=== PATIENT | male | born 1965 | race American Indian/Alaskan Native ===

== ENCOUNTER 2017-11-10 08:45 | Inpatient (IN) | payer MEDICAID ==
[2017-11-10 09:50] LABS: Basophils # (Auto) 0.1 K/mm3 (0.0-0.1); Eosinophils # (Auto) 0.3 K/mm3 (0.0-0.4); Eosinophils % (Auto) 4.6 % (0.0-4.3); Hematocrit 40.9 % (35.5-45.6); Hemoglobin 13.6 gm/dl (11.8-15.2); Lymphocytes # (Auto) 2.6 K/mm3 (1.2-5.4); Lymphocytes % (Auto) 42.5 % (13.4-35.0); Mean Corpuscular HGB Conc 33 % (32-34); Mean Corpuscular Hemoglobin 32 pg (28-32); Mean Corpuscular Volume 96 fl (84-94); Monocytes # (Auto) 0.3 K/mm3 (0.0-0.8); Monocytes % (Auto) 4.4 % (0.0-7.3); Platelet Count 311 K/mm3 (140-440); Red Blood Count 4.26 M/mm3 (3.65-5.03); Red Cell Distribution Width 13.6 % (13.2-15.2)
[2017-11-10 10:02] LABS: BUN/Creatinine Ratio 12; Blood Urea Nitrogen 12 mg/dL (9-20); Calcium 8.2 mg/dL (8.4-10.2); Hemolysis Index 8
[2017-11-10 10:06] LABS: INR 0.98 (0.87-1.13); Partial Thromboplastin Time 28.5 Sec. (24.2-36.6)
--- NOTE | 2017-11-10 10:51 | Cat Scan Report ---
CT HEAD WITHOUT CONTRAST: HISTORY: Neurological deficit. TECHNIQUE: Sequential 2.5mm CT images. COMPARISON: 05/17/[address] head. FINDINGS: 9 mm chronic lacunar infarct is noted in the right sherry on image 17. 10 mm chronic focal infarct in the left middle cerebellar peduncle on image 17. There are minimal nonspecific chronic white matter changes in the frontal lobes. Incidental bilateral basal ganglia calcifications are identified. No evidence for hemorrhage, mass or large area of acute ischemia on noncontrast CT. The irvin-white interface is well defined. Normal ventricular size. No extra-axial fluid collection. The calvarium and visualized sinuses/mastoid air cells are within normal limits. IMPRESSION: Chronic focal infarcts in the posterior fossa as described. No acute intracranial process is identified.
--- NOTE | 2017-11-10 11:50 | Emergency Department Report ---
ED Neuro Deficit HPI - General Chief Complaint: Neuro Symptoms/Deficit Stated Complaint: STROKE ISSUES Time Seen by Provider: 11/10/17 11:23 Source: patient Mode of arrival: Ambulatory Limitations: No Limitations - History of Present Illness Initial Comments: Patient is 52 years old male history of hypertension diabetes and hyperlipidemia presented with 9 hours history of difficulty speaking and both upper and lower extremity weakness, patient stated that he has been having double vision and difficulty walking straight. Patient denied any focal neurological weakness or numbness. No urinary or bladder incontinence. -: This morning Location: speech Presenting Symptoms: Present: Weak/Paralyzed One Side, Blurred/Loss of Vision, Unable to Speak Clearly History of same: No Place: home Severity: moderate On Anticoagulants: No Associated Symptoms: denies other symptoms, vertigo, weakness. denies: confusion, chest pain, cough, diaphoresis, fever/chills, headaches, loss of appetite, malise, nausea/vomiting, seizures, shortness of breath, syncope - Related Data Home Medications: Home Medications Medication Instructions Recorded Confirmed Last Taken Aspirin [Aspirin TAB] 325 mg PO QDAY 11/10/17 11/10/17 Unknown Allergies/Adverse Reactions: Allergies Allergy/AdvReac Type Severity Reaction Status Date / Time No Known Allergies Allergy Unverified 09/03/16 21:34 ED Review of Systems ROS: Stated complaint: STROKE ISSUES Other details as noted in HPI Comment: All other systems reviewed and negative Constitutional: denies: chills, fever Respiratory: denies: cough, orthopnea, shortness of breath, SOB with exertion Cardiovascular: denies: chest pain, palpitations, dyspnea on exertion, orthopnea , edema, syncope, paroxysmal nocturnal dyspnea Gastrointestinal: denies: abdominal pain, nausea, vomiting, diarrhea Genitourinary: denies: urgency, dysuria, frequency, hematuria Neurological: weakness, numbness, paresthesias, vertigo, other (double vision, and unsteady gait). denies: headache, confusion ED Past Medical Hx - Past Medical History Hx Hypertension: Yes Hx Diabetes: Yes - Surgical History Additional Surgical History: RIGHT LEG SURGERY FROM [facility] - Social History Smoking Status: Current Every Day Smoker Substance Use Type: None - Medications Home Medications: Home Medications Medication Instructions Recorded Confirmed Last Taken Type Aspirin [Aspirin TAB] 325 mg PO QDAY 11/10/17 11/10/17 Unknown History ED Neuro Physical Exam - General Limitations: No Limitations General appearance: alert, in no apparent distress Suspected Stroke: Yes - Head Head exam: Present: atraumatic, normocephalic, normal inspection - Eye Eye exam: Present: normal appearance, PERRL - ENT ENT exam: Present: normal exam, normal orophraynx, mucous membranes moist - Neck Neck exam: Present: normal inspection, full ROM. Absent: tenderness, meningismus, lymphadenopathy, thyromegaly - Respiratory Respiratory exam: Present: normal lung sounds bilaterally. Absent: respiratory distress, wheezes, rales, rhonchi, stridor, chest wall tenderness, accessory muscle use, decreased breath sounds, prolonged expiratory - Cardiovascular Cardiovascular Exam: Present: regular rate, normal rhythm, normal heart sounds - GI/Abdominal GI/Abdominal exam: Present: soft, normal bowel sounds. Absent: distended, tenderness, guarding, rebound, rigid, organomegaly, mass, bruit, pulsatile mass - Extremities Exam Extremities exam: Present: normal inspection, full ROM, normal capillary refill - Back Exam Back exam: Present: normal inspection, full ROM. Absent: tenderness, CVA tenderness (R), CVA tenderness (L), muscle spasm, paraspinal tenderness, vertebral tenderness - Neurological Exam Neurological exam: Present: alert, oriented X3, CN II-XII intact, abnormal gait , reflexes normal. Absent: altered, motor sensory deficit - NIHSS Assessment Interval: Baseline 1a. Level of Consciousness: alert 1b. LOC Questions: answers correctly 1c. LOC Commands: performs tasks correctly 2. Best Gaze: normal 3. Visual: no visual loss 4. Facial Palsy: normal symmetrical movement 5b. Motor Arm Right: no drift 5a. Motor Arm Left: no drift 6a. Motor Leg Left: no drift 6b. Motor Leg Right: no drift 7. Limb Ataxia: present 2 limbs 8. Sensory: mild/moderate sensory loss 9. Best Language: mild/moderate aphasia 10. Dysarthria: mild/moderate dysarthria 11. Extinction/Inattention: no abnormality Total Score: 5 Stroke Severity: Moderate Stroke - Skin Skin exam: Present: warm, intact, normal color ED Course Vital Signs 11/10/17 11/10/17 11/10/17 09:06 12:35 12:37 Temperature 97.8 F Pulse Rate 62 57 L 57 L Respiratory 20 17 Rate Blood Pressure 151/89 Blood Pressure 174/92 [Left] O2 Sat by Pulse 100 98 Oximetry 11/10/17 11/10/17 15:35 16:53 Temperature Pulse Rate 54 L 59 L Respiratory 16 16 Rate Blood Pressure Blood Pressure 126/98 156/91 [Left] O2 Sat by Pulse 100 95 Oximetry - Lab Data Result diagrams: 11/10/17 09:27 11/10/17 09:27 Lab Results 11/10/17 11/10/17 11/10/17 Range/Units 09:27 09:27 09:27 WBC 6.1 (4.5-11.0) K/mm3 RBC 4.26 (3.65-5.03) M/mm3 Hgb 13.6 (11.8-15.2) gm/dl Hct 40.9 (35.5-45.6) % MCV 96 H (84-94) fl MCH 32 (28-32) pg MCHC 33 (32-34) % RDW 13.6 (13.2-15.2) % Plt Count 311 (140-440) K/mm3 Lymph % (Auto) 42.5 H (13.4-35.0) % Atlantic % (Auto) 4.4 (0.0-7.3) % Eos % (Auto) 4.6 H (0.0-4.3) % Baso % (Auto) 1.0 (0.0-1.8) % Lymph # 2.6 (1.2-5.4) K/mm3 Atlantic # 0.3 (0.0-0.8) K/mm3 Eos # 0.3 (0.0-0.4) K/mm3 Baso # 0.1 (0.0-0.1) K/mm3 Seg Neutrophils % 47.5 (40.0-70.0) % Seg Neutrophils # 2.9 (1.8-7.7) K/mm3 PT 13.5 (12.2-14.9) Sec. INR 0.98 (0.87-1.13) APTT 28.5 (24.2-36.6) Sec. Thrombin Time (15.1-19.6) Sec. Sodium 140 (137-145) mmol/L Potassium 3.3 L (3.6-5.0) mmol/L Chloride 101.8 (98-107) mmol/L Carbon Dioxide 23 (22-30) mmol/L Anion Gap 19 mmol/L BUN 12 (9-20) mg/dL Creatinine 1.0 (0.8-1.5) mg/dL Estimated GFR > 60 ml/min BUN/Creatinine Ratio 12 % Glucose 132 H (75-100) mg/dL Calcium 8.2 L (8.4-10.2) mg/dL Troponin T < 0.010 (0.00-0.029) ng/mL 11/10/17 Range/Units 09:27 WBC (4.5-11.0) K/mm3 RBC (3.65-5.03) M/mm3 Hgb (11.8-15.2) gm/dl Hct (35.5-45.6) % MCV (84-94) fl MCH (28-32) pg MCHC (32-34) % RDW (13.2-15.2) % Plt Count (140-440) K/mm3 Lymph % (Auto) (13.4-35.0) % Atlantic % (Auto) (0.0-7.3) % Eos % (Auto) (0.0-4.3) % Baso % (Auto) (0.0-1.8) % Lymph # (1.2-5.4) K/mm3 [place] # (0.0-0.8) K/mm3 Eos # (0.0-0.4) K/mm3 Baso # (0.0-0.1) K/mm3 Seg Neutrophils % (40.0-70.0) % Seg Neutrophils # (1.8-7.7) K/mm3 PT (12.2-14.9) Sec. INR (0.87-1.13) APTT (24.2-36.6) Sec. Thrombin Time 15.7 (15.1-19.6) Sec. Sodium (137-145) mmol/L Potassium (3.6-5.0) mmol/L Chloride (98-107) mmol/L Carbon Dioxide (22-30) mmol/L Anion Gap mmol/L BUN (9-20) mg/dL Creatinine (0.8-1.5) mg/dL Estimated GFR ml/min BUN/Creatinine Ratio % Glucose (75-100) mg/dL Calcium (8.4-10.2) mg/dL Troponin T (0.00-0.029) ng/mL - EKG Data -: EKG Interpreted by Oh EKG shows normal: sinus rhythm Rate: normal Interpretation: no acute changes - Radiology Data Radiology results: report reviewed Referring Physician: JULIAN MCCARTHY Patient Name: JOS ZARATE Date of : 1965 Sex: Male Report Date: 2017-11-10 Report Status: Finalized Findings [address] [address] Cat Scan Report Signed Patient: JOS ZARATE MR#: [id number] : 1965 Acct:[id number] Age/Sex: 52 / M ADM Date: 11/10/17 Loc: ED Attending Dr: Ordering Physician: JULIAN MCCARTHY MD Date of Service: 11/10/17 Procedure(s): CT head/brain wo con Accession Number(s): [id number] cc: JULIAN MCCARTHY MD CT HEAD WITHOUT CONTRAST: HISTORY: Neurological deficit. TECHNIQUE: Sequential 2.5mm CT images. COMPARISON: 05/17/[address] head. FINDINGS: 9 mm chronic lacunar infarct is noted in the right sherry on image 17. 10 mm chronic focal infarct in the left middle cerebellar peduncle on image 17. There are minimal nonspecific chronic white matter changes in the frontal lobes. Incidental bilateral basal ganglia calcifications are identified. No evidence for hemorrhage, mass or large area of acute ischemia on noncontrast CT. The irvin-white interface is well defined. Normal ventricular size. No extra-axial fluid collection. The calvarium and visualized sinuses/mastoid air cells are within normal limits. IMPRESSION: Chronic focal infarcts in the posterior fossa as described. No acute intracranial process is identified. Transcribed By: TTR Dictated By: AMADEO MCFARLAND JR, MD Electronically Authenticated By: AMADEO MCFARLAND JR, MD Signed Date/Time: 11/10/17 1045 DD/ 1042 TD/TT: 11/10/17 1045 - Medical Decision Making Discussed with Dr. Bass, I presented the patient to him, he agreed to admit to his service. - Thrombolytic Inclusion/Exclusion Thrombolytic Exclusion Criteria: Onset of Symptoms Unknown Critical care attestation.: If time is entered above; I have spent that time in minutes in the direct care of this critically ill patient, excluding procedure time. ED Disposition Clinical Impression: Cerebrovascular accident Disposition: DC-09 OP ADMIT IP TO THIS HOSP Is pt being admited?: Yes Condition: Stable
[2017-11-10] MEDS ORDERED: BABY ASPIRIN PO ONE (11:55)
[2017-11-10] MEDS: PERCOCET 5/325 PO PRN ×2 (14:15→21:43)
--- NOTE | 2017-11-10 23:50 | Event Note ---
Date: 11/10/17 See dictated H/p in reports TIA versus stroke HTN T2DM HLD Nicotine dependence
[2017-11-11] MEDS ORDERED: AMBIEN PO PRN (02:34)
[2017-11-11] MEDS ORDERED: TYLENOL PO PRN (02:34)
[2017-11-11] MEDS ORDERED: ZOFRAN IV PRN (02:34)
[2017-11-11] MEDS ORDERED: DULCOLAX PR PRN (02:34)
[2017-11-11] MEDS ORDERED: MILK OF MAGNESIA PO PRN (02:34)
[2017-11-11] MEDS ORDERED: DILAUDID IV PRN (02:34)
[2017-11-11] MEDS ORDERED: SODIUM CHLORIDE FLUSH SYRINGE 10 ML IV PRN (02:36)
[2017-11-11] MEDS ORDERED: NACL 0.9% 1000 ML 1,000 ML IV SCH (03:00)
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
[2017-11-11] MEDS: NOVOLOG SUB-Q SCH ×4 (08:00→21:47)
--- NOTE | 2017-11-11 10:08 | Magnetic Resonance Report ---
MRI scan of brain: Technique: Multiplanar lumbar testicles images were obtained without contrast injection. History: Stroke. Findings: 1 cm diameter circumscribed focal area of restricted diffusion in the left basal ganglia with smaller 2 mm focal area of restricted diffusion in the adjacent region. No evidence of acute hemorrhage. Periventricular area of hyperintensity without corresponding restricted diffusion. No extra-axial fluid collection. Normal brainstem and cerebellum. Impression: Focal areas of acute ischemia left basal ganglia. Small vessel his kidney changes.
--- NOTE | 2017-11-11 10:10 | Magnetic Resonance Report ---
MRA of brain: History: Stroke. Findings: The vessels of tetlin of Goldberg are widely patent. No stenosis occlusion dissection or aneurysm. Codominant vertebral arteries with normal basilar artery. Hypoplastic posterior communicating arteries. Impression: Essentially negative MRA of brain.
[2017-11-11] MEDS: ASPIRIN PO SCH (11:38)
[2017-11-11] MEDS: COZAAR PO SCH (11:38)
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
[2017-11-11 15:43] LABS: Free T4 (Free Thyroxine) 1.14 ng/dL (0.76-1.46)
[2017-11-11] MEDS ORDERED: HABITROL TD SCH (16:00)
--- NOTE | 2017-11-11 17:29 | Progress Note ---
Assessment and Plan Assessment and plan: Patient is a 52-year-old man with history of hypertension, diabetes mellitus2, dyslipidemia and tobacco dependency who presents with difficulty speech, impaired ambulation and double vision CT head without contrast reported as chronic ischemic infarct posterior fossa, no acute finding MRI brain reported as Focal areas of acute ischemia left basal ganglia. Small vessel ischemic changes. MRA brain read as "Essentially negative MRA of brain" Transthoracic echocardiogram reported as no ventricular chamber size is normal, mobile left ventricular wall motion and contractility are within normal limits, estimated ejection fraction is 60-65%, right atrium is mildly dilated, no atrial septal defect demonstrated by agitated saline contrast, mild TR -Acute ischemic stroke: Treat with aspirin and statins, await PT/OT evaluation, neurology is following -Hypertension urgency related to stroke: premissive within limits, prn IV Hydralazine -Tobacco dependency: Counseled on stopping, order nicotine patch -Uncontrolled type 2 diabetes mellitus: Sliding scale, ADA diet and counseled -Hypokalemia: Replace and recheck in a.m. -DVT prophylaxis: Subcutaneous Lovenox -GI prophylaxis: PPI Full code History Interval history: Patient was seen and examined. Follow-up on current diagnosis of difficulty walking. Overnight uneventful. Patient denies any chest pain, shortness breath , nausea/vomiting or severe headaches. Imaging, nursing note, chart, labs and old chart reviewed. Discussed with patient. Patient went outside to smoke a cigarette, education and counseling done Hospitalist Physical - Physical exam Narrative exam: GEN: WDWN, NAD, AWAKE, ALERT, ORIENTATED 3 HEENT: NCAT, EOMI, PERRL, OP Clear NECK: supple, no adenopathy, no thyromegaly, no JVD CVS/HEART: RRR, NORMAL S1S2, NO JVD, pulses present bilaterally CHEST/LUNGS: CTA B, Symmetrical chest expansion, good air entry bilaterally GI/Abdomen: soft, NTND, good bowel sounds, no guarding or rebound /Bladder: no suprapubic tenderness, no CVA or paraspinal tenderness EXT/Skin: no c/c/e, no obvious rash Neuro: CN 2-12 grossly intact, unsteady gait: I educated patient on the safety and always calling before he gets up, he needs to be assisted walking, patient voiced understanding and agreement. Psych: calm - Constitutional Vitals: Temp Pulse Resp BP Pulse Ox 97.8 F 57 L 20 173/91 98 11/11/17 08:28 11/11/17 11:49 11/11/17 08:28 11/11/17 11:49 11/11/17 11:49 Results - Labs CBC & Chem 7: 11/10/17 09:27 11/10/17 09:27 Labs: Laboratory Last Values WBC 6.1 K/mm3 (4.5-11.0) 11/10/17 09: RBC 4.26 M/mm3 (3.65-5.03) 11/10/17 09: Hgb 13.6 gm/dl (11.8-15.2) 11/10/17: Hct 40.9 % (35.5-45.6) 11/10/17: MCV 96 fl (84-94) H 11/10/17 09: MCH 32 pg (28-32) 11/10/17: MCHC 33 % (32-34) 11/10/17: RDW 13.6 % (13.2-15.2) 11/10/17: Plt Count 311 K/mm3 (140-440) 11/10/17 09: Lymph % (Auto) 42.5 % (13.4-35.0) H 11/10/17: [place] % (Auto) 4.4 % (0.0-7.3) 11/10/17: Eos % (Auto) 4.6 % (0.0-4.3) H 11/10/17: Baso % (Auto) 1.0 % (0.0-1.8) 11/10/17: Lymph # 2.6 K/mm3 (1.2-5.4) 11/10/17: [place] # 0.3 K/mm3 (0.0-0.8) 11/10/17: Eos # 0.3 K/mm3 (0.0-0.4) 11/10/17 09: Baso # 0.1 K/mm3 (0.0-0.1) 11/10/17: Seg Neutrophils % 47.5 % (40.0-70.0) 11/10/17:27 Seg Neutrophils # 2.9 K/mm3 (1.8-7.7) 11/10/17 09:27 PT 13.5 Sec. (12.2-14.9) 11/10/17 09:27 INR 0.98 (0.87-1.13) 11/10/17 09: APTT 28.5 Sec. (24.2-36.6) 11/10/17 09: Thrombin Time 15.7 Sec. (15.1-19.6) 11/10/17 09:27 Sodium 140 mmol/L (137-145) 11/10/17 09: Potassium 3.3 mmol/L (3.6-5.0) L 11/10/17 09: Chloride 101.8 mmol/L (98-107) 11/10/17 09: Carbon Dioxide 23 mmol/L (22-30) 11/10/17 09: Anion Gap 19 mmol/L 11/10/17 09: BUN 12 mg/dL (9-20) 11/10/17 09: Creatinine 1.0 mg/dL (0.8-1.5) 11/10/17 09: Estimated GFR > 60 ml/min 11/10/17 09: BUN/Creatinine Ratio 12 % 11/10/17 09: Glucose 132 mg/dL (75-100) H 11/10/17 09:27 POC Glucose 210 (70-105) H 11/11/17 16:32 Calcium 8.2 mg/dL (8.4-10.2) L 11/10/17 09:27 Troponin T < 0.010 ng/mL (0.00-0.029) 11/10/17 09:27 Vitamin B12 741.5 pg/mL (211-911) 11/11/17 14:48 TSH 1.290 mlU/mL (0.270-4.200) 11/11/17 14:48 Free T4 1.14 ng/dL (0.76-1.46) 11/11/17 14:48
[2017-11-11] MEDS: PERCOCET 5/325 PO PRN (17:31)
[2017-11-11] MEDS ORDERED: APRESOLINE IV PRN (17:34)
[2017-11-11] MEDS: MORPHINE IV PRN (19:56)
[2017-11-11] MEDS ORDERED: LOVENOX SUB-Q SCH (22:00)
[2017-11-12 06:38] LABS: Basophils # (Auto) 0.1 K/mm3 (0.0-0.1); Basophils % (Auto) 1.4 % (0.0-1.8); Eosinophils # (Auto) 0.3 K/mm3 (0.0-0.4); Eosinophils % (Auto) 4.6 % (0.0-4.3); Hematocrit 38.7 % (35.5-45.6); Hemoglobin 12.9 gm/dl (11.8-15.2); Lymphocytes # (Auto) 3.2 K/mm3 (1.2-5.4); Lymphocytes % (Auto) 49.6 % (13.4-35.0); Mean Corpuscular HGB Conc 33 % (32-34); Mean Corpuscular Hemoglobin 32 pg (28-32); Mean Corpuscular Volume 95 fl (84-94); Monocytes # (Auto) 0.4 K/mm3 (0.0-0.8); Monocytes % (Auto) 6.1 % (0.0-7.3); Platelet Count 294 K/mm3 (140-440); Red Blood Count 4.08 M/mm3 (3.65-5.03); Red Cell Distribution Width 13.4 % (13.2-15.2)
[2017-11-12 07:00] LABS: Alanine Aminotransferase 8 units/L (7-56); Albumin 3.3 g/dL (3.9-5); BUN/Creatinine Ratio 12; Blood Urea Nitrogen 11 mg/dL (9-20); Calcium 8.1 mg/dL (8.4-10.2); Hemolysis Index 14
[2017-11-12 07:25] LABS: HDL Cholesterol 30 mg/dL (40-59); LDL Cholesterol,Direct 94 mg/dL (50-130)
[2017-11-12] MEDS: NOVOLOG SUB-Q SCH (08:20)
[2017-11-12 08:47] VITALS: BP 147/82
[2017-11-12] MEDS: ASPIRIN PO SCH (09:16)
[2017-11-12] MEDS: COZAAR PO SCH (09:16)
[2017-11-12] MEDS ORDERED: PROTONIX PO SCH (10:00)
[2017-11-12] MEDS: MORPHINE IV PRN (10:17)
[2017-11-12] MEDS ORDERED: BABY ASPIRIN PO SCH (11:00)
[2017-11-12] MEDS ORDERED: PLAVIX PO SCH (11:00)
--- NOTE | 2017-11-12 11:40 | Discharge Summary ---
Providers - Providers Date of Admission: 11/10/17 12:03 Attending physician: ELIEL SALCIDO MD 11/11/17 02:34 Consult to Physician [CONS] Routine Consulting Provider: KAM VILLASENOR Reason For Exam: CVA Place consult to:: neuro Notified:: y Comment:: added to list 11/11/17 02:37 Occupational Therapy Evaluate and Treat [CONS] Routine Comment: Reason For Exam: Neuro deficits Physical Therapy Evaluation and Treat [CONS] Routine Comment: Reason For Exam: Neuro deficits 11/11/17 12:16 Consult to Case Management [CONS] Routine Services Needed at Discharge: Other Notified:: GAS PROVER Additional Physician Instructions: Patient requests help from social service for financial assistance. Primary care physician: GEOFFREY JIMÉNEZ Hospitalization Condition: Stable Hospital course: Patient is a 52-year-old man with history of hypertension, diabetes mellitus2, dyslipidemia and tobacco dependency who presents with difficulty speech, impaired ambulation and double vision CT head without contrast reported as chronic ischemic infarct posterior fossa, no acute finding MRI brain reported as Focal areas of acute ischemia left basal ganglia. Small vessel ischemic changes. MRA brain read as "Essentially negative MRA of brain" Transthoracic echocardiogram reported as no ventricular chamber size is normal, mobile left ventricular wall motion and contractility are within normal limits, estimated ejection fraction is 60-65%, right atrium is mildly dilated, no atrial septal defect demonstrated by agitated saline contrast, mild TR -Acute ischemic stroke: Treat with aspirin and statins, await PT/OT evaluation, neurology is following -Hypertension urgency related to stroke: premissive within limits, prn IV Hydralazine -Tobacco dependency: Counseled on stopping, order nicotine patch -Uncontrolled type 2 diabetes mellitus: Sliding scale, ADA diet and counseled -Hypokalemia: Replace and recheck in a.m. -DVT prophylaxis: Subcutaneous Lovenox -GI prophylaxis: PPI Full code per patient symptoms started 2weeks ago and not 9 hours as he stated. he knew it could be stroke based on google and started on full dose ASA. Will continue on this as he has not failed asa. will add BP control and Cholestrol control. Recommend outpatient PCP advised about secondary prevention Smoking cessation. Disposition: DC-30 STILL A PATIENT Core Measure Documentation - Palliative Care Palliative Care/ Comfort Measures: Not Applicable - Core Measures Any of the following diagnoses?: stroke - VTE Discharge Requirements Deep Vein Thrombosis/Pulmonary Embolism Present on Admission: No - Stroke Discharge Requirements Statin for LDL = or >70 mg/dl on DC: Yes Anticoag for atrial fib/atrial flutter: Not Applicable Antithrombotic for ischemic stroke: Yes Exam - Constitutional Vitals: Temp Pulse Resp BP Pulse Ox 97.9 F 60 18 147/82 93 11/12/17 08:46 11/12/17 09:16 11/12/17 08:46 11/12/17 09:16 11/12/17 08:46 Plan Activity: advance as tolerated, fall precautions Diet: low fat Special Instructions: record daily weights, record daily BP diary, record blood sugar diary, smoking cessation Follow up with: GEOFFREY JIMÉNEZ JR, MD [Primary Care Provider] - 3-5 Days Prescriptions: AtorvaSTATin [Lipitor] 40 mg PO QHS #30 tablet Nicotine [Habitrol] 21 mg TD Q24H #14 patch Valsartan [Diovan] 160 mg PO QDAY #30 tablet
== END 2017-11-12 12:33 | disposition home or self-care (01) | DRG 66 ==
LOC: ED 08:45 → 4A 12:03
PROVIDERS: ADMIT Internal Medicine; ATTEND Internal Medicine
DX: I63.8 Other cerebral infarction (principal); I10 Essential (primary) hypertension; E11.9 Type 2 diabetes mellitus without complications; E78.5 Hyperlipidemia, unspecified; E87.6 Hypokalemia; F17.200 Nicotine dependence, unspecified, uncomplicated; I16.0 Hypertensive urgency; F17.210 Nicotine dependence, cigarettes, uncomplicated; Z82.49 Family history of ischemic heart disease and other diseases of the circulatory system; Z79.82 Long term (current) use of aspirin; Z71.6 Tobacco abuse counseling
CPT/HCPCS: 36415; 70450; 70544; 70551; 80048; 80053; 80061; 82607; 82652; 82962; 83036; 84439; 84443; 84484; 85025; 85610; 85670; 85730; 93005; 93010; 93306; 93880; 99406; A9270-GY; J1650; J1815; J2270

== ENCOUNTER 2018-05-02 21:22 | Inpatient (IN) | payer MEDICAID ==
--- NOTE | 2018-05-02 22:40 | Cat Scan Report ---
FINAL REPORT PROCEDURE: CT HEAD/BRAIN WO CON TECHNIQUE: Computerized tomography of the head was performed without contrast material. HISTORY: neuro deficits < 6hrs or sx present upon awakening COMPARISON: No prior studies are available for comparison. FINDINGS: Skull and scalp: Normal. Paranasal sinuses: Normal. Ventricles and subarachnoid spaces: Normal. Cerebrum: An irregular ill-defined hypo density is noted involving left frontal deep white matter measuring about 1.0 x 0.6 centimeters. Benign-appearing calcifications are noted involving bilateral basal ganglia.. Cerebellum and brainstem: No evidence of hemorrhage, acute infarction or mass. Vasculature: Atherosclerotic calcification is noted involving bilateral vertebral and internal carotid arteries.. Comments: None. IMPRESSION: 1.0 x 0.6 centimeter hypodense lesion involving the deep white matter of left frontal lobe most likely represents a subacute versus chronic infarct. No acute intracranial hemorrhage.
[2018-05-02 22:53] LABS: Basophils # (Auto) 0.1 K/mm3 (0.0-0.1); Basophils % (Auto) 0.7 % (0.0-1.8); Eosinophils # (Auto) 0.2 K/mm3 (0.0-0.4); Eosinophils % (Auto) 2.2 % (0.0-4.3); Hemoglobin 13.7 gm/dl (11.8-15.2); Lymphocytes # (Auto) 3.7 K/mm3 (1.2-5.4); Lymphocytes % (Auto) 36.6 % (13.4-35.0); Mean Corpuscular HGB Conc 34 % (32-34); Mean Corpuscular Hemoglobin 33 pg (28-32); Mean Corpuscular Volume 96 fl (84-94); Monocytes # (Auto) 0.5 K/mm3 (0.0-0.8); Monocytes % (Auto) 4.7 % (0.0-7.3); Platelet Count 378 K/mm3 (140-440); Red Blood Count 4.16 M/mm3 (3.65-5.03); Red Cell Distribution Width 14.4 % (13.2-15.2)
[2018-05-02 23:11] LABS: BUN/Creatinine Ratio 12; Blood Urea Nitrogen 11 mg/dL (9-20); Calcium 9.2 mg/dL (8.4-10.2); Hemolysis Index 4
[2018-05-02 23:13] LABS: INR 0.95 (0.87-1.13)
[2018-05-02 23:14] LABS: Partial Thromboplastin Time 30.5 Sec. (24.2-36.6)
[2018-05-02] MEDS ORDERED: SUBLIMAZE IV ONE (23:21)
[2018-05-02] MEDS ORDERED: BENADRYL IV ONE (23:21)
[2018-05-02] MEDS ORDERED: APRESOLINE IV ONE (23:21)
[2018-05-02] MEDS ORDERED: BABY ASPIRIN PO ONE (23:24)
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
[2018-05-03] MEDS ORDERED: APRESOLINE IV PRN (02:28)
[2018-05-03] MEDS ORDERED: ZOFRAN IV PRN (02:28)
[2018-05-03] MEDS ORDERED: DULCOLAX PR PRN (02:28)
[2018-05-03] MEDS ORDERED: SODIUM CHLORIDE FLUSH SYRINGE 10 ML IV PRN (02:28)
[2018-05-03] MEDS ORDERED: MILK OF MAGNESIA PO PRN (02:28)
--- NOTE | 2018-05-03 02:47 | History and Physical Report ---
History of Present Illness Date of examination: 05/03/18 History of present illness: 52-year-old man with history of hypertension, diabetes, CVA comes to the emergency room complaining of paresthesia of the right side that started 3 days ago. Speech became slurred yesterday Review of systems Constitutional: no weight loss, chills, fever Ears, eyes, nose, mouth and throat: no nasal congestion, no nasal discharge, no sinus pressure, no vision change, no red eye. Neck: No neck pain or rigidity. Cardiovascular: no chest pain Respiratory: no cough Gastrointestinal: no abdominal pain hematochezia Genitourinary : no frequency , no hematuria Musculoskeletal: no joint swelling or muscle ache Integumentary: no rash, no pruritis Neurological: no parathesias, no numbness, no focal weakness Endocrine: no cold or heat intolerance, no polyuria or polydipsia Hematologic/Lymphatic: no easy bruising, no easy bleeding, no gland swelling Allergic/Immunologic: no urticaria, no angioedema. PAST MEDICAL HISTORY:hypertension, diabetes, CVA PAST SURGICAL HISTORY: Right leg SOCIAL HISTORY: No drugs, tobacco, alcohol FAMILY HISTORY: Hypertension Medications and Allergies Allergies Allergy/AdvReac Type Severity Reaction Status Date / Time No Known Allergies Allergy Unverified 09/03/16 21:34 Home Medications Medication Instructions Recorded Confirmed Last Taken Type Aspirin [Aspirin TAB] 325 mg PO QDAY 11/10/17 11/10/17 Unknown History AtorvaSTATin [Lipitor] 40 mg PO QHS #30 tablet 11/12/17 Unknown Rx Nicotine [Habitrol] 21 mg TD Q24H #14 patch 11/12/17 Unknown Rx Valsartan [Diovan] 160 mg PO QDAY #30 tablet 11/12/17 Unknown Rx Active Meds: Active Medications Acetaminophen (Tylenol) 650 mg PO Q4H PRN PRN Reason: Pain, Mild (1-3) Aspirin (Aspirin) 325 mg PO QDAY [facility] Bisacodyl (Dulcolax) 10 mg MT QDAY PRN PRN Reason: Constipation Enoxaparin Sodium (Lovenox) 30 mg SUB-Q QDAY [facility] Hydralazine HCl (Apresoline) 5 mg IV Q6H PRN PRN Reason: Keep SBP between 160-185 mm Hg Magnesium Hydroxide (Milk Of Magnesia) 30 ml PO Q4H PRN PRN Reason: Constipation Ondansetron HCl (Zofran) 4 mg IV Q8H PRN PRN Reason: N/V unrelieved by Reglan Pravastatin Sodium (Pravachol) 20 mg PO QHS LIBIA Sodium Chloride (Sodium Chloride Flush Syringe 10 Ml) 10 ml INJ PRN PRN PRN Reason: LINE FLUSH Exam - Physical Exam Narrative exam: Gen. appearance: Patient lying in bed, no apparent distress HEENT: Normocephalic, atraumatic, pupils equally round and reactive to light, extraocular movement intact, and no sclericterus,. No JVD or thyromegaly or nodule,neck supple, no carotid bruit ,mucous membranes moist, no exudate or erythema Heart: S1, S2, regular rate and rhythm Lungs: Clear bilaterally, breathing comfortable Abdomen: Positive bowel sounds, non-tender, nondistended, no organomegaly Extremity:no edema cyanosis, clubbing Skin: no rash, dry, warm Neuro: Oriented 3, cranial nerves II-12 intact, speech is slurred, motor and decrease sensation on the right side - Constitutional Vitals: Temp Pulse Resp BP Pulse Ox 98.6 F 65 11 L 178/96 99 05/02/18 22:08 05/03/18 02:00 05/03/18 02:00 05/03/18 02:00 05/03/18 02:00 Results - Labs CBC & Chem 7: 05/02/18 22:24 05/02/18 22:24 Labs: Abnormal lab results 05/02/18 05/02/18 Range/Units 22:24 22:24 MCV 96 H (84-94) fl MCH 33 H (28-32) pg Lymph % (Auto) 36.6 H (13.4-35.0) % Potassium 3.5 L (3.6-5.0) mmol/L Glucose 119 H (75-100) mg/dL - Imaging and Cardiology CT Scan - head: report reviewed Assessment and Plan Assessment Acute CVA Hypertension Diabetes History of previous CVA Plan Admit to medicine Obtain MRI of the head, carotid Doppler, echo Consult neurology, physical and occupational therapy IV hydralazine as needed for blood pressure control Start Plavix, DVT prophylaxis Neurochecks, swallow screen
[2018-05-03] MEDS: HABITROL TD SCH (06:05)
[2018-05-03] MEDS: TYLENOL PO PRN ×2 (06:27→19:30)
--- NOTE | 2018-05-03 09:40 | Magnetic Resonance Report ---
MRI BRAIN WITHOUT CONTRAST: 05/03/18 02:28:00 CLINICAL: Stroke. TECHNIQUE: Axial diffusion, T1, T2, gradient echo T2*, coronal and axial FLAIR and sagittal T1 sequences on a 1.5 Jazmyne magnet. FINDINGS: The ventricles and sulci are large for age. A tiny focus of restricted diffusion in the left sherry and no other restricted diffusion. Moderate central pontine T2 hyperintense signal but no mass effect and no hemorrhage. Moderate bilateral periventricular deep white matter multifocal hyperintensities on FLAIR and T2. The most prominent is in the left centrum semi-ovale. No chronic lacunar infarcts are identified. Bilateral basal ganglia calcifications are hypointense on the gradient echo sequence. No cerebral micro-bleeds. No extra-axial collection. Normal pituitary and optic chiasm. The is normal. Intact vascular flow voids. Normal sinuses. The orbits, and soft tissues are normal. Normal calvarium and skull base. IMPRESSION: 1. An acute/subacute non-hemorrhagic left pontine lacunar infarct. 2. Moderate bilateral chronic white matter microangiopathy. 3. Global cortical atrophy. 4. Nonspecific T2 hyperintense central pontine signal. This
[2018-05-03] MEDS ORDERED: ASPIRIN PO SCH (10:00)
[2018-05-03] MEDS: PLAVIX PO SCH (11:30)
[2018-05-03] MEDS: LOVENOX SUB-Q SCH (11:30)
--- NOTE | 2018-05-03 11:32 | Event Note ---
Date: 05/03/18 Patient with acute ischemic stroke, left pontine lacunar. Continue Plavix. Neurology to evaluate.
--- NOTE | 2018-05-03 16:26 | Consultation ---
History of Present Illness Consult date: 05/03/18 Requesting physician: HARSH MAJANO Reason for Consult: ischemic stroke. History of present illness: This 52 year old right handed male presented to the ER last night because of numbness and tingling in right side of body. He noted some mild weakness as well then slurred speech. Symptoms started about 2 days prior to coming in. He also noted a spell of vomiting with these symptoms. He denies dizziness, chest pain, palpitations, diplopia, diaphoresis, headache. The patient had a similar stroke in 2017, which presented in the same way. Risk factors include smoking history, hypertension, diabetes, and hyperlipidemia. He notes that he has been taking aspirin daily Past History Past Medical History: diabetes, hypertension, stroke Social history: denies: smoking, alcohol abuse, prescription drug abuse Family history: diabetes, hypertension Medications and Allergies Allergies Allergy/AdvReac Type Severity Reaction Status Date / Time No Known Allergies Allergy Unverified 09/03/16 21:34 Home Medications Medication Instructions Recorded Confirmed Last Taken Type ALPRAZolam [Xanax TAB] 2 mg PO TID PRN 05/03/18 05/03/18 05/01/18 History Carisoprodol [Soma] 350 mg PO TID 05/03/18 05/03/18 05/01/18 History Insulin NPH/Regular [NovoLIN 70/30] 70 units SUB-Q BID 05/03/18 05/03/18 Unknown History Lisinopril [Zestril] 20 mg PO QDAY 05/03/18 05/03/18 05/01/18 History Oxycodone HCl/Acetaminophen 1 each PO Q6HR PRN 05/03/18 05/03/18 05/01/18 History [Percocet 10/325 mg] Active Meds: Active Medications Acetaminophen (Tylenol) 650 mg PO Q4H PRN PRN Reason: Pain, Mild (1-3) Last Admin: 05/03/18 06:27 Dose: 650 mg Atorvastatin Calcium (Lipitor) 40 mg PO QHS LIBIA Bisacodyl (Dulcolax) 10 mg AL QDAY PRN PRN Reason: Constipation Clopidogrel Bisulfate (Plavix) 75 mg PO DAILY [facility] Last Admin: 05/03/18 11:30 Dose: 75 mg Enoxaparin Sodium (Lovenox) 40 mg SUB-Q QDAY [facility] Last Admin: 05/03/18 11:30 Dose: 40 mg Hydralazine HCl (Apresoline) 5 mg IV Q6H PRN PRN Reason: Keep SBP between 160-185 mm Hg Magnesium Hydroxide (Milk Of Magnesia) 30 ml PO Q4H PRN PRN Reason: Constipation Nicotine (Habitrol) 21 mg TD Q24H [facility] Last Admin: 05/03/18 06:05 Dose: 21 mg Ondansetron HCl (Zofran) 4 mg IV Q8H PRN PRN Reason: N/V unrelieved by Reglan Sodium Chloride (Sodium Chloride Flush Syringe 10 Ml) 10 ml IV PRN PRN PRN Reason: LINE FLUSH Review of Systems Constitutional: no weight loss, no weight gain, no sweats, no anorexia Ears, nose, mouth and throat: no ear pain, no decreased hearing, no nasal congestion, no headache, no vertigo Cardiovascular: no chest pain, no orthopnea, no palpitations, no rapid/ irregular heart beat, no edema, no syncope, no lightheadedness, no shortness of breath Respiratory: no cough, no congestion, no wheezing Gastrointestinal: no abdominal pain, no nausea, no vomiting, no diarrhea, no constipation, no change in bowel habits Genitourinary Male: no dysuria, no flank pain, no urinary frequency, no urinary hesitancy Musculoskeletal: arm numbness/tingling, leg numbness/tingling, no neck pain Integumentary: no rash, no pruritis Neurological: weakness, parathesias, numbness, tingling, change in speech, no headaches, no confusion Physical Examination - Vital Signs Vital Signs: Vital Signs Temp Pulse Resp BP Pulse Ox 98.6 F 77 18 145/94 100 05/02/18 22:08 05/02/18 22:08 05/02/18 22:08 05/02/18 22:08 05/02/18 22:08 - Constitutional General appearance: comfortable - EENT EENT: Present: mucous membranes moist, hearing intact, vision intact - Respiratory Respiratory: Present: chest non-tender, lungs clear, normal breath sounds. Absent: no respiratory distress - Cardiovascular Cardiovascular: Present: regular rate, normal S1, normal S2 Extremities: Present: no peripheral edema bilatateraly, no clubbing, cyanosis, no inflammation, no ischemia or petechiae - Gastrointestinal Gastrointestinal: Present: soft, non-tender - Integumentary Integumentary: Present: normal - Neurologic Cranial nerve examination: PERRL, EOMI, VFF, V1/V2/V3 grossly intact, face symmetric, tongue midline, intact shoulder shrug, intact cough reflex Speech examination: other (slurred speech) Detailed motor examination: grossly full strength in, full strength in all abiel (Decreased sensation in right extremities and right torso. Getting better.) Reflex and gait examination: normal gait Cerebellar examination: dysmetria, dysdiadochokinesia - Psychiatric Psychiatric: Present: mood/affect appropriate Results - Laboratory Findings CBC and BMP: 05/02/18 22:24 05/02/18 22:24 Abnormal Lab Findings: Abnormal Labs 05/02/18 05/02/18 05/03/18 22:24 22:24 08:26 MCV 96 H MCH 33 H Lymph % (Auto) 36.6 H Potassium 3.5 L Glucose 119 H POC Glucose 135 H 05/03/18 13:22 MCV MCH Lymph % (Auto) Potassium Glucose POC Glucose 136 H Assessment and Plan 52 year old male with diagnosis of previous stroke, although not evident on current CT brain, presents with right sided numbness and tingling, which he feels may be improving. Plavix has been added to his regimen. Plan - lipid panel ordered. Continue atorvastatin, ASA and Clopidigrel. Await MRI scan
[2018-05-03] MEDS ORDERED: XANAX PO PRN (20:37)
[2018-05-03] MEDS: PERCOCET 5/325 PO PRN (20:58)
[2018-05-03] MEDS ORDERED: PRAVACHOL PO SCH (22:00)
[2018-05-04] MEDS: HABITROL TD SCH (05:20)
[2018-05-04 06:47] LABS: Chol/HDL Ratio 6.25 %
[2018-05-04] MEDS: LOVENOX SUB-Q SCH (10:32)
[2018-05-04] MEDS: PLAVIX PO SCH (10:32)
--- NOTE | 2018-05-04 12:00 | Progress Note ---
Assessment and Plan 52 year old male with history of ischemic event in 2017, presents with recurrent right sided weakness and numbness. MRI scan reveals a left pontine infarct, acute - subacute. The patient has failed aspirin alone. Echocardiogram - 50 to 55% ejection fraction. Lipid panel reveals elevated cholesterol and triglycerides. Plan - Continue ASA, Plavix, atorvastatin. Speech therapy consult. Subjective Date of service: 05/04/18 Principal diagnosis: CVA Interval history: The patient complains of being tired this morning. Not much sleep last night. He feels that the numbness has resolved in the right arm. Objective - Exam Narrative Exam: Speech slurred bunch maker hand normal. Motor - symmetric Sensory intact. Cerebellar - mild right dysmetria - Vital Sign Vital Signs - 12hr 05/04/18 05/04/18 00:08 04:47 Temperature 97.8 F 97.8 F Pulse Rate 53 L 49 L Respiratory 18 18 Rate Blood Pressure 172/79 152/77 O2 Sat by Pulse 93 96 Oximetry - Laboratory Findings CBC and BMP: 05/02/18 22:24 05/02/18 22:24 Abnormal Lab Findings: Abnormal Labs 05/02/18 05/02/18 05/03/18 22:24 22:24 08:26 MCV 96 H MCH 33 H Lymph % (Auto) 36.6 H Potassium 3.5 L Glucose 119 H POC Glucose 135 H Triglycerides LDL Cholesterol Direct HDL Cholesterol 05/03/18 05/04/18 13:22 05:08 MCV MCH Lymph % (Auto) Potassium Glucose POC Glucose 136 H Triglycerides 300 H LDL Cholesterol Direct 131 H HDL Cholesterol 31 L
[2018-05-04] MEDS: PERCOCET 5/325 PO PRN ×2 (13:20→18:27)
--- NOTE | 2018-05-04 15:13 | Progress Note ---
Hospitalist Physical - Constitutional Vitals: Temp Pulse Resp BP Pulse Ox 97.8 F 55 L 20 166/79 98 05/04/18 12:46 05/04/18 12:46 05/04/18 12:46 05/04/18 12:46 05/04/18 12:46 Results - Labs CBC & Chem 7: 05/02/18 22:24 05/02/18 22:24 Labs: Laboratory Last Values WBC 10.0 K/mm3 (4.5-11.0) 05/02/18 22:24 RBC 4.16 M/mm3 (3.65-5.03) 05/02/18 22:24 Hgb 13.7 gm/dl (11.8-15.2) 05/02/18 22:24 Hct 40.0 % (35.5-45.6) 05/02/18 22:24 MCV 96 fl (84-94) H 05/02/18 22:24 MCH 33 pg (28-32) H 05/02/18 22:24 MCHC 34 % (32-34) 05/02/18 22:24 RDW 14.4 % (13.2-15.2) 05/02/18 22:24 Plt Count 378 K/mm3 (140-440) 05/02/18 22:24 Lymph % (Auto) 36.6 % (13.4-35.0) H 05/02/18 22:24 Walsh % (Auto) 4.7 % (0.0-7.3) 05/02/18 22:24 Eos % (Auto) 2.2 % (0.0-4.3) 05/02/18 22:24 Baso % (Auto) 0.7 % (0.0-1.8) 05/02/18 22:24 Lymph # 3.7 K/mm3 (1.2-5.4) 05/02/18 22:24 Walsh # 0.5 K/mm3 (0.0-0.8) 05/02/18 22:24 Eos # 0.2 K/mm3 (0.0-0.4) 05/02/18 22:24 Baso # 0.1 K/mm3 (0.0-0.1) 05/02/18 22:24 Seg Neutrophils % 55.8 % (40.0-70.0) 05/02/18 22:24 Seg Neutrophils # 5.6 K/mm3 (1.8-7.7) 05/02/18 22:24 PT 13.1 Sec. (12.2-14.9) 05/02/18 22:24 INR 0.95 (0.87-1.13) 05/02/18 22:24 APTT 30.5 Sec. (24.2-36.6) 05/02/18 22:24 Thrombin Time 17.2 Sec. (15.1-19.6) 05/02/18 22:24 Sodium 144 mmol/L (137-145) 05/02/18 22:24 Potassium 3.5 mmol/L (3.6-5.0) L 05/02/18 22:24 Chloride 101.5 mmol/L (98-107) 05/02/18 22:24 Carbon Dioxide 28 mmol/L (22-30) 05/02/18 22:24 Anion Gap 18 mmol/L 05/02/18 22:24 BUN 11 mg/dL (9-20) 05/02/18 22:24 Creatinine 0.9 mg/dL (0.8-1.5) 05/02/18 22:24 Estimated GFR > 60 ml/min 05/02/18 22:24 BUN/Creatinine Ratio 12 % 05/02/18 22:24 Glucose 119 mg/dL (75-100) H 05/02/18 22:24 POC Glucose 136 (70-105) H 05/03/18 13:22 Calcium 9.2 mg/dL (8.4-10.2) 05/02/18 22:24 Troponin T < 0.010 ng/mL (0.00-0.029) 05/02/18 22:24 Triglycerides 300 mg/dL (2-149) H 05/04/18 05:08 Cholesterol 194 mg/dL (50-199) 05/04/18 05:08 LDL Cholesterol Direct 131 mg/dL (50-130) H 05/04/18 05:08 HDL Cholesterol 31 mg/dL (40-59) L 05/04/18 05:08 Cholesterol/HDL Ratio 6.25 % 05/04/18 05:08
[2018-05-05] MEDS: PERCOCET 5/325 PO PRN (04:16)
[2018-05-05] MEDS: HABITROL TD SCH (06:45)
[2018-05-05 08:19] VITALS: BP 146/72
--- NOTE | 2018-05-05 08:58 | Discharge Summary ---
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 Slurred speech. Primary care physician: NEELA BAILON MD Hospitalization Condition: Fair Disposition: DC-01 TO HOME OR SELFCARE Core Measure Documentation - Palliative Care Palliative Care/ Comfort Measures: Not Applicable - Core Measures Any of the following diagnoses?: stroke - Stroke Discharge Requirements Statin for LDL = or >70 mg/dl on DC: Yes Anticoag for atrial fib/atrial flutter: Not Applicable Antithrombotic for ischemic stroke: Yes Exam - Constitutional Vitals: Temp Pulse Resp BP Pulse Ox 97.5 F L 52 L 20 146/72 97 05/05/18 07:30 05/05/18 07:30 05/05/18 08:50 05/05/18 07:30 05/05/18 08:50 Plan Activity: advance as tolerated Diet: low fat, low cholesterol, low salt Additional Instructions: 1.Follow up with PCP or [facility] in 1 week. 2.Outpatient speech therapy Follow up with: PRIMARY CARE, [Primary Care Provider] - 3-5 Days Prescriptions: AtorvaSTATin [Lipitor] 40 mg PO QHS #40 tablet Clopidogrel [Plavix] 75 mg PO DAILY #30 tablet
[2018-05-05] MEDS: LOVENOX SUB-Q SCH (11:19)
[2018-05-05] MEDS: PLAVIX PO SCH (11:19)
== END 2018-05-05 13:45 | disposition home or self-care (01) | DRG 65 ==
LOC: ED 21:22 → 4A 05-03 02:28
PROVIDERS: ADMIT Internal Medicine; ATTEND Internal Medicine
DX: I63.9 Cerebral infarction, unspecified (principal); G81.91 Hemiplegia, unspecified affecting right dominant side; I16.0 Hypertensive urgency; E11.9 Type 2 diabetes mellitus without complications; Z82.49 Family history of ischemic heart disease and other diseases of the circulatory system; Z79.82 Long term (current) use of aspirin; Z86.73 Personal history of transient ischemic attack (TIA), and cerebral infarction without residual deficits; Z83.3 Family history of diabetes mellitus
CPT/HCPCS: 36415; 70450; 70551; 80048; 80061; 82962; 84484; 85025; 85610; 85670; 85730; 93005; 93010; 93306; 93880; A9270-GY; J0360; J1650; J1815; J3010

== ENCOUNTER 2018-07-11 20:15 | Inpatient (IN) | payer MEDICAID ==
[2018-07-11 20:53] LABS: Basophils # (Auto) 0.1 K/mm3 (0.0-0.1); Basophils % (Auto) 1.1 % (0.0-1.8); Eosinophils # (Auto) 0.2 K/mm3 (0.0-0.4); Eosinophils % (Auto) 3.5 % (0.0-4.3); Hematocrit 40.7 % (35.5-45.6); Hemoglobin 13.8 gm/dl (11.8-15.2); Lymphocytes # (Auto) 3.4 K/mm3 (1.2-5.4); Lymphocytes % (Auto) 53.5 % (13.4-35.0); Mean Corpuscular HGB Conc 34 % (32-34); Mean Corpuscular Hemoglobin 33 pg (28-32); Mean Corpuscular Volume 96 fl (84-94); Monocytes # (Auto) 0.3 K/mm3 (0.0-0.8); Monocytes % (Auto) 4.3 % (0.0-7.3); Platelet Count 353 K/mm3 (140-440); Red Blood Count 4.24 M/mm3 (3.65-5.03); Red Cell Distribution Width 13.7 % (13.2-15.2)
[2018-07-11 21:05] LABS: INR 0.98 (0.87-1.13)
[2018-07-11 21:06] LABS: Partial Thromboplastin Time 28.8 Sec. (24.2-36.6); Thrombin Time 17.2 Sec. (15.1-19.6)
[2018-07-11 21:42] LABS: BUN/Creatinine Ratio 12; Blood Urea Nitrogen 12 mg/dL (9-20); Hemolysis Index 3
--- NOTE | 2018-07-11 22:03 | Cat Scan Report ---
FINAL REPORT PROCEDURE: CT HEAD/BRAIN WO CON TECHNIQUE: Computerized tomography of the head was performed without contrast material. HISTORY: neuro deficits < 6hrs or sx present upon awakening COMPARISON: 05/02/2018 FINDINGS: Skull and scalp: Normal. Paranasal sinuses: Normal. Ventricles and subarachnoid spaces: Are prominent consistent with cerebral atrophy appropriate for patient's age.. Cerebrum: Old lacunar infarcts are noted involving bilateral basal ganglia. A 0.9 centimeter ill-defined hypodense lesion is noted involving right basal ganglia which is new since the prior study. Nonspecific irregular hypodense lesions are noted in bilateral frontal lobes which are not significantly changed since the prior study. Benign-appearing bilateral basal ganglionic calcifications are noted. An acute intra-axial or extra-axial hemorrhage or mass effect is not identified.. Cerebellum and brainstem: No evidence of hemorrhage, acute infarction or mass. Vasculature: Atherosclerotic calcification is noted involving bilateral vertebral and internal carotid arteries.. Comments: None. IMPRESSION: Normal Examination 0.9 centimeter ill-defined hypodense lesion of right basal ganglia is new since the prior study and a may represent a subacute infarct. Old lacunar infarcts bilateral basal ganglia and sherry. Irregular hypodense lesions of bilateral frontal lobes are noted which are not significantly changed since the prior study and may represent old infarcts. Differential diagnosis includes other etiologies such as a demyelinating process. MRI may be recommended for further evaluation.
[2018-07-11] MEDS ORDERED: BABY ASPIRIN PO ONE (22:09)
[2018-07-11] MEDS ORDERED: NORCO 5/325 PO ONE (22:10)
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
[2018-07-11] MEDS ORDERED: NORMODYNE IV ONE (23:44)
[2018-07-12] MEDS ORDERED: ZOFRAN IV PRN (00:29)
[2018-07-12] MEDS ORDERED: XANAX PO PRN (00:32)
[2018-07-12] MEDS: ROXICODONE PO PRN ×2 (01:49→12:30)
[2018-07-12] MEDS: PERCOCET 5/325 PO PRN ×3 (01:50→19:51)
[2018-07-12] MEDS ORDERED: D50W (25GM) Syringe IV PRN (04:46)
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
[2018-07-12] MEDS: HumaLOG SUB-Q SCH ×3 (06:57→17:12)
[2018-07-12] MEDS: SOMA PO SCH ×3 (08:00→22:29)
[2018-07-12] MEDS ORDERED: ASPIRIN PO SCH (10:00)
[2018-07-12] MEDS: ZESTRIL PO SCH (12:30)
--- NOTE | 2018-07-12 12:50 | Magnetic Resonance Report ---
MRI BRAIN WITHOUT CONTRAST: 07/12/18 00:20:00 CLINICAL: Stroke. TECHNIQUE: Axial diffusion, T1, T2, gradient echo T2*, coronal and axial FLAIR and sagittal T1 sequences on a 1.5 Jazmyne magnet. FINDINGS: The frontal and temporal lobe sulci and ventricles are slightly large for age. Focal restricted diffusion of the inferior right frontal lobe white matter measures approximately 15 x 8 mm. A second tiny focus of restricted diffusion of the right jaramillo radiata and a third tiny focus of restricted diffusion of the left frontal lobe periventricular white matter. Moderate bilateral periventricular white matter hyperintensities on FLAIR and T2. No evidence of hemorrhage and no chronic micro-bleeds on the gradient echo sequence. No mass or mass effect. No edema or extra-axial collection. Normal pituitary and optic chiasm. Moderate central T2 hyperintensity of the sherry and a small chronic left pontine lacunar infarct. The cerebellum is normal. Intact vascular flow voids. Normal sinuses. The orbits, and soft tissues are normal. Normal calvarium and skull base. IMPRESSION: 1. Acute/subacute nonhemorrhagic infarcts of bilateral frontal lobe white matter and the right jaramillo radiata. 2. Frontotemporal cortical atrophy and moderate chronic white matter microangiopathy. 3. A chronic left pontine lacunar infarct. 4. Nonspecific central pontine T2 hyperintensity.
--- NOTE | 2018-07-12 14:30 | Cat Scan Report ---
CTA HEAD INDICATION: Stroke like symptoms. COMPARISON: Head CT from yesterday. FINDINGS: CTA of the brain performed following IV contrast. Multiplanar reconstructions, including post processing angiographic reformations obtained. Patent, normal vertebrobasilar system. Patent afognak of Goldberg as well. No hemodynamically significant stenosis or aneurysm identified. Grossly age-appropriate ventricles and sulci with benign bilateral basal ganglia calcifications and few periventricular and white matter hypodensities again noted as measuring 0.7 cm in the left jaramillo radiata, axial series 2, image 40. Slight rightward nasal septal bowing. Clear imaged paranasal sinuses and mastoid air cells. Mandibular radiopaque dental material anteriorly. Remainder jaw appears edentulous. Multilevel cervical spondylosis. CONCLUSION: Normal CTA of the head with few other findings, as described. Thank you for the opportunity to participate in this patient's care.
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
--- NOTE | 2018-07-12 15:06 | Event Note ---
Date: 07/12/18 Patient was admitted this morning after he was presented with right-sided weakness and slurred speech, patient was out of TPA window period. Continue management per H&P.
[2018-07-12 16:39] LABS: Chol/HDL Ratio 3.97 %
[2018-07-12] MEDS ORDERED: RESTORIL PO ONE (22:03)
[2018-07-13] MEDS: HumaLOG SUB-Q SCH ×2 (00:39→06:21)
[2018-07-13 06:25] LABS: BUN/Creatinine Ratio 10; Blood Urea Nitrogen 11 mg/dL (9-20); Calcium 8.6 mg/dL (8.4-10.2); Hemolysis Index 1
[2018-07-13] MEDS: SOMA PO SCH ×2 (08:24→17:22)
[2018-07-13] MEDS ORDERED: K-DUR PO NR (09:30)
[2018-07-13] MEDS ORDERED: PLAVIX PO SCH (10:00)
[2018-07-13] MEDS: ZESTRIL PO SCH (10:40)
[2018-07-13] MEDS: PERCOCET 5/325 PO PRN ×2 (10:40→17:20)
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
[2018-07-13] MEDS ORDERED: APRESOLINE IV ONE (17:08)
[2018-07-13] MEDS ORDERED: CATAPRES PO ONE (17:09)
[2018-07-13 17:22] VITALS: BP 203/110
--- NOTE | 2018-07-14 04:59 | Physician Progress Note ---
SUBJECTIVE: This patient was seen by me yesterday because of numbness in the right side of the body and also feeling off balance with blurry vision. My impression was that he probably has multiple strokes and even in the brainstem. He did have an MRI yesterday, which showed acute/subacute nonhemorrhagic infarct of bilateral frontal lobe white matter and right jaramillo radiata. He also has some atrophy, chronic left pontine lacunar infarct and nonspecific central pontine hyperintensity. This could be the source of this problem. PHYSICAL EXAMINATION: VITAL SIGNS: Stable. GENERAL: The patient states he is better. He is stronger on the right side. ____ almost 5/5. IMPRESSION: Multiple cerebrovascular accidents. Probably secondary to several risk factors. The patient is being discharged home to be followed by his primary care physician. He is taking clopidogrel, atorvastatin. CONDITION ON DISCHARGE: Improved. JOB# [id number] DUYEN/TRENT
== END 2018-07-13 19:21 | disposition home health service (06) | DRG 65 ==
LOC: ED 20:15 → 4A 07-12 00:20
PROVIDERS: ADMIT Internal Medicine; ATTEND Internal Medicine
DX: I63.9 Cerebral infarction, unspecified (principal); G81.91 Hemiplegia, unspecified affecting right dominant side; I16.0 Hypertensive urgency; E11.9 Type 2 diabetes mellitus without complications; F17.210 Nicotine dependence, cigarettes, uncomplicated; R27.0 Ataxia, unspecified; R29.701 NIHSS score 1; Z79.84 Long term (current) use of oral hypoglycemic drugs
CPT/HCPCS: 36415; 70450; 70496; 70551; 80048; 80061; 82962; 84484; 85025; 85610; 85670; 85730; 93005; 93010; 93308; 93321; 93325; 93880; 96374; A9270-GY; J0360; Q9967

== ENCOUNTER 2019-01-15 19:42 | Inpatient (IN) | payer MEDICAID ==
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
--- NOTE | 2019-01-15 20:36 | Cat Scan Report ---
PROCEDURE: CT HEAD/BRAIN WO CON TECHNIQUE: CT images of the head were performed without the use of IV contrast HISTORY: Stroke symptoms COMPARISONS: 07/11/2018 FINDINGS: Bilateral senescent basal ganglia calcifications are present. There are low attenuation chronic appea ring focal lacunar infarcts in the bilateral thalami. There is patchy bilateral white matter low atte nuation, compatible with chronic microvascular ischemic changes. There is no CT evidence of intracranial mass, hemorrhage, acute territorial infarction, or hydrocepha yanni. The intracranial arteries are symmetric in density. Calvarium is intact. Visualized paranasal si nuses and mastoids are aerated. IMPRESSION: No CT evidence of acute intracranial abnormality. This document is electronically signed by Matilde Calabrese MD., January 15 2019 08:35:16 PM ET
[2019-01-15 21:00] LABS: Basophils % (Auto) 0.3 % (0.0-1.8); Eosinophils # (Auto) 0.2 K/mm3 (0.0-0.4); Eosinophils % (Auto) 2.8 % (0.0-4.3); Hematocrit 40.4 % (35.5-45.6); Hemoglobin 13.6 gm/dl (11.8-15.2); Lymphocytes # (Auto) 2.8 K/mm3 (1.2-5.4); Lymphocytes % (Auto) 37.3 % (13.4-35.0); Mean Corpuscular HGB Conc 34 % (32-34); Mean Corpuscular Volume 95 fl (84-94); Monocytes # (Auto) 0.4 K/mm3 (0.0-0.8); Monocytes % (Auto) 4.9 % (0.0-7.3); Platelet Count 303 K/mm3 (140-440); Red Blood Count 4.26 M/mm3 (3.65-5.03); Red Cell Distribution Width 13.2 % (13.2-15.2)
[2019-01-15 21:20] LABS: INR 0.96 (0.87-1.13)
[2019-01-15 21:21] LABS: Partial Thromboplastin Time 23.6 Sec. (24.2-36.6); Thrombin Time 15.2 Sec. (15.1-19.6)
[2019-01-15 21:44] LABS: Creatine Kinase MB 2.5 ng/mL (0.0-4.0)
[2019-01-15 21:49] LABS: Alanine Aminotransferase 11 units/L (7-56); Albumin 3.6 g/dL (3.9-5); BUN/Creatinine Ratio 12; Blood Urea Nitrogen 12 mg/dL (9-20); Calcium 8.9 mg/dL (8.4-10.2); Hemolysis Index 5
[2019-01-15] MEDS ORDERED: K-DUR PO ONE (21:57)
[2019-01-15] MEDS ORDERED: BABY ASPIRIN PO ONE (21:57)
[2019-01-15 22:46] LABS: Amphetamine Screen,Urine PRESUMPTIVE NEGATIVE; Cannabinoid Screen,Urine PRESUMPTIVE NEGATIVE; Cocaine Screen,Urine PRESUMPTIVE NEGATIVE; Methadone Screen,Urine PRESUMPTIVE NEGATIVE; Opiate Screen,Urine PRESUMPTIVE NEGATIVE
[2019-01-15 23:14] LABS: Benzodiazepines Screen,Urine PRESUMPTIVE POSITIVE
[2019-01-15 23:14] LABS: Chol/HDL Ratio 4.64 %; HDL Cholesterol 45 mg/dL (40-59); LDL Cholesterol,Direct 154 mg/dL (50-130)
[2019-01-15] MEDS ORDERED: NORMODYNE IV ONE (23:16)
--- NOTE | 2019-01-15 23:24 | Cat Scan Report ---
PROCEDURE: CT ANGIO HEAD TECHNIQUE: CT angiogram head with intravenous contrast study performed with multiplanar and 3-D maxi mum intensity projection reconstructions HISTORY: CVA COMPARISONS: FINDINGS: There is mild calcified plaque within the cavernous ICAs bilaterally no hemodynamically significant s tenosis identified. The MCA and FCO distributions are unremarkable. Distal vertebral arteries and basilar are normal in caliber. The LOCKSTITCH BINDER distributions are within normal limits no major vascular occlusion or stenosis is identified. IMPRESSION: Mild plaque within the intracranial ICAs Otherwise negative study. This document is electronically signed by Morales Hightower MD., January 15 2019 11:22:24 PM ET
--- NOTE | 2019-01-16 00:25 | Cat Scan Report ---
PROCEDURE: CT ANGIO NECK TECHNIQUE: A CT angiogram was obtained of the arteries in the neck following the intravenous injecti on of iodinated contrast. Rotational, sagittal, and coronal MIP reconstructions were reviewed. HISTORY: CVA COMPARISONS: None FINDINGS: Both vertebral arteries are widely patent. Both common carotid arteries are widely patent with normal bifurcation into the internal and external carotid arteries. There is no significant plaque formatio n. There is no evidence of dissection or thrombosis. The lung apices are clear. The thyroid gland appears normal. There is no evidence of adenopathy. The airway appears normal. The visualized sinuses are clear. The skeletal structures reveal multilevel di sc degeneration in the cervical spine. IMPRESSION: Normal CT angiogram of the neck.. This document is electronically signed by Miguelito Montes De Oca MD., January 16 2019 12:23:25 AM ET
[2019-01-16] MEDS ORDERED: SODIUM CHLORIDE FLUSH SYRINGE 10 ML IV PRN ×2 (01:38→01:41)
[2019-01-16] MEDS ORDERED: ZOFRAN IV PRN (01:41)
[2019-01-16] MEDS ORDERED: TYLENOL PO PRN (01:41)
[2019-01-16] MEDS ORDERED: D50W (25GM) Syringe IV PRN (01:49)
[2019-01-16 02:53] LABS: BUN/Creatinine Ratio 12; Blood Urea Nitrogen 12 mg/dL (9-20); Calcium 8.3 mg/dL (8.4-10.2); Hemolysis Index 5
--- NOTE | 2019-01-16 02:56 | History and Physical Report ---
History of Present Illness Date of examination: 01/16/19 Date of admission: 01/16/19 01:41 Chief complaint: Generalized weakness with fall History of present illness: Patient is a 53 year old male with a history of stroke who presented to the ED on account of generalized weakness with a fall. Patient stated that at about 12 PM on 01/15/2019, he was about to go to the bathroom when his legs suddenly became weak and he fell, without hitting his head on the floor. He has associated slurred speech and lightheadedness. He denies headaches, nausea, vomiting, syncope or loss of consciousness. No reported history of facial drooping. No chest pain, shortness of breath, palpitation, cough, fever, chills, sore throat, runny nose or congestion, leg swelling, orthopnea or PND. No abdominal pain, constipation, diarrhea, dysuria frequency. He admits to medication compliance but continues to smoke cigarettes. Past History Past Medical History: diabetes, hypertension, hyperlipidemia, stroke Past Surgical History: Other (right leg surgery) Social history: smoking (he has 10 years history of cigarette smoking. He currently smokes half pack of cigarettes per day. He denies alcohol or illicit drug use) Family history: hypertension (mother) Medications and Allergies Allergies Allergy/AdvReac Type Severity Reaction Status Date / Time No Known Allergies Allergy Unverified 09/03/16 21:34 Home Medications Medication Instructions Recorded Confirmed Last Taken Type ALPRAZolam [Xanax TAB] 2 mg PO TID PRN 05/03/18 01/15/19 05/01/18 History Carisoprodol [Soma] 350 mg PO TID 05/03/18 01/15/19 05/01/18 History Active Meds: Active Medications Acetaminophen (Tylenol) 650 mg PO Q4H PRN PRN Reason: Pain MILD(1-3)/Fever >100.5/HERNANDEZ Acetaminophen/Hydrocodone Bitart ([place] 5/325) 1 each PO Q4H PRN PRN Reason: Pain, Moderate (4-6) Atorvastatin Calcium (Lipitor) 40 mg PO QHS [facility] Dextrose (D50w (25gm) Syringe) 50 ml IV PRN PRN PRN Reason: Hypoglycemia Enoxaparin Sodium (Lovenox) 40 mg SUB-Q QDAY [place] Insulin Glargine (Lantus) 15 units SUB-Q BID [facility] Ondansetron HCl (Zofran) 4 mg IV Q8H PRN PRN Reason: Nausea And Vomiting Potassium Chloride (K-Dur) 40 meq PO DAILY [facility] Stop: 01/18/19 09:59 Sodium Chloride (Sodium Chloride Flush Syringe 10 Ml) 10 ml IV BID [facility] Sodium Chloride (Sodium Chloride Flush Syringe 10 Ml) 10 ml IV PRN PRN PRN Reason: LINE FLUSH Review of Systems All systems: negative (except as documented in the HPI, all other systems were reviewed and negative) Exam - Constitutional Vitals: Temp Pulse Resp BP Pulse Ox 98.7 F 68 16 169/86 98 01/15/19 23:25 01/16/19 01:07 01/16/19 01:07 01/16/19 01:07 01/16/19 01:07 General appearance: Present: no acute distress, well-nourished, other (slurred speech noted) - EENT Eyes: Present: PERRL, EOM intact ENT: hearing intact, clear oral mucosa - Neck Neck: Present: supple, normal ROM - Respiratory Respiratory effort: normal Respiratory: bilateral: CTA - Cardiovascular Rhythm: regular Heart Sounds: Present: S1 & S2. Absent: rub, click - Extremities Extremities: No edema Peripheral Pulses: within normal limits - Abdominal General gastrointestinal: Present: soft, non-tender, non-distended, normal bowel sounds Male genitourinary: Present: deferred - Integumentary Integumentary: Present: clear, warm, dry - Musculoskeletal Musculoskeletal: generalized weakness - Psychiatric Psychiatric: appropriate mood/affect, intact judgment & insight - Neurologic Neurologic: moves all extremities (strength 4 over 5 in all extremities) Results - Labs CBC & Chem 7: 01/15/19 20:38 01/15/19 20:38 Labs: Laboratory Last Values WBC 7.4 K/mm3 (4.5-11.0) 01/15/19 20:38 RBC 4.26 M/mm3 (3.65-5.03) 01/15/19 20:38 Hgb 13.6 gm/dl (11.8-15.2) 01/15/19 20:38 Hct 40.4 % (35.5-45.6) 01/15/19 20:38 MCV 95 fl (84-94) H 01/15/19 20:38 MCH 32 pg (28-32) 01/15/19 20:38 MCHC 34 % (32-34) 01/15/19 20:38 RDW 13.2 % (13.2-15.2) 01/15/19 20:38 Plt Count 303 K/mm3 (140-440) 01/15/19 20:38 Lymph % (Auto) 37.3 % (13.4-35.0) H 01/15/19 20:38 [place]ruff % (Auto) 4.9 % (0.0-7.3) 01/15/19 20:38 Eos % (Auto) 2.8 % (0.0-4.3) 01/15/19 20:38 Baso % (Auto) 0.3 % (0.0-1.8) 01/15/19 20:38 Lymph # 2.8 K/mm3 (1.2-5.4) 01/15/19 20: [place]ruff # 0.4 K/mm3 (0.0-0.8) 01/15/19 20:38 Eos # 0.2 K/mm3 (0.0-0.4) 01/15/19 20:38 Baso # 0.0 K/mm3 (0.0-0.1) 01/15/19 20:38 Seg Neutrophils % 54.7 % (40.0-70.0) 01/15/19 20:38 Seg Neutrophils # 4.0 K/mm3 (1.8-7.7) 01/15/19 20:38 PT 13.4 Sec. (12.2-14.9) 01/15/19 20:38 INR 0.96 (0.87-1.13) 01/15/19 20:38 APTT 23.6 Sec. (24.2-36.6) L 01/15/19 20:38 Thrombin Time 15.2 Sec. (15.1-19.6) 01/15/19 20:38 VBG pH 7.363 (7.320-7.420) 01/15/19 20:38 Sodium 141 mmol/L (137-145) 01/15/19 20:38 Potassium 3.3 mmol/L (3.6-5.0) L 01/15/19 20:38 Chloride 100.3 mmol/L (98-107) 01/15/19 20:38 Carbon Dioxide 28 mmol/L (22-30) 01/15/19 20:38 Anion Gap 16 mmol/L 01/15/19 20:38 BUN 12 mg/dL (9-20) 01/15/19 20:38 Creatinine 1.0 mg/dL (0.8-1.5) 01/15/19 20:38 Estimated GFR > 60 ml/min 01/15/19 20:38 BUN/Creatinine Ratio 12 % 01/15/19 20:38 Glucose 253 mg/dL (75-100) H 01/15/19 20:38 POC Glucose 212 (70-105) H 01/15/19 23:20 Calcium 8.9 mg/dL (8.4-10.2) 01/15/19 20:38 Total Bilirubin 0.50 mg/dL (0.1-1.2) 01/15/19 20:38 AST 12 units/L (5-40) 01/15/19 20:38 ALT 11 units/L (7-56) 01/15/19 20:38 Alkaline Phosphatase 105 units/L (35-129) 01/15/19 20:38 Total Creatine Kinase 184 units/L (55-170) H 01/15/19 20:38 CK-MB (CK-2) 2.5 ng/mL (0.0-4.0) 01/15/19 20:38 CK-MB (CK-2) Rel Index 1.3 (0-4) 01/15/19 20:38 Troponin T 0.173 ng/mL (0.00-0.029) H* 01/15/19 22:49 Total Protein 6.8 g/dL (6.3-8.2) 01/15/19 20:38 Albumin 3.6 g/dL (3.9-5) L 01/15/19 20:38 Albumin/Globulin Ratio 1.1 % 01/15/19 20:38 Triglycerides 208 mg/dL (2-149) H 01/15/19 20:38 Cholesterol 209 mg/dL (50-199) H 01/15/19 20:38 LDL Cholesterol Direct 154 mg/dL (50-130) H 01/15/19 20:38 HDL Cholesterol 45 mg/dL (40-59) 01/15/19 20:38 Cholesterol/HDL Ratio 4.64 % 01/15/19 20:38 Urine Opiates Screen Presumptive negative 01/15/19 21:59 Urine Methadone Screen Presumptive negative 01/15/19 21:59 Ur Barbiturates Screen Presumptive negative 01/15/19 21:59 Ur Phencyclidine Scrn Presumptive negative 01/15/19 21:59 Ur Amphetamines Screen Presumptive negative 01/15/19 21:59 U Benzodiazepines Scrn Presumptive positive 01/15/19 21:59 Urine Cocaine Screen Presumptive negative 01/15/19 21:59 U Marijuana (THC) Screen Presumptive negative 01/15/19 21:59 Drugs of Abuse Note Disclamer 01/15/19 21:59 Plasma/Serum Alcohol < 0.01 % (0-0.07) 01/15/19 20:38 Blood Type O POSITIVE 01/15/19 20:38 Antibody Screen Negative 01/15/19 20:38 Assessment and Plan Assessment and plan: TIA/ possible acute stroke -On TIA/stroke protocol -Futher evaluation with MRI brain, carotid duplex and echocardiogram Elevated troponin -Probably secondary to demand ischemia due to above -Continue serial troponin and EKG monitoring -Echocardiogram pending -Cardiology consulted Uncontrolled hypertension -When necessary hydralazine per stroke protocol DM2 with hyperglycemia -On SSI and Lantus -Hba1c pending Hypokalemia/Hypomagnesemia -On repletion, will monitor levels Dyslipidemia -On statin DVT prophylaxis with Lovenox Disposition: For discharge when medically stable Time spent: 40 minutes
[2019-01-16] MEDS ORDERED: MAGNESIUM SULFATE 2GM/50ML 2 GM/50 ML BAG IV ONE (03:05)
[2019-01-16] MEDS: KCL 10MEQ/100ML 10 MEQ/100 ML BAG IV SCH ×2 (05:50→07:06)
[2019-01-16] MEDS ORDERED: LOVENOX SUB-Q SCH (10:00)
[2019-01-16] MEDS: LANTUS SUB-Q SCH ×2 (10:45→22:12)
[2019-01-16] MEDS: SODIUM CHLORIDE FLUSH SYRINGE 10 ML IV SCH ×2 (10:48→22:16)
--- NOTE | 2019-01-16 10:53 | Magnetic Resonance Report ---
MRI BRAIN WITHOUT CONTRAST: 01/16/19 CLINICAL: Acute stroke. COMPARISON: CT head and CTA head 01/15/19 TECHNIQUE: Axial diffusion, T1, T2, gradient echo T2*, coronal and axial FLAIR and sagittal T1 sequences on a 1.5 Jazmyne magnet. FINDINGS: The ventricles and sulci are large for age and the sulci are particularly large in the frontal and temporal lobes. Multifocal restricted diffusion involving the left caudate head, left globus pallidus, left frontal lobe white matter, left occipital lobe white matter, left sherry and right superior cerebellum. The restricted diffusion in the globus pallidus measures 14 mm and the restricted diffusion in the sherry measures 7 mm. The rest of the foci are smaller. The larger areas of restricted diffusion also demonstrate corresponding T2 hyperintensity. No evidence of hemorrhage and no chronic microbleeds on the gradient echo sequence. No mass or mass effect. No edema or extra-axial collection. Moderate bilateral periventricular white matter hyperintensities on FLAIR and T2 and central and right pontine and right thalamic hyperintensities on T2. Normal pituitary and optic chiasm. Intact vascular flow voids. Normal sinuses. The orbits, and soft tissues are normal. Normal calvarium and skull base. IMPRESSION: 1. Multiple nonhemorrhagic subacute and likely embolic infarcts involving the left basal ganglia, left frontal lobe white matter, left occipital lobe white matter, left sherry and right cerebellum. 2. Cortical atrophy more pronounced in the frontal and temporal lobes. 3. Moderate chronic white matter microangiopathy.
[2019-01-16] MEDS: HumuLIN R SUB-Q SCH ×3 (11:30→22:13)
[2019-01-16] MEDS: K-DUR PO SCH (11:30)
[2019-01-16] MEDS: LOVENOX SUB-Q SCH ×2 (11:31→22:15)
[2019-01-16] MEDS: ASPIRIN PO SCH (11:31)
[2019-01-16] MEDS ORDERED: HumuLIN R ONE (11:37)
--- NOTE | 2019-01-16 13:30 | Consultation ---
History of Present Illness Consult date: 01/16/19 Consult reason: elevated troponin History of present illness: The patient is a 53-year-old man who presented to the hospital with complaints of sudden onset weakness in his legs which made him temporarily unable to stand up. In addition, he felt some weakness in both his arms, and some slurring of his speech. There was no headache, dizziness, chest pain, shortness of breath or palpitations. Six months ago, on a previous admission for similar symptoms of nonspecific weakness and numbness, and echocardiogram reported normal left ventricle systolic function with ejection fraction 55-60%, and specifically no atrial septal defect on contrast bubble study. Cardiac consultation is requested at this time because on his laboratory studies at the emergency room, there was a mild isolated rise of troponin level. Comorbidities include hypertension, diabetes and hyperlipidemia, but the patient denies any significant prior cardiac history. I reviewed the troponin levels from his previous admission 6 months ago and at that time they were normal. ECG is in normal sinus rhythm, left ventricular hypertrophy, no acute ischemic ST or T-wave changes. Past History Past Medical History: diabetes, hypertension, hyperlipidemia, stroke Past Surgical History: Other (right leg surgery) Social history: smoking (he has 10 years history of cigarette smoking. He currently smokes half pack of cigarettes per day. He denies alcohol or illicit drug use) Family history: hypertension (mother) Medications and Allergies Allergies Allergy/AdvReac Type Severity Reaction Status Date / Time No Known Allergies Allergy Unverified 09/03/16 21:34 Home Medications Medication Instructions Recorded Confirmed Last Taken Type ALPRAZolam [Xanax TAB] 2 mg PO TID PRN 05/03/18 01/15/19 05/01/18 History Carisoprodol [Soma] 350 mg PO TID 05/03/18 01/15/19 05/01/18 History Active Meds: Active Medications Acetaminophen (Tylenol) 650 mg PO Q4H PRN PRN Reason: Pain MILD(1-3)/Fever >100.5/HERNANDEZ Acetaminophen/Hydrocodone Bitart ([place] 5/325) 1 each PO Q4H PRN PRN Reason: Pain, Moderate (4-6) Aspirin (Aspirin) 325 mg PO QDAY [facility] Last Admin: 01/16/19 11:31 Dose: 325 mg Documented by: Atorvastatin Calcium (Lipitor) 40 mg PO QHS [facility] Dextrose (D50w (25gm) Syringe) 50 ml IV PRN PRN PRN Reason: Hypoglycemia Enoxaparin Sodium (Lovenox) 110 mg SUB-Q Q12HR [facility] Last Admin: 01/16/19 11:31 Dose: 110 mg Documented by: Hydralazine HCl (Apresoline) 10 mg IV Q4HR PRN PRN Reason: Blood Pressure Insulin Glargine (Lantus) 15 units SUB-Q BID [facility] Last Admin: 01/16/19 10:45 Dose: 15 units Documented by: Insulin Human Regular (Humulin R) 0 units SUB-Q ACHS [facility]; Protocol Ondansetron HCl (Zofran) 4 mg IV Q8H PRN PRN Reason: Nausea And Vomiting Potassium Chloride (K-Dur) 40 meq PO DAILY [facility] Stop: 01/18/19 09:59 Sodium Chloride (Sodium Chloride Flush Syringe 10 Ml) 10 ml IV BID [facility] Last Admin: 01/16/19 10:48 Dose: 10 ml Documented by: Sodium Chloride (Sodium Chloride Flush Syringe 10 Ml) 10 ml IV PRN PRN PRN Reason: LINE FLUSH Review of Systems Cardiovascular: no chest pain, no orthopnea, no palpitations, no rapid/irregular heart beat, no edema, no syncope, no lightheadedness, no shortness of breath Physical Examination Vital Signs Pulse Resp BP Pulse Ox 73 15 169/96 98 01/15/19 20:30 01/15/19 20:30 01/15/19 20:30 01/15/19 20:30 General appearance: no acute distress HEENT: Positive: PERRL Neck: Positive: neck supple Cardiac: Positive: Reg Rate and Rhythm Lungs: Positive: Decreased Breath Sounds Neuro: Positive: Grossly Intact Abdomen: Positive: Soft Male genitourinary: Positive: deferred Skin: Positive: Clear Extremities: Absent: edema Results 01/15/19 20:38 01/16/19 02:29 Cardiac Enzymes 01/15/19 Range/Units 20:38 AST 12 (5-40) units/L CK-MB (CK-2) 2.5 (0.0-4.0) ng/mL Coagulation 01/15/19 Range/Units 20:38 PT 13.4 (12.2-14.9) Sec. INR 0.96 (0.87-1.13) APTT 23.6 L (24.2-36.6) Sec. Lipids 01/15/19 Range/Units 20:38 Triglycerides 208 H (2-149) mg/dL Cholesterol 209 H (50-199) mg/dL HDL Cholesterol 45 (40-59) mg/dL Cholesterol/HDL Ratio 4.64 % CBC 01/15/19 Range/Units 20:38 WBC 7.4 (4.5-11.0) K/mm3 RBC 4.26 (3.65-5.03) M/mm3 Hgb 13.6 (11.8-15.2) gm/dl Hct 40.4 (35.5-45.6) % Plt Count 303 (140-440) K/mm3 Lymph # 2.8 (1.2-5.4) K/mm3 Tift # 0.4 (0.0-0.8) K/mm3 Eos # 0.2 (0.0-0.4) K/mm3 Baso # 0.0 (0.0-0.1) K/mm3 Comprehensive Metabolic Panel 01/15/19 01/16/19 Range/Units 20:38 02:29 Sodium 141 139 (137-145) mmol/L Potassium 3.3 L 3.2 L (3.6-5.0) mmol/L Chloride 100.3 101.1 (98-107) mmol/L Carbon Dioxide 28 25 (22-30) mmol/L BUN 12 12 (9-20) mg/dL Creatinine 1.0 1.0 (0.8-1.5) mg/dL Glucose 253 H 241 H (75-100) mg/dL Calcium 8.9 8.3 L (8.4-10.2) mg/dL AST 12 (5-40) units/L ALT 11 (7-56) units/L Alkaline Phosphatase 105 (35-129) units/L Total Protein 6.8 (6.3-8.2) g/dL Albumin 3.6 L (3.9-5) g/dL EKG interpretations - Telemetry EKG Rhythm: Sinus Rhythm Assessment and Plan - Patient Problems (1) Elevated troponin Current Visit: Yes Status: Acute Plan to address problem: Etiology of the mild troponin elevation is uncertain in the setting of his presentation with symptoms of CVA or TIA. It will be prudent to consider a pr edischarge Lexiscan thallium stress test, once his neurological status is stable.
--- NOTE | 2019-01-16 15:26 | Event Note ---
Date: 01/16/19 Patient seen and examined Noted MRI result with multiple embolic pattern CVA on left hemisphere Patient is a 53 year old male with a history of stroke who presented to the ED on account of generalized weakness with a fall which stated at about 12 PM on 01/15/2019. Cont stroke protocol, start diet if pass swallow eval pending 2d echo and neuro eval
[2019-01-16] MEDS: NORCO 5/325 PO PRN ×2 (17:21→22:20)
--- NOTE | 2019-01-16 22:36 | Vascular Lab Report ---
PROCEDURE: VL CAROTID DUPLEX BILAT HISTORY: acute stroke FINDINGS: Real-time ultrasound of the cervical arterial vasculature was performed using grayscale and color Doppler images. On the right, peak systolic velocity in the common carotid artery was 78 cm/s. In the internal caroti d it was 71 cm/s and in the external carotid 81 cm/s. Flow in the vertebral artery was antegrade at 3 9 cm/s. The ratio of flow of the internal carotid to the common carotid was 0.91 which is within norm al limits. No significant plaque is seen. On the left, peak systolic velocity in the common carotid artery was 117 cm/s. In the internal caroti d is 67 cm/s and in the external carotid 93 cm/s. Flow in the vertebral artery was antegrade at 68 cm /s. The ratio of flow of the internal carotid to the common carotid was 0.57 which is within normal l imits. There is plaque in the proximal internal carotid artery resulting in an estimated 20% stenosis . IMPRESSION: No stenosis of greater than 50% is seen in the cervical arterial vasculature This document is electronically signed by Naren Us MD., January 16 2019 10:35:15 PM ET
[2019-01-17 06:27] LABS: Basophils # (Auto) 0.1 K/mm3 (0.0-0.1); Eosinophils # (Auto) 0.2 K/mm3 (0.0-0.4); Eosinophils % (Auto) 3.8 % (0.0-4.3); Hematocrit 38.6 % (35.5-45.6); Hemoglobin 13.2 gm/dl (11.8-15.2); Lymphocytes # (Auto) 2.2 K/mm3 (1.2-5.4); Mean Corpuscular HGB Conc 34 % (32-34); Mean Corpuscular Volume 95 fl (84-94); Monocytes # (Auto) 0.3 K/mm3 (0.0-0.8); Monocytes % (Auto) 6.3 % (0.0-7.3); Platelet Count 286 K/mm3 (140-440); Red Blood Count 4.07 M/mm3 (3.65-5.03); Red Cell Distribution Width 13.3 % (13.2-15.2)
[2019-01-17] MEDS: APRESOLINE IV PRN (06:34)
[2019-01-17 06:51] LABS: BUN/Creatinine Ratio 12; Blood Urea Nitrogen 11 mg/dL (9-20); Calcium 8.3 mg/dL (8.4-10.2); Hemolysis Index 5
[2019-01-17] MEDS: HumuLIN R SUB-Q SCH ×4 (09:13→22:39)
[2019-01-17] MEDS: LOVENOX SUB-Q SCH ×2 (09:13→22:38)
[2019-01-17] MEDS: LANTUS SUB-Q SCH ×2 (09:14→22:37)
[2019-01-17] MEDS: K-DUR PO SCH (09:14)
[2019-01-17] MEDS: ASPIRIN PO SCH (09:14)
[2019-01-17] MEDS: SODIUM CHLORIDE FLUSH SYRINGE 10 ML IV SCH ×2 (09:22→22:40)
[2019-01-17] MEDS: NORCO 5/325 PO PRN ×2 (11:23→17:52)
--- NOTE | 2019-01-17 12:57 | Progress Note ---
Assessment and Plan - Patient Problems (1) Elevated troponin Current Visit: Yes Status: Acute Plan to address problem: Etiology of the mild troponin elevation is uncertain in the setting of his presentation with symptoms of CVA or TIA. Lexiscan Thallium Stress Test in A.M. Subjective Date of service: 01/17/19 Interval history: Patient is comfortable, no acute distress. Objective Vital Signs Temp Pulse Resp BP Pulse Ox 01/17/19 12:23 22 01/17/19 11:28 98.2 F 77 22 166/96 95 01/17/19 09:21 99 01/17/19 06:34 70 178/102 01/17/19 05:44 98.7 F 70 20 178/102 95 01/16/19 21:26 98.9 F 72 20 166/92 99 01/16/19 14:59 98.6 F 69 16 164/93 99 01/16/19 14:10 78 25 H 187/98 96 01/16/19 14:00 73 28 H 176/102 96 01/16/19 13:40 161/90 81 L 01/16/19 13:01 161/90 79 L - Physical Examination General: No Apparent Distress HEENT: Positive: PERRL Neck: Positive: neck supple Cardiac: Positive: Reg Rate and Rhythm Lungs: Positive: Decreased Breath Sounds Neuro: Positive: Grossly Intact Abdomen: Positive: Soft Skin: Positive: Clear Extremities: Absent: edema - Labs and Meds CBC 01/17/19 Range/Units 06:01 WBC 5.2 (4.5-11.0) K/mm3 RBC 4.07 (3.65-5.03) M/mm3 Hgb 13.2 (11.8-15.2) gm/dl Hct 38.6 (35.5-45.6) % Plt Count 286 (140-440) K/mm3 Lymph # 2.2 (1.2-5.4) K/mm3 Henry # 0.3 (0.0-0.8) K/mm3 Eos # 0.2 (0.0-0.4) K/mm3 Baso # 0.1 (0.0-0.1) K/mm3 Comprehensive Metabolic Panel 01/16/19 01/17/19 Range/Units 13:49 06:01 Sodium 137 (137-145) mmol/L Potassium 3.3 L 3.1 L (3.6-5.0) mmol/L Chloride 100.7 (98-107) mmol/L Carbon Dioxide 25 (22-30) mmol/L BUN 11 (9-20) mg/dL Creatinine 0.9 (0.8-1.5) mg/dL Glucose 200 H (75-100) mg/dL Calcium 8.3 L (8.4-10.2) mg/dL
--- NOTE | 2019-01-17 14:16 | Consultation ---
History of Present Illness Consult date: 01/17/19 Requesting physician: FELTON GARCIA Reason for Consult: subacute strokes History of present illness: Patient is a 53 year old male with a history of stroke who presented to the ED with generalized weakness with a fall. Patient stated that at about 12 PM on 01/15/2019, he was about to go to the bathroom when his legs suddenly became weak and he fell. He also noted slurring of his speech and dizziness.. He denies headaches, nausea, vomiting, syncope or loss of consciousness. On arrival to ER CT was negative, but an MRI scan has revealed subacute stroke in the sherry, left basal ganglia and occipital region. He claims to take his medicine regularly. Still smoking. His last event was in 2017, when he presented with numbness and ataxia. He denies headache or nausea with this recent event. There was no chest pain, palpitations, diplopia or diaphoresis. The pt. was discharged on Plavix and atorvastatinin on the 2017 admission. This is not on his home medicine profile at this time. Past History Past Medical History: diabetes, hypertension, hyperlipidemia, stroke Past Surgical History: Other (right leg surgery) Social history: smoking (he has 10 years history of cigarette smoking. He currently smokes half pack of cigarettes per day. He denies alcohol or illicit drug use) Family history: hypertension (mother), stroke Medications and Allergies Allergies Allergy/AdvReac Type Severity Reaction Status Date / Time No Known Allergies Allergy Unverified 09/03/16 21:34 Home Medications Medication Instructions Recorded Confirmed Last Taken Type ALPRAZolam [Xanax TAB] 2 mg PO TID PRN 05/03/18 01/15/19 05/01/18 History Carisoprodol [Soma] 350 mg PO TID 05/03/18 01/15/19 05/01/18 History Active Meds: Active Medications Acetaminophen (Tylenol) 650 mg PO Q4H PRN PRN Reason: Pain MILD(1-3)/Fever >100.5/HERNANDEZ Acetaminophen/Hydrocodone Bitart ([place] 5/325) 1 each PO Q4H PRN PRN Reason: Pain, Moderate (4-6) Last Admin: 01/17/19 11:23 Dose: 1 each Documented by: Aspirin (Aspirin) 325 mg PO QDAY PENDING SALE TO [facility] Last Admin: 01/17/19 09:14 Dose: 325 mg Documented by: Atorvastatin Calcium (Lipitor) 40 mg PO QHS PENDING SALE TO [facility] Last Admin: 01/16/19 22:15 Dose: 40 mg Documented by: Dextrose (D50w (25gm) Syringe) 50 ml IV PRN PRN PRN Reason: Hypoglycemia Enoxaparin Sodium (Lovenox) 110 mg SUB-Q Q12HR PENDING SALE TO [facility] Last Admin: 01/17/19 09:13 Dose: 110 mg Documented by: Hydralazine HCl (Apresoline) 10 mg IV Q4HR PRN PRN Reason: Blood Pressure Last Admin: 01/17/19 06:34 Dose: 10 mg Documented by: Insulin Glargine (Lantus) 15 units SUB-Q BID PENDING SALE TO [facility] Last Admin: 01/17/19 09:14 Dose: 15 units Documented by: Insulin Human Regular (Humulin R) 0 units SUB-Q ACHS PENDING SALE TO [facility]; Protocol Last Admin: 01/17/19 12:20 Dose: 2 units Documented by: Ondansetron HCl (Zofran) 4 mg IV Q8H PRN PRN Reason: Nausea And Vomiting Potassium Chloride (K-Dur) 40 meq PO DAILY PENDING SALE TO [facility] Stop: 01/18/19 09:59 Last Admin: 01/17/19 09:14 Dose: 40 meq Documented by: Sodium Chloride (Sodium Chloride Flush Syringe 10 Ml) 10 ml IV BID PENDING SALE TO [facility] Last Admin: 01/17/19 09:22 Dose: 10 ml Documented by: Sodium Chloride (Sodium Chloride Flush Syringe 10 Ml) 10 ml IV PRN PRN PRN Reason: LINE FLUSH Review of Systems All systems: negative Constitutional: weakness, no sweats, no chronic headaches Ears, nose, mouth and throat: no tinnitis, no decreased hearing, no dysphagia Cardiovascular: no chest pain, no palpitations, no rapid/irregular heart beat, no syncope, no lightheadedness, no shortness of breath Respiratory: no cough, no shortness of breath, no congestion Gastrointestinal: no abdominal pain, no nausea, no vomiting, no diarrhea, no constipation Genitourinary Male: urinary hesitancy, no dysuria, no urinary frequency Integumentary: no rash, no pruritis Neurological: weakness, numbness, lack of coordination, change in speech, nelida ce difficulties, gait dysfunction, motor disturbance, sensory deficit, no head injury, no vertigo, no headaches, no double vision, no loss of vision Physical Examination - Vital Signs Vital Signs: Vital Signs Pulse Resp BP Pulse Ox 73 15 169/96 98 01/15/19 20:30 01/15/19 20:30 01/15/19 20:30 01/15/19 20:30 - Physical Exam Narrative exam: General - Resting comfortably in bed. In no distress. Neurological exam - Speech very dysarthric. 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 Face with mild right droop. V-1 thru V-3 intact bilaterally. hearing intact, tongue midline. Motor - 5/5 upper extremities. mild right drift. LE's left - 5/5 iliopsoas, foot dorsiflexors - 4/5, plantar flexors - 4+/5 RLE - iliopsoas - 4/5, plantar flexors - 3+/5 plantar flexors - 4/5 Reflexes - +1 on the right, trace on the left. Sensory - decreased touch and sharp in left upper and lower extremities. Cerebellar - FTN - intact. Rito - clumsy on the lright. Fine finger movements decreased on right - Level of Consciousness 1a. Level of Consciousness: alert/keenly responsive Results - Laboratory Findings CBC and BMP: 01/17/19 06:01 01/17/19 06:01 Abnormal Lab Findings: Abnormal Labs 01/15/19 01/15/19 01/15/19 20:00 20:38 20:38 MCV 95 H Lymph % (Auto) 37.3 H APTT 23.6 L Potassium Glucose POC Glucose 451 H Hemoglobin A1c Calcium Magnesium Total Creatine Kinase Troponin T Albumin Triglycerides Cholesterol LDL Cholesterol Direct 01/15/19 01/15/19 01/15/19 20:38 22:49 23:20 MCV Lymph % (Auto) APTT Potassium 3.3 L Glucose 253 H POC Glucose 212 H Hemoglobin A1c Calcium Magnesium Total Creatine Kinase 184 H Troponin T 0.179 H* 0.173 H* Albumin 3.6 L Triglycerides 208 H Cholesterol 209 H LDL Cholesterol Direct 154 H 01/16/19 01/16/19 01/16/19 02:29 02:29 10:48 MCV Lymph % (Auto) APTT Potassium 3.2 L Glucose 241 H POC Glucose 273 H Hemoglobin A1c Calcium 8.3 L Magnesium 1.60 L Total Creatine Kinase Troponin T 0.197 H* Albumin Triglycerides Cholesterol LDL Cholesterol Direct 01/16/19 01/16/19 01/17/19 13:49 15:40 06:01 MCV Lymph % (Auto) APTT Potassium 3.3 L Glucose POC Glucose 268 H Hemoglobin A1c 11.1 H Calcium Magnesium Total Creatine Kinase Troponin T Albumin Triglycerides Cholesterol LDL Cholesterol Direct 01/17/19 01/17/19 01/17/19 06:01 06:01 07:11 MCV 95 H Lymph % (Auto) 41.0 H APTT Potassium 3.1 L Glucose 200 H POC Glucose 177 H Hemoglobin A1c Calcium 8.3 L Magnesium Total Creatine Kinase Troponin T Albumin Triglycerides Cholesterol LDL Cholesterol Direct 01/17/19 11:21 MCV Lymph % (Auto) APTT Potassium Glucose POC Glucose 201 H Hemoglobin A1c Calcium Magnesium Total Creatine Kinase Troponin T Albumin Triglycerides Cholesterol LDL Cholesterol Direct Assessment and Plan 53 year old male with history of multiple strokes, hypertension, insulin dependent diabetes, and HLP, presented to ED with complaint of weakness in both legs. He now feels that the right side is weaker, and overall he is feeling better. He claims to be compliant with his meds. But still smokes. MRI scan reveals subacute infarcts in sherry, and left basal ganglia. He has multiple lacunes bilaterally, and microvascular disease periventricularly. He was discharged on Plavix and atorvastatin on last admission in 06/2018, but apparently has continued aspirin. CTA neck and carotid sonogram reveal min. disease. CTA brain reveals some calcification of carotids intracranially. Cardiology is involved. Plan - Will add back Plavix Speech therapy consult PT and OT already working with him. .
--- NOTE | 2019-01-17 16:59 | Progress Note ---
Assessment and Plan /Possible acute stroke -On TIA/stroke protocol -Futher evaluation with MRI brain, carotid duplex and echocardiogram - cont aspirin, plavix, will follow PT/OT evel, neurology consulted MRI showed followin. Multiple nonhemorrhagic subacute and likely embolic infarcts involving the left basal ganglia, left frontal lobe white matter, left occipital lobe white matter, left sherry and right cerebellum. 2. Cortical atrophy more pronounced in the frontal and temporal lobes. 3. Moderate chronic white matter microangiopathy. Carotid doppler: No stenosis of greater than 50% is seen in the cervical arterial vasculature 2d echo 6 months ago with preserved Ef and normal bubble study /Elevated troponin -Probably secondary to demand ischemia -Continue serial troponin and EKG monitoring -Cardiology consulted, plannned for stress test tomorrow /Uncontrolled hypertension -When necessary hydralazine per stroke protocol /DM2 with hyperglycemia -On SSI and Lantus -Hba1c 11.1 /Hypokalemia/Hypomagnesemia -On repletion, will monitor levels /Dyslipidemia -On statin /DVT prophylaxis with Lovenox Brief history; Patient is a 53 year old male with a history of stroke who presented to the ED on account of generalized weakness with a fall. Patient stated that at about 12 PM on 01/15/2019, he was about to go to the bathroom when his legs suddenly became weak and he fell, without hitting his head on the floor. He has associated slurred speech and lightheadedness. Subjective Date of service: 01/17/19 Interval history: patient seen and examined c/o LE weakness, tolerating diet PT eval pending Objective - Constitutional Vitals: Vital Signs - 12hr 01/17/19 01/17/19 01/17/19 05:44 06:34 09:21 Temperature 98.7 F Pulse Rate 70 70 Respiratory 20 Rate Blood Pressure 178/102 178/102 O2 Sat by Pulse 95 99 Oximetry 01/17/19 01/17/19 11:28 12:23 Temperature 98.2 F Pulse Rate 77 Respiratory 22 22 Rate Blood Pressure 166/96 O2 Sat by Pulse 95 Oximetry General appearance: Present: no acute distress, well-nourished - EENT Eyes: PERRL, EOM intact ENT: hearing intact, clear oral mucosa Ears: bilateral: normal - Neck Neck: supple, normal ROM - Respiratory Respiratory effort: normal Respiratory: bilateral: CTA - Cardiovascular Rhythm: regular Heart Sounds: Present: S1 & S2. Absent: gallop, rub Extremities: pulses intact, No edema, normal color, Full ROM - Gastrointestinal General gastrointestinal: Present: soft, non-tender, non-distended, normal bowel sounds - Integumentary Integumentary: clear, warm, dry - Musculoskeletal Musculoskeletal: 1, strength equal bilaterally - Neurologic Neurologic: other (LE weakness) - Psychiatric Psychiatric: memory intact, appropriate mood/affect, intact judgment & insight - Labs CBC & Chem 7: 01/17/19 06:01 01/17/19 06:01 Labs: Abnormal lab results 01/17/19 01/17/19 01/17/19 Range/Units 06:01 06:01 06:01 MCV 95 H (84-94) fl Lymph % (Auto) 41.0 H (13.4-35.0) % Potassium 3.1 L (3.6-5.0) mmol/L Glucose 200 H (75-100) mg/dL POC Glucose (70-105) Hemoglobin A1c 11.1 H (4-6) % Calcium 8.3 L (8.4-10.2) mg/dL 01/17/19 01/17/19 01/17/19 Range/Units 07:11 11:21 16:35 MCV (84-94) fl Lymph % (Auto) (13.4-35.0) % Potassium (3.6-5.0) mmol/L Glucose (75-100) mg/dL POC Glucose 177 H 201 H 186 H (70-105) Hemoglobin A1c (4-6) % Calcium (8.4-10.2) mg/dL
[2019-01-18] MEDS: HumuLIN R SUB-Q SCH ×4 (07:30→22:26)
[2019-01-18] MEDS ORDERED: LEXISCAN IV ONE (09:57)
--- NOTE | 2019-01-18 11:06 | Progress Note ---
Assessment and Plan /Possible acute stroke -On TIA/stroke protocol -Futher evaluation with MRI brain, carotid duplex and echocardiogram - cont aspirin, plavix, will follow PT/OT evel, neurology consulted MRI showed followin. Multiple nonhemorrhagic subacute and likely embolic infarcts involving the left basal ganglia, left frontal lobe white matter, left occipital lobe white matter, left sherry and right cerebellum. 2. Cortical atrophy more pronounced in the frontal and temporal lobes. 3. Moderate chronic white matter microangiopathy. Carotid doppler: No stenosis of greater than 50% is seen in the cervical arterial vasculature 2d echo 6 months ago with preserved Ef and normal bubble study /Elevated troponin -Probably secondary to demand ischemia -Continue serial troponin and EKG monitoring -Cardiology consulted, s/p stress test today - result pending /Uncontrolled hypertension -When necessary hydralazine per stroke protocol /DM2 with hyperglycemia -On SSI and Lantus -Hba1c 11.1 /Hypokalemia/Hypomagnesemia -On repletion, will monitor levels /Dyslipidemia -On statin /DVT prophylaxis with Lovenox Brief history; Patient is a 53 year old male with a history of stroke who presented to the ED on account of generalized weakness with a fall. Patient stated that at about 12 PM on 01/15/2019, he was about to go to the bathroom when his legs suddenly became weak and he fell, without hitting his head on the floor. He had associated slurred speech and lightheadedness. Patient was admitted with stroke protocol. Subjective Date of service: 01/18/19 Interval history: patient seen and examined c/o LE weakness, tolerating diet PT recommended for acute rehab s/p stress test today Objective - Exam Narrative Exam: General appearance: Present: no acute distress, well-nourished - EENT Eyes: PERRL, EOM intact ENT: hearing intact, clear oral mucosa Ears: bilateral: normal - Neck Neck: supple, normal ROM - Respiratory Respiratory effort: normal Respiratory: bilateral: CTA - Cardiovascular Rhythm: regular Heart Sounds: Present: S1 & S2. Absent: gallop, rub Extremities: pulses intact, No edema, normal color, Full ROM - Gastrointestinal General gastrointestinal: Present: soft, non-tender, non-distended, normal bowel sounds - Integumentary Integumentary: clear, warm, dry - Musculoskeletal Musculoskeletal: 1, strength equal bilaterally - Neurologic Neurologic: other (LE weakness) - Psychiatric Psychiatric: memory intact, appropriate mood/affect, intact judgment & insight - Constitutional Vitals: Vital Signs - 12hr 01/17/19 01/17/19 01/18/19 23:56 23:57 06:29 Temperature 98.2 F 98.5 F Pulse Rate 72 70 Respiratory 20 20 Rate Blood Pressure 177/98 165/88 O2 Sat by Pulse 94 93 99 Oximetry - Labs CBC & Chem 7: 01/17/19 06:01 01/18/19 11:24 Labs: Abnormal lab results 01/17/19 01/17/19 01/17/19 Range/Units 11:21 16:35 22:15 POC Glucose 201 H 186 H 157 H (70-105) 01/18/19 Range/Units 07:44 POC Glucose 135 H (70-105)
[2019-01-18] MEDS ORDERED: K-DUR PO NR (12:00)
[2019-01-18] MEDS: LOVENOX SUB-Q SCH ×2 (12:06→22:28)
[2019-01-18] MEDS: ASPIRIN PO SCH (12:06)
[2019-01-18] MEDS: SODIUM CHLORIDE FLUSH SYRINGE 10 ML IV SCH ×2 (12:07→22:28)
[2019-01-18] MEDS: LANTUS SUB-Q SCH ×2 (12:12→22:28)
[2019-01-18 12:16] LABS: BUN/Creatinine Ratio 14; Blood Urea Nitrogen 13 mg/dL (9-20); Calcium 8.2 mg/dL (8.4-10.2); Hemolysis Index 15
[2019-01-18] MEDS ORDERED: MORPHINE ONE (12:55)
[2019-01-18] MEDS: NORCO 5/325 PO PRN ×2 (13:22→20:39)
--- NOTE | 2019-01-18 13:32 | Event Note ---
Date: 01/18/19 Patient underwent Lexiscan thallium stress test, the perfusion images are pending for final test interpretation.
[2019-01-18] MEDS ORDERED: K-DUR PO ONE (23:00)
--- NOTE | 2019-01-19 00:12 | Treadmill Report ---
THALLIUM STRESS TEST LEFT VENTRICLE: Left ventricular chamber size is within normal spread. Perfusion study demonstrates a moderate sized, fixed inferior defect. On the resting study, there is a very mild degree of reversibility. Gated analysis demonstrates left ventricular systolic function at the lower limits of normal, ejection fraction 50%. CONCLUSION: Evidence of a prior basal inferior wall myocardial infarction, cannot exclude a very mild degree of reversible periinfarct ischemia. Clinical correlation is recommended. [facility]# [id number] RAFY/NTS
[2019-01-19 05:34] LABS: BUN/Creatinine Ratio 16; Blood Urea Nitrogen 14 mg/dL (9-20); Calcium 8.8 mg/dL (8.4-10.2); Hemolysis Index 9
[2019-01-19] MEDS: HumuLIN R SUB-Q SCH ×4 (07:30→21:50)
--- NOTE | 2019-01-19 08:55 | Progress Note ---
Assessment and Plan Possible acute stroke -On TIA/stroke protocol -Futher evaluation with MRI brain, carotid duplex and echocardiogram - cont aspirin, plavix, will follow PT/OT evel, neurology consulted MRI showed followin. Multiple nonhemorrhagic subacute and likely embolic infarcts involving the left basal ganglia, left frontal lobe white matter, left occipital lobe white matter, left sherry and right cerebellum. 2. Cortical atrophy more pronounced in the frontal and temporal lobes. 3. Moderate chronic white matter microangiopathy. Carotid doppler: No stenosis of greater than 50% is seen in the cervical arterial vasculature 2d echo 6 months ago with preserved Ef and normal bubble study Needs PT/OT Elevated troponin -Probably secondary to demand ischemia -Continue serial troponin and EKG monitoring -Cardiology consulted, s/p stress test today - result pending Uncontrolled hypertension Better controled DM2 with hyperglycemia -On SSI and Lantus -Hba1c 11.1 Hypokalemia/Hypomagnesemia -On repletion, will monitor levels Dyslipidemia -On statin DVT prophylaxis with Lovenox Subjective Date of service: 01/19/19 Principal diagnosis: Acute CVA Interval history: Patient is a 53 year old male with a history of stroke who presented to the ED on account of generalized weakness with a fall. Patient stated that at about 12 PM on 01/15/2019, he was about to go to the bathroom when his legs suddenly became weak and he fell, without hitting his head on the floor. He had associated slurred speech and lightheadedness. Patient was admitted with stroke protocol. Able to walk Objective - Constitutional Vitals: Vital Signs - 12hr 01/18/19 01/18/19 01/18/19 21:39 22:00 22:29 Temperature 98.1 F Pulse Rate 63 Respiratory 17 18 20 Rate Respiratory 18 Rate [Right Flank] Respiratory 18 Rate [Right Leg ] Respiratory 18 Rate [Right Lower Occipital ] Blood Pressure 182/102 O2 Sat by Pulse 97 98 Oximetry 01/19/19 04:56 Temperature 97.9 F Pulse Rate 61 Respiratory 18 Rate Respiratory Rate [Right Flank] Respiratory Rate [Right Leg ] Respiratory Rate [Right Lower Occipital ] Blood Pressure 172/91 O2 Sat by Pulse 98 Oximetry General appearance: Present: no acute distress, well-nourished - EENT Eyes: PERRL, EOM intact ENT: hearing intact, clear oral mucosa Ears: bilateral: normal - Neck Neck: supple, normal ROM - Respiratory Respiratory effort: normal Respiratory: bilateral: CTA - Breasts Breasts: normal - Cardiovascular Rhythm: regular Heart Sounds: Present: S1 & S2. Absent: gallop, rub Extremities: no ischemia, pulses intact, No edema, normal color, Full ROM - Gastrointestinal General gastrointestinal: Present: soft, non-tender, non-distended, normal bowel sounds - Genitourinary Male genitourinary: normal - Integumentary Integumentary: clear, warm, dry - Musculoskeletal Musculoskeletal: 1, strength equal bilaterally - Neurologic Neurologic: moves all extremities - Psychiatric Psychiatric: memory intact, appropriate mood/affect, intact judgment & insight - Allied health notes Allied health notes reviewed: nursing, PT, OT, case management - Labs CBC & Chem 7: 01/17/19 06:01 01/19/19 04:19 Labs: Abnormal lab results 01/18/19 01/18/19 01/18/19 Range/Units 11:24 16:38 20:53 Potassium 3.5 L (3.6-5.0) mmol/L Carbon Dioxide (22-30) mmol/L Glucose 193 H (75-100) mg/dL POC Glucose 162 H 189 H (70-105) Calcium 8.2 L (8.4-10.2) mg/dL 01/19/19 Range/Units 04:19 Potassium (3.6-5.0) mmol/L Carbon Dioxide 21 L (22-30) mmol/L Glucose (75-100) mg/dL POC Glucose (70-105) Calcium (8.4-10.2) mg/dL Stress test-- Cannot exclude a very mild degree of reversible periinfarct ischemia.
[2019-01-19] MEDS: LANTUS SUB-Q SCH ×2 (10:00→21:51)
[2019-01-19] MEDS: LOVENOX SUB-Q SCH (10:27)
[2019-01-19] MEDS: PLAVIX PO SCH (10:27)
[2019-01-19] MEDS: BABY ASPIRIN PO SCH (10:27)
[2019-01-19] MEDS: SODIUM CHLORIDE FLUSH SYRINGE 10 ML IV SCH ×2 (10:28→21:53)
[2019-01-19] MEDS: NORCO 5/325 PO PRN (21:45)
[2019-01-19] MEDS: APRESOLINE IV PRN (23:18)
[2019-01-19] MEDS ORDERED: APRESOLINE IV ONE (23:22)
[2019-01-20] MEDS: HumuLIN R SUB-Q SCH ×2 (09:51→13:25)
[2019-01-20] MEDS: BABY ASPIRIN PO SCH (09:52)
[2019-01-20] MEDS: LANTUS SUB-Q SCH (09:52)
[2019-01-20] MEDS: PLAVIX PO SCH (09:52)
[2019-01-20] MEDS: SODIUM CHLORIDE FLUSH SYRINGE 10 ML IV SCH (09:53)
[2019-01-20] MEDS: LOVENOX SUB-Q SCH (09:53)
[2019-01-20 11:52] VITALS: BP 166/106
--- NOTE | 2019-01-20 12:25 | Discharge Summary ---
Providers - Providers Date of Admission: 01/16/19 01:41 Date of discharge: 01/20/19 Attending physician: RAYNA WASSERMAN 01/16/19 01:38 Occupational Therapy Evaluate and Treat [CONS] Routine Comment: Reason For Exam: Neuro deficits Physical Therapy Evaluation and Treat [CONS] Routine Comment: Reason For Exam: Neuro deficits 01/16/19 03:04 Consult to Physician [CONS] Routine Comment: [email or web address] Consulting Provider: OTILIO RADFORD Physician Instructions: Reason For Exam: elevated troponin 01/17/19 12:04 Consult to Physician [CONS] Routine Comment: Consulting Provider: KAM VILLASENOR Physician Instructions: Reason For Exam: acute CVA 01/17/19 14:17 Speech Therapy Evaluation and Treat [CONS] Routine Reason For Exam: Pt. with subacute stroke and dysarthria. Primary care physician: GEOFFREY JIMÉNEZ Hospitalization Condition: Serious Pertinent studies: Had stress tests carotid duplex scan CT angiogram of the neck and head and brain MRI Results mentioned in the discharge note Hospital course: Acute stroke-ruled out TIA Continue aspirin and Plavix MRI showed followin. Multiple nonhemorrhagic subacute and likely embolic infarcts involving the left basal ganglia, left frontal lobe white matter, left occipital lobe white matter, left sherry and right cerebellum. 2. Cortical atrophy more pronounced in the frontal and temporal lobes. 3. Moderate chronic white matter microangiopathy. Carotid doppler: No stenosis of greater than 50% is seen in the cervical arterial vasculature 2d echo 6 months ago with preserved Ef and normal bubble study Needs PT/OT CT angiogram of the neck and head negative CT head showed multiple old basal ganglia calcifications no evidence of acute intracranial abnormality Elevated troponin Stress test negative Uncontrolled hypertension Better controled DM2 with hyperglycemia On SSI and Lantus dose adjusted Hba1c 11.1 Hypokalemia/Hypomagnesemia On repletion, will monitor levels Dyslipidemia On statin Disposition: DC-01 TO HOME OR SELFCARE Core Measure Documentation - Palliative Care Palliative Care/ Comfort Measures: Not Applicable - Core Measures Any of the following diagnoses?: none Exam - Constitutional Vitals: Temp Pulse Resp BP Pulse Ox 98.7 F 85 18 166/106 98 01/20/19 11:49 01/20/19 11:49 01/20/19 11:49 01/20/19 11:49 01/20/19 11:49 General appearance: Present: no acute distress, well-nourished - EENT Eyes: Present: PERRL ENT: hearing intact, clear oral mucosa - Neck Neck: Present: supple, normal ROM - Respiratory Respiratory effort: normal Respiratory: bilateral: CTA - Cardiovascular Heart rate: 78 Rhythm: regular Heart Sounds: Present: S1 & S2. Absent: rub, click - Extremities Extremities: pulses symmetrical, No edema Peripheral Pulses: within normal limits - Abdominal General gastrointestinal: Present: soft, non-tender, non-distended, normal bowel sounds Male genitourinary: Present: normal - Rectal Rectal Exam: deferred - Integumentary Integumentary: Present: clear, warm, dry - Musculoskeletal Musculoskeletal: gait normal, strength equal bilaterally - Psychiatric Psychiatric: appropriate mood/affect, intact judgment & insight - Neurologic Neurologic: CNII-XII intact, moves all extremities - Allied Health Allied health notes reviewed: nursing, case management Plan Activity: no restrictions Diet: low fat, low cholesterol, low salt Follow up with: GEOFFREY JIMÉNEZ JR, MD [Primary Care Provider] - 3-5 Days
[2019-01-20] MEDS ORDERED: COZAAR PO SCH (13:00)
== END 2019-01-20 13:55 | DRG 69 ==
LOC: ED 19:42 → 3A 01-16 01:41
PROVIDERS: ADMIT Internal Medicine; ATTEND Internal Medicine
DX: G45.9 Transient cerebral ischemic attack, unspecified (principal); E11.65 Type 2 diabetes mellitus with hyperglycemia; I10 Essential (primary) hypertension; E87.6 Hypokalemia; F17.210 Nicotine dependence, cigarettes, uncomplicated; E83.42 Hypomagnesemia; E78.5 Hyperlipidemia, unspecified; I16.0 Hypertensive urgency; G81.94 Hemiplegia, unspecified affecting left nondominant side; I24.8 Other forms of acute ischemic heart disease; W18.30XA Fall on same level, unspecified, initial encounter; Y93.89 Activity, other specified; Y92.098 Other place in other non-institutional residence as the place of occurrence of the external cause; Y99.8 Other external cause status; Z82.49 Family history of ischemic heart disease and other diseases of the circulatory system; Z86.73 Personal history of transient ischemic attack (TIA), and cerebral infarction without residual deficits; Z79.01 Long term (current) use of anticoagulants; Z79.899 Other long term (current) drug therapy; Z71.6 Tobacco abuse counseling; Z79.84 Long term (current) use of oral hypoglycemic drugs
CPT/HCPCS: 36415; 70450; 70496; 70498; 70544; 70551; 78452; 80048; 80053; 80061; 80307; 80320; 81001; 82550; 82553; 82805; 82962; 83036; 83735; 84132; 84484; 85025; 85610; 85670; 85730; 86850; 86900; 86901; 87116; 93005; 93010; 93017; 93306; 93312; 93320; 93325; 93880; 96374; 99285; 99291; 99406; G0378; A9270-GY; A9502; G0480; J0360; J1650; J1815; J2270; J2405; J2704; J2785; J3475; J3480; J7030; Q9967

== ENCOUNTER 2019-01-21 12:23 | Inpatient (IN) | payer MEDICAID ==
--- NOTE | 2019-01-21 12:41 | Emergency Department Report ---
HPI - General Time Seen by Provider: 01/21/19 12:27 - HPI HPI: Charge nurse triage/ Room 21 The patient is a 53-year-old male presented with a chief complaint of altered mental status. Patient was recently admitted to the hospital for CVA. Family states the patient was discharged yesterday afternoon. Family states the patient was speaking normally at that time. Upon awakening this morning family noted that the patient was not speaking so EMS was called and the patient was returned to the emergency department. Initially the patient does not attempt to speak but follows commands. With further encouragement the patient attempts to speak but it is unintelligible Location: [facility] Duration: [See above] Quality: Altered Severity: Moderate Modifying factors: [see above] Context: [see above] Mode of transportation: [not driving] ED Past Medical Hx - Past Medical History Hx Hypertension: Yes Hx CVA: Yes (10/2017) Hx Diabetes: Yes - Surgical History Additional Surgical History: RIGHT LEG SURGERY FROM [facility] - Family History Family history: no significant - Social History Smoking Status: Former Smoker - Medications Home Medications: Home Medications Medication Instructions Recorded Confirmed Last Taken Type ALPRAZolam [Xanax TAB] 2 mg PO TID PRN 05/03/18 01/15/19 05/01/18 History Carisoprodol [Soma] 350 mg PO TID 05/03/18 01/15/19 05/01/18 History Aspirin [Aspirin BABY CHEW TAB] 81 mg PO QDAY #100 tab.chew 01/20/19 Unknown Rx AtorvaSTATin [Lipitor] 40 mg PO QHS #30 tablet 01/20/19 Unknown Rx Carvedilol [Coreg] 12.5 mg PO BID #60 tablet 01/20/19 Unknown Rx Clopidogrel [Plavix] 75 mg PO QDAY #30 tablet 01/20/19 Unknown Rx Insulin Glargine [Lantus VIAL] 25 units SUB-Q BID #5 pen 01/20/19 Unknown Rx Losartan [Cozaar] 100 mg PO QDAY #30 tablet 01/20/19 Unknown Rx metFORMIN [Glucophage] 500 mg PO BID #60 tablet 01/20/19 Unknown Rx ED Review of Systems ROS: Stated complaint: AMS Other details as noted in HPI Comment: Unobtainable due to pts medical conditions Physical Exam - Physical Exam Physical Exam: GENERAL: The patient is well-developed well-nourished male sitting on stretcher not appearing to be in acute distress. Nonverbal HEENT: Normocephalic. Atraumatic. Patient does not comply with Extraocular motions exam. Patient has moist mucous membranes. NECK: Supple. Trachea midline CHEST/LUNGS: Clear to auscultation. There is no respiratory distress noted. HEART/CARDIOVASCULAR: Regular. There is no tachycardia. There is no gallop rub or murmur. ABDOMEN: Abdomen is soft, nontender. Patient has normal bowel sounds. There is no abdominal distention. SKIN: There is no rash. There is no edema. There is no diaphoresis. NEURO: The patient is awake and alert but nonverbal. When patient finally attempts to speak it is unintelligible. Patient does not cooperate with extraocular motion exam but otherwise cranial nerves II through XII grossly intact. Field Health Officer equal bilaterally. MUSCULOSKELETAL: There is no evidence of acute injury. ED Medical Decision Making - Lab Data Result diagrams: 01/21/19 12:49 01/21/19 12:49 - EKG Data -: EKG Interpreted by Ca EKG shows normal: sinus rhythm Rate: normal - EKG Data When compared to previous EKG there are: no significant change Interpretation: unchanged when compared t (01/15/2019), nonspecific ST-T wave meg - Radiology Data Radiology results: report reviewed (CT head), image reviewed (CT head) [place] [address] Cat Scan Report Signed Patient: JOS ZARATE MR#: [id number] : 1965 Acct:[id number] Age/Sex: 53 / M ADM Date: 01/21/19 Loc: ED Attending Dr: Ordering Physician: REYNOLD BOB MD Date of Service: 01/21/19 Procedure(s): CT head/brain wo con Accession Number(s): [id number] cc: REYNOLD BOB MD PROCEDURE: CT HEAD/BRAIN WO CON TECHNIQUE: CT images of the head were obtained without the use of IV contrast HISTORY: AMS COMPARISONS: CT 01/15/2019, 07/11/2018, MRI 01/16/2019 FINDINGS: There are stable chronic low-attenuation lesions in the sherry, bilateral thalami, and basal ganglia. Patchy bilateral white matter low attenuation is compatible with chronic microvascular ischemic changes. There has been interval development of low density in the left caudate head, measuring 1.6 cm, compatible with subacute infarct. There is a subcentimeter low-attenuation focus in the left sherry which is also compatible with subacute infarct seen on the prior MRI. Intracranial arteries are symmetric in density. There is no evidence of intracranial hemorrhage, mass, or hydrocephalus. Calvarium is intact. Visualized paranasal sinuses and mastoids are aerated. IMPRESSION: There has been interval development of low-density in the left caudate head and left sherry, compatible with foci of subacute infarct. No acute hemorrhage is identified. Findings were discussed with Dr. Bob by telephone at 11:59 AM central standard time on 01/21/2019 This document is electronically signed by Matilde Calabrese MD., January 21 2019 01:12:04 PM ET Transcribed By: [facility] Dictated By: MATILDE CALABRESE M.D. Electronically Authenticated By: MATILDE CALABRESE M.D. Signed Date/Time: 01/21/19 1313 DD/ 1225 TD/TT: 01/21/19 1252 - Differential Diagnosis CVA Critical care attestation.: If time is entered above; I have spent that time in minutes in the direct care of this critically ill patient, excluding procedure time. ED Disposition Clinical Impression: Stroke Disposition: -09 OP ADMIT IP TO THIS HOSP Is pt being admited?: Yes Does the pt Need Aspirin: Yes Condition: Fair Additional Instructions: Stroke - recent stroke, maybe a recurrence v fluctuation - pattern on recent MRI concern for embolic events - will need repeat MRI brain - may need prolonged cardiac monitoring if no A Fib on tele or by hx - ASA OK for now - dysphagia screen - DVT prophylaxis - neuro consult - discussed with ED physician Referrals: ZACH BARRETOHENRIETTA MD ANDRE [Primary Care Provider] - 3-5 Days Time of Disposition: 14:07 (hospitalist paged (Dr Teague))
[2019-01-21] MEDS ORDERED: ASPIRIN PO ONE (13:01)
--- NOTE | 2019-01-21 13:03 | Emergency Department Report ---
ED Neuro Deficit HPI - General Chief Complaint: Neuro Symptoms/Deficit Stated Complaint: AMS Time Seen by Provider: 01/21/19 12:27 Source: EMS Mode of arrival: Stretcher Limitations: Other - History of Present Illness Initial Comments: 53 yo with changes in mental status * recent admission for stroke earlier this week * discharged home yesterday * MRI reviewed, shows he had L >>> R brain embolic appearing stroke * minimal residual on D/C * last sen normal at 1900 by roommate * at 0600 patient apparently fell out of bed, and noted to have ? R side weakness, decreased verbal output * roommate helped him back in bed and when checked on patient later symptoms no better so EMS called * arrived to ER at 1223 * call to teleneuor at 1233 * connected at 1236 * eval at 1242 * NIHSS 5 for LOC questions, R droop, and mild dysarthria/aphasia * no tPA due to recent stroke * no intervention due to recent stroke Last Observed Normal: 19:00 (last evening) - Related Data Home Medications: Home Medications Medication Instructions Recorded Confirmed Last Taken ALPRAZolam [Xanax TAB] 2 mg PO TID PRN 05/03/18 01/15/19 05/01/18 Carisoprodol [Soma] 350 mg PO TID 05/03/18 01/15/19 05/01/18 Previous Rx's Medication Instructions Recorded Last Taken Type Aspirin [Aspirin BABY CHEW TAB] 81 mg PO QDAY #100 tab.chew 01/20/19 Unknown Rx AtorvaSTATin [Lipitor] 40 mg PO QHS #30 tablet 01/20/19 Unknown Rx Carvedilol [Coreg] 12.5 mg PO BID #60 tablet 01/20/19 Unknown Rx Clopidogrel [Plavix] 75 mg PO QDAY #30 tablet 01/20/19 Unknown Rx Insulin Glargine [Lantus VIAL] 25 units SUB-Q BID #5 pen 01/20/19 Unknown Rx Losartan [Cozaar] 100 mg PO QDAY #30 tablet 01/20/19 Unknown Rx metFORMIN [Glucophage] 500 mg PO BID #60 tablet 01/20/19 Unknown Rx Allergies/Adverse Reactions: Allergies Allergy/AdvReac Type Severity Reaction Status Date / Time No Known Allergies Allergy Verified 01/21/19 12:55 ED Review of Systems ROS: Stated complaint: AMS Other details as noted in HPI ED Past Medical Hx - Past Medical History Previous Medical History?: Yes Hx Hypertension: Yes Hx CVA: Yes (10/2017) Hx Congestive Heart Failure: No Hx Diabetes: Yes Hx Asthma: No Additional medical history: high cholesterol - Surgical History Past Surgical History?: Yes Additional Surgical History: RIGHT LEG SURGERY FROM [facility] - Social History Smoking Status: Former Smoker - Medications Home Medications: Home Medications Medication Instructions Recorded Confirmed Last Taken Type ALPRAZolam [Xanax TAB] 2 mg PO TID PRN 05/03/18 01/15/19 05/01/18 History Carisoprodol [Soma] 350 mg PO TID 05/03/18 01/15/19 05/01/18 History Aspirin [Aspirin BABY CHEW TAB] 81 mg PO QDAY #100 tab.chew 01/20/19 Unknown Rx AtorvaSTATin [Lipitor] 40 mg PO QHS #30 tablet 01/20/19 Unknown Rx Carvedilol [Coreg] 12.5 mg PO BID #60 tablet 01/20/19 Unknown Rx Clopidogrel [Plavix] 75 mg PO QDAY #30 tablet 01/20/19 Unknown Rx Insulin Glargine [Lantus VIAL] 25 units SUB-Q BID #5 pen 01/20/19 Unknown Rx Losartan [Cozaar] 100 mg PO QDAY #30 tablet 01/20/19 Unknown Rx metFORMIN [Glucophage] 500 mg PO BID #60 tablet 01/20/19 Unknown Rx ED Neuro Physical Exam - General Limitations: Other Suspected Stroke: Yes - NIHSS Assessment Interval: Baseline 1a. Level of Consciousness: alert/keenly responsive 1b. LOC Questions: answers no questions correctly 1c. LOC Commands: performs tasks correctly 2. Best Gaze: normal 3. Visual: no visual loss 4. Facial Palsy: minor paralysis 5b. Motor Arm Right: no drift 5a. Motor Arm Left: no drift 6a. Motor Leg Left: no drift 6b. Motor Leg Right: no drift 7. Limb Ataxia: absent 8. Sensory: normal 9. Best Language: mild/moderate aphasia 10. Dysarthria: mild/moderate dysarthria 11. Extinction/Inattention: no abnormality Total Score: 5 Stroke Severity: Moderate Stroke ED Course Vital Signs 01/21/19 12:23 Temperature 98.1 F Pulse Rate 76 Respiratory 12 Rate Blood Pressure 163/88 O2 Sat by Pulse 98 Oximetry - Lab Data Result diagrams: 01/21/19 12:49 Lab Results 01/21/19 01/21/19 Range/Units 12:49 12:54 WBC 9.8 (4.5-11.0) K/mm3 RBC 4.10 (3.65-5.03) M/mm3 Hgb 13.1 (11.8-15.2) gm/dl Hct 39.1 (35.5-45.6) % MCV 95 H (84-94) fl MCH 32 (28-32) pg MCHC 33 (32-34) % RDW 13.3 (13.2-15.2) % Plt Count 307 (140-440) K/mm3 Lymph % (Auto) 17.5 (13.4-35.0) % Moody % (Auto) 5.4 (0.0-7.3) % Eos % (Auto) 2.4 (0.0-4.3) % Baso % (Auto) 0.8 (0.0-1.8) % Lymph # 1.7 (1.2-5.4) K/mm3 Moody # 0.5 (0.0-0.8) K/mm3 Eos # 0.2 (0.0-0.4) K/mm3 Baso # 0.1 (0.0-0.1) K/mm3 Seg Neutrophils % 73.9 H (40.0-70.0) % Seg Neutrophils # 7.3 (1.8-7.7) K/mm3 POC Glucose 233 H (70-105) - Radiology Data Radiology results: report reviewed interpreted by me: CT head - reviewed - no acute process, evolving L caudate/BG stroke as seen as acute stroke on MRI 01/16 - Thrombolytic Inclusion/Exclusion Thrombolytic Exclusion Criteria: Symptom Onset > 3 Hours Thrombolytic Contraindications: Stroke in Past 3 Months Critical care attestation.: If time is entered above; I have spent that time in minutes in the direct care of this critically ill patient, excluding procedure time. ED Disposition Clinical Impression: Stroke Disposition: [id number] OP ADMIT IP TO THIS HOSP Is pt being admited?: Yes Condition: Stable Additional Instructions: Stroke - recent stroke, maybe a recurrence v fluctuation - pattern on recent MRI concern for embolic events - will need repeat MRI brain - may need prolonged cardiac monitoring if no A Fib on tele or by hx - ASA OK for now - dysphagia screen - DVT prophylaxis - neuro consult - discussed with ED physician
[2019-01-21 13:05] LABS: Basophils # (Auto) 0.1 K/mm3 (0.0-0.1); Basophils % (Auto) 0.8 % (0.0-1.8); Eosinophils # (Auto) 0.2 K/mm3 (0.0-0.4); Eosinophils % (Auto) 2.4 % (0.0-4.3); Hematocrit 39.1 % (35.5-45.6); Hemoglobin 13.1 gm/dl (11.8-15.2); Lymphocytes # (Auto) 1.7 K/mm3 (1.2-5.4); Lymphocytes % (Auto) 17.5 % (13.4-35.0); Mean Corpuscular HGB Conc 33 % (32-34); Mean Corpuscular Volume 95 fl (84-94); Monocytes # (Auto) 0.5 K/mm3 (0.0-0.8); Monocytes % (Auto) 5.4 % (0.0-7.3); Platelet Count 307 K/mm3 (140-440); Red Cell Distribution Width 13.3 % (13.2-15.2)
--- NOTE | 2019-01-21 13:13 | Cat Scan Report ---
PROCEDURE: CT HEAD/BRAIN WO CON TECHNIQUE: CT images of the head were obtained without the use of IV contrast HISTORY: AMS COMPARISONS: CT 01/15/2019, 07/11/2018, MRI 01/16/2019 FINDINGS: There are stable chronic low-attenuation lesions in the sherry, bilateral thalami, and basal ganglia. P atchy bilateral white matter low attenuation is compatible with chronic microvascular ischemic change s. There has been interval development of low density in the left caudate head, measuring 1.6 cm, com patible with subacute infarct. There is a subcentimeter low-attenuation focus in the left sherry which is also compatible with subacute infarct seen on the prior MRI. Intracranial arteries are symmetric i n density. There is no evidence of intracranial hemorrhage, mass, or hydrocephalus. Calvarium is inta ct. Visualized paranasal sinuses and mastoids are aerated. IMPRESSION: There has been interval development of low-density in the left caudate head and left sherry, compatible with foci of subacute infarct. No acute hemorrhage is identified. Findings were discussed with Dr. Mauro mtz by telephone at 11:59 AM central standard time on 01/21/2019 This document is electronically signed by Matilde Calabrese MD., January 21 2019 01:12:04 PM ET
[2019-01-21 13:18] LABS: INR 0.96 (0.87-1.13)
[2019-01-21 13:19] LABS: Partial Thromboplastin Time 29.8 Sec. (24.2-36.6)
[2019-01-21 13:27] LABS: Creatine Kinase MB 2.8 ng/mL (0.0-4.0)
[2019-01-21 13:54] LABS: Albumin 3.4 g/dL (3.9-5)
[2019-01-21 14:03] LABS: Bacteria,Urine 2+ /HPF (Negative); Bilirubin,Urine NEG (Negative); Blood,Urine SM (Negative); Color,Urine Yellow (Yellow); Mucus,Urine 1+ /HPF; Urobilinogen,Urine < 2.0 mg/dL (<2.0)
[2019-01-21 14:04] LABS: Alanine Aminotransferase 64 units/L (7-56); BUN/Creatinine Ratio 15; Blood Urea Nitrogen 15 mg/dL (9-20); Calcium 8.4 mg/dL (8.4-10.2)
[2019-01-21 14:05] LABS: Protein,Urine >2000 mg dL mg/dL (Negative)
[2019-01-21 14:25] LABS: Amphetamine Screen,Urine PRESUMPTIVE NEGATIVE; Cannabinoid Screen,Urine PRESUMPTIVE NEGATIVE; Cocaine Screen,Urine PRESUMPTIVE NEGATIVE; Methadone Screen,Urine PRESUMPTIVE NEGATIVE; Opiate Screen,Urine PRESUMPTIVE NEGATIVE
[2019-01-21 14:52] LABS: Benzodiazepines Screen,Urine PRESUMPTIVE POSITIVE
--- NOTE | 2019-01-21 15:26 | History and Physical Report ---
History of Present Illness Chief complaint: He cant talk now History of present illness: 53 YO Male with DM, HTN, HLD, Nicotine Dependence, CVA on DAPT. Admitted to [facility] on 01/16 and Discharge on 01/20 for acute CVA. Pt is nonverbal and unable to provide history. Pt history provided by family who is at bedside during exam and interview. Pt was in is usual state of health after arrival at this home after hospital discharge. Pt went to bed around 2200hrs and was verbalizing, and in his usual state of health, but upon waking from sleep this morning around 0800hrs, that patient was found to be unable to speak. EMS notified, and upon arrival the patient was found to have a new neurologic deficit. A code stroke was called and the patient was transported to [facility]. Pt seen and evaluated in ED, and found to have CVA complicated by expressive aphasia. Pt outside therapeutic window for TPA at time of my evaluation. Pt admitted to telemetry and initiated on CVA protocol. Neurology consulted in ED. Prior admission on 01/16/19 for CVA reviewed. All listed medication reconciled at time of admission. No reports of fever, chills, CP, Palpitations, NVD, Trauma, Seizures, Skin rash, or loss of bowel/bladder continence. Pt family request transfer to [facility]. No beds available at [facility]. Past History Past Medical History: diabetes, hypertension, hyperlipidemia, stroke Past Surgical History: Other (Leg surgery) Social history: single, smoking. denies: alcohol abuse, prescription drug abuse, IV drug use Family history: diabetes, hypertension Medications and Allergies Allergies Allergy/AdvReac Type Severity Reaction Status Date / Time No Known Allergies Allergy Verified 01/21/19 12:55 Home Medications Medication Instructions Recorded Confirmed Last Taken Type ALPRAZolam [Xanax TAB] 2 mg PO TID PRN 05/03/18 01/15/19 05/01/18 History Carisoprodol [Soma] 350 mg PO TID 05/03/18 01/15/19 05/01/18 History Aspirin [Aspirin BABY CHEW TAB] 81 mg PO QDAY #100 tab.chew 01/20/19 Unknown Rx AtorvaSTATin [Lipitor] 40 mg PO QHS #30 tablet 01/20/19 Unknown Rx Carvedilol [Coreg] 12.5 mg PO BID #60 tablet 01/20/19 Unknown Rx Clopidogrel [Plavix] 75 mg PO QDAY #30 tablet 01/20/19 Unknown Rx Insulin Glargine [Lantus VIAL] 25 units SUB-Q BID #5 pen 01/20/19 Unknown Rx Losartan [Cozaar] 100 mg PO QDAY #30 tablet 01/20/19 Unknown Rx metFORMIN [Glucophage] 500 mg PO BID #60 tablet 01/20/19 Unknown Rx Review of Systems ROS unobtainable: due to mental status Exam - Constitutional Vitals: Temp Pulse Resp BP Pulse Ox 98.1 F 71 9 L 175/92 97 01/21/19 12:23 01/21/19 15:00 01/21/19 15:00 01/21/19 15:00 01/21/19 15:00 General appearance: Present: mild distress - EENT Eyes: Present: PERRL ENT: hearing intact, clear oral mucosa - Neck Neck: Present: supple, normal ROM - Respiratory Respiratory effort: normal Respiratory: bilateral: CTA - Cardiovascular Heart Sounds: Present: S1 & S2. Absent: rub, click - Extremities Extremities: pulses symmetrical, No edema Peripheral Pulses: within normal limits - Abdominal General gastrointestinal: Present: soft, non-tender, non-distended, normal bowel sounds Male genitourinary: Present: normal - Integumentary Integumentary: Present: clear, warm, dry - Musculoskeletal Musculoskeletal: generalized weakness - Neurologic Neurologic: no CNII-XII intact, focal deficits, no moves all extremities, no gait normal Results - Labs CBC & Chem 7: 01/21/19 12:49 01/21/19 12:49 Labs: Abnormal lab results 01/21/19 01/21/19 01/21/19 Range/Units 12:49 12:49 12:49 MCV 95 H (84-94) fl Seg Neutrophils % 73.9 H (40.0-70.0) % Chloride 60.0 L (98-107) mmol/L Carbon Dioxide 20 L (22-30) mmol/L Glucose 232 H (75-100) mg/dL POC Glucose (70-105) AST 57 H (5-40) units/L ALT 64 H (7-56) units/L Alkaline Phosphatase 137 H (35-129) units/L Total Creatine Kinase 363 H (55-170) units/L Troponin T 0.075 H (0.00-0.029) ng/mL Albumin 3.4 L (3.9-5) g/dL Ur Specific [place] (1.003-1.030) Urine WBC (Auto) (0.0-6.0) /HPF 01/21/19 01/21/19 Range/Units 12:54 13:53 MCV (84-94) fl Seg Neutrophils % (40.0-70.0) % Chloride (98-107) mmol/L Carbon Dioxide (22-30) mmol/L Glucose (75-100) mg/dL POC Glucose 233 H (70-105) AST (5-40) units/L ALT (7-56) units/L Alkaline Phosphatase (35-129) units/L Total Creatine Kinase (55-170) units/L Troponin T (0.00-0.029) ng/mL Albumin (3.9-5) g/dL Ur Specific [place] 1.033 H (1.003-1.030) Urine WBC (Auto) 14.0 H (0.0-6.0) /HPF Assessment and Plan - Patient Problems (1) CVA (cerebral vascular accident) Current Visit: Yes Status: Acute Qualifiers: Laterality of affected vessel: left Plan to address problem: Stroke Protocol: Admit to telemetry, Echo/Carotid Doppler reviewed from 01/16/19, DAPT, Neurolocy consulted, PT/OT/Speech, Statin therapy, Aspiration precautions, seizure precaution, neuro checks. (2) HTN (hypertension) Current Visit: Yes Status: Acute Qualifiers: Hypertension type: essential hypertension Plan to address problem: Monitor bp q shift, permissive hypertension overnight, IV hydralazine prn. (3) HLD (hyperlipidemia) Current Visit: Yes Status: Acute Qualifiers: Hyperlipidemia type: mixed hyperlipidemia Qualified Code(s): E78.2 - Mixed hyperlipidemia Plan to address problem: Statin therapy, risk factor reduction, smoking cessation, , low cholesterol diet. (4) Diabetes Current Visit: Yes Status: Acute Plan to address problem: ADA diet, insulin, accu check, (5) DVT prophylaxis Current Visit: Yes Status: Acute Plan to address problem: SCD to BLE while in bed, prophylactic lovenox
[2019-01-21] MEDS ORDERED: TYLENOL PO PRN (15:27)
[2019-01-21] MEDS ORDERED: ZOFRAN IV PRN (15:27)
[2019-01-21] MEDS ORDERED: DULCOLAX PR PRN (15:27)
[2019-01-21] MEDS ORDERED: REGLAN PO PRN (15:27)
[2019-01-21] MEDS ORDERED: PHENERGAN PR PRN (15:27)
[2019-01-21] MEDS ORDERED: MILK OF MAGNESIA PO PRN (15:27)
[2019-01-21] MEDS ORDERED: SODIUM CHLORIDE FLUSH SYRINGE 10 ML IV PRN (15:27)
[2019-01-21] MEDS ORDERED: NON-FORMULARY (Alprazolam [Xanax Tab] 2 MG) PO PRN (15:29)
[2019-01-21] MEDS ORDERED: XANAX PO PRN (15:47)
[2019-01-21] MEDS ORDERED: D50W (25GM) Syringe IV PRN (16:21)
[2019-01-21] MEDS ORDERED: ASPIRIN ONE (17:21)
[2019-01-21] MEDS: SOMA PO SCH ×2 (17:26→22:27)
[2019-01-21] MEDS ORDERED: HumaLOG SUB-Q ONE (18:12)
[2019-01-21] MEDS: HumaLOG SUB-Q SCH ×2 (18:12→23:11)
[2019-01-21] MEDS: LOVENOX SUB-Q SCH (23:00)
[2019-01-22] MEDS: SOMA PO SCH ×3 (08:55→20:54)
[2019-01-22] MEDS: APRESOLINE IV PRN (08:55)
[2019-01-22] MEDS: ASPIRIN PO SCH (09:01)
[2019-01-22] MEDS: PLAVIX PO SCH (09:01)
[2019-01-22] MEDS: HumaLOG SUB-Q SCH ×4 (09:02→21:59)
--- NOTE | 2019-01-22 10:54 | Progress Note ---
Assessment and Plan Assessment and plan: CVA. Patient with recent CVA and workup including Echo/Carotid Doppler from 01/16/19. Continue DAPT, Neurology consulted, PT/OT/Speech, Statin therapy, Aspiration precautions, seizure precaution, neuro checks. Previous MRI completed on 01/16/19 revealed multiple nonhemorrhagic subacute and likely embolic infarcts involving the left basal ganglia, left frontal lobe white matter, left occipital lobe white matter, left sherry and right matter cerebellum. Given the recurrence ? CVA and MRI revealed multiple infarcts, we will order for LELE to rule out cardioembolic source. Also, check carotid ultrasound. Accelerated hypertension. Resume antihypertensive medications. Hyperlipidemia. Continue statin therapy. Diabetes mellitus type 2. ADA diet, insulin, accu check, History Interval history: 53 YO Male with DM, HTN, HLD, Nicotine Dependence, CVA on DAPT. Admitted to [facility] on 01/16 and Discharge on 01/20 for acute CVA. Pt was nonverbal and unable to provide history yesterday evening on admission. Pt history provided by family who was at bedside at that time. Pt was in is usual state of health after arrival at this home after hospital discharge. Pt went to bed around 2200hrs and was verbalizing, and in his usual state of health, but upon waking from sleep the morning prior to admission around 0800hrs, that patient was found to be unable to speak. EMS notified, and upon arrival the patient was found to have a new neurologic deficit. A code stroke was called and the patient was transported to [facility]. Pt seen and evaluated in ED, and found to have CVA complicated by expressive aphasia. Pt was outside therapeutic window for TPA when presented to the ER. Pt admitted to telemetry and initiated on CVA protocol. Neurology consulted in ED. On my evaluation this morning, patient was noted to be verbal and responding to questions, following commands with no lateralizing signs or symptoms. I discussed the patient's presentation with the sister who believes he may have had a TIA. Hospitalist Physical - Constitutional Vitals: Temp Pulse Resp BP Pulse Ox 98.2 F 87 20 180/110 93 01/22/19 04:06 01/22/19 04:06 01/22/19 04:06 01/22/19 08:55 01/22/19 04:06 General appearance: Present: mild distress - EENT Eyes: Present: PERRL, EOM intact ENT: hearing intact, clear oral mucosa, dentition normal - Neck Neck: Present: supple, normal ROM - Respiratory Respiratory effort: normal Respiratory: bilateral: CTA - Cardiovascular Rhythm: regular Heart Sounds: Present: S1 & S2. Absent: gallop, rub - Extremities Extremities: no ischemia, No edema, Full ROM - Abdominal General gastrointestinal: soft, non-tender, non-distended, normal bowel sounds - Integumentary Integumentary: Present: clear, warm, dry - Neurologic Neurologic: CNII-XII intact, moves all extremities Results - Labs CBC & Chem 7: 01/21/19 12:49 01/21/19 12:49 Labs: Laboratory Last Values WBC 9.8 K/mm3 (4.5-11.0) 01/21/19 12:49 RBC 4.10 M/mm3 (3.65-5.03) 01/21/19 12:49 Hgb 13.1 gm/dl (11.8-15.2) 01/21/19 12:49 Hct 39.1 % (35.5-45.6) 01/21/19 12:49 MCV 95 fl (84-94) H 01/21/19 12:49 MCH 32 pg (28-32) 01/21/19 12:49 MCHC 33 % (32-34) 01/21/19 12:49 RDW 13.3 % (13.2-15.2) 01/21/19 12:49 Plt Count 307 K/mm3 (140-440) 01/21/19 12:49 Lymph % (Auto) 17.5 % (13.4-35.0) 01/21/19 12:49 [place] % (Auto) 5.4 % (0.0-7.3) 01/21/19 12:49 Eos % (Auto) 2.4 % (0.0-4.3) 01/21/19 12:49 Baso % (Auto) 0.8 % (0.0-1.8) 01/21/19 12:49 Lymph # 1.7 K/mm3 (1.2-5.4) 01/21/19 12:49 [place] # 0.5 K/mm3 (0.0-0.8) 01/21/19 12:49 Eos # 0.2 K/mm3 (0.0-0.4) 01/21/19 12:49 Baso # 0.1 K/mm3 (0.0-0.1) 01/21/19 12:49 Seg Neutrophils % 73.9 % (40.0-70.0) H 01/21/19 12:49 Seg Neutrophils # 7.3 K/mm3 (1.8-7.7) 01/21/19 12:49 PT 13.4 Sec. (12.2-14.9) 01/21/19 12:49 INR 0.96 (0.87-1.13) 01/21/19 12:49 APTT 29.8 Sec. (24.2-36.6) 01/21/19 12:49 Thrombin Time 16.0 Sec. (15.1-19.6) 01/21/19 12:49 Sodium 137 mmol/L (137-145) 01/21/19 12:49 Potassium 5.0 mmol/L (3.6-5.0) D 01/21/19 12:49 Chloride 60.0 mmol/L (98-107) L 01/21/19 12:49 Carbon Dioxide 20 mmol/L (22-30) L 01/21/19 12:49 Anion Gap 19 mmol/L 01/21/19 12:49 BUN 15 mg/dL (9-20) 01/21/19 12:49 Creatinine 1.0 mg/dL (0.8-1.5) 01/21/19 12:49 Estimated GFR > 60 ml/min 01/21/19 12:49 BUN/Creatinine Ratio 15 % 01/21/19 12:49 Glucose 232 mg/dL (75-100) H 01/21/19 12:49 POC Glucose 199 (70-105) H 01/21/19 22:44 Calcium 8.4 mg/dL (8.4-10.2) 01/21/19 12:49 Total Bilirubin < 0.20 mg/dL (0.1-1.2) 01/21/19 12:49 AST 57 units/L (5-40) H 01/21/19 12:49 ALT 64 units/L (7-56) H 01/21/19 12:49 Alkaline Phosphatase 137 units/L (35-129) H 01/21/19 12:49 Total Creatine Kinase 363 units/L (55-170) H 01/21/19 12:49 CK-MB (CK-2) 2.8 ng/mL (0.0-4.0) 01/21/19 12:49 CK-MB (CK-2) Rel Index 0.7 (0-4) 01/21/19 12:49 Troponin T 0.075 ng/mL (0.00-0.029) H 01/21/19 12:49 Total Protein 7.0 g/dL (6.3-8.2) 01/21/19 12:49 Albumin 3.4 g/dL (3.9-5) L 01/21/19 12:49 Albumin/Globulin Ratio 0.9 % 01/21/19 12:49 Urine Color Yellow (Yellow) 01/21/19 13:53 Urine Turbidity Slightly-cloudy (Clear) 01/21/19 13:53 Urine pH 5.0 (5.0-7.0) 01/21/19 13:53 Ur Specific [place] 1.033 (1.003-1.030) H 01/21/19 13:53 Urine Protein >2000 mg dl mg/dL (Negative) 01/21/19 13:53 Urine Glucose (UA) 150 mg/dL (Negative) 01/21/19 13:53 Urine Ketones Tr mg/dL (Negative) 01/21/19 13:53 Urine Blood Sm (Negative) 01/21/19 13:53 Urine Nitrite Neg (Negative) 01/21/19 13:53 Urine Bilirubin Neg (Negative) 01/21/19 13:53 Urine Urobilinogen < 2.0 mg/dL (<2.0) 01/21/19 13:53 Ur Leukocyte Esterase Neg (Negative) 01/21/19 13:53 Urine WBC (Auto) 14.0 /HPF (0.0-6.0) H 01/21/19 13:53 Urine RBC (Auto) 4.0 /HPF (0.0-6.0) 01/21/19 13:53 U Epithel Cells (Auto) 1.0 /HPF (0-13.0) 01/21/19 13:53 Urine Bacteria (Auto) 2+ /HPF (Negative) 01/21/19 13:53 Urine Mucus 1+ /HPF 01/21/19 13:53 Urine Opiates Screen Presumptive negative 01/21/19 13:53 Urine Methadone Screen Presumptive negative 01/21/19 13:53 Ur Barbiturates Screen Presumptive negative 01/21/19 13:53 Ur Phencyclidine Scrn Presumptive negative 01/21/19 13:53 Ur Amphetamines Screen Presumptive negative 01/21/19 13:53 U Benzodiazepines Scrn Presumptive positive 01/21/19 13:53 Urine Cocaine Screen Presumptive negative 01/21/19 13:53 U Marijuana (THC) Screen Presumptive negative 01/21/19 13:53 Drugs of Abuse Note Disclamer 01/21/19 13:53 Plasma/Serum Alcohol < 0.01 % (0-0.07) 01/21/19 12:49 Active Medications - Current Medications Current Medications: Generic Name Dose Route Start Last Admin Trade Name Freq PRN Reason Stop Dose Admin Acetaminophen 650 mg 01/21/19 15:27 Tylenol PO Q4H PRN Pain, Mild (1-3) Alprazolam 2 mg 01/21/19 15:47 Xanax PO TID PRN Anxiety Aspirin 325 mg 01/22/19 10:00 01/22/19 09:01 Aspirin PO 325 mg QDAY LIBIA Administration Atorvastatin Calcium 40 mg 01/21/19 22:00 01/21/19 22:27 Lipitor PO Not Given QHS LIBIA Bisacodyl 10 mg 01/21/19 15:27 Dulcolax RI QDAY PRN Constipation Carisoprodol 350 mg 01/21/19 16:00 01/22/19 08:55 Soma PO 350 mg TID LIBIA Administration Clopidogrel Bisulfate 75 mg 01/22/19 10:00 01/22/19 09:01 Plavix PO 75 mg QDAY LIBIA Administration Dextrose 50 ml 01/21/19 16:21 D50w (25gm) Syringe IV PRN PRN Hypoglycemia Enoxaparin Sodium 40 mg 01/21/19 22:00 01/21/19 23:00 Lovenox SUB-Q 40 mg QDAY@2200 LIBIA Administration Hydralazine HCl 10 mg 01/21/19 15:30 01/22/19 08:55 Apresoline IV 10 mg Q8H PRN Administration SBP > 185 Sodium Chloride 1,000 mls @ 42 mls/hr 01/21/19 16:00 Nacl 0.45% 1000 Ml IV DIRECT LIBIA Insulin Human Lispro 0 unit 04/07/19 16:30 01/22/19 09:02 Humalog SUB-Q 1 unit ACHS [facility] Administration Protocol Magnesium Hydroxide 30 ml 01/21/19 15:27 Milk Of Magnesia PO Q4H PRN Constipation Metoclopramide HCl 10 mg 01/21/19 15:27 Reglan PO Q6H PRN Nausea And Vomiting Ondansetron HCl 4 mg 01/21/19 15:27 Zofran IV Q8H PRN Nausea And Vomiting Promethazine HCl 25 mg 01/21/19 15:27 Phenergan RI Q6H PRN Nausea And Vomiting Sodium Chloride 10 ml 01/21/19 15:27 Sodium Chloride Flush Syringe 10 Ml IV PRN PRN LINE FLUSH
--- NOTE | 2019-01-22 16:04 | Progress Note ---
Subjective Date of service: 01/22/19 Interval history: very unusual areas of two areas of ischemia mid left sherry and the anterior basal ganglia both are ischemic no bleed Objective - Vital Sign Vital Signs - 12hr 01/22/19 01/22/19 01/22/19 04:06 08:55 09:00 Temperature 98.2 F Pulse Rate 87 71 Respiratory 20 Rate Blood Pressure 182/101 180/110 O2 Sat by Pulse 93 Oximetry - Laboratory Findings CBC and BMP: 01/21/19 12:49 01/21/19 12:49 Abnormal Lab Findings: Abnormal Labs 01/21/19 01/21/19 01/21/19 12:49 12:49 12:49 MCV 95 H Seg Neutrophils % 73.9 H Chloride 60.0 L Carbon Dioxide 20 L Glucose 232 H POC Glucose AST 57 H ALT 64 H Alkaline Phosphatase 137 H Total Creatine Kinase 363 H Troponin T 0.075 H Albumin 3.4 L Ur Specific [place] Urine WBC (Auto) 01/21/19 01/21/19 01/21/19 12:54 13:53 17:27 MCV Seg Neutrophils % Chloride Carbon Dioxide Glucose POC Glucose 233 H 182 H AST ALT Alkaline Phosphatase Total Creatine Kinase Troponin T Albumin Ur Specific [place] 1.033 H Urine WBC (Auto) 14.0 H 01/21/19 01/22/19 01/22/19 22:44 08:20 11:58 MCV Seg Neutrophils % Chloride Carbon Dioxide Glucose POC Glucose 199 H 185 H 182 H AST ALT Alkaline Phosphatase Total Creatine Kinase Troponin T Albumin Ur Specific [place] Urine WBC (Auto)
--- NOTE | 2019-01-22 19:36 | Magnetic Resonance Report ---
PROCEDURE: MR BRAIN WO CON TECHNIQUE: T1 and T2-weighted sagittal, axial, coronal and diffusion-weighted images of the brain we re obtained. HISTORY: stroke COMPARISONS: MRI brain dated January 16, 2019. The report of that study is not available for review at [facility] time of this dictation. FINDINGS: Again noted are the areas of diffusion abnormality in the sherry on the left, left caudate and putamen and left parietal lobe subcortical and deep white matter consistent with multiple foci of acute/subac selene infarct in different vascular distributions. No new areas of diffusion abnormality are demonstrated. There has been interval development of a focus of gradient echo abnormality in the left caudate infar ct consistent with interval development of petechial hemorrhage. Again noted are the numerous foci of signal abnormality in the subcortical and deep white matter of t he cerebral hemispheres bilaterally, in the body of the corpus callosum, basal ganglia and thalami bi laterally, sherry, left middle cerebellar peduncle consistent with areas of chronic infarct. Ventricular size is concordant with the degree of atrophy. Expected flow void is demonstrated within the major intracranial vessels. The extracranial structures and craniocervical junction are unremarkable in appearance. IMPRESSION: 1. Repeat demonstration of areas of acute/subacute infarct in the sherry on the left, left caudate and putamen and left parietal lobe white matter. The appearance is suggestive of an embolic etiology. 2. Interval development of evidence of petechial hemorrhage in the left caudate infarct. 3. Numerous foci of chronic infarct in the cerebral white matter, basal ganglia and thalami, sherry and left middle cerebellar peduncle. This document is electronically signed by Francheska Vallejo MD., January 22 2019 07:34:21 PM ET
--- NOTE | 2019-01-22 20:12 | Magnetic Resonance Report ---
PROCEDURE: MR MRAHEAD WO CON HISTORY: stroke FINDINGS: MRA of the brain was performed using [id number] angiography. Data was reformatted into multiple projections. In the posterior circulation both vertebral arteries are patent. The basilar artery is patent. Both p osterior cerebral arteries are identified and appear widely patent. In the anterior circulation the internal carotid, middle cerebral and anterior cerebral arteries appe ar widely patent. No aneurysm is seen. IMPRESSION: The intracranial arterial vasculature appears widely patent This document is electronically signed by Naren Us MD., January 22 2019 08:10:02 PM ET
[2019-01-22] MEDS: LOVENOX SUB-Q SCH (21:03)
[2019-01-22] MEDS: NACL 0.45% 1000 ML 1,000 ML IV SCH (21:52)
[2019-01-23] MEDS: HumaLOG SUB-Q SCH ×4 (07:30→22:55)
[2019-01-23] MEDS: ASPIRIN PO SCH (10:26)
[2019-01-23] MEDS: PLAVIX PO SCH (10:26)
[2019-01-23] MEDS: SOMA PO SCH ×3 (10:26→21:00)
[2019-01-23 11:24] LABS: Chol/HDL Ratio 3.64 %
--- NOTE | 2019-01-23 14:21 | Anesthesia Consultation ---
Anesthesia Consult and Med Hx Date of service: 01/23/19 - Airway Anesthetic Teeth Evaluation: Edentulous ROM Head & Neck: Adequate Mental/Hyoid Distance: Adequate Mallampati Class: Class II Intubation Access Assessment: Probably Good - Pulmonary Exam CTA: Yes - Cardiac Exam Cardiac Exam: RRR - Pre-Operative Health Status ASA Pre-Surgery Classification: ASA3 Proposed Anesthetic Plan: MAC - Pre-Anesthesia Comment Pre-Anesthesia Comments: Admitted for Expressive aphasia, CVA. Aphasia resolved. LELE to rule out cardioembolic source. Plavix - Pulmonary Hx Smoking: Yes - Cardiovascular System Hx Hypertension: Yes - Central Nervous System CVA: Yes - Endocrine Hx Insulin Dependent Diabetes: Yes
--- NOTE | 2019-01-23 17:25 | Progress Note ---
Assessment and Plan Assessment and plan: 53 YO Male with DM, HTN, HLD, Nicotine Dependence, CVA on DAPT. Admitted to [facility] on 01/16 and Discharge on 01/20 for acute CVA. Pt was nonverbal and unable to provide history yesterday evening on admission. Pt history provided by family who was at bedside at that time. Pt was in is usual state of health after arrival at this home after hospital discharge. Pt went to bed around 2200hrs and was verbalizing, and in his usual state of health, but upon waking from sleep the morning prior to admission around 0800hrs, that patient was found to be unable to speak. EMS notified, and upon arrival the patient was found to have a new neurologic deficit. A code stroke was called and the patient was transported to [facility]. Pt seen and evaluated in ED, and found to have CVA complicated by expressive aphasia. Pt was outside therapeutic window for TPA when presented to the ER. Pt admitted to telemetry and initiated on CVA protocol. Neurology consulted in ED. Patient is currently verbal and responding to questions, following commands with no lateralizing signs or symptoms. Discussed with his sister about the management plan CVA. Patient with recent CVA and workup including Echo/Carotid Doppler from 01/16/19. Continue DAPT, Neurology consulted, PT/OT/Speech, Statin therapy, Aspiration precautions, seizure precaution, neuro checks. Previous MRI completed on 01/16/19 revealed multiple nonhemorrhagic subacute and likely embolic infarcts involving the left basal ganglia, left frontal lobe white matter, left occipital lobe white matter, left sherry and right matter cerebellum. Given the recurrence ? CVA and MRI revealed multiple infarcts, we will order for LELE to rule out cardioembolic source. Also, check carotid ultrasound. Accelerated hypertension. Resume antihypertensive medications. Hyperlipidemia. Continue statin therapy. Diabetes mellitus type 2. ADA diet, insulin, accu check, History Interval history: Patient was seen and evaluated this morning, patient was alert and oriented. speak slowly. Hospitalist Physical - Physical exam Narrative exam: Not in cardiopulmonary distress. The patient appeared well nourished and normally developed. Vital signs as documented. Head exam is unremarkable. No scleral icterus . Neck is without jugular venous distension, thyromegaly, or carotid bruits. Lungs are clear to auscultation. Cardiac exam reveals regular rate and Rhythm. Abdominal exam reveals normal bowel sounds. Extremities are nonedematous and both femoral and pedal pulses are normal. STEEL RIGGER: Alert and oriented 3. No focal weakness. - Constitutional Vitals: Temp Pulse Resp BP Pulse Ox 98.2 F 77 20 159/83 98 01/23/19 11:43 01/23/19 11:43 01/23/19 12:25 01/23/19 11:43 01/23/19 11:43 General appearance: Present: mild distress Results - Labs CBC & Chem 7: 01/21/19 12:49 01/21/19 12:49 Labs: Laboratory Last Values WBC 9.8 K/mm3 (4.5-11.0) 01/21/19 12:49 RBC 4.10 M/mm3 (3.65-5.03) 01/21/19 12:49 Hgb 13.1 gm/dl (11.8-15.2) 01/21/19 12:49 Hct 39.1 % (35.5-45.6) 01/21/19 12:49 MCV 95 fl (84-94) H 01/21/19 12:49 MCH 32 pg (28-32) 01/21/19 12:49 MCHC 33 % (32-34) 01/21/19 12:49 RDW 13.3 % (13.2-15.2) 01/21/19 12:49 Plt Count 307 K/mm3 (140-440) 01/21/19 12:49 Lymph % (Auto) 17.5 % (13.4-35.0) 01/21/19 12:49 [place] % (Auto) 5.4 % (0.0-7.3) 01/21/19 12:49 Eos % (Auto) 2.4 % (0.0-4.3) 01/21/19 12:49 Baso % (Auto) 0.8 % (0.0-1.8) 01/21/19 12:49 Lymph # 1.7 K/mm3 (1.2-5.4) 01/21/19 12:49 [place] # 0.5 K/mm3 (0.0-0.8) 01/21/19 12:49 Eos # 0.2 K/mm3 (0.0-0.4) 01/21/19 12:49 Baso # 0.1 K/mm3 (0.0-0.1) 01/21/19 12:49 Seg Neutrophils % 73.9 % (40.0-70.0) H 01/21/19 12:49 Seg Neutrophils # 7.3 K/mm3 (1.8-7.7) 01/21/19 12:49 PT 13.4 Sec. (12.2-14.9) 01/21/19 12:49 INR 0.96 (0.87-1.13) 01/21/19 12:49 APTT 29.8 Sec. (24.2-36.6) 01/21/19 12:49 Thrombin Time 16.0 Sec. (15.1-19.6) 01/21/19 12:49 Sodium 137 mmol/L (137-145) 01/21/19 12:49 Potassium 5.0 mmol/L (3.6-5.0) D 01/21/19 12:49 Chloride 60.0 mmol/L (98-107) L 01/21/19 12:49 Carbon Dioxide 20 mmol/L (22-30) L 01/21/19 12:49 Anion Gap 19 mmol/L 01/21/19 12:49 BUN 15 mg/dL (9-20) 01/21/19 12:49 Creatinine 1.0 mg/dL (0.8-1.5) 01/21/19 12:49 Estimated GFR > 60 ml/min 01/21/19 12:49 BUN/Creatinine Ratio 15 % 01/21/19 12:49 Glucose 232 mg/dL (75-100) H 01/21/19 12:49 POC Glucose 252 (70-105) H 01/23/19 11:48 Calcium 8.4 mg/dL (8.4-10.2) 01/21/19 12:49 Total Bilirubin < 0.20 mg/dL (0.1-1.2) 01/21/19 12:49 AST 57 units/L (5-40) H 01/21/19 12:49 ALT 64 units/L (7-56) H 01/21/19 12:49 Alkaline Phosphatase 137 units/L (35-129) H 01/21/19 12:49 Total Creatine Kinase 363 units/L (55-170) H 01/21/19 12:49 CK-MB (CK-2) 2.8 ng/mL (0.0-4.0) 01/21/19 12:49 CK-MB (CK-2) Rel Index 0.7 (0-4) 01/21/19 12:49 Troponin T 0.075 ng/mL (0.00-0.029) H 01/21/19 12:49 Total Protein 7.0 g/dL (6.3-8.2) 01/21/19 12:49 Albumin 3.4 g/dL (3.9-5) L 01/21/19 12:49 Albumin/Globulin Ratio 0.9 % 01/21/19 12:49 Triglycerides 131 mg/dL (2-149) 01/23/19 09:41 Cholesterol 135 mg/dL (50-199) 01/23/19 09:41 LDL Cholesterol Direct 84 mg/dL (50-130) 01/23/19 09:41 HDL Cholesterol 37 mg/dL (40-59) L 01/23/19 09:41 Cholesterol/HDL Ratio 3.64 % 01/23/19 09:41 Urine Color Yellow (Yellow) 01/21/19 13:53 Urine Turbidity Slightly-cloudy (Clear) 01/21/19 13:53 Urine pH 5.0 (5.0-7.0) 01/21/19 13:53 Ur Specific [place] 1.033 (1.003-1.030) H 01/21/19 13:53 Urine Protein >2000 mg dl mg/dL (Negative) 01/21/19 13:53 Urine Glucose (UA) 150 mg/dL (Negative) 01/21/19 13:53 Urine Ketones Tr mg/dL (Negative) 01/21/19 13:53 Urine Blood Sm (Negative) 01/21/19 13:53 Urine Nitrite Neg (Negative) 01/21/19 13:53 Urine Bilirubin Neg (Negative) 01/21/19 13:53 Urine Urobilinogen < 2.0 mg/dL (<2.0) 01/21/19 13:53 Ur Leukocyte Esterase Neg (Negative) 01/21/19 13:53 Urine WBC (Auto) 14.0 /HPF (0.0-6.0) H 01/21/19 13:53 Urine RBC (Auto) 4.0 /HPF (0.0-6.0) 01/21/19 13:53 U Epithel Cells (Auto) 1.0 /HPF (0-13.0) 01/21/19 13:53 Urine Bacteria (Auto) 2+ /HPF (Negative) 01/21/19 13:53 Urine Mucus 1+ /HPF 01/21/19 13:53 Urine Opiates Screen Presumptive negative 01/21/19 13:53 Urine Methadone Screen Presumptive negative 01/21/19 13:53 Ur Barbiturates Screen Presumptive negative 01/21/19 13:53 Ur Phencyclidine Scrn Presumptive negative 01/21/19 13:53 Ur Amphetamines Screen Presumptive negative 01/21/19 13:53 U Benzodiazepines Scrn Presumptive positive 01/21/19 13:53 Urine Cocaine Screen Presumptive negative 01/21/19 13:53 U Marijuana (THC) Screen Presumptive negative 01/21/19 13:53 Drugs of Abuse Note Disclamer 01/21/19 13:53 Plasma/Serum Alcohol < 0.01 % (0-0.07) 01/21/19 12:49 Active Medications - Current Medications Current Medications: Generic Name Dose Route Start Last Admin Trade Name Freq PRN Reason Stop Dose Admin Acetaminophen 650 mg 01/21/19 15:27 Tylenol PO Q4H PRN Pain, Mild (1-3) Alprazolam 2 mg 01/21/19 15:47 Xanax PO TID PRN Anxiety Aspirin 325 mg 01/22/19 10:00 01/23/19 10:26 Aspirin PO 325 mg QDAY LIBIA Administration Atorvastatin Calcium 40 mg 01/21/19 22:00 01/22/19 21:03 Lipitor PO 40 mg QHS LIBIA Administration Bisacodyl 10 mg 01/21/19 15:27 Dulcolax MS QDAY PRN Constipation Carisoprodol 350 mg 01/21/19 16:00 01/23/19 14:12 Soma PO 350 mg TID LIBIA Administration Clopidogrel Bisulfate 75 mg 01/22/19 10:00 01/23/19 10:26 Plavix PO 75 mg QDAY LIBIA Administration Dextrose 50 ml 01/21/19 16:21 D50w (25gm) Syringe IV PRN PRN Hypoglycemia Enoxaparin Sodium 40 mg 01/21/19 22:00 01/22/19 21:03 Lovenox SUB-Q 40 mg QDAY@2200 LIBIA Administration Hydralazine HCl 10 mg 01/21/19 15:30 01/22/19 08:55 Apresoline IV 10 mg Q8H PRN Administration SBP > 185 Sodium Chloride 1,000 mls @ 42 mls/hr 01/21/19 16:00 01/22/19 21:52 Nacl 0.45% 1000 Ml IV 42 mls/hr DIRECT LIBIA Administration Insulin Human Lispro 0 unit 01/21/19 16:30 01/23/19 12:15 Humalog SUB-Q 3 unit ACHS LIBIA Administration Protocol Magnesium Hydroxide 30 ml 01/21/19 15:27 Milk Of Magnesia PO Q4H PRN Constipation Metoclopramide HCl 10 mg 01/21/19 15:27 Reglan PO Q6H PRN Nausea And Vomiting Ondansetron HCl 4 mg 01/21/19 15:27 Zofran IV Q8H PRN Nausea And Vomiting Promethazine HCl 25 mg 01/21/19 15:27 Phenergan MS Q6H PRN Nausea And Vomiting Sodium Chloride 10 ml 01/21/19 15:27 Sodium Chloride Flush Syringe 10 Ml IV PRN PRN LINE FLUSH Nutrition/Malnutrition Assess - Dietary Evaluation Nutrition/Malnutrition Findings: Nutrition Notes Start: 01/22/19 14:24 Freq: Status: Active Protocol: Document 01/22/19 14:24 RM (Rec: 01/22/19 14:38 RM [id number]) Nutrition Notes Need for Assessment generated from: [facility] Initial or Follow up Assessment Current Diagnosis Diabetes,Hypertension,Stroke, Hyperlipidemia Other Pertinent Diagnosis Nonverbal Current Diet Mech Soft w/nectar thick liquids Labs/Tests Reviewed Pertinent Medications Reviewed Height 6 ft 3 in Weight 100.244 kg [place] Body Weight (kg) 89.09 BMI 27.6 Subjective/Other Information Screened for malnutrition. Pt w/case management at time of visit. NPO in place earlier today. Mech Soft w/nectar thick liquids ordered later today. Mech Soft w/ground meat and nectar thick liquids recommended per ST note 01/22/19 . Burn Absent Trauma Absent #1 Nutrition Diagnosis Predicted suboptimal energy intake Etiology swallowing difficulty As Evidenced by Signs and Symptoms pt previous NPO status Is patient on ventilator? No Is Patient Ambulatory and/or Out of Bed Yes REE-([facility]-ambulatory/OOB) [ [id number] [id number]] Calculation Used for Recommendations [facility] Additional Notes Protein Needs: 100-120g (1-1. 2g/kg) Fluid Needs: 1 ml/kcal Nutrition Intervention Change Diet Order: [facility] soft w/ground meat and nectar thick liquids Add Supplement/Snack (indicate name/kcal Glucerna 1 daily /protein ) Provides kCal: 220 Provides Protein (gm) 10 Goal #1 Meet at least 75% of calorie and protein needs via PO and ONS intakes Anticipated Discharge Needs: [facility] soft w/ground meat and nectar thick liquids Follow-Up By: 01/24/19 Additional Comments Follow for PO and ONS intakes
[2019-01-23] MEDS: APRESOLINE IV PRN (18:19)
[2019-01-23] MEDS: LOVENOX SUB-Q SCH (21:28)
[2019-01-23] MEDS: NACL 0.45% 1000 ML 1,000 ML IV SCH (22:08)
[2019-01-24] MEDS: APRESOLINE IV PRN (06:23)
[2019-01-24 06:44] LABS: BUN/Creatinine Ratio 10; Blood Urea Nitrogen 9 mg/dL (9-20); Calcium 8.8 mg/dL (8.4-10.2); Hemolysis Index 3
[2019-01-24] MEDS: HumaLOG SUB-Q SCH ×2 (07:30→11:30)
[2019-01-24] MEDS: SOMA PO SCH ×2 (08:30→16:00)
[2019-01-24] MEDS ORDERED: HURRICAINE ONE 20% TOPICAL SPRAY MM NR (10:00)
[2019-01-24] MEDS ORDERED: DIPRIVAN 10 MG/ML IV ONE (10:06)
[2019-01-24 11:17] VITALS: BP 161/96
--- NOTE | 2019-01-24 13:19 | Discharge Summary ---
Providers - Providers Date of Admission: 01/21/19 15:27 Attending physician: JORGE A WOOD MD 01/21/19 15:27 Occupational Therapy Evaluate and Treat [CONS] Routine Comment: Reason For Exam: Neuro deficits Physical Therapy Evaluation and Treat [CONS] Routine Comment: Reason For Exam: Neuro deficits 01/21/19 15:28 Speech Therapy Evaluation and Treat [CONS] Routine Reason For Exam: swallow eval 01/22/19 07:00 Consult to Physician [CONS] Routine Comment: Consulting Provider: MINI SILVERMAN Physician Instructions: Reason For Exam: cva Primary care physician: GEOFFREY JIMÉNEZ Hospitalization Reason for admission: CVA Condition: Stable Pertinent studies: CT head, MRI/MRA LELE Carotid Doppler Hospital course: 53 YO Male with DM, HTN, HLD, Nicotine Dependence, CVA on DAPT. Admitted to [facility] on 01/16 and Discharge on 01/20 for acute CVA. Pt was nonverbal and unable to provide history yesterday evening on admission. Pt history provided by family who was at bedside at that time. Pt was in is usual state of health after arrival at this home after hospital discharge. Pt went to bed around 2200hrs and was verbalizing, and in his usual state of health, but upon waking from sleep the morning prior to admission around 0800hrs, that patient was found to be unable to speak. EMS notified, and upon arrival the patient was found to have a new neurologic deficit. A code stroke was called and the patient was transported to [facility]. Pt seen and evaluated in ED, and found to have CVA complicated by e xpressive aphasia. Pt was outside therapeutic window for TPA when presented to the ER. Pt admitted to telemetry and initiated on CVA protocol. Neurology consulted in ED. Patient is currently verbal and responding to questions, following commands with no lateralizing signs or symptoms. Discussed with his sister about the management plan CVA. Patient with recent CVA and workup including Echo/Carotid Doppler from 01/16/19. Continue DAPT, Neurology consulted, PT/OT/Speech, Statin therapy, Aspiration precautions, seizure precaution, neuro checks. Previous MRI completed on 01/16/19 revealed multiple nonhemorrhagic subacute and likely embolic infarcts involving the left basal ganglia, left frontal lobe white matter, left occipital lobe white matter, left sherry and right matter cerebellum. Given the recurrence ? CVA and MRI revealed multiple infarcts, LELE negative for cardioembolic source. Carotid Doppler showed negative. We find a place for him to transfer to subacute rehabilitation but Patient declined and went home. Disposition: DC-07 LEFT AGAINST MED ADVICE Time spent for discharge: 32 minutes - Discharge Diagnoses (1) CVA (cerebral vascular accident) Status: Acute Qualifiers: Laterality of affected vessel: left Core Measure Documentation - Palliative Care Palliative Care/ Comfort Measures: Not Applicable - Core Measures Any of the following diagnoses?: stroke - Stroke Discharge Requirements Statin for LDL = or >70 mg/dl on DC: Yes Anticoag for atrial fib/atrial flutter: Not Applicable Antithrombotic for ischemic stroke: Yes Exam - Physical Exam Narrative exam: Not in cardiopulmonary distress. The patient appeared well nourished and normally developed. Vital signs as documented. Head exam is unremarkable. No scleral icterus . Neck is without jugular venous distension, thyromegaly, or carotid bruits. Lungs are clear to auscultation. Cardiac exam reveals regular rate and Rhythm. Abdominal exam reveals normal bowel sounds. Extremities are nonedematous and both femoral and pedal pulses are normal. FIELD TECHNICAL SUPPORT CONSULTANT: Alert and oriented 3. No focal weakness. - Constitutional Vitals: Temp Pulse Resp BP Pulse Ox 98.5 F 72 13 161/96 97 01/24/19 10:36 01/24/19 11:05 01/24/19 11:05 01/24/19 11:05 01/24/19 11:05 Plan Activity: advance as tolerated Weight Bearing Status: Weight Bear as Tolerated Diet: low cholesterol, low salt, diabetic Follow up with: NEPTALI CARRASCO MD [Referring] - 3-5 Days
[2019-01-24] MEDS: PLAVIX PO SCH (16:00)
[2019-01-24] MEDS: ASPIRIN PO SCH (16:00)
== END 2019-01-24 17:13 | disposition left against medical advice (07) | DRG 66 ==
LOC: ED 12:23 → 4A 15:27
PROVIDERS: ADMIT Internal Medicine; ATTEND Internal Medicine
DX: I63.9 Cerebral infarction, unspecified (principal); I10 Essential (primary) hypertension; E11.9 Type 2 diabetes mellitus without complications; F17.210 Nicotine dependence, cigarettes, uncomplicated; R47.01 Aphasia; E78.2 Mixed hyperlipidemia; Z79.4 Long term (current) use of insulin
CPT/HCPCS: 36415; 70450; 70544; 70551; 80048; 80053; 80061; 80307; 80320; 81001; 82550; 82553; 82962; 84484; 85025; 85610; 85670; 85730; 87116; 93005; 93010; 93312; 93320; 93325; 99285; G0378; A9270-GY; G0480; J0360; J1650; J1815; J2704; J7030

== ENCOUNTER 2019-05-22 12:47 | Inpatient (IN) | payer MEDICAID ==
--- NOTE | 2019-05-22 13:52 | Emergency Department Report ---
HPI <NASRA MATTHEW - Last Filed: 05/22/19 18:07> - HPI HPI: 53-year-old -Hungarian male presents to the emergency department with altered mental status. The patient himself is nonverbal and this is part of the issue. He has some family at bedside who say that he has not been eating or drinking much, taking care of himself, and has suddenly stop talking. They say that they have been checking on him over the weekend and his speech was impaired at the time. However today he has not been talking to them at all. Patient has a history of multiple previous CVA with some residual right-sided deficits. He uses a walker for ambulation but this also has decreased over the weekend. He also has a past medical history of diabetes. The patient is a poor historian secondary to his current medical condition. <ROMANAHEATHER S - Last Filed: 05/24/19 08:11> - General Time Seen by Provider: 05/22/19 13:14 ED Past Medical Hx <MATTHEWNASRA - Last Filed: 05/22/19 18:07> - Past Medical History Previous Medical History?: Yes Hx Hypertension: Yes Hx CVA: Yes (10/2017) Hx Congestive Heart Failure: No Hx Diabetes: Yes Hx Asthma: No Additional medical history: high cholesterol - Surgical History Past Surgical History?: Yes Additional Surgical History: RIGHT LEG SURGERY FROM [facility] - Social History Smoking Status: Unknown if ever smoked <HEATHER AVENDANO Mai - Last Filed: 05/24/19 08:11> - Medications Home Medications: Home Medications Medication Instructions Recorded Confirmed Last Taken Type Carisoprodol [Soma] 350 mg PO Q6H 05/03/18 05/22/19 05/01/18 History Aspirin [Aspirin BABY CHEW TAB] 81 mg PO QDAY #100 tab.chew 01/20/19 05/22/19 Unknown Rx ALPRAZolam [Xanax TAB] 2 mg PO BID PRN 05/22/19 05/22/19 Unknown History Acetaminophen with Codeine 1 each PO Q6H 05/22/19 05/22/19 Unknown History [Acetaminophen-Codeine #4 TAB] Citalopram [celeXA] 20 mg PO HS 05/22/19 05/22/19 Unknown History Gabapentin [Neurontin] 300 mg PO QAM 05/22/19 05/22/19 Unknown History Gabapentin [Neurontin] 600 mg PO HS 05/22/19 05/22/19 Unknown History Insulin Lispro Protamin/Lispro 30 units SUB-Q HS 05/22/19 05/22/19 Unknown History [Humalog Mix 75-25 Vial] Insulin Lispro Protamin/Lispro 70 units SUB-Q QAM 05/22/19 05/22/19 Unknown History [Humalog Mix 75-25 Vial] Zolpidem [Ambien] 10 mg PO QHS PRN 05/22/19 05/22/19 Unknown History amLODIPine [Norvasc] 10 mg PO HS 05/22/19 05/22/19 Unknown History ED Review of Systems ROS: Stated complaint: DIABETIC Other details as noted in HPI <NASRA MATTHEW - Last Filed: 05/22/19 18:07> ROS: Stated complaint: DIABETIC Other details as noted in HPI Comment: Unobtainable due to pts medical conditions <HEATHER AVENDANO - Last Filed: 05/24/19 08:11> Physical Exam - Physical Exam Vital Signs: Vital Signs 05/22/19 05/22/19 05/22/19 13:18 13:30 13:35 Temperature 98.8 F Pulse Rate 61 62 Respiratory 16 17 16 Rate Blood Pressure 163/78 163/78 Blood Pressure 163/78 [Left] O2 Sat by Pulse 97 92 Oximetry 05/22/19 05/22/19 05/22/19 14:00 14:30 15:00 Temperature Pulse Rate 61 59 L 63 Respiratory 14 12 11 L Rate Blood Pressure 162/84 156/81 162/80 Blood Pressure [Left] O2 Sat by Pulse 95 95 96 Oximetry 05/22/19 05/22/19 05/22/19 15:30 16:00 16:30 Temperature Pulse Rate 75 69 67 Respiratory 15 10 L 13 Rate Blood Pressure 154/85 149/86 141/84 Blood Pressure [Left] O2 Sat by Pulse 96 91 94 Oximetry <NASRA MATTHEW - Last Filed: 05/22/19 18:07> - Physical Exam Vital Signs: Vital Signs 05/22/19 05/22/19 13:18 13:35 Temperature 98.8 F Pulse Rate 61 Respiratory 16 16 Rate Blood Pressure 163/78 Blood Pressure 163/78 [Left] O2 Sat by Pulse 97 Oximetry Physical Exam: GENERAL: The patient is well-developed well-nourished. HENT: Normocephalic. Atraumatic. Patient has moist mucous membranes. EYES: Extraocular motions are intact. Pupils equal reactive to light bilaterally. No nystagmus. NECK: Supple. Trachea is midline. CHEST/LUNGS: Clear to auscultation. There is no respiratory distress noted. HEART/CARDIOVASCULAR: Regular. There is no tachycardia. There is no murmur. ABDOMEN: Abdomen is soft, nontender. Patient has normal bowel sounds. There is no abdominal distention. SKIN: Skin is warm and dry. NEURO: The patient is awake but is nonverbal and only follow select commands. Withdraws from painful stimuli. MUSCULOSKELETAL: There is no tenderness or deformity. There is no evidence of acute injury. <HEATHER AVENDANO S - Last Filed: 05/24/19 08:11> ED Course Vital Signs 05/22/19 05/22/19 05/22/19 13:18 13:30 13:35 Temperature 98.8 F Pulse Rate 61 62 Respiratory 16 17 16 Rate Blood Pressure 163/78 163/78 Blood Pressure 163/78 [Left] O2 Sat by Pulse 97 92 Oximetry 05/22/19 05/22/19 05/22/19 14:00 14:30 15:00 Temperature Pulse Rate 61 59 L 63 Respiratory 14 12 11 L Rate Blood Pressure 162/84 156/81 162/80 Blood Pressure [Left] O2 Sat by Pulse 95 95 96 Oximetry 05/22/19 05/22/19 05/22/19 15:30 16:00 16:30 Temperature Pulse Rate 75 69 67 Respiratory 15 10 L 13 Rate Blood Pressure 154/85 149/86 141/84 Blood Pressure [Left] O2 Sat by Pulse 96 91 94 Oximetry <NASRA MATTHEW - Last Filed: 05/22/19 18:07> Vital Signs 05/22/19 05/22/19 13:18 13:35 Temperature 98.8 F Pulse Rate 61 Respiratory 16 16 Rate Blood Pressure 163/78 Blood Pressure 163/78 [Left] O2 Sat by Pulse 97 Oximetry <HEATHER AVENDANO - Last Filed: 05/24/19 08:11> ED Medical Decision Making - Lab Data Result diagrams: 05/22/19 13:56 05/22/19 13:56 - Medical Decision Making Mr. Sultana is a 33-year-old male with history of CVA, hypertension, coronary artery disease, diabetes mellitus presents with functional decline and altered mental status. According to my colleague's documentation, he has not been taking care of himself. He is not eating or drinking as much. He has a baseline expressive aphasia. However according to family members he has been less communicative. He has right-sided deficit. However he can mobilize with a walker. He has not been moving as much. I spoke with Mr. Sultana. He denies any discomfort. Is able to communicate with yes no gestures. I evaluated patient once radiologist informed me that he had an acute left-sided subdural 8-9 mm maximal thickness. Minimal mass effect. Minimal shift. I conferred with my hospitalist colleague who confirmed that Mr. Sultana is not on anticoagulation. No signs of trauma on my exam. I spoke with stepfather who desired for the patient to be transferred to [facility]. I spoke with [facility] transfer nurse and specialist Dr. Livingston. [facility] did not have bed capacity to accommodate patient. I spoke with transfer nurse, neurosurgeon Dr. White and neurointensivist Dr. Burns at [facility] who readily accepted the patient to [place] [id number] Burns requested Keppra 500 mg IV. I updated stepfather by phone regarding the transfer to [facility]. 40 minutes of critical care time including procedures were used in the care of the patient. I reviewed electronic medical record. I consulted hospitalists for collateral history. I spoke with family member. I personally evaluated the patient. I spoke with 2 hospital symptoms in order to expedite transfer. I spoke with multiple physicians during the care of the patient including Dr. Teague, Dr. Livingston, Dr. Burns, Dr. White. <MAGGINASRA - Last Filed: 05/22/19 18:07> - Lab Data Result diagrams: 05/22/19 13:56 05/22/19 13:56 - EKG Data -: EKG Interpreted by Me EKG shows normal: sinus rhythm, axis, intervals, QRS complexes (LVH), ST-T waves Rate: normal - EKG Data When compared to previous EKG there are: previous EKG unavailable Interpretation: LVH - Radiology Data Radiology results: report reviewed CT head/brain wo con INDICATION / CLINICAL INFORMATION: 53 years Male; Altered mental status. TECHNIQUE: Routine CT head without contrast. All CT scans at this location are performed using CT dose reduction for ALARA by means of automated exposure control. COMPARISON: MRI - 01/21/2019 FINDINGS: BRAIN / INTRACRANIAL CONTENTS: Small, acute subdural seen along the left cerebral hemisphere with minimal mass affect and minimal midline shift noted. Certainly, this patient is not at risk for herniation basal cisterns are well visualized. This finding measures 8-9 mm in maximum thickness. Otherwise, no acute hemorrhage, hydrocephalus, or acute, large territorial infarct. No chronic infarct or focal atrophy. Normal brain volume and ventricular/sulcal size for age. Multiple, small lacunar-type infarcts seen in the gangliocapsular regions, including the thalamic regions. 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 There may be an old branch PICA infarct on the left. Mild, nonspecific white matter disease noted. CRANIOCERVICAL JUNCTION: No significant abnormality. ORBITS: No significant abnormality of visualized orbits. SINUSES / MASTOIDS: No significant abnormality of the visualized paranasal sinuses or mastoid air cells. ADDITIONAL FINDINGS: Atherosclerotic disease is seen in the anterior and posterior circulation. IMPRESSION: 1. Acute, small subdural hematoma on the left. - Medical Decision Making This patient presented with some type of altered mental status. He has a history of multiple previous CVA and embolic events in the past. Despite the fact that the patient has some issue with communication at baseline, and ambulatory with a walker, apparently he is living alone with some support from family. However he was brought in after patient had decreased oral intake, became completely nonverbal and had some type of general decline in his overall health. The patient's labs were mostly unremarkable except for hyperglycemia but he does not appear in diabetic ketoacidosis. He was given some IV insulin and his blood sugar came down to about 290. EKG did not show any signs of ST elevation OK and is unchanged from previous. The CT scan of the head without contrast had not yet been completed by the time my shift ended, the case was handed over to the hospitalist for admission. However in reviewing the records, including the CT scan of the head, the patient had an acute left-sided subdural. My colleague, Dr. Matthew, then took over and facilitated a transfer to [facility]. - Differential Diagnosis CVA, TIA, subdural, electrolyte abnormalities, DKA <HEATHER AVENDANO - Last Filed: 05/24/19 08:11> Critical care attestation.: If time is entered above; I have spent that time in minutes in the direct care of this critically ill patient, excluding procedure time. <NASRA MATTHEW - Last Filed: 05/22/19 18:07> Critical care attestation.: If time is entered above; I have spent that time in minutes in the direct care of this critically ill patient, excluding procedure time. <HEATHER AVENDANO - Last Filed: 05/24/19 08:11> ED Disposition Is pt being admited?: No Does the pt Need Aspirin: No <NASRA MATTHEW - Last Filed: 05/22/19 18:07> Is pt being admited?: No <HEATHER AVENDANO - Last Filed: 05/24/19 08:11> Clinical Impression: Acute subdural hematoma, Acute encephalopathy, Diabetes, Right sided numbness Disposition: DC/TX-70 ANOTHER TYPE HLTHCARE Condition: Serious - Assessment Assessment Interval: Baseline - Level of Consciousness 1a. Level of Consciousness: alert/keenly responsive - LOC Questions 1b. LOC Questions: aphasic - LOC Command 1c. LOC Commands: performs tasks correctly - Best Gaze 2. Best Gaze: normal - Visual 3. Visual: no visual loss - Facial Palsy 4. Facial Palsy: normal symmetrical movement (Patient will not attempt a smile for evaluation) - Motor Arm 5a. Motor Arm Left: no drift 5b. Motor Arm Right: drift - Motor Leg 6a. Motor Leg Left: no gravity effort 6b. Motor Leg Right: no gravity effort - Limb Ataxia 7. Limb Ataxia: absent - Sensory 8. Sensory: normal - Best Language 9. Best Language: mute/global aphasia - Dysarthria 10. Dysarthria: mute/anarrthric - Extinction and Inattention 11. Extinction/Inattention: no abnormality - Scoring Total Score: 14 Stroke Severity: Moderate Stroke <HEATHER AVENDANO - Last Filed: 05/24/19 08:11>
--- NOTE | 2019-05-22 14:18 | XRay Report ---
CHEST 1 VIEW INDICATION: Altered mental status. COMPARISON: None FINDINGS: Support devices: None. Heart: Within normal limits. Lungs/Pleura: No acute air space or interstitial disease. Additional findings: None. IMPRESSION: No acute findings. Signer Name: Haun Lopez Jr, MD Signed: 05/22/2019 2:13 PM Workstation Name: [id number]
[2019-05-22 14:19] LABS: Basophils % (Auto) 0.3 % (0.0-1.8); Hematocrit 35.6 % (35.5-45.6); Hemoglobin 11.8 gm/dl (11.8-15.2); Lymphocytes # (Auto) 1.6 K/mm3 (1.2-5.4); Mean Corpuscular HGB Conc 33 % (32-34); Mean Corpuscular Volume 94 fl (84-94); Monocytes # (Auto) 0.5 K/mm3 (0.0-0.8); Monocytes % (Auto) 3.4 % (0.0-7.3); Platelet Count 343 K/mm3 (140-440); Red Blood Count 3.81 M/mm3 (3.65-5.03); Red Cell Distribution Width 14.5 % (13.2-15.2)
[2019-05-22 14:33] LABS: Alanine Aminotransferase 10 units/L (7-56); Albumin 3.3 g/dL (3.9-5); BUN/Creatinine Ratio 27; Blood Urea Nitrogen 38 mg/dL (9-20); Calcium 8.9 mg/dL (8.4-10.2); Hemolysis Index 3
[2019-05-22] MEDS ORDERED: NACL 0.9% 500 ML 500 ML IV ONE (14:38)
[2019-05-22] MEDS ORDERED: HumuLIN R IV ONE (14:38)
--- NOTE | 2019-05-22 15:53 | History and Physical Report ---
History of Present Illness Chief complaint: He's getting worse History of present illness: 53 YO Male with DM, HTN, HLD, Nicotine Dependence, CVA complicated by Expressive Aphasia on DAPT, Nonberbal presents to ED for evaluation. Pt is nonverbal and unable to provide history. Pt history provided by family who is at bedside during exam and interview. Pt family reports decreased oral intake, and decreased verbalization over the past week. EMS notified, and upon arrival the patient was found to have a chronic neurologic deficit. The patient was transported to [facility]. Pt seen and evaluated in ED, and found to have En cephalopathy, UTI complicated by SIRS, and Debility. Pt is currently unable to independently conduct activities of daily living, and requires 5/6 Assistance with ADL's. Pt admitted to medical floor and initiated on IV antibiotic therapy. Prior admission on 01/16/19 for CVA reviewed. All listed medication reconciled at time of admission. No reports of fever, chills, CP, Palpitations, NVD, Trauma, Seizures, Skin rash, or loss of bowel/bladder continence. Case management consulted for D/C planning, [facility]/SNF Placement. 30 minutes additional time dedicated to Advanced care planning. Past History Past Medical History: diabetes, hypertension, hyperlipidemia, stroke, other (Debility) Past Surgical History: Other (Leg surgery) Social history: single, Lives alone. denies: smoking, alcohol abuse, prescripti on drug abuse Family history: diabetes, hypertension Medications and Allergies Allergies Allergy/AdvReac Type Severity Reaction Status Date / Time No Known Allergies Allergy Verified 01/21/19 12:55 Home Medications Medication Instructions Recorded Confirmed Last Taken Type Carisoprodol [Soma] 350 mg PO TID 05/03/18 01/24/19 05/01/18 History Aspirin [Aspirin BABY CHEW TAB] 81 mg PO QDAY #100 tab.chew 01/20/19 01/24/19 Unknown Rx AtorvaSTATin [Lipitor] 40 mg PO QHS #30 tablet 01/20/19 01/24/19 Unknown Rx Carvedilol [Coreg] 12.5 mg PO BID #60 tablet 01/20/19 01/24/19 Unknown Rx Clopidogrel [Plavix] 75 mg PO QDAY #30 tablet 01/20/19 01/24/19 Unknown Rx Insulin Glargine [Lantus VIAL] 25 units SUB-Q BID #5 pen 01/20/19 01/24/19 Unknown Rx Losartan [Cozaar] 100 mg PO QDAY #30 tablet 01/20/19 01/24/19 Unknown Rx metFORMIN [Glucophage] 500 mg PO BID #60 tablet 01/20/19 01/24/19 Unknown Rx Review of Systems ROS unobtainable: due to mental status Exam - Constitutional Vitals: Temp Pulse Resp BP Pulse Ox 98.8 F 75 15 154/85 96 05/22/19 13:18 05/22/19 15:30 05/22/19 15:30 05/22/19 15:30 05/22/19 15:30 General appearance: Present: mild distress - EENT Eyes: Present: PERRL ENT: hearing intact, clear oral mucosa - Neck Neck: Present: supple, normal ROM - Respiratory Respiratory effort: normal Respiratory: bilateral: CTA - Cardiovascular Heart Sounds: Present: S1 & S2. Absent: rub, click - Extremities Extremities: pulses symmetrical, No edema Peripheral Pulses: within normal limits - Abdominal General gastrointestinal: Present: soft, tender, non-distended, normal bowel sounds Localized gastrointestinal: tender: suprapubic Male genitourinary: Present: normal - Integumentary Integumentary: Present: clear, warm, dry - Musculoskeletal Musculoskeletal: generalized weakness - Psychiatric Psychiatric: no appropriate mood/affect, no intact judgment & insight, no memory intact - Neurologic Neurologic: focal deficits, moves all extremities, no gait normal Results - Labs CBC & Chem 7: 05/22/19 13:56 05/22/19 13:56 Labs: Abnormal lab results 05/22/19 05/22/19 05/22/19 Range/Units 13:56 13:56 13:56 WBC 14.6 H (4.5-11.0) K/mm3 Lymph % (Auto) 11.0 L (13.4-35.0) % Seg Neutrophils % 85.3 H (40.0-70.0) % Seg Neutrophils # 12.5 H (1.8-7.7) K/mm3 VBG pH 7.423 H (7.320-7.420) BUN 38 H (9-20) mg/dL Glucose 460 H (75-100) mg/dL Total Creatine Kinase 854 H (55-170) units/L Albumin 3.3 L (3.9-5) g/dL Assessment and Plan - Patient Problems (1) SIRS (systemic inflammatory response syndrome) Current Visit: Yes Status: Acute Plan to address problem: IV antibiotic therapy, urinalysis, CBC, CMP, chest x ray, IVF resuscitation therapy, (2) UTI (urinary tract infection) Current Visit: Yes Status: Acute Qualifiers: Encounter type: initial encounter Plan to address problem: IV antibiotic therapy, urinalysis, CBC, CMP, monitor uop q shift, (3) Encephalopathy Current Visit: Yes Status: Acute Plan to address problem: CT head, neuro check, cbc, cmp, fall precautions, (4) Diabetes Current Visit: No Status: Acute Plan to address problem: ADA diet, insulin, accu check, hypoglycemia protocol (5) HLD (hyperlipidemia) Current Visit: No Status: Acute Qualifiers: Hyperlipidemia type: mixed hyperlipidemia Qualified Code(s): E78.2 - Mixed hyperlipidemia Plan to address problem: Statin therapy, lipid panel, low cholesterol diet. (6) HTN (hypertension) Current Visit: No Status: Acute Qualifiers: Hypertension type: essential hypertension Plan to address problem: monitor bp q shift, continue medical management. (7) CAD (coronary artery disease) Current Visit: No Status: Acute Qualifiers: Associated angina: without angina Plan to address problem: Statin therapy, DAPT, low cholesterol diet, lipid panel (8) CVA (cerebral vascular accident) Current Visit: No Status: Chronic Qualifiers: Laterality of affected vessel: unspecified Plan to address problem: DAPT, supportive care, prior admission on 01/16/19 reviewed, Echo, Carotid doppler , neurology consult reviewed. aspiration precautions, fall precautions, neuro checks, No new deficit. (9) DVT prophylaxis Current Visit: No Status: Acute Plan to address problem: SCD to BLE while in bed, prophylactic heparin
[2019-05-22] MEDS ORDERED: SODIUM CHLORIDE FLUSH SYRINGE 10 ML IV PRN (16:03)
[2019-05-22] MEDS ORDERED: PROVENTIL IH PRN (16:03)
[2019-05-22] MEDS ORDERED: ZOFRAN IV PRN (16:03)
[2019-05-22] MEDS ORDERED: TYLENOL PO PRN (16:03)
[2019-05-22] MEDS ORDERED: ROCEPHIN/NS 1 GM/50 ML 1 GM/50 ML BAG IV SCH (17:00)
[2019-05-22] MEDS ORDERED: ROCEPHIN/NS 1 GM/50 ML 1 GM/50 ML BAG IV ONE (17:23)
--- NOTE | 2019-05-22 17:36 | Cat Scan Report ---
CT head/brain wo con INDICATION / CLINICAL INFORMATION: 53 years Male; Altered mental status. TECHNIQUE: Routine CT head without contrast. All CT scans at this location are performed using CT dos e reduction for ALARA by means of automated exposure control. COMPARISON: MRI - 01/21/2019 FINDINGS: BRAIN / INTRACRANIAL CONTENTS: Small, acute subdural seen along the left cerebral hemisphere with min imal mass affect and minimal midline shift noted. Certainly, this patient is not at risk for herniati on basal cisterns are well visualized. This finding measures 8-9 mm in maximum thickness. Otherwise, no acute hemorrhage, hydrocephalus, or acute, large territorial infarct. No chronic infarc t or focal atrophy. Normal brain volume and ventricular/sulcal size for age. Multiple, small lacunar- type infarcts seen in the gangliocapsular regions, including the thalamic regions. Pontine disease perea spected. There may be an old branch PICA infarct on the left. Mild, nonspecific white matter disease noted. CRANIOCERVICAL JUNCTION: No significant abnormality. ORBITS: No significant abnormality of visualized orbits. SINUSES / MASTOIDS: No significant abnormality of the visualized paranasal sinuses or mastoid air renetta ls. ADDITIONAL FINDINGS: Atherosclerotic disease is seen in the anterior and posterior circulation. IMPRESSION: 1. Acute, small subdural hematoma on the left. This is a positive critical value. This exam was completed at 4:12 PM on 05/22/2019. The exam was revie wed at 4:[address] Rudd, coworker of Dr. Smart, was notified at 4:27 PM on the same day. Signer Name: Dami Cruz MD, III Signed: 05/22/2019 5:32 PM Workstation Name: [id number]
[2019-05-22] MEDS ORDERED: KEPPRA 500 MG in D5W 100 ML IV ONE (19:22)
[2019-05-22 19:50] VITALS: BP 176/83
[2019-05-22] MEDS ORDERED: SODIUM CHLORIDE FLUSH SYRINGE 10 ML IV SCH (22:00)
== END 2019-05-22 19:15 | disposition short-term general hospital (02) | DRG 689 ==
LOC: ED 12:47 → 3A 16:03
PROVIDERS: ADMIT Internal Medicine; ATTEND Internal Medicine
DX: N39.0 Urinary tract infection, site not specified (principal); G93.40 Encephalopathy, unspecified; E11.9 Type 2 diabetes mellitus without complications; I10 Essential (primary) hypertension; I25.10 Atherosclerotic heart disease of native coronary artery without angina pectoris; F17.200 Nicotine dependence, unspecified, uncomplicated; Z60.2 Problems related to living alone; E78.2 Mixed hyperlipidemia; I69.351 Hemiplegia and hemiparesis following cerebral infarction affecting right dominant side; Z79.82 Long term (current) use of aspirin; Z79.899 Other long term (current) drug therapy; Z79.4 Long term (current) use of insulin; Z83.3 Family history of diabetes mellitus; Z82.49 Family history of ischemic heart disease and other diseases of the circulatory system
CPT/HCPCS: 36415; 70450; 71045; 80053; 80320; 82140; 82550; 82805; 82962; 84443; 84484; 85025; 93005; 93010; 96365; 96375; G0378; G0480; J0696; J1815; J1953; J7040

== ENCOUNTER 2019-09-24 13:25 | Emergency (ER) | payer MEDICAID ==
--- NOTE | 2019-09-24 13:54 | Emergency Department Report ---
Blank Doc - Documentation Documentation: 54-year-old male that presents with bilateral leg swelling. This initial assessment/diagnostic orders/clinical plan/treatment(s) is/are subject to change based on patient's health status, clinical progression and re- assessment by fellow clinical providers in the ED. Further treatment and workup at subsequent clinical providers discretion. Patient/guardians urged not to elope from the ED as their condition may be serious if not clinically assessed and managed. Initial orders include: 1- Patient sent to MAIN for further evaluation and treatment 2- labs 3- EKG 4- UA
[2019-09-24 15:25] LABS: Basophils # (Auto) 0.1 K/mm3 (0.0-0.1); Basophils % (Auto) 0.9 % (0.0-1.8); Eosinophils # (Auto) 0.2 K/mm3 (0.0-0.4); Eosinophils % (Auto) 2.9 % (0.0-4.3); Hematocrit 31.4 % (35.5-45.6); Hemoglobin 10.8 gm/dl (11.8-15.2); Lymphocytes # (Auto) 2.5 K/mm3 (1.2-5.4); Lymphocytes % (Auto) 33.1 % (13.4-35.0); Mean Corpuscular HGB Conc 34 % (32-34); Mean Corpuscular Volume 93 fl (84-94); Monocytes # (Auto) 0.5 K/mm3 (0.0-0.8); Monocytes % (Auto) 6.6 % (0.0-7.3); Platelet Count 355 K/mm3 (140-440); Red Blood Count 3.39 M/mm3 (3.65-5.03); Red Cell Distribution Width 14.1 % (13.2-15.2)
[2019-09-24 15:40] LABS: BUN/Creatinine Ratio 22; Blood Urea Nitrogen 20 mg/dL (9-20); Calcium 9.3 mg/dL (8.4-10.2); Hemolysis Index 8
--- NOTE | 2019-09-24 17:17 | Emergency Department Report ---
ED Extremity Problem HPI - General Chief complaint: Extremity Problem,Nontraumatic Stated complaint: SWOLLEN LEGS Time Seen by Provider: 09/24/19 13:53 Source: patient Mode of arrival: Wheelchair Limitations: No Limitations - History of Present Illness Initial comments: 54-year-old -[place]og[place] male presents to the emergency room complaining of bilateral lower leg edema. Patient complains of a sore to his right lower leg for the last 2 days and swelling for the last 2-3 days. Patient denies any drainage from his wound. Patient reports have a history of old wound on both legs. Patient denies any shortness of breathing chest pain fever or nausea or vomiting. Patient has a past medical history of diabetes hypertension and CVA. Patient currently ambulates with a walker. Patient does have a primary care provider and has an appointment on 10/02/2019. MD Complaint: extremity swelling Onset/Timin -: days(s) Location: lower extremity, bilateral lower extremity History of Same: Yes Radiation: none Severity scale (0 -10): 0 - Related Data Home Medications Medication Instructions Recorded Confirmed Last Taken Carisoprodol [Soma] 350 mg PO Q6H 05/03/18 05/22/19 05/01/18 ALPRAZolam [Xanax TAB] 2 mg PO BID PRN 05/22/19 05/22/19 Unknown Acetaminophen with Codeine 1 each PO Q6H 05/22/19 05/22/19 Unknown [Acetaminophen-Codeine #4 TAB] Citalopram [celeXA] 20 mg PO HS 05/22/19 05/22/19 Unknown Gabapentin [Neurontin] 300 mg PO QAM 05/22/19 05/22/19 Unknown Gabapentin [Neurontin] 600 mg PO HS 05/22/19 05/22/19 Unknown Insulin Lispro Protamin/Lispro 30 units SUB-Q HS 05/22/19 05/22/19 Unknown [Humalog Mix 75-25 Vial] Insulin Lispro Protamin/Lispro 70 units SUB-Q QAM 05/22/19 05/22/19 Unknown [Humalog Mix 75-25 Vial] Zolpidem [Ambien] 10 mg PO QHS PRN 05/22/19 05/22/19 Unknown amLODIPine [Norvasc] 10 mg PO HS 05/22/19 05/22/19 Unknown Previous Rx's Medication Instructions Recorded Last Taken Type Aspirin [Aspirin BABY CHEW TAB] 81 mg PO QDAY #100 tab.chew 01/20/19 Unknown Rx Allergies Allergy/AdvReac Type Severity Reaction Status Date / Time No Known Allergies Allergy Verified 01/21/19 12:55 ED Review of Systems ROS: Stated complaint: SWOLLEN LEGS Other details as noted in HPI Comment: All other systems reviewed and negative ED Past Medical Hx - Past Medical History Hx Hypertension: Yes Hx CVA: Yes (10/2017-RT SIDED WEAKNESS) Hx Congestive Heart Failure: No Hx Diabetes: Yes Hx Asthma: No Additional medical history: high cholesterol - Surgical History Past Surgical History?: Yes Additional Surgical History: RIGHT LEG SURGERY FROM [facility] - Social History Smoking Status: Former Smoker Substance Use Type: None - Medications Home Medications: Home Medications Medication Instructions Recorded Confirmed Last Taken Type Carisoprodol [Soma] 350 mg PO Q6H 05/03/18 05/22/19 05/01/18 History Aspirin [Aspirin BABY CHEW TAB] 81 mg PO QDAY #100 tab.chew 01/20/19 05/22/19 Unknown Rx ALPRAZolam [Xanax TAB] 2 mg PO BID PRN 05/22/19 05/22/19 Unknown History Acetaminophen with Codeine 1 each PO Q6H 05/22/19 05/22/19 Unknown History [Acetaminophen-Codeine #4 TAB] Citalopram [celeXA] 20 mg PO HS 05/22/19 05/22/19 Unknown History Gabapentin [Neurontin] 300 mg PO QAM 05/22/19 05/22/19 Unknown History Gabapentin [Neurontin] 600 mg PO HS 05/22/19 05/22/19 Unknown History Insulin Lispro Protamin/Lispro 30 units SUB-Q HS 05/22/19 05/22/19 Unknown History [Humalog Mix 75-25 Vial] Insulin Lispro Protamin/Lispro 70 units SUB-Q QAM 05/22/19 05/22/19 Unknown History [Humalog Mix 75-25 Vial] Zolpidem [Ambien] 10 mg PO QHS PRN 05/22/19 05/22/19 Unknown History amLODIPine [Norvasc] 10 mg PO HS 05/22/19 05/22/19 Unknown History ED Physical Exam - General Limitations: No Limitations General appearance: alert, in no apparent distress - Head Head exam: Present: atraumatic, normocephalic - Eye Eye exam: Present: normal appearance - ENT ENT exam: Present: mucous membranes moist - Expanded Lower Extremity Exam Right Lower Leg exam: Present: swelling (2+ ) Neuro vascular tendon exam: Present: no vascular compromise. Absent: extremity cold to touch, pallor - Back Exam Back exam: Present: normal inspection - Neurological Exam Neurological exam: Present: alert, oriented X3 - Psychiatric Psychiatric exam: Present: normal affect, normal mood - Skin Skin exam: Present: other (right lower inner distal leg quarter size wound with a scab nonerythematous no edema sore nontender to touch) ED Course Vital Signs 09/24/19 13:53 Temperature 98.5 F Pulse Rate 59 L Respiratory 18 Rate Blood Pressure 138/75 O2 Sat by Pulse 100 Oximetry ED Medical Decision Making - Lab Data Result diagrams: 09/24/19 14:32 09/24/19 14:32 - Medical Decision Making 54-year-old -[place] male presents to the emergency room complaining of bilateral lower leg edema. Patient complains of a sore to his right lower leg for the last 2 days and swelling for the last 2-3 days. Patient denies any drainage from his wound. Patient reports have a history of old wound on both legs. Patient denies any shortness of breathing chest pain fever or nausea or vomiting. Patient has a past medical history of diabetes hypertension and CVA. Patient currently ambulates with a walker. Patient does have a primary care provider and has an appointment on 10/02/2019 labs are within normal limits. Patient is to follow-up with his primary care provider. Critical care attestation.: If time is entered above; I have spent that time in minutes in the direct care of this critically ill patient, excluding procedure time. ED Disposition Clinical Impression: Wound of skin, Bilateral lower extremity edema Disposition: - TO HOME OR SELFCARE Is pt being admited?: No Does the pt Need Aspirin: No Condition: Stable Additional Instructions: Keep your appointment with your primary care provider. Be sure to follow a low- sodium diet. Elevate your legs. Do not take it any wounds on her legs. Referrals: Your,Primary Care Provider [Other] - 3-5 Days
[2019-09-24 17:36] VITALS: BP 173/88
== END 2019-09-24 17:52 | disposition home or self-care (01) ==
LOC: ED 13:25
DX: S81.801A Unspecified open wound, right lower leg, initial encounter (principal); I10 Essential (primary) hypertension; E11.9 Type 2 diabetes mellitus without complications; E78.00 Pure hypercholesterolemia, unspecified; Z86.73 Personal history of transient ischemic attack (TIA), and cerebral infarction without residual deficits; Z87.891 Personal history of nicotine dependence; Z79.899 Other long term (current) drug therapy; X58.XXXA Exposure to other specified factors, initial encounter; Y93.89 Activity, other specified; Y92.89 Other specified places as the place of occurrence of the external cause; Y99.8 Other external cause status
CPT/HCPCS: 36415; 80048; 83880; 85025

== ENCOUNTER → 2019-09-24 | Emergency (ER) | payer MEDICAID | LOC: ED 13:29 | DX: R22.43 Localized swelling, mass and lump, lower limb, bilateral (principal); Z53.21 Procedure and treatment not carried out due to patient leaving prior to being seen by health care provider ==

== ENCOUNTER 2019-12-04 09:02 | Outpatient (CLI) | payer MEDICAID ==
[2019-12-04 10:08] LABS: Blood Urea Nitrogen 21 mg/dL (9-20)
--- NOTE | 2019-12-04 12:23 | Cat Scan Report ---
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 TECHNIQUE: Noncontrast CT abdomen obtained. Routine postcontrast CT angiography of the abdomen, pelv is and lower extremities performed. Multiplanar/MIP/3D reformats were post-processed on an [employer] free-standing workstation. All CT scans at this location are performed using CT dose reduction for ALARA by means of automated exposure control. CONTRAST: 100 ml of Omnipaque 350 FINDINGS: CTA ABDOMEN: Abdominal Aorta: No significant abnormality. Minimal distal calcific plaques. Celiac Artery: No significant abnormality. Superior Mesenteric Artery: No significant abnormality. Renal Arteries: Right: No significant abnormality. Left: No significant abnormality. Inferior Mesenteric Artery: No significant abnormality. CTA PELVIS: RIGHT: Common Iliac Artery: No significant abnormality. Minimal focal calcific plaque is noted in the midpor tion. Internal Iliac Artery: No significant abnormality. External Iliac Artery: No significant abnormality. LEFT: Common Iliac Artery: No significant abnormality. Internal Iliac Artery: No significant abnormality. External Iliac Artery: No significant abnormality. CTA LOWER EXTREMITIES: RIGHT LOWER EXTREMITY: Common Femoral Artery: No significant abnormality. Superficial Femoral Artery: Moderate diffuse calcific plaques are identified but no focal stenosis. Profunda Femoral Artery: Mild diffuse calcific plaques are identified but no focal stenosis. Popliteal Artery: No significant abnormality. Anterior Tibial Artery: Moderate diffuse calcific plaques are noted. The distal anterior tibial arter y demonstrates multifocal stenosis with eventual occlusion proximal to the ankle. Tibioperoneal Trunk: No significant abnormality. Posterior Tibial Artery: Moderate diffuse calcific plaques with multifocal stenosis distally. This ve ssel appears patent past the ankle. Peroneal Artery: Moderate diffuse calcific plaques with multifocal stenosis with eventual occlusion p roximal to the ankle. Ankle runoff: 1 vessel. LEFT LOWER EXTREMITY: Common Femoral Artery: No significant abnormality. Superficial Femoral Artery: Moderate diffuse calcific plaques but no focal stenosis. Profunda Femoral Artery: No significant abnormality. Popliteal Artery: Mild calcific plaques but no focal stenosis. Anterior Tibial Artery: Moderate diffuse calcific plaques with multifocal stenosis and eventual occlu eliud in the mid villarreal Tibioperoneal Trunk: No significant abnormality. Posterior Tibial Artery: Mild diffuse calcific plaques. Multifocal stenosis is suspected distally alt kuldip it is patent past the ankle. Peroneal Artery: Mild diffuse calcific plaques with multifocal stenosis distally. Ankle runoff: 2 vessel. NONTARGET STRUCTURES: ABDOMEN: GI:There are numerous small calcified gallstones in the gallbladder. No biliary dilatation. The live r, pancreas and spleen are unremarkable. The bowel loops are normal caliber. :No significant abnormality. Lymphatics:No significant abnormality. PELVIS: :No significant abnormality. LOWER EXTREMITIES: Musculoskeletal:No significant abnormality. Osseous Structures: Moderate lumbar spondylosis. Previous internal fixation of the right femur. Additional Findings: None IMPRESSION: Moderate diffuse atherosclerotic disease is noted in both lower extremities as outlined above. Multifocal stenosis and eventual occlusion is noted in the anterior tibial arteries bilaterally and r ight peroneal artery. Signer Name: Huan Lopez Jr, MD Signed: 12/04/2019 12:18 PM Workstation Name: [id number]
== END 2019-12-04 09:03 | disposition home or self-care (01) ==
LOC: CT 09:02
PROVIDERS: ATTEND Surgery Vascular Surgery
DX: I70.213 Atherosclerosis of native arteries of extremities with intermittent claudication, bilateral legs (principal); I77.1 Stricture of artery; K80.20 Calculus of gallbladder without cholecystitis without obstruction
CPT/HCPCS: 36415; 75635; 82565; 84520; Q9967

== ENCOUNTER 2019-12-25 09:01 | Inpatient (IN) | payer MEDICAID ==
[2019-12-25] MEDS ORDERED: SODIUM CHLORIDE 0.9% 1000 ML 1,000 ML ONE (09:07)
[2019-12-25] MEDS ORDERED: MIDAZOLAM 2 MG/2 ML INJ IV PRN (09:13)
[2019-12-25] MEDS ORDERED: LIP THERAPY VASELINE TP PRN (09:13)
[2019-12-25] MEDS ORDERED: SODIUM CHLORIDE 0.9% 1000 ML 1,000 ML IV ONE ×2 (09:13→09:57)
[2019-12-25] MEDS ORDERED: MINERAL OIL/PETROLATUM, WHITE OPHTH OINT 3.5 GM OU PRN (09:13)
[2019-12-25] MEDS: MIDAZOLAM 100 MG in SODIUM CHLORIDE 0.9% 80 ML IV SCH (09:56)
--- NOTE | 2019-12-25 10:22 | Cat Scan Report ---
CT HEAD WITHOUT CONTRAST INDICATION : MAIN: Stroke symptoms unresponsive. TECHNIQUE: Axial imaging performed from the skull apex through the skull base without the use of con trast. Sagittal and coronal reformatted images. All CT scans at this location are performed using C T dose reduction for ALARA by means of automated exposure control. COMPARISON: 05/22/2019 FINDINGS: Parenchyma: The left subdural hemorrhage has resolved since the previous exam. No evidence for acute intraparenchymal hemorrhage or extra-axial fluid collection on today's exam. Mild chronic microangio leticia in the white matter is stable. Chronic lacunar infarcts in the bilateral thalami and left sherry are again noted. No acute territorial infarct is identified on noncontrast CT. Incidental basal gangl ia calcifications are stable. Ventricles: Ventricles are normal in size and appear symmetric. Bones: No acute osseous abnormality. Sinuses: There is small fluid in the right maxillary sinus and right ethmoid air cells. The remainin g sinuses are clear. Soft tissues: Soft tissues including the orbits appear normal. IMPRESSION: No acute intracranial process is identified. Chronic findings as described above. If furt her evaluation is needed, MRI could be obtained. Signer Name: Huan Lopez Jr, MD Signed: 12/25/2019 10:18 AM Workstation Name: [id number]
--- NOTE | 2019-12-25 10:27 | XRay Report ---
CHEST 1 VIEW INDICATION: post intubation. COMPARISON: 05/22/2019 FINDINGS: Support devices: The distal tip of the endotracheal tube terminates 6 cm superior to the dani. Heart: Within normal limits. Lungs/Pleura: Mild infiltration has developed in the right perihilar region which could represent a d eveloping infiltrate or congestive changes. The left lung is clear. No pleural effusion or pneumothor ax. Additional findings: None. IMPRESSION: Endotracheal tube as described. Mild right perihilar infiltration is identified as described. ABDOMEN 1 VIEW(S) INDICATION / CLINICAL INFORMATION: OG tube placement. COMPARISON: None available. FINDINGS: TUBES / LINES: The nasogastric tube terminates just beyond the GE junction. The sidehole is at the le [place] of the GE junction. Consider advancement by 5-10 cm. BOWEL GAS PATTERN: No significant abnormality. FREE AIR / EXTRALUMINAL GAS: None seen. ADDITIONAL FINDINGS: Multiple small calcifications overlie the right renal hilum which could represen t gallstones or renal stones. IMPRESSION: Recommend advancement of the nasogastric tube by 5-10 cm. Unremarkable bowel gas pattern. Probable ch olelithiasis. Signer Name: Huan Lopez Jr, MD Signed: 12/25/2019 10:22 AM Workstation Name: [id number]
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
[2019-12-25 10:51] LABS: Basophils % (Auto) 0.2 % (0.0-1.8); Hemoglobin 13.6 gm/dl (11.8-15.2); Lymphocytes # (Auto) 0.8 K/mm3 (1.2-5.4); Lymphocytes % (Auto) 6.7 % (13.4-35.0); Mean Corpuscular HGB Conc 33 % (32-34); Mean Corpuscular Volume 96 fl (84-94); Monocytes # (Auto) 0.6 K/mm3 (0.0-0.8); Monocytes % (Auto) 5.3 % (0.0-7.3); Platelet Count 304 K/mm3 (140-440); Red Blood Count 4.28 M/mm3 (3.65-5.03); Red Cell Distribution Width 13.6 % (13.2-15.2)
[2019-12-25 10:57] LABS: ABG Base Excess -5.8 mmol/L (-2.0-3.0); ABG HCO3 16.7 mmol/L (20.0-26.0); ABG Methemoglobin 0.7 % (0.0-1.5); ABG Oxygen Saturation 99.5 % (95.0-99.0); ABG PCO2 25.3 mm Hg; ABG PH 7.437 pH Units (7.350-7.450)
[2019-12-25 11:03] LABS: ABG PO2 269.6 mm Hg (80.0-90.0)
[2019-12-25 11:09] LABS: Creatine Kinase MB 16.8 ng/mL (0.0-4.0)
[2019-12-25 11:10] LABS: Albumin 3.5 g/dL (3.9-5); Calcium 8.9 mg/dL (8.4-10.2)
[2019-12-25 11:12] LABS: INR 1.17 (0.87-1.13)
[2019-12-25 11:13] LABS: Partial Thromboplastin Time 29.2 Sec. (24.2-36.6); Thrombin Time 16.7 Sec. (15.1-19.6)
[2019-12-25] MEDS ORDERED: SODIUM CHLORIDE 0.9% 1000 ML IV SOLN IV ONE (11:14)
[2019-12-25] MEDS ORDERED: cefTRIAXone/NS 2 GM/100 ML 2 GM/100 ML BAG IV SCH (11:30)
[2019-12-25 11:32] LABS: Chol/HDL Ratio 4.39 %
[2019-12-25] MEDS ORDERED: ASPIRIN 300 MG RECT SUPP PR ONE (11:43)
[2019-12-25] MEDS: metroNIDAZOLE/NS 500 MG/100 ML 500 MG/100 ML BAG IV SCH ×2 (11:46→16:36)
[2019-12-25] MEDS ORDERED: AZITHROMYCIN 500 MG in SODIUM CHLORIDE 0.9% 250ML 250 ML IV SCH (12:00)
[2019-12-25 14:10] LABS: Bilirubin,Urine NEG (Negative); Blood,Urine LG (Negative); Color,Urine Yellow (Yellow); Mucus,Urine FEW /HPF; Urobilinogen,Urine < 2.0 mg/dL (<2.0)
[2019-12-25 14:11] LABS: Protein,Urine >500 mg/dL (Negative)
[2019-12-25 14:42] LABS: Amphetamine Screen,Urine PRESUMPTIVE NEGATIVE; Benzodiazepines Screen,Urine PRESUMPTIVE NEGATIVE; Cannabinoid Screen,Urine PRESUMPTIVE NEGATIVE; Cocaine Screen,Urine PRESUMPTIVE NEGATIVE; Methadone Screen,Urine PRESUMPTIVE NEGATIVE; Opiate Screen,Urine PRESUMPTIVE NEGATIVE
--- NOTE | 2019-12-25 16:21 | History and Physical Report ---
History of Present Illness Date of examination: 12/25/19 Date of admission: 12/25/19 12:45 History of present illness: 54 year old AA Bahamian male with history of CVA ,HTN ,IDDM and PN presents with altered mental status. Patient's caregiver came to the house today and found him unresponsive with sonorous respirations. Patient was not having any purposeful movements. Paramedics were called and stated that the patient was in respiratory distress with O2 sat in the low 80s. Patient was bagged with a bag valve mask while being transported to the hospital. Patient's last known well time was 12 noon yesterday.No fever or chills.No reported low Blood gas.Patient intubated in ES for protection of airway and maintenance of O2 saturations.No recent travel.No known exacerbating or relieving factors. Past Medical History Hypertension: Yes CVA: Yes (10/2017) IDDM Additional medical history: high cholesterol Surgical History Additional Surgical History: RIGHT LEG SURGERY FROM [facility] Social History Smoking Status: Unknown if ever smoked Family History Htn Medications Home Medications: Home Medications Medication Instructions Recorded Confirmed Last Taken Type carisoprodoL [Soma] 350 mg PO Q6H 05/03/18 05/22/19 05/01/18 History Aspirin [Aspirin BABY CHEW TAB] 81 mg PO QDAY #100 tab.chew 01/20/19 05/22/19 Unknown Rx ALPRAZolam [Xanax TAB] 2 mg PO BID PRN 05/22/19 05/22/19 Unknown History Acetaminophen with Codeine 1 each PO Q6H 05/22/19 05/22/19 Unknown History [Acetaminophen-Codeine #4 TAB] Citalopram [celeXA] 20 mg PO HS 05/22/19 05/22/19 Unknown History Gabapentin [Neurontin] 300 mg PO QAM 05/22/19 05/22/19 Unknown History Gabapentin [Neurontin] 600 mg PO HS 05/22/19 05/22/19 Unknown History Insulin Lispro Protamin/Lispro 30 units SUB-Q HS 05/22/19 05/22/19 Unknown History [Humalog Mix 75-25 Vial] Insulin Lispro Protamin/Lispro 70 units SUB-Q QAM 05/22/19 05/22/19 Unknown History [Humalog Mix 75-25 Vial] Zolpidem [Ambien] 10 mg PO QHS PRN 05/22/19 05/22/19 Unknown History amLODIPine [Norvasc] 10 mg PO HS 05/22/19 05/22/19 Unknown History Review of Systems ROS: Stated complaint: CARDIAC ARREST Other details as noted in HPI Comment: Unobtainable due to pts medical conditions Medications and Allergies Allergies Allergy/AdvReac Type Severity Reaction Status Date / Time No Known Allergies Allergy Verified 01/21/19 12:55 Home Medications Medication Instructions Recorded Confirmed Last Taken Type ALPRAZolam [Xanax TAB] 2 mg PO BID 12/25/19 12/25/19 Unknown History Acetaminophen/Codeine [Tylenol 1 tab PO Q6H PRN 12/25/19 12/25/19 Unknown History /Codeine # 3 tab] Atorvastatin Calcium [Lipitor] 80 mg PO QDAY 12/25/19 12/25/19 Unknown History Citalopram [celeXA] 20 mg PO QHS 12/25/19 12/25/19 Unknown History Gabapentin [Neurontin] 300 mg PO Q8HR 12/25/19 12/25/19 Unknown History Insulin Lispro Prot/Lispro 30 units SUB-Q QHS 12/25/19 12/25/19 Unknown History [HumaLOG Mix 75/25 Vial] Insulin Lispro Prot/Lispro 70 unit SUB-Q QAM 12/25/19 12/25/19 Unknown History [HumaLOG Mix 75/25 Vial] Pregabalin [Lyrica] 50 mg PO TID 12/25/19 12/25/19 Unknown History Active Meds: Active Medications Hydrophilic Ointment (Vaseline Lip Therapy) 1 applic TP Q2HR PRN PRN Reason: Dry Lips Midazolam HCl 100 mg/ Sodium (Chloride) 100 mls @ 2 mls/hr IV TITR LIBIA; Pr otocol Last Admin: 12/25/19 09:56 Dose: 2 mg/hr, 2 mls/hr Documented by: Ceftriaxone Sodium (Rocephin/Ns 2 Gm/100 Ml) 2 gm in 100 mls @ 200 mls/hr IV Q24HR LIBIA; Protocol Last Admin: 12/25/19 11:45 Dose: 200 mls/hr Documented by: Azithromycin 500 mg/ Sodium (Chloride) 250 mls @ 250 mls/hr IV Q24HR LIBIA; Protocol Last Admin: 12/25/19 12:45 Dose: 250 mls/hr Documented by: Metronidazole (Flagyl 500 Mg/100 Ml) 500 mg in 100 mls @ 100 mls/hr IV Q8HR [facility]; Protocol Last Admin: 12/25/19 11:46 Dose: 100 mls/hr Documented by: Midazolam HCl (Versed) 2 mg IV Q10MIN PRN PRN Reason: Sedation Multi-Ingred Cream/Lotion/Oil/Oint (Artificial Tears Ophth Oint) 1 applic OU Q4HR PRN PRN Reason: Dry Eye(s) Exam - Constitutional Vitals: Temp Pulse Resp BP Pulse Ox 102.2 F H 141 H 19 152/104 99 12/25/19 11:24 12/25/19 15:12 12/25/19 15:12 12/25/19 15:12 12/25/19 15:12 Results - Labs CBC & Chem 7: 12/26/19 05:16 12/25/19 10:13 Labs: Laboratory Last Values WBC 12.0 K/mm3 (4.5-11.0) H 12/25/19 10:13 RBC 4.28 M/mm3 (3.65-5.03) 12/25/19 10:13 Hgb 13.6 gm/dl (11.8-15.2) 12/25/19 10:13 Hct 41.0 % (35.5-45.6) 12/25/19 10:13 MCV 96 fl (84-94) H 12/25/19 10:13 MCH 32 pg (28-32) 12/25/19 10:13 MCHC 33 % (32-34) 12/25/19 10:13 RDW 13.6 % (13.2-15.2) 12/25/19 10:13 Plt Count 304 K/mm3 (140-440) 12/25/19 10:13 Lymph % (Auto) 6.7 % (13.4-35.0) L 12/25/19 10:13 Forrest % (Auto) 5.3 % (0.0-7.3) 12/25/19 10:13 Eos % (Auto) 0.0 % (0.0-4.3) 12/25/19 10:13 Baso % (Auto) 0.2 % (0.0-1.8) 12/25/19 10:13 Lymph # 0.8 K/mm3 (1.2-5.4) L 12/25/19 10:13 Forrest # 0.6 K/mm3 (0.0-0.8) 12/25/19 10:13 Eos # 0.0 K/mm3 (0.0-0.4) 12/25/19 10:13 Baso # 0.0 K/mm3 (0.0-0.1) 12/25/19 10:13 Seg Neutrophils % 87.8 % (40.0-70.0) H 12/25/19 10:13 Seg Neutrophils # 10.6 K/mm3 (1.8-7.7) H 12/25/19 10:13 PT 15.1 Sec. (12.2-14.9) H 12/25/19 10:13 INR 1.17 (0.87-1.13) H 12/25/19 10:13 APTT 29.2 Sec. (24.2-36.6) 12/25/19 10:13 Thrombin Time 16.7 Sec. (15.1-19.6) 12/25/19 10:13 ABG pH 7.437 pH Units (7.350-7.450) 12/25/19 10:45 ABG pCO2 25.3 mm Hg 12/25/19 10:45 ABG pO2 269.6 mm Hg (80.0-90.0) H 12/25/19 10:45 ABG HCO3 16.7 mmol/L (20.0-26.0) L 12/25/19 10:45 ABG O2 Saturation 99.5 % (95.0-99.0) H 12/25/19 10:45 ABG O2 Content 19.1 (0.0-44) 12/25/19 10:45 ABG Base Excess -5.8 mmol/L (-2.0-3.0) L 12/25/19 10:45 ABG Hemoglobin 13.4 gm/dl (14.0-18.0) L 12/25/19 10:45 ABG Carboxyhemoglobin 1.2 % (0.0-5.0) 12/25/19 10:45 ABG Methemoglobin 0.7 % (0.0-1.5) 12/25/19 10:45 Oxyhemoglobin 97.6 % (95.0-99.0) 12/25/19 10:45 FiO2 100 % 12/25/19 10:45 Sodium 142 mmol/L (137-145) 12/25/19 10:13 Potassium 4.3 mmol/L (3.6-5.0) 12/25/19 10:13 Chloride 98.6 mmol/L (98-107) 12/25/19 10:13 Carbon Dioxide 16 mmol/L (22-30) L 12/25/19 10:13 Anion Gap 32 mmol/L 12/25/19 10:13 BUN 23 mg/dL (9-20) H 12/25/19 10:13 Creatinine 1.8 mg/dL (0.8-1.5) H 12/25/19 10:13 Estimated GFR 47 ml/min 12/25/19 10:13 BUN/Creatinine Ratio 13 % 12/25/19 10:13 Glucose 482 mg/dL (75-100) H 12/25/19 10:13 Lactic Acid 6.00 mmol/L (0.7-2.0) H* 12/25/19 12:57 Calcium 8.9 mg/dL (8.4-10.2) 12/25/19 10:13 Total Bilirubin 0.60 mg/dL (0.1-1.2) 12/25/19 10:13 AST 49 units/L (5-40) H 12/25/19 10:13 ALT 16 units/L (7-56) 12/25/19 10:13 Alkaline Phosphatase 77 units/L (35-129) 12/25/19 10:13 Total Creatine Kinase 2995 units/L (55-170) H 12/25/19 10:13 CK-MB (CK-2) 16.8 ng/mL (0.0-4.0) H 12/25/19 10:13 CK-MB (CK-2) Rel Index 0.5 (0-4) 12/25/19 10:13 Troponin T 0.992 ng/mL (0.00-0.029) H* 12/25/19 10:13 Total Protein 7.3 g/dL (6.3-8.2) 12/25/19 10:13 Albumin 3.5 g/dL (3.9-5) L 12/25/19 10:13 Albumin/Globulin Ratio 0.9 % 12/25/19 10:13 Triglycerides 137 mg/dL (2-149) 12/25/19 10:13 Cholesterol 325 mg/dL (50-199) H 12/25/19 10:13 LDL Cholesterol Direct 249 mg/dL (50-130) H 12/25/19 10:13 HDL Cholesterol 74 mg/dL (40-59) H 12/25/19 10:13 Cholesterol/HDL Ratio 4.39 % 12/25/19 10:13 Urine Color Yellow (Yellow) 12/25/19 13:50 Urine Turbidity Clear (Clear) 12/25/19 13:50 Urine pH 5.0 (5.0-7.0) 12/25/19 13:50 Ur Specific Luckey 1.027 (1.003-1.030) 12/25/19 13:50 Urine Protein >500 mg/dL (Negative) 12/25/19 13:50 Urine Glucose (UA) >=500 mg/dL (Negative) 12/25/19 13:50 Urine Ketones Tr mg/dL (Negative) 12/25/19 13:50 Urine Blood Lg (Negative) 12/25/19 13:50 Urine Nitrite Neg (Negative) 12/25/19 13:50 Urine Bilirubin Neg (Negative) 12/25/19 13:50 Urine Urobilinogen < 2.0 mg/dL (<2.0) 12/25/19 13:50 Ur Leukocyte Esterase Neg (Negative) 12/25/19 13:50 Urine WBC (Auto) 4.0 /HPF (0.0-6.0) 12/25/19 13:50 Urine RBC (Auto) 3.0 /HPF (0.0-6.0) 12/25/19 13:50 U Epithel Cells (Auto) < 1.0 /HPF (0-13.0) 12/25/19 13:50 Urine Mucus Few /HPF 12/25/19 13:50 Urine Opiates Screen Presumptive negative 12/25/19 13:50 Urine Methadone Screen Presumptive negative 12/25/19 13:50 Ur Barbiturates Screen Presumptive negative 12/25/19 13:50 Ur Phencyclidine Scrn Presumptive negative 12/25/19 13:50 Ur Amphetamines Screen Presumptive negative 12/25/19 13:50 U Benzodiazepines Scrn Presumptive negative 12/25/19 13:50 Urine Cocaine Screen Presumptive negative 12/25/19 13:50 U Marijuana (THC) Screen Presumptive negative 12/25/19 13:50 Drugs of Abuse Note Disclamer 12/25/19 13:50 Plasma/Serum Alcohol < 0.01 % (0-0.07) 12/25/19 10:13 - Imaging and Cardiology EKG: report reviewed (Sinus tach 133/min) Chest x-ray: report reviewed Imaging and Cardiology: CXR Heart: Within normal limits. Lungs/Pleura: Mild infiltration has developed in the right perihilar region which could represent a developing infiltrate or congestive changes. The left lung is clear. No pleural effusion or pneumothorax. Additional findings: None. IMPRESSION: Endotracheal tube as described. Mild right perihilar infiltration is identified as descr EKG SINUS TACHYCARDIA PROBABLE LEFT ATRIAL ENLARGEMENT PROBABLE ANTEROSEPTAL INFARCT, POSSIBLY RECENT ST SEGMENT ABNORMALITIES; CONSIDER INFEROLATERAL ISCHEMIA - Assessment and Plan Assessment and plan: CCT 40 minutes Advance Directives: Yes (Full code) VTE prophylaxis?: Chemical Plan of care discussed with patient/family: Yes - Patient Problems (1) Acute encephalopathy Current Visit: No Status: Acute Plan to address problem: Etiology unclear Sepsis?? (2) Sepsis Current Visit: Yes Status: Acute Qualifiers: Sepsis type: sepsis due to unspecified organism Sepsis acute organ dysfunction status: with acute organ dysfunction Severe sepsis acute organ dysfunction type: encephalopathy Severe sepsis shock status: without septic shock Qualified Code(s): A41.9 - Sepsis, unspecified organism; R65.20 - Severe sepsis without septic shock; G93.40 - Encephalopathy, unspecified Plan to address problem: Sepsis protocol IV Cefepime IV Fluids and IV vancomycin Has Rt Perihilar infitrate--Pneumonia versusCHF Lactic ACID high (3) Respiratory failure with hypoxia Current Visit: Yes Status: Acute Plan to address problem: (4) NSTEMI (non-ST elevated myocardial infarction) Current Visit: Yes Status: Acute Plan to address problem: Serial troponins IV Heparin drip Cardiology consult (5) Rhabdomyolysis Current Visit: Yes Status: Acute Qualifiers: Rhabdomyolysis type: non-traumatic Qualified Code(s): M62.82 - Rhabdomyolysis Plan to address problem: CK high--2995 IV fluids for now Monitor ck levels (6) IDDM (insulin dependent diabetes mellitus) Current Visit: Yes Status: Acute Plan to address problem: Coverage for now A1c 5.1 (7) HLD (hyperlipidemia) Current Visit: No Status: Chronic Qualifiers: Hyperlipidemia type: mixed hyperlipidemia Qualified Code(s): E78.2 - Mixed hyperlipidemia Plan to address problem: Statins (8) DVT prophylaxis Current Visit: No Status: Acute Plan to address problem: On IV Heparin and GI prophylaxis
[2019-12-25] MEDS ORDERED: metroNIDAZOLE/NS 500 MG/100 ML 500 MG/100 ML BAG IV ONE (16:36)
[2019-12-25] MEDS ORDERED: ACETAMINOPHEN 325 MG TAB PO PRN (17:49)
[2019-12-25] MEDS ORDERED: ONDANSETRON 4 MG/2 ML INJ IV PRN (17:49)
[2019-12-25] MEDS ORDERED: IPRATROPIUM/ALBUTEROL SULFATE 3 ML AMPUL.NEB IH PRN (17:51)
[2019-12-25] MEDS ORDERED: LIPASE 10,500/PROTEASE 25,000/AMYLASE 43,750 (UNITS) DR CAP FEEDTUBE PRN (17:53)
[2019-12-25] MEDS ORDERED: SIMPLE SYRUP 15 ML FEEDTUBE PRN ×2 (17:53)
[2019-12-25] MEDS ORDERED: SODIUM BICARBONATE 325 MG TAB FEEDTUBE PRN (17:53)
[2019-12-25] MEDS ORDERED: D5W/0.9% NACL 1,000 ML IV SCH (18:00)
[2019-12-25] MEDS ORDERED: VANCOMYCIN PHARMACY TO DOSE IV SCH (18:00)
[2019-12-25] MEDS ORDERED: CEFEPIME/NS 2 GM/100 ML 2 GM/100 ML BAG IV ONE (18:13)
[2019-12-25] MEDS ORDERED: methylPREDNISolone Sod Succinate 40 MG/1 ML INJ ONE (18:13)
[2019-12-25] MEDS: CEFEPIME/NS 2 GM/100 ML 2 GM/100 ML BAG IV SCH ×2 (18:16→22:53)
[2019-12-25] MEDS: methylPREDNISolone Sod Succinate 125 MG/2 ML INJ IV SCH ×2 (18:16→22:53)
[2019-12-25] MEDS ORDERED: ACETAMINOPHEN 650 MG RECT SUPP PR ONE ×2 (18:27→18:29)
[2019-12-25] MEDS ORDERED: VANCOMYCIN 2,000 MG in SODIUM CHLORIDE 0.9% 500 ML 500 ML IV ONE (19:00)
[2019-12-25] MEDS: IPRATROPIUM/ALBUTEROL SULFATE 3 ML AMPUL.NEB IH SCH (21:24)
[2019-12-25] MEDS ORDERED: FAMOTIDINE 20 MG/2 ML INJ IV SCH (22:00)
[2019-12-25] MEDS: hydrALAZINE 20 MG/1 ML INJ IV PRN (22:53)
[2019-12-26] MEDS: MORPHINE 2 MG/1 ML INJ IV PRN ×2 (00:19→02:10)
[2019-12-26] MEDS: MIDAZOLAM 100 MG in SODIUM CHLORIDE 0.9% 80 ML IV SCH (00:42)
[2019-12-26] MEDS: hydrALAZINE 20 MG/1 ML INJ IV PRN (03:28)
[2019-12-26] MEDS: HYDROmorphone 1 MG/1 ML INJ IV PRN (03:28)
[2019-12-26 05:05] LABS: ABG Base Excess -8.6 mmol/L (-2.0-3.0); ABG Methemoglobin 0.7 % (0.0-1.5); ABG Oxygen Saturation 99.2 % (95.0-99.0); ABG PH 7.378 pH Units (7.350-7.450)
[2019-12-26 05:38] LABS: Basophils % (Auto) 0.3 % (0.0-1.8); Hematocrit 35.4 % (35.5-45.6); Hemoglobin 11.7 gm/dl (11.8-15.2); Mean Corpuscular HGB Conc 33 % (32-34); Mean Corpuscular Volume 95 fl (84-94); Monocytes # (Auto) 0.4 K/mm3 (0.0-0.8); Monocytes % (Auto) 3.4 % (0.0-7.3); Platelet Count 232 K/mm3 (140-440); Red Blood Count 3.73 M/mm3 (3.65-5.03); Red Cell Distribution Width 13.9 % (13.2-15.2)
[2019-12-26] MEDS: CEFEPIME/NS 2 GM/100 ML 2 GM/100 ML BAG IV SCH ×2 (05:51→21:11)
[2019-12-26] MEDS: methylPREDNISolone Sod Succinate 125 MG/2 ML INJ IV SCH (05:53)
[2019-12-26 06:00] LABS: Albumin 2.6 g/dL (3.9-5)
[2019-12-26] MEDS: INSULIN LISPRO 100 UNIT/ML SUB-Q SCH ×3 (06:22→18:07)
[2019-12-26] MEDS ORDERED: INSULIN LISPRO 100 UNIT/ML SUB-Q ONE (06:40)
[2019-12-26] MEDS: HEPARIN/ 0.45% NACL DRIP 25,000 UNIT/500 ML BAG IV SCH (07:00)
[2019-12-26] MEDS ORDERED: VANCOMYCIN 1,500 MG in SODIUM CHLORIDE 0.9% 500 ML 500 ML IV SCH (07:00)
[2019-12-26 08:10] LABS: Hematocrit 37.9 % (35.5-45.6); Hemoglobin 12.1 gm/dl (11.8-15.2)
[2019-12-26] MEDS: IPRATROPIUM/ALBUTEROL SULFATE 3 ML AMPUL.NEB IH SCH ×3 (08:16→19:26)
--- NOTE | 2019-12-26 08:21 | XRay Report ---
ABDOMEN 1 VIEW(S) INDICATION / CLINICAL INFORMATION: OR tube placement. COMPARISON: 12/25/2019 FINDINGS: TUBES / LINES: Tip of the nasogastric tube projects at the level of the gastric antrum BOWEL GAS PATTERN/EXTRALUMINAL GAS: No significant abnormality. No pneumatosis or secondary signs of free air. ADDITIONAL FINDINGS: There is cholelithiasis Signer Name: Kike De Leon MD Signed: 12/26/2019 8:17 AM Workstation Name: [employer]
[2019-12-26 08:27] LABS: INR 1.49 (0.87-1.13)
[2019-12-26 08:28] LABS: Partial Thromboplastin Time 27.1 Sec. (24.2-36.6)
[2019-12-26] MEDS ORDERED: DEXTROSE 50% IN WATER (25GM) 50 ML SYRINGE IV PRN (08:50)
--- NOTE | 2019-12-26 08:53 | Progress Note ---
Assessment and Plan Assessment and plan: Acute respiratory failure Intubated Pulm following DKA Start Insulin drip, iv fluids Accucheck q 1hr Acute encephalopathy Etiology unclear SIRS versus Sepsis Cont IV Cefepime IV Fluids and IV vancomycin for now Has Rt Perihilar infitrate--Pneumonia versusCHF Consult ID to determine Elevated Troponin likely NSTEMI Serial troponins IV Heparin drip Cardiology consult Rhabdomyolysis CK high--2995 IV fluids for now Monitor ck levels Hyperlipidemia Statins DVT prophylaxis On IV Heparin drip History Interval history: Brought to ED for altered mental status, unresponsive Hospitalist Physical - Physical exam Narrative exam: GEN: Not in acute distress, lying in bed, Intubated HEENT: Normocephalic, atraumatic, Neck: supple, No JVD Lungs: Clear , no crackles, heart;S1 and S2 reg, no murmurs, rubs or gallop Abd:soft, non tender, non distended, normal bowel sounds Ext: No edema, no clubbing, no cyanosis, Neuro: Intubated, - Constitutional Vitals: Temp Pulse Resp BP Pulse Ox 98.8 F 103 H 13 149/90 100 12/26/19 08:00 12/26/19 08:00 12/26/19 08:00 12/26/19 08:00 12/26/19 08:00 Results - Labs CBC & Chem 7: 12/26/19 07:44 12/27/19 13:25 Labs: Laboratory Last Values WBC 10.5 K/mm3 (4.5-11.0) 12/26/19 05:16 RBC 3.73 M/mm3 (3.65-5.03) 12/26/19 05:16 Hgb 12.1 gm/dl (11.8-15.2) 12/26/19 07:44 Hct 37.9 % (35.5-45.6) 12/26/19 07:44 MCV 95 fl (84-94) H 12/26/19 05:16 MCH 31 pg (28-32) 12/26/19 05:16 MCHC 33 % (32-34) 12/26/19 05:16 RDW 13.9 % (13.2-15.2) 12/26/19 05:16 Plt Count 230 K/mm3 (140-440) 12/26/19 07:44 Lymph % (Auto) 9.0 % (13.4-35.0) L 12/26/19 05:16 Josephine % (Auto) 3.4 % (0.0-7.3) 12/26/19 05:16 Eos % (Auto) 0.0 % (0.0-4.3) 12/26/19 05:16 Baso % (Auto) 0.3 % (0.0-1.8) 12/26/19 05:16 Lymph # 1.0 K/mm3 (1.2-5.4) L 12/26/19 05:16 Josephine # 0.4 K/mm3 (0.0-0.8) 12/26/19 05:16 Eos # 0.0 K/mm3 (0.0-0.4) 12/26/19 05:16 Baso # 0.0 K/mm3 (0.0-0.1) 12/26/19 05:16 Seg Neutrophils % 87.3 % (40.0-70.0) H 12/26/19 05:16 Seg Neutrophils # 9.2 K/mm3 (1.8-7.7) H 12/26/19 05:16 PT 18.3 Sec. (12.2-14.9) H 12/26/19 07:44 INR 1.49 (0.87-1.13) H 12/26/19 07:44 APTT 27.1 Sec. (24.2-36.6) 12/26/19 07:44 Thrombin Time 16.7 Sec. (15.1-19.6) 12/25/19 10:13 ABG pH 7.378 pH Units (7.350-7.450) 12/26/19 04:30 ABG pCO2 26.0 mm Hg 12/26/19 04:30 ABG pO2 188.0 mm Hg (80.0-90.0) H 12/26/19 04:30 ABG HCO3 15.0 mmol/L (20.0-26.0) L 12/26/19 04:30 ABG O2 Saturation 99.2 % (95.0-99.0) H 12/26/19 04:30 ABG O2 Content 17.3 (0.0-44) 12/26/19 04:30 ABG Base Excess -8.6 mmol/L (-2.0-3.0) L 12/26/19 04:30 ABG Hemoglobin 12.4 gm/dl (14.0-18.0) L 12/26/19 04:30 ABG Carboxyhemoglobin 1.1 % (0.0-5.0) 12/26/19 04:30 ABG Methemoglobin 0.7 % (0.0-1.5) 12/26/19 04:30 Oxyhemoglobin 97.4 % (95.0-99.0) 12/26/19 04:30 FiO2 60 % 12/26/19 04:30 Sodium 140 mmol/L (137-145) 12/26/19 05:16 Potassium 4.2 mmol/L (3.6-5.0) 12/26/19 05:16 Chloride 102.5 mmol/L (98-107) 12/26/19 05:16 Carbon Dioxide 14 mmol/L (22-30) L 12/26/19 05:16 Anion Gap 28 mmol/L 12/26/19 05:16 BUN 39 mg/dL (9-20) H 12/26/19 05:16 Creatinine 2.0 mg/dL (0.8-1.5) H 12/26/19 05:16 Estimated GFR 42 ml/min 12/26/19 05:16 BUN/Creatinine Ratio 20 % 12/26/19 05:16 Glucose 545 mg/dL (75-100) H* 12/26/19 05:16 POC Glucose 438 (70-105) H 12/26/19 08:26 Hemoglobin A1c 5.1 % (4-6) 12/25/19 19:52 Lactic Acid 1.40 mmol/L (0.7-2.0) 12/26/19 05:16 Calcium 8.0 mg/dL (8.4-10.2) L 12/26/19 05:16 Total Bilirubin 0.40 mg/dL (0.1-1.2) 12/26/19 05:16 AST 70 units/L (5-40) H 12/26/19 05:16 ALT 21 units/L (7-56) 12/26/19 05:16 Alkaline Phosphatase 56 units/L (35-129) 12/26/19 05:16 Total Creatine Kinase 4251 units/L (55-170) H 12/26/19 07:44 CK-MB (CK-2) 16.8 ng/mL (0.0-4.0) H 12/25/19 10:13 CK-MB (CK-2) Rel Index 0.5 (0-4) 12/25/19 10:13 Troponin T 0.641 ng/mL (0.00-0.029) H* D 12/26/19 07:44 Total Protein 6.1 g/dL (6.3-8.2) L 12/26/19 05:16 Albumin 2.6 g/dL (3.9-5) L 12/26/19 05:16 Albumin/Globulin Ratio 0.7 % 12/26/19 05:16 Triglycerides 137 mg/dL (2-149) 12/25/19 10:13 Cholesterol 325 mg/dL (50-199) H 12/25/19 10:13 LDL Cholesterol Direct 249 mg/dL (50-130) H 12/25/19 10:13 HDL Cholesterol 74 mg/dL (40-59) H 12/25/19 10:13 Cholesterol/HDL Ratio 4.39 % 12/25/19 10:13 Urine Color Yellow (Yellow) 12/25/19 13:50 Urine Turbidity Clear (Clear) 12/25/19 13:50 Urine pH 5.0 (5.0-7.0) 12/25/19 13:50 Ur Specific Dyke 1.027 (1.003-1.030) 12/25/19 13:50 Urine Protein >500 mg/dL (Negative) 12/25/19 13:50 Urine Glucose (UA) >=500 mg/dL (Negative) 12/25/19 13:50 Urine Ketones Tr mg/dL (Negative) 12/25/19 13:50 Urine Blood Lg (Negative) 12/25/19 13:50 Urine Nitrite Neg (Negative) 12/25/19 13:50 Urine Bilirubin Neg (Negative) 12/25/19 13:50 Urine Urobilinogen < 2.0 mg/dL (<2.0) 12/25/19 13:50 Ur Leukocyte Esterase Neg (Negative) 12/25/19 13:50 Urine WBC (Auto) 4.0 /HPF (0.0-6.0) 12/25/19 13:50 Urine RBC (Auto) 3.0 /HPF (0.0-6.0) 12/25/19 13:50 U Epithel Cells (Auto) < 1.0 /HPF (0-13.0) 12/25/19 13:50 Urine Mucus Few /HPF 12/25/19 13:50 Urine Opiates Screen Presumptive negative 12/25/19 13:50 Urine Methadone Screen Presumptive negative 12/25/19 13:50 Ur Barbiturates Screen Presumptive negative 12/25/19 13:50 Ur Phencyclidine Scrn Presumptive negative 12/25/19 13:50 Ur Amphetamines Screen Presumptive negative 12/25/19 13:50 U Benzodiazepines Scrn Presumptive negative 12/25/19 13:50 Urine Cocaine Screen Presumptive negative 12/25/19 13:50 U Marijuana (THC) Screen Presumptive negative 12/25/19 13:50 Drugs of Abuse Note Disclamer 12/25/19 13:50 Plasma/Serum Alcohol < 0.01 % (0-0.07) 12/25/19 10:13 Active Medications - Current Medications Current Medications: Generic Name Dose Route Start Last Admin Trade Name Freq PRN Reason Stop Dose Admin Acetaminophen 650 mg 12/25/19 17:49 12/25/19 22:54 Tylenol PO 650 mg Q4H PRN Administration Pain MILD(1-3)/Fever >100.5/HERNANDEZ Albuterol/Ipratropium 1 ampul 12/25/19 17:51 Duoneb *Not For Prn Use* IH Q3H PRN Wheezing Albuterol/Ipratropium 1 ampul 12/25/19 20:00 12/26/19 08:16 Duoneb *Not For Prn Use* IH 1 ampul QIDRT LIBIA Administration Alprazolam 1 mg 12/26/19 10:00 Xanax PO BID LIBIA Lipase/Protease/Amylase 1 each 12/25/19 17:53 Pancrepeg Sandra 10,500 Unit FEEDTUBE PRN PRN For Clogged Feeding Tube Dextrose 0 ml 12/26/19 08:50 D50w (25gm) Syringe IV Q30MIN PRN Hypoglycemia Protocol Famotidine 20 mg 12/26/19 10:00 Pepcid IV DAILY LIBIA Hydralazine HCl 5 mg 12/25/19 21:31 12/26/19 03:28 Apresoline IV 5 mg Q6H PRN Administration Hypertension Hydromorphone HCl 0.5 mg 12/25/19 17:49 12/26/19 03:28 Dilaudid IV 0.5 mg Q3H PRN Administration Pain , Severe (7-10) Hydrophilic Ointment 1 applic 12/25/19 09:13 Vaseline Lip Therapy TP Q2HR PRN Dry Lips Midazolam HCl 100 mg/ Sodium 100 mls @ 2 mls/hr 12/25/19 10:00 12/26/19 08:12 Chloride IV 3 mg/hr TITR LIBIA 3 mls/hr Titration Protocol 2 MG/HR Heparin Sodium/Sodium Chloride 25,000 unit in 500 mls @ 20 mls/hr 12/26/19 07:00 12/26/19 07:00 Heparin/ 0.45% Nacl-25,000 Unit/500 Ml IV 1,000 units/hr TITRATE LIBIA 20 mls/hr Administration Protocol 1,000 UNITS/HR Cefepime HCl 2 gm in 100 mls @ 200 mls/hr 12/26/19 22:00 Cefepime/Ns 2 Gm/100 Ml IV Q12HR [facility] Protocol Vancomycin HCl 1,500 mg/ 530 mls @ 333.333 mls/hr 12/27/19 10:00 Sodium Chloride IV Q24HR [facility] Insulin Human Regular 100 100 mls @ 1 mls/hr 12/26/19 09:00 units/ Sodium Chloride IV TITR [facility] Protocol 1 UNITS/HR Insulin Human Lispro 0 unit 12/26/19 07:00 12/26/19 06:22 Humalog SUB-Q Not Given Q6HR [facility] Protocol Methylprednisolone Sodium Succinate 80 mg 12/25/19 18:00 12/26/19 05:53 Solu-Medrol IV 80 mg Q8HR LIBIA Administration Morphine Sulfate 2 mg 12/25/19 17:49 12/26/19 02:10 Morphine IV 2 mg Q4H PRN Administration Pain, Moderate (4-6) Multi-Ingred Cream/Lotion/Oil/Oint 1 applic 12/25/19 09:13 Artificial Tears Ophth Oint OU Q4HR PRN Dry Eye(s) Ondansetron HCl 4 mg 12/25/19 17:49 Zofran IV Q8H PRN Nausea And Vomiting Pregabalin 75 mg 12/26/19 10:00 Pregabalin PO Q12HR LIBIA Simple Syrup 15 ml 12/25/19 17:53 Simple Syrup FEEDTUBE PRN PRN Hypoglycemia Simple Syrup 30 ml 12/25/19 17:53 Simple Syrup FEEDTUBE PRN PRN Hypoglycemia Sodium Bicarbonate 325 mg 12/25/19 17:53 Sodium Bicarbonate FEEDTUBE PRN PRN For Clogged Feeding Tube Sodium Chloride 10 ml 12/25/19 17:49 Sodium Chloride Flush Syringe 10 Ml IV PRN PRN LINE FLUSH Sodium Chloride 10 ml 12/25/19 22:00 12/25/19 22:53 Sodium Chloride Flush Syringe 10 Ml IV 10 ml BID LIBIA Administration Nutrition/Malnutrition Assess - Dietary Evaluation Nutrition/Malnutrition Findings: Nutrition Notes Start: 12/25/19 13:01 Freq: Status: Discharge Protocol: Document 12/26/19 08:26 LM (Rec: 12/26/19 08:40 LM [id number]) Nutrition Notes Need for Assessment generated from: MD Order Initial or Follow up Assessment Current Diagnosis Coronary Artery Disease, Diabetes,Sepsis,Hypertension, Respiratory Failure,Stroke, Hyperlipidemia Other Pertinent Diagnosis Pneu, UTI Current Diet TF diet Labs/Tests BUN 39 Cr 2.0 BG 545 TC 325 LDL 249 Pertinent Medications Reviewed Height 6 ft 3 in Weight 93.848 kg [place] Body Weight (kg) 89.09 BMI 25.8 Weight Status Appropriate Subjective/Other Information MD consult for TF. Pt on vent. Burn Absent Trauma Absent Difficulty In Swallowing Current % PO Negligible Minimum of two criteria No physical signs of malnutrition #1 Nutrition Diagnosis Inadequate oral intake Etiology Mechanical vent As Evidenced by Signs and Symptoms pt unable to consume PO Is patient on ventilator? Yes Is Patient Ambulatory and/or Out of Bed No [facility] [phone] Calculation Used for Recommendations [facility] Additional Notes Protein: 113-188g (1.2-2g/kg) Fluid: 1 ml/kcal Nutrition Intervention Change Diet Order: TF Nutrition Support: Vital AF 1.2 at 70 ml/hr Flush 100 q4h Kcal 2,016 Protein (gm) 126 Fluid (mL) 1,362 Goal #1 TF start/tolerance Anticipated Discharge Needs: unable to determine at this time Follow-Up By: 12/28/19 Additional Comments F/U for TF start/tolerance
--- NOTE | 2019-12-26 08:56 | XRay Report ---
CHEST 1 VIEW INDICATION: follow up respiratory failure. COMPARISON: 12/25/2019 FINDINGS: Support devices: Stable satisfactory device positioning. The endotracheal tube tip is satisfactory. T he nasogastric tube tip is below the diaphragm and not imaged. Heart: Within normal limits. Pulmonary vasculature: Central vascular congestion. Lungs/Pleura: Slight improvement in right perihilar infiltrate. However, new left upper lobe perihila r opacity. No pleural effusion. No pneumothorax. Additional findings: None. IMPRESSION: 1. Lateral perihilar airspace disease. Signer Name: Elio Wagner MD Signed: 12/26/2019 8:52 AM Workstation Name: [id number]
[2019-12-26] MEDS ORDERED: INSULIN NPH/REGULAR 70/30 INJ SUB-Q SCH (09:00)
[2019-12-26] MEDS ORDERED: SODIUM CHLORIDE 0.9% 1000 ML 1,000 ML IV SCH (09:30)
[2019-12-26 09:39] LABS: Calcium 8.2 mg/dL (8.4-10.2)
[2019-12-26] MEDS ORDERED: ALPRAZolam 1 MG TAB PO SCH (10:00)
[2019-12-26] MEDS: FAMOTIDINE 20 MG/2 ML INJ IV SCH (10:34)
[2019-12-26] MEDS: PREGABALIN 75 MG CAP PO SCH ×2 (10:34→21:11)
[2019-12-26] MEDS: INSULIN REGULAR, HUMAN 100 UNITS in SODIUM CHLORIDE 0.9% 99 ML IV SCH ×2 (10:35→19:50)
--- NOTE | 2019-12-26 10:57 | Consultation ---
History of Present Illness Consult date: 12/26/19 Requesting physician: RAYNA WASSERMAN Reason for consult: hypoxemia History of present illness: 54 y/o male, prior history of CVA and diabetes found down at home requiring bag mask ventilation and then transitioned here to [facility] and electively intubated in the ED for hypoxemia and altered mental state. Patient was then started on Versed and titrated to 6mg/hr, unsure of why this was done. This am, sedation is turned off and patient remains unresponsive. He will withdraw to pain. Also on admit, Anion Gap was 32, Blood sugar was >400 and Bicarb was 16. He was in what appears to be acute renal failure as well that has since worsened despite volume. He also had an elevated troponin that appears to be trending down. Remainder of the review is unobtainable as no family is present at the bedside. Past History Past Medical History: other (CVA and DIabetes) Past Surgical History: Other (unable to obtain from patient) Social history: other (unable to obtain from patient) Family history: other (unable to obtain from patient. ) Medications and Allergies Allergies Allergy/AdvReac Type Severity Reaction Status Date / Time No Known Allergies Allergy Verified 01/21/19 12:55 Home Medications Medication Instructions Recorded Confirmed Last Taken Type ALPRAZolam [Xanax TAB] 2 mg PO BID 12/25/19 12/25/19 Unknown History Acetaminophen/Codeine [Tylenol 1 tab PO Q6H PRN 12/25/19 12/25/19 Unknown History /Codeine # 3 tab] Atorvastatin Calcium [Lipitor] 80 mg PO QDAY 12/25/19 12/25/19 Unknown History Citalopram [celeXA] 20 mg PO QHS 12/25/19 12/25/19 Unknown History Gabapentin [Neurontin] 300 mg PO Q8HR 12/25/19 12/25/19 Unknown History Insulin Lispro Prot/Lispro 30 units SUB-Q QHS 12/25/19 12/25/19 Unknown History [HumaLOG Mix 75/25 Vial] Insulin Lispro Prot/Lispro 70 unit SUB-Q QAM 12/25/19 12/25/19 Unknown History [HumaLOG Mix 75/25 Vial] Pregabalin [Lyrica] 50 mg PO TID 12/25/19 12/25/19 Unknown History Active Meds: Active Medications Acetaminophen (Tylenol) 650 mg PO Q4H PRN PRN Reason: Pain MILD(1-3)/Fever >100.5/HERNANDEZ Last Admin: 12/25/19 22:54 Dose: 650 mg Documented by: Albuterol/Ipratropium (Duoneb *Not For Prn Use*) 1 ampul IH Q3H PRN PRN Reason: Wheezing Albuterol/Ipratropium (Duoneb *Not For Prn Use*) 1 ampul IH QIDRT [facility] Last Admin: 12/26/19 08:16 Dose: 1 ampul Documented by: Lipase/Protease/Amylase (Pancrepeg Sandra 10,500 Unit) 1 each FEEDTUBE PRN PRN PRN Reason: For Clogged Feeding Tube Dextrose (D50w (25gm) Syringe) 0 ml IV Q30MIN PRN; Protocol PRN Reason: Hypoglycemia Famotidine (Pepcid) 20 mg IV DAILY [facility] Last Admin: 12/26/19 10:34 Dose: 20 mg Documented by: Hydralazine HCl (Apresoline) 5 mg IV Q6H PRN PRN Reason: Hypertension Last Admin: 12/26/19 03:28 Dose: 5 mg Documented by: Hydromorphone HCl (Dilaudid) 0.5 mg IV Q3H PRN PRN Reason: Pain , Severe (7-10) Last Admin: 12/26/19 03:28 Dose: 0.5 mg Documented by: Hydrophilic Ointment (Vaseline Lip Therapy) 1 applic TP Q2HR PRN PRN Reason: Dry Lips Midazolam HCl 100 mg/ Sodium (Chloride) 100 mls @ 2 mls/hr IV TITR [facility]; Melissa col Last Titration: 12/26/19 08:35 Dose: 0 mg/hr, 0 mls/hr Documented by: Heparin Sodium/Sodium Chloride (Heparin/ 0.45% Nacl-25,000 Unit/500 Ml) 25,000 unit in 500 mls @ 20 mls/hr IV TITRATE [facility]; Protocol Last Admin: 12/26/19 07:00 Dose: 1,000 units/hr, 20 mls/hr Documented by: Cefepime HCl (Cefepime/Ns 2 Gm/100 Ml) 2 gm in 100 mls @ 200 mls/hr IV Q12HR [facility]; Protocol Vancomycin HCl 1,500 mg/ (Sodium Chloride) 530 mls @ 333.333 mls/hr IV Q24HR [facility] Insulin Human Regular 100 (units/ Sodium Chloride) 100 mls @ 1 mls/hr IV TITR [facility]; Protocol Last Admin: 12/26/19 10:35 Dose: 8 units/hr, 8 mls/hr Documented by: Sodium Chloride (Nacl 0.9% 1000 Ml) 1,000 mls @ 75 mls/hr IV DIRECT [facility] Insulin Human Lispro (Humalog) 0 unit SUB-Q Q6HR [facility]; Protocol Last Admin: 12/26/19 06:22 Dose: Not Given Documented by: Morphine Sulfate (Morphine) 2 mg IV Q4H PRN PRN Reason: Pain, Moderate (4-6) Last Admin: 12/26/19 02:10 Dose: 2 mg Documented by: Multi-Ingred Cream/Lotion/Oil/Oint (Artificial Tears Ophth Oint) 1 applic OU Q4HR PRN PRN Reason: Dry Eye(s) Ondansetron HCl (Zofran) 4 mg IV Q8H PRN PRN Reason: Nausea And Vomiting Pregabalin (Pregabalin) 75 mg PO Q12HR [facility] Last Admin: 12/26/19 10:34 Dose: 75 mg Documented by: Simple Syrup (Simple Syrup) 15 ml FEEDTUBE PRN PRN PRN Reason: Hypoglycemia Simple Syrup (Simple Syrup) 30 ml FEEDTUBE PRN PRN PRN Reason: Hypoglycemia Sodium Bicarbonate (Sodium Bicarbonate) 325 mg FEEDTUBE PRN PRN PRN Reason: For Clogged Feeding Tube Sodium Chloride (Sodium Chloride Flush Syringe 10 Ml) 10 ml IV PRN PRN PRN Reason: LINE FLUSH Sodium Chloride (Sodium Chloride Flush Syringe 10 Ml) 10 ml IV BID [facility] Last Admin: 12/26/19 10:40 Dose: 10 ml Documented by: Review of Systems ROS unobtainable: due to endotracheal tube, due to mental status Physical Examination Vital signs: Vital Signs Pulse Resp 133 H 30 H 12/25/19 09:04 12/25/19 09:04 General appearance: no acute distress, comatose, appears uncomfortable Eyes: non-icteric ENT: oropharynx moist, other (orally intubated) Neck: supple Effort: normal Ascultation: Bilateral: clear Percussion: Bilateral: not dull Cardiovascular: regular rate and rhythm Gastrointestinal: normoactive bowel sounds, soft Extremities: no edema, other (multiple tattoos, everywhere) unable to assess Results - Laboratory Findings CBC and BMP: 12/26/19 07:44 12/26/19 08:59 ABG ABG pH 7.378 pH Units (7.350-7.450) 12/26/19 04:30 ABG pCO2 26.0 mm Hg 12/26/19 04:30 ABG pO2 188.0 mm Hg (80.0-90.0) H 12/26/19 04:30 ABG O2 Saturation 99.2 % (95.0-99.0) H 12/26/19 04:30 PT/INR, D-dimer PT 18.3 Sec. (12.2-14.9) H 12/26/19 07:44 INR 1.49 (0.87-1.13) H 12/26/19 07:44 Abnormal lab findings: Abnormal Labs 12/25/19 12/25/19 12/25/19 10:13 10:13 10:13 WBC 12.0 H Hgb Hct MCV 96 H Lymph % (Auto) 6.7 L Lymph # 0.8 L Seg Neutrophils % 87.8 H Seg Neutrophils # 10.6 H PT 15.1 H INR 1.17 H ABG pO2 ABG HCO3 ABG O2 Saturation ABG Base Excess ABG Hemoglobin Chloride Carbon Dioxide 16 L BUN 23 H Creatinine 1.8 H Glucose 482 H POC Glucose Lactic Acid Calcium AST 49 H Total Creatine Kinase 2995 H CK-MB (CK-2) 16.8 H Troponin T 0.992 H* Total Protein Albumin 3.5 L Cholesterol 325 H LDL Cholesterol Direct 249 H HDL Cholesterol 74 H 12/25/19 12/25/19 12/25/19 10:45 11:33 12:57 WBC Hgb Hct MCV Lymph % (Auto) Lymph # Seg Neutrophils % Seg Neutrophils # PT INR ABG pO2 269.6 H ABG HCO3 16.7 L ABG O2 Saturation 99.5 H ABG Base Excess -5.8 L ABG Hemoglobin 13.4 L Chloride Carbon Dioxide BUN Creatinine Glucose POC Glucose Lactic Acid 8.30 H* 6.00 H* Calcium AST Total Creatine Kinase CK-MB (CK-2) Troponin T Total Protein Albumin Cholesterol LDL Cholesterol Direct HDL Cholesterol 12/25/19 12/25/19 12/25/19 16:37 20:58 22:22 WBC Hgb Hct MCV Lymph % (Auto) Lymph # Seg Neutrophils % Seg Neutrophils # PT INR ABG pO2 ABG HCO3 ABG O2 Saturation ABG Base Excess ABG Hemoglobin Chloride Carbon Dioxide BUN Creatinine Glucose POC Glucose Lactic Acid 3.30 H* 3.50 H* 2.10 H* Calcium AST Total Creatine Kinase CK-MB (CK-2) Troponin T Total Protein Albumin Cholesterol LDL Cholesterol Direct HDL Cholesterol 12/26/19 12/26/19 12/26/19 04:30 05:16 05:16 WBC Hgb 11.7 L Hct 35.4 L MCV 95 H Lymph % (Auto) 9.0 L Lymph # 1.0 L Seg Neutrophils % 87.3 H Seg Neutrophils # 9.2 H PT INR ABG pO2 188.0 H ABG HCO3 15.0 L ABG O2 Saturation 99.2 H ABG Base Excess -8.6 L ABG Hemoglobin 12.4 L Chloride Carbon Dioxide 14 L BUN 39 H Creatinine 2.0 H Glucose 545 H* POC Glucose Lactic Acid Calcium 8.0 L AST 70 H Total Creatine Kinase CK-MB (CK-2) Troponin T Total Protein 6.1 L Albumin 2.6 L Cholesterol LDL Cholesterol Direct HDL Cholesterol 12/26/19 12/26/19 12/26/19 07:44 07:44 07:44 WBC Hgb Hct MCV Lymph % (Auto) Lymph # Seg Neutrophils % Seg Neutrophils # PT 18.3 H INR 1.49 H ABG pO2 ABG HCO3 ABG O2 Saturation ABG Base Excess ABG Hemoglobin Chloride Carbon Dioxide BUN Creatinine Glucose POC Glucose Lactic Acid Calcium AST Total Creatine Kinase 4251 H CK-MB (CK-2) Troponin T 0.641 H* D Total Protein Albumin Cholesterol LDL Cholesterol Direct HDL Cholesterol 12/26/19 12/26/19 12/26/19 08:26 08:59 10:26 WBC Hgb Hct MCV Lymph % (Auto) Lymph # Seg Neutrophils % Seg Neutrophils # PT INR ABG pO2 ABG HCO3 ABG O2 Saturation ABG Base Excess ABG Hemoglobin Chloride 108.1 H Carbon Dioxide 14 L BUN 40 H Creatinine 1.9 H Glucose 497 H POC Glucose 438 H 434 H Lactic Acid Calcium 8.2 L AST Total Creatine Kinase CK-MB (CK-2) Troponin T Total Protein Albumin Cholesterol LDL Cholesterol Direct HDL Cholesterol - Diagnostic Findings Chest x-ray: image reviewed (per my read, clear, maybe some central vascular congestion but this could just be penentration) Assessment and Plan 54 y/o male with acute respiratory failure, though secondary to altered mental status, maybe from DKA vs some other etiology. 1. Continue insulin drip and NPO status. Serial BMP's every 6 hours for the next 24 hours. 2. Per charting received almost 5 liters. However Serum Cr and BUN have increa sed. Needs renal ultrasound, urine lytes. Will defer to primary. They will likely consult renal 3. Mental status is the same based on charting. Unsure why sedation was even started. All sedation off now 4. Toleratin PSV trials now that off sedation. ABG still shows hypocapnea, most likely related to underlying metabolic acidosis. 5. Continue IV abx therapy 6. Will continue to follow along with you. CCT 31 minutes.
--- NOTE | 2019-12-26 11:42 | Consultation ---
History of Present Illness Consult date: 12/26/19 Requesting physician: RAYNA WASSERMAN Consult reason: elevated troponin History of present illness: The pt is a 54 YO male with a past medical history of CVA, HTN, diabetes, tobacco use. He is intubated and unresponsive on evaluation and thus HPI is obtained per the chart. Pt presented for evaluation after being found down at home yesterday by his caregiver. Pt was reportedly found unresponsive with sonorous respirations. Patient was not having any purposeful movements. Paramedics were called and stated that the patient was in respiratory distress with O2 sat in the low 80s. Patient was bagged while being transported to the hospital and subsequently intubated in ED. Pt found to have elevated troponin and thus cardiology has been consulted. ECG shows ST with probable anteroseptal infarct of undetermined age - new finding when compared to ECG from 05/2019. Pt also noted to have NICOLE, ? rhabdo, lactic acidosis, hyperglycemia. Stress MPI done 01/2019 showed evidence of prior basal inferior wall AR, cannot exclude a very mild degree of reversible periinfarct ischemia, EF 50%. LELE done 01/2019 showed mod LVH, EF 60-65%, negative bubble study. Past History Past Medical History: diabetes, hypertension, stroke Social history: smoking Medications and Allergies Allergies Allergy/AdvReac Type Severity Reaction Status Date / Time No Known Allergies Allergy Verified 01/21/19 12:55 Home Medications Medication Instructions Recorded Confirmed Last Taken Type ALPRAZolam [Xanax TAB] 2 mg PO BID 12/25/19 12/25/19 Unknown History Acetaminophen/Codeine [Tylenol 1 tab PO Q6H PRN 12/25/19 12/25/19 Unknown History /Codeine # 3 tab] Atorvastatin Calcium [Lipitor] 80 mg PO QDAY 12/25/19 12/25/19 Unknown History Citalopram [celeXA] 20 mg PO QHS 12/25/19 12/25/19 Unknown History Gabapentin [Neurontin] 300 mg PO Q8HR 12/25/19 12/25/19 Unknown History Insulin Lispro Prot/Lispro 30 units SUB-Q QHS 12/25/19 12/25/19 Unknown History [HumaLOG Mix 75/25 Vial] Insulin Lispro Prot/Lispro 70 unit SUB-Q QAM 12/25/19 12/25/19 Unknown History [HumaLOG Mix 75/25 Vial] Pregabalin [Lyrica] 50 mg PO TID 12/25/19 12/25/19 Unknown History Active Meds: Active Medications Acetaminophen (Tylenol) 650 mg PO Q4H PRN PRN Reason: Pain MILD(1-3)/Fever >100.5/HERNANDEZ Last Admin: 12/25/19 22:54 Dose: 650 mg Documented by: Albuterol/Ipratropium (Duoneb *Not For Prn Use*) 1 ampul IH Q3H PRN PRN Reason: Wheezing Albuterol/Ipratropium (Duoneb *Not For Prn Use*) 1 ampul IH QIDRT [facility] Last Admin: 12/26/19 08:16 Dose: 1 ampul Documented by: Lipase/Protease/Amylase (Tomasa Sandra 10,500 Unit) 1 each FEEDTUBE PRN PRN PRN Reason: For Clogged Feeding Tube Dextrose (D50w (25gm) Syringe) 0 ml IV Q30MIN PRN; Protocol PRN Reason: Hypoglycemia Famotidine (Pepcid) 20 mg IV DAILY [facility] Last Admin: 12/26/19 10:34 Dose: 20 mg Documented by: Hydralazine HCl (Apresoline) 5 mg IV Q6H PRN PRN Reason: Hypertension Last Admin: 12/26/19 03:28 Dose: 5 mg Documented by: Hydromorphone HCl (Dilaudid) 0.5 mg IV Q3H PRN PRN Reason: Pain , Severe (7-10) Last Admin: 12/26/19 03:28 Dose: 0.5 mg Documented by: Hydrophilic Ointment (Vaseline Lip Therapy) 1 applic TP Q2HR PRN PRN Reason: Dry Lips Midazolam HCl 100 mg/ Sodium (Chloride) 100 mls @ 2 mls/hr IV TITR [facility]; Protocol Last Titration: 12/26/19 08:35 Dose: 0 mg/hr, 0 mls/hr Documented by: Heparin Sodium/Sodium Chloride (Heparin/ 0.45% Nacl-25,000 Unit/500 Ml) 25,000 unit in 500 mls @ 20 mls/hr IV TITRATE [facility]; Protocol Last Admin: 12/26/19 07:00 Dose: 1,000 units/hr, 20 mls/hr Documented by: Cefepime HCl (Cefepime/Ns 2 Gm/100 Ml) 2 gm in 100 mls @ 200 mls/hr IV Q12HR [facility]; Protocol Vancomycin HCl 1,500 mg/ (Sodium Chloride) 530 mls @ 333.333 mls/hr IV Q24HR [facility] Insulin Human Regular 100 (units/ Sodium Chloride) 100 mls @ 1 mls/hr IV TITR [facility]; Protocol Last Admin: 12/26/19 10:35 Dose: 8 units/hr, 8 mls/hr Documented by: Sodium Chloride (Nacl 0.9% 1000 Ml) 1,000 mls @ 75 mls/hr IV DIRECT [facility] Insulin Human Lispro (Humalog) 0 unit SUB-Q Q6HR [facility]; Protocol Last Admin: 12/26/19 06:22 Dose: Not Given Documented by: Morphine Sulfate (Morphine) 2 mg IV Q4H PRN PRN Reason: Pain, Moderate (4-6) Last Admin: 12/26/19 02:10 Dose: 2 mg Documented by: Multi-Ingred Cream/Lotion/Oil/Oint (Artificial Tears Ophth Oint) 1 applic OU Q4HR PRN PRN Reason: Dry Eye(s) Ondansetron HCl (Zofran) 4 mg IV Q8H PRN PRN Reason: Nausea And Vomiting Pregabalin (Pregabalin) 75 mg PO Q12HR [facility] Last Admin: 12/26/19 10:34 Dose: 75 mg Documented by: Simple Syrup (Simple Syrup) 15 ml FEEDTUBE PRN PRN PRN Reason: Hypoglycemia Simple Syrup (Simple Syrup) 30 ml FEEDTUBE PRN PRN PRN Reason: Hypoglycemia Sodium Bicarbonate (Sodium Bicarbonate) 325 mg FEEDTUBE PRN PRN PRN Reason: For Clogged Feeding Tube Sodium Chloride (Sodium Chloride Flush Syringe 10 Ml) 10 ml IV PRN PRN PRN Reason: LINE FLUSH Sodium Chloride (Sodium Chloride Flush Syringe 10 Ml) 10 ml IV BID [facility] Last Admin: 12/26/19 10:40 Dose: 10 ml Documented by: Review of Systems ROS unobtainable: due to endotracheal tube, due to mental status Physical Examination Vital Signs Pulse Resp 133 H 30 H 12/25/19 09:04 12/25/19 09:04 General appearance: other (intubated, unresponsive) HEENT: Positive: PERRL Neck: Positive: neck supple, trachea midline Cardiac: Positive: Regular Rhythm, S1/S2 Lungs: Positive: Decreased Breath Sounds, Oxygen, Ventilated Respirations Neuro: Positive: Other (intubated, unresponsive) Abdomen: Negative: Tender Skin: Negative: Rash Extremities: Absent: edema Results 12/26/19 07:44 12/26/19 08:59 Cardiac Enzymes 12/26/19 Range/Units 05:16 AST 70 H (5-40) units/L Coagulation 12/26/19 Range/Units 07:44 PT 18.3 H (12.2-14.9) Sec. INR 1.49 H (0.87-1.13) APTT 27.1 (24.2-36.6) Sec. CBC 12/26/19 12/26/19 Range/Units 05:16 07:44 WBC 10.5 (4.5-11.0) K/mm3 RBC 3.73 (3.65-5.03) M/mm3 Hgb 11.7 L 12.1 (11.8-15.2) gm/dl Hct 35.4 L 37.9 (35.5-45.6) % Plt Count 232 230 (140-440) K/mm3 Lymph # 1.0 L (1.2-5.4) K/mm3 [place] # 0.4 (0.0-0.8) K/mm3 Eos # 0.0 (0.0-0.4) K/mm3 Baso # 0.0 (0.0-0.1) K/mm3 Comprehensive Metabolic Panel 12/26/19 12/26/19 Range/Units 05:16 08:59 Sodium 140 142 (137-145) mmol/L Potassium 4.2 4.3 (3.6-5.0) mmol/L Chloride 102.5 108.1 H (98-107) mmol/L Carbon Dioxide 14 L 14 L (22-30) mmol/L BUN 39 H 40 H (9-20) mg/dL Creatinine 2.0 H 1.9 H (0.8-1.5) mg/dL Glucose 545 H* 497 H (75-100) mg/dL Calcium 8.0 L 8.2 L (8.4-10.2) mg/dL AST 70 H (5-40) units/L ALT 21 (7-56) units/L Alkaline Phosphatase 56 (35-129) units/L Total Protein 6.1 L (6.3-8.2) g/dL Albumin 2.6 L (3.9-5) g/dL - Imaging and Cardiology Echo: pending EKG: report reviewed, image reviewed EKG interpretations - Telemetry EKG Rhythm: Sinus Rhythm - EKG Sinus rhythms and dysrhythmias: sinus tachycardia Myocardial infarction: septal AR (old age or ind, anterior AR (old age or i Assessment and Plan Pt noted to have significantly elevated Heidi and markedly abnormal ECG when compared to prior ECG in 05/2019. Suspect NSTEMI type I. Stress MPI done 01/2019 showed evidence of prior basal inferior wall AR, cannot exclude a very mild degree of reversible periinfarct ischemia, EF 50%. Agree with heparin gtt, ini tiate ASA, statin and lopressor. Cont to trend Hiedi and f/u ECG in AM. F/u echo. Cont supportive measures and plan for coronary angiography once medically stabilized. Further recs to follow per hospital course. The patient has been seen in conjunction with Dr. Valero who agrees with the assessment and plan of care. - Patient Problems (1) Acute respiratory failure Current Visit: Yes Status: Acute (2) Altered mental status Current Visit: Yes Status: Acute (3) NSTEMI (non-ST elevated myocardial infarction) Current Visit: Yes Status: Acute (4) Abnormal EKG Current Visit: Yes Status: Acute (5) NICOLE (acute kidney injury) Current Visit: Yes Status: Acute (6) Rhabdomyolysis Current Visit: Yes Status: Acute Qualifiers: Rhabdomyolysis type: non-traumatic Qualified Code(s): M62.82 - Rhabdomyolysis (7) Lactic acidosis Current Visit: Yes Status: Acute (8) Diabetes mellitus with hyperglycemia Current Visit: Yes Status: Acute (9) HTN (hypertension) Current Visit: Yes Status: Chronic (10) History of CVA (cerebrovascular accident) Current Visit: Yes Status: Chronic
[2019-12-26] MEDS ORDERED: HEPARIN 10,000 UNITS/10 ML VIAL IV ONE (15:37)
[2019-12-26] MEDS ORDERED: HEPARIN 5,000 UNIT/1 ML VIAL IV ONE (15:39)
[2019-12-26] MEDS: POTASSIUM CHLORIDE 20 MEQ in DEXTROSE 5% IN WATER 1,000 ML IV SCH (15:55)
[2019-12-26 19:25] LABS: Calcium 8.3 mg/dL (8.4-10.2)
[2019-12-26] MEDS: METOPROLOL TARTRATE 25 MG TAB PO SCH (21:11)
[2019-12-27] MEDS: POTASSIUM CHLORIDE 20 MEQ in DEXTROSE 5% IN WATER 1,000 ML IV SCH ×2 (00:48→08:50)
[2019-12-27 01:42] LABS: Calcium 8.3 mg/dL (8.4-10.2)
[2019-12-27] MEDS: HYDROmorphone 1 MG/1 ML INJ IV PRN ×2 (03:29→15:30)
[2019-12-27] MEDS: MORPHINE 2 MG/1 ML INJ IV PRN ×2 (04:36→19:45)
[2019-12-27 04:53] LABS: ABG Base Excess -4.4 mmol/L (-2.0-3.0); ABG HCO3 20.6 mmol/L (20.0-26.0); ABG Methemoglobin 0.5 % (0.0-1.5); ABG Oxygen Saturation 98.2 % (95.0-99.0); ABG PCO2 37.2 mm Hg; ABG PH 7.36 pH Units (7.350-7.450); ABG PO2 120.5 mm Hg (80.0-90.0)
[2019-12-27] MEDS ORDERED: METOPROLOL TARTRATE 5 MG/5 ML INJ IV ONE ×2 (05:23→08:30)
[2019-12-27 06:32] LABS: Calcium 8.4 mg/dL (8.4-10.2)
[2019-12-27 06:33] LABS: Alanine Aminotransferase 30 units/L (7-56); Albumin 2.5 g/dL (3.9-5)
[2019-12-27 06:36] LABS: Bilirubin,Direct < 0.2 mg/dL (0-0.2)
[2019-12-27] MEDS: HEPARIN/ 0.45% NACL DRIP 25,000 UNIT/500 ML BAG IV SCH (07:02)
[2019-12-27] MEDS: IPRATROPIUM/ALBUTEROL SULFATE 3 ML AMPUL.NEB IH SCH ×4 (08:26→20:30)
--- NOTE | 2019-12-27 08:36 | XRay Report ---
CHEST 1 VIEW INDICATION / CLINICAL INFORMATION: follow up respiratory failure. COMPARISON: 12/26/2019, 12/25/2019, 05/22/2019. FINDINGS: SUPPORT DEVICES: Stable partially visualized gastric tube. HEART / MEDIASTINUM: No significant abnormality. LUNGS / PLEURA: Slight improvement in previously noted prominent perihilar markings No pneumothorax. ADDITIONAL FINDINGS: No significant additional findings. IMPRESSION: Slight improvement in previously noted perihilar markings. Findings may represent resolving pulmonary vascular congestion or infection. Recommend clinical correlation. Signer Name: Tony Marrero MD Signed: 12/27/2019 8:32 AM Workstation Name: [id number]
[2019-12-27] MEDS: ASPIRIN 325 MG TAB PO SCH (09:25)
[2019-12-27] MEDS: CEFEPIME/NS 2 GM/100 ML 2 GM/100 ML BAG IV SCH (09:25)
[2019-12-27] MEDS: METOPROLOL TARTRATE 25 MG TAB PO SCH ×2 (09:26→21:08)
[2019-12-27] MEDS: FAMOTIDINE 20 MG/2 ML INJ IV SCH (09:26)
[2019-12-27] MEDS: PREGABALIN 75 MG CAP PO SCH ×2 (09:26→21:08)
[2019-12-27] MEDS ORDERED: SODIUM CHLORIDE 0.9% 500 ML 500 ML IV ONE (09:30)
[2019-12-27] MEDS ORDERED: VANCOMYCIN 1,500 MG in SODIUM CHLORIDE 0.9% 500 ML 500 ML IV SCH (10:00)
--- NOTE | 2019-12-27 11:25 | Progress Note ---
Assessment and Plan Pt noted to develop apparent SVT with HR 150-160s this AM. He was given IV lopressor with no appreciable change in HR or rhythm. Carotid massage performed per Dr. Valero with successful conversion to NSR, HR 70s. Cont present cardiac regimen and consider amiodarone if SVT recurs. tte reviewed - EF 30-35%, mild LVH, impaired relaxation. No current clinical evidence of acutely decompensated HF. Cont IVF per primary team. Cont heparin gtt, ASA, statin and lopressor. No ACEI/ARB at this time in setting of renal insufficiency. Cont supportive measures and plan for coronary angiography once medically stabilized. The patient has been seen in conjunction with Dr. Valero who agrees with the assessment and plan of care. - Patient Problems (1) Acute respiratory failure Current Visit: Yes Status: Acute (2) Altered mental status Current Visit: Yes Status: Acute (3) NSTEMI (non-ST elevated myocardial infarction) Current Visit: Yes Status: Acute (4) SVT (supraventricular tachycardia) Current Visit: Yes Status: Acute (5) Cardiomyopathy Current Visit: Yes Status: Acute (6) Abnormal EKG Current Visit: Yes Status: Acute (7) NICOLE (acute kidney injury) Current Visit: Yes Status: Acute (8) Rhabdomyolysis Current Visit: Yes Status: Acute Qualifiers: Rhabdomyolysis type: non-traumatic Qualified Code(s): M62.82 - Rhabdomyolysis (9) Lactic acidosis Current Visit: Yes Status: Acute (10) Diabetes mellitus with hyperglycemia Current Visit: Yes Status: Acute (11) HTN (hypertension) Current Visit: Yes Status: Chronic (12) History of CVA (cerebrovascular accident) Current Visit: Yes Status: Chronic Subjective Date of service: 12/27/19 Principal diagnosis: respiratory failure; AMS Interval history: pt remains intubated, nonresponsive, not on sedation. he is noted to be in apparent SVT with HR 150-160s. Objective Last Vital Signs Temp 97.4 F L 12/27/19 08:00 Pulse 72 12/27/19 10:43 Resp 17 12/27/19 10:43 BP 124/85 12/27/19 10:43 Pulse Ox 99 12/27/19 10:43 - Physical Examination General: Other (intubated, nonresponsive) HEENT: Positive: PERRL Neck: Positive: neck supple, trachea midline Cardiac: Positive: S1/S2, Tachycardia Lungs: Positive: Decreased Breath Sounds, Oxygen, Ventilated Respirations Neuro: Positive: Other (intubated, unresponsive) Abdomen: Negative: Tender Skin: Negative: Rash Extremities: Absent: edema - Labs and Meds Cardiac Enzymes 12/27/19 Range/Units 05:53 AST 68 H (5-40) units/L Comprehensive Metabolic Panel 12/26/19 12/27/19 12/27/19 Range/Units 18:35 00:54 05:53 Sodium 142 142 143 (137-145) mmol/L Potassium 3.7 3.8 4.0 (3.6-5.0) mmol/L Chloride 109.1 H 110.0 H 110.6 H (98-107) mmol/L Carbon Dioxide 20 L 21 L 18 L (22-30) mmol/L BUN 42 H 43 H 45 H (9-20) mg/dL Creatinine 1.7 H 1.7 H 1.9 H (0.8-1.5) mg/dL Glucose 234 H 161 H 163 H (75-100) mg/dL Calcium 8.3 L 8.3 L 8.4 (8.4-10.2) mg/dL Direct Bilirubin (0-0.2) mg/dL Indirect Bilirubin mg/dL AST (5-40) units/L ALT (7-56) units/L Alkaline Phosphatase (35-129) units/L Total Protein (6.3-8.2) g/dL Albumin (3.9-5) g/dL 12/27/19 Range/Units 05:53 Sodium (137-145) mmol/L Potassium (3.6-5.0) mmol/L Chloride (98-107) mmol/L Carbon Dioxide (22-30) mmol/L BUN (9-20) mg/dL Creatinine (0.8-1.5) mg/dL Glucose (75-100) mg/dL Calcium (8.4-10.2) mg/dL Direct Bilirubin < 0.2 (0-0.2) mg/dL Indirect Bilirubin 0.1 mg/dL AST 68 H (5-40) units/L ALT 30 (7-56) units/L Alkaline Phosphatase 97 (35-129) units/L Total Protein 5.8 L (6.3-8.2) g/dL Albumin 2.5 L (3.9-5) g/dL - Imaging and Cardiology EKG: report reviewed, image reviewed Echo: report reviewed - Telemetry EKG Rhythm: SVT - EKG Sinus rhythms and dysrhythmias: sinus tachycardia Myocardial infarction: septal AL (old age or ind, anterior AL (old age or i
--- NOTE | 2019-12-27 11:55 | Progress Note ---
Assessment and Plan 54 y/o male with acute respiratory failure, though secondary to altered mental status, maybe from DKA vs some other etiology. 1. Can change management specialist to long acting insulin now and feed patient. 2. Renal function continues to increase. STopping abx's today but suggest ordering urine lytes and renal ultrasound at least. 3. Continue to follow off sedation. 4. Toleratin PSV trials now that off sedation. ABG is normalizing. Will extubate once mental status improves. 5. Will continue to follow along with you. CCT 31 minutes. Subjective Date of service: 12/27/19 Principal diagnosis: respiratory failure; AMS Interval history: Gap is better. Acidosis is better. Mental state is essentially unchanged. opening eyes now. Still not following commands. Objective Vital Signs - 12hr 12/27/19 12/27/19 12/27/19 00:00 00:16 00:30 Temperature Pulse Rate 84 77 73 Pulse Rate [ From Monitor] Respiratory 10 L 19 20 Rate Blood Pressure 153/95 153/95 153/95 O2 Sat by Pulse 100 100 100 Oximetry 12/27/19 12/27/19 12/27/19 00:46 01:00 01:16 Temperature Pulse Rate 74 76 74 Pulse Rate [ From Monitor] Respiratory 19 9 L 9 L Rate Blood Pressure 153/95 153/95 144/93 O2 Sat by Pulse 100 100 100 Oximetry 12/27/19 12/27/19 12/27/19 01:30 01:45 02:00 Temperature Pulse Rate 69 68 77 Pulse Rate [ From Monitor] Respiratory 10 L 9 L 13 Rate Blood Pressure 136/76 142/84 152/88 O2 Sat by Pulse 100 100 100 Oximetry 12/27/19 12/27/19 12/27/19 02:16 02:30 02:45 Temperature Pulse Rate 74 71 72 Pulse Rate [ From Monitor] Respiratory 16 13 14 Rate Blood Pressure 124/78 124/78 124/76 O2 Sat by Pulse 100 100 100 Oximetry 12/27/19 12/27/19 12/27/19 03:00 03:15 03:20 Temperature Pulse Rate 71 152 H 167 H Pulse Rate [ From Monitor] Respiratory 16 15 Rate Blood Pressure 119/73 107/71 142/102 O2 Sat by Pulse 100 100 100 Oximetry 12/27/19 12/27/19 12/27/19 03:30 04:00 04:30 Temperature 99.0 F Pulse Rate 163 H 161 H 164 H Pulse Rate [ From Monitor] Respiratory 15 16 9 L Rate Blood Pressure 142/102 101/71 100/69 O2 Sat by Pulse 100 100 98 Oximetry 12/27/19 12/27/19 12/27/19 05:00 05:14 05:23 Temperature 99.4 F Pulse Rate 163 H 164 H Pulse Rate [ From Monitor] Respiratory 10 L Rate Blood Pressure 119/84 110/76 O2 Sat by Pulse 100 Oximetry 12/27/19 12/27/19 12/27/19 05:30 06:00 06:30 Temperature Pulse Rate 147 H 147 H 151 H Pulse Rate [ From Monitor] Respiratory 19 21 16 Rate Blood Pressure 113/78 112/73 106/78 O2 Sat by Pulse 100 100 100 Oximetry 12/27/19 12/27/19 12/27/19 07:00 07:30 08:00 Temperature 97.4 F L Pulse Rate 153 H 154 H 156 H Pulse Rate [ 157 H From Monitor] Respiratory 15 15 14 Rate Blood Pressure 107/72 100/69 101/68 O2 Sat by Pulse 100 99 99 Oximetry 12/27/19 12/27/19 12/27/19 08:18 08:30 08:51 Temperature Pulse Rate 149 H 147 H 157 H Pulse Rate [ From Monitor] Respiratory 9 L Rate Blood Pressure 107/78 110/77 107/78 O2 Sat by Pulse 99 98 Oximetry 12/27/19 12/27/19 12/27/19 09:00 09:26 09:30 Temperature Pulse Rate 151 H 153 H 74 Pulse Rate [ From Monitor] Respiratory 11 L 9 L Rate Blood Pressure 113/75 110/82 117/84 O2 Sat by Pulse 98 98 Oximetry 12/27/19 12/27/19 12/27/19 10:00 10:30 10:43 Temperature Pulse Rate 76 71 72 Pulse Rate [ From Monitor] Respiratory 8 L 18 17 Rate Blood Pressure 132/93 128/91 124/85 O2 Sat by Pulse 99 100 99 Oximetry 12/27/19 11:00 Temperature Pulse Rate 70 Pulse Rate [ From Monitor] Respiratory 8 L Rate Blood Pressure 131/94 O2 Sat by Pulse 100 Oximetry Constitutional: no acute distress, comatose, appears uncomfortable Eyes: non-icteric ENT: oropharynx moist, other (orally intubated) Neck: supple Effort: normal Ascultation: Bilateral: clear Percussion: Bilateral: not dull Cardiovascular: regular rate and rhythm Gastrointestinal: normoactive bowel sounds, soft Extremities: no edema, other (multiple tattoos, everywhere) Neurologic: unable to assess CBC and BMP: 12/26/19 07:44 12/27/19 05:53 ABG, PT/INR, D-dimer: ABG ABG pH 7.360 pH Units (7.350-7.450) 12/27/19 04:15 ABG pCO2 37.2 mm Hg 12/27/19 04:15 ABG pO2 120.5 mm Hg (80.0-90.0) H 12/27/19 04:15 ABG O2 Saturation 98.2 % (95.0-99.0) 12/27/19 04:15 PT/INR, D-dimer PT 18.3 Sec. (12.2-14.9) H 12/26/19 07:44 INR 1.49 (0.87-1.13) H 12/26/19 07:44 Abnormal lab findings: Abnormal Labs 12/25/19 12/25/19 12/25/19 10:13 10:13 10:13 WBC 12.0 H Hgb Hct MCV 96 H Lymph % (Auto) 6.7 L Lymph # 0.8 L Seg Neutrophils % 87.8 H Seg Neutrophils # 10.6 H PT 15.1 H INR 1.17 H Heparin Anti-Xa Level ABG pO2 ABG HCO3 ABG O2 Saturation ABG Base Excess ABG Hemoglobin Chloride Carbon Dioxide 16 L BUN 23 H Creatinine 1.8 H Glucose 482 H POC Glucose Lactic Acid Calcium AST 49 H Total Creatine Kinase 2995 H CK-MB (CK-2) 16.8 H Troponin T 0.992 H* Total Protein Albumin 3.5 L Cholesterol 325 H LDL Cholesterol Direct 249 H HDL Cholesterol 74 H 12/25/19 12/25/19 12/25/19 10:45 11:33 12:57 WBC Hgb Hct MCV Lymph % (Auto) Lymph # Seg Neutrophils % Seg Neutrophils # PT INR Heparin Anti-Xa Level ABG pO2 269.6 H ABG HCO3 16.7 L ABG O2 Saturation 99.5 H ABG Base Excess -5.8 L ABG Hemoglobin 13.4 L Chloride Carbon Dioxide BUN Creatinine Glucose POC Glucose Lactic Acid 8.30 H* 6.00 H* Calcium AST Total Creatine Kinase CK-MB (CK-2) Troponin T Total Protein Albumin Cholesterol LDL Cholesterol Direct HDL Cholesterol 12/25/19 12/25/19 12/25/19 16:37 20:58 22:22 WBC Hgb Hct MCV Lymph % (Auto) Lymph # Seg Neutrophils % Seg Neutrophils # PT INR Heparin Anti-Xa Level ABG pO2 ABG HCO3 ABG O2 Saturation ABG Base Excess ABG Hemoglobin Chloride Carbon Dioxide BUN Creatinine Glucose POC Glucose Lactic Acid 3.30 H* 3.50 H* 2.10 H* Calcium AST Total Creatine Kinase CK-MB (CK-2) Troponin T Total Protein Albumin Cholesterol LDL Cholesterol Direct HDL Cholesterol 12/26/19 12/26/19 12/26/19 04:30 05:16 05:16 WBC Hgb 11.7 L Hct 35.4 L MCV 95 H Lymph % (Auto) 9.0 L Lymph # 1.0 L Seg Neutrophils % 87.3 H Seg Neutrophils # 9.2 H PT INR Heparin Anti-Xa Level ABG pO2 188.0 H ABG HCO3 15.0 L ABG O2 Saturation 99.2 H ABG Base Excess -8.6 L ABG Hemoglobin 12.4 L Chloride Carbon Dioxide 14 L BUN 39 H Creatinine 2.0 H Glucose 545 H* POC Glucose Lactic Acid Calcium 8.0 L AST 70 H Total Creatine Kinase CK-MB (CK-2) Troponin T Total Protein 6.1 L Albumin 2.6 L Cholesterol LDL Cholesterol Direct HDL Cholesterol 12/26/19 12/26/19 12/26/19 07:44 07:44 07:44 WBC Hgb Hct MCV Lymph % (Auto) Lymph # Seg Neutrophils % Seg Neutrophils # PT 18.3 H INR 1.49 H Heparin Anti-Xa Level ABG pO2 ABG HCO3 ABG O2 Saturation ABG Base Excess ABG Hemoglobin Chloride Carbon Dioxide BUN Creatinine Glucose POC Glucose Lactic Acid Calcium AST Total Creatine Kinase 4251 H CK-MB (CK-2) Troponin T 0.641 H* D Total Protein Albumin Cholesterol LDL Cholesterol Direct HDL Cholesterol 12/26/19 12/26/19 12/26/19 08:26 08:59 10:26 WBC Hgb Hct MCV Lymph % (Auto) Lymph # Seg Neutrophils % Seg Neutrophils # PT INR Heparin Anti-Xa Level ABG pO2 ABG HCO3 ABG O2 Saturation ABG Base Excess ABG Hemoglobin Chloride 108.1 H Carbon Dioxide 14 L BUN 40 H Creatinine 1.9 H Glucose 497 H POC Glucose 438 H 434 H Lactic Acid Calcium 8.2 L AST Total Creatine Kinase CK-MB (CK-2) Troponin T Total Protein Albumin Cholesterol LDL Cholesterol Direct HDL Cholesterol 12/26/19 12/26/19 12/26/19 11:49 12:56 13:37 WBC Hgb Hct MCV Lymph % (Auto) Lymph # Seg Neutrophils % Seg Neutrophils # PT INR Heparin Anti-Xa Level ABG pO2 ABG HCO3 ABG O2 Saturation ABG Base Excess ABG Hemoglobin Chloride Carbon Dioxide BUN Creatinine Glucose POC Glucose 371 H 351 H 364 H Lactic Acid Calcium AST Total Creatine Kinase CK-MB (CK-2) Troponin T Total Protein Albumin Cholesterol LDL Cholesterol Direct HDL Cholesterol 12/26/19 12/26/19 12/26/19 14:00 14:00 14:44 WBC Hgb Hct MCV Lymph % (Auto) Lymph # Seg Neutrophils % Seg Neutrophils # PT INR Heparin Anti-Xa Level < 0.10 L ABG pO2 ABG HCO3 ABG O2 Saturation ABG Base Excess ABG Hemoglobin Chloride Carbon Dioxide BUN Creatinine Glucose POC Glucose 250 H Lactic Acid Calcium AST Total Creatine Kinase CK-MB (CK-2) Troponin T 0.595 H* Total Protein Albumin Cholesterol LDL Cholesterol Direct HDL Cholesterol 12/26/19 12/26/19 12/26/19 15:40 16:36 17:52 WBC Hgb Hct MCV Lymph % (Auto) Lymph # Seg Neutrophils % Seg Neutrophils # PT INR Heparin Anti-Xa Level ABG pO2 ABG HCO3 ABG O2 Saturation ABG Base Excess ABG Hemoglobin Chloride Carbon Dioxide BUN Creatinine Glucose POC Glucose 225 H 253 H 225 H Lactic Acid Calcium AST Total Creatine Kinase CK-MB (CK-2) Troponin T Total Protein Albumin Cholesterol LDL Cholesterol Direct HDL Cholesterol 12/26/19 12/26/19 12/26/19 18:35 18:35 18:58 WBC Hgb Hct MCV Lymph % (Auto) Lymph # Seg Neutrophils % Seg Neutrophils # PT INR Heparin Anti-Xa Level ABG pO2 ABG HCO3 ABG O2 Saturation ABG Base Excess ABG Hemoglobin Chloride 109.1 H Carbon Dioxide 20 L BUN 42 H Creatinine 1.7 H Glucose 234 H POC Glucose 210 H Lactic Acid Calcium 8.3 L AST Total Creatine Kinase CK-MB (CK-2) Troponin T 0.544 H* Total Protein Albumin Cholesterol LDL Cholesterol Direct HDL Cholesterol 12/26/19 12/26/19 12/26/19 20:33 21:29 22:14 WBC Hgb Hct MCV Lymph % (Auto) Lymph # Seg Neutrophils % Seg Neutrophils # PT INR Heparin Anti-Xa Level ABG pO2 ABG HCO3 ABG O2 Saturation ABG Base Excess ABG Hemoglobin Chloride Carbon Dioxide BUN Creatinine Glucose POC Glucose 215 H 202 H 197 H Lactic Acid Calcium AST Total Creatine Kinase CK-MB (CK-2) Troponin T Total Protein Albumin Cholesterol LDL Cholesterol Direct HDL Cholesterol 12/26/19 12/27/19 12/27/19 23:19 00:27 00:54 WBC Hgb Hct MCV Lymph % (Auto) Lymph # Seg Neutrophils % Seg Neutrophils # PT INR Heparin Anti-Xa Level ABG pO2 ABG HCO3 ABG O2 Saturation ABG Base Excess ABG Hemoglobin Chloride 110.0 H Carbon Dioxide 21 L BUN 43 H Creatinine 1.7 H Glucose 161 H POC Glucose 168 H 152 H Lactic Acid Calcium 8.3 L AST Total Creatine Kinase CK-MB (CK-2) Troponin T Total Protein Albumin Cholesterol LDL Cholesterol Direct HDL Cholesterol 12/27/19 12/27/19 12/27/19 01:12 02:06 03:11 WBC Hgb Hct MCV Lymph % (Auto) Lymph # Seg Neutrophils % Seg Neutrophils # PT INR Heparin Anti-Xa Level ABG pO2 ABG HCO3 ABG O2 Saturation ABG Base Excess ABG Hemoglobin Chloride Carbon Dioxide BUN Creatinine Glucose POC Glucose 150 H 145 H 152 H Lactic Acid Calcium AST Total Creatine Kinase CK-MB (CK-2) Troponin T Total Protein Albumin Cholesterol LDL Cholesterol Direct HDL Cholesterol 12/27/19 12/27/19 12/27/19 04:15 04:19 05:09 WBC Hgb Hct MCV Lymph % (Auto) Lymph # Seg Neutrophils % Seg Neutrophils # PT INR Heparin Anti-Xa Level ABG pO2 120.5 H ABG HCO3 ABG O2 Saturation ABG Base Excess -4.4 L ABG Hemoglobin 7.0 L Chloride Carbon Dioxide BUN Creatinine Glucose POC Glucose 157 H 153 H Lactic Acid Calcium AST Total Creatine Kinase CK-MB (CK-2) Troponin T Total Protein Albumin Cholesterol LDL Cholesterol Direct HDL Cholesterol 12/27/19 12/27/19 12/27/19 05:53 05:53 05:53 WBC Hgb Hct MCV Lymph % (Auto) Lymph # Seg Neutrophils % Seg Neutrophils # PT INR Heparin Anti-Xa Level ABG pO2 ABG HCO3 ABG O2 Saturation ABG Base Excess ABG Hemoglobin Chloride 110.6 H Carbon Dioxide 18 L BUN 45 H Creatinine 1.9 H Glucose 163 H POC Glucose Lactic Acid Calcium AST 68 H Total Creatine Kinase 1599 H CK-MB (CK-2) Troponin T 0.522 H* Total Protein 5.8 L Albumin 2.5 L Cholesterol LDL Cholesterol Direct HDL Cholesterol 12/27/19 12/27/19 12/27/19 06:16 06:54 08:13 WBC Hgb Hct MCV Lymph % (Auto) Lymph # Seg Neutrophils % Seg Neutrophils # PT INR Heparin Anti-Xa Level ABG pO2 ABG HCO3 ABG O2 Saturation ABG Base Excess ABG Hemoglobin Chloride Carbon Dioxide BUN Creatinine Glucose POC Glucose 142 H 134 H 132 H Lactic Acid Calcium AST Total Creatine Kinase CK-MB (CK-2) Troponin T Total Protein Albumin Cholesterol LDL Cholesterol Direct HDL Cholesterol 12/27/19 12/27/19 09:25 10:20 WBC Hgb Hct MCV Lymph % (Auto) Lymph # Seg Neutrophils % Seg Neutrophils # PT INR Heparin Anti-Xa Level ABG pO2 ABG HCO3 ABG O2 Saturation ABG Base Excess ABG Hemoglobin Chloride Carbon Dioxide BUN Creatinine Glucose POC Glucose 117 H 119 H Lactic Acid Calcium AST Total Creatine Kinase CK-MB (CK-2) Troponin T Total Protein Albumin Cholesterol LDL Cholesterol Direct HDL Cholesterol
--- NOTE | 2019-12-27 12:43 | Consultation ---
History of Present Illness - Reason for Consult Consult date: 12/27/19 Leucocytosis, possible sepsis Requesting physician: HARSH VASQUEZ - History of Present Illness The patient is a 54-year-old male with CVA, hypertension, diabetes mellitus was admitted to the hospital on 12/25/2019 with altered mental status after he was found unresponsive with respiratory distress and hypoxia. Patient required bag valve mask ventilation during transport and was intubated in the emergency room for airway protection. He was found to have acidosis, severe hyperglycemia and an elevated troponin with acute renal failure. He was placed on insulin drip along with empiric antibiotics. Infectious diseases has been consulted today to evaluate for possible infection. Currently, patient remains intubated with altered mental status. No fever and leukocytosis. T-max on admission was 102.2 F. Review of Systems: Unable to obtain due to intubation and AMS Past History Past Medical History: diabetes, hypertension, stroke Past Surgical History: Other (unable to obtain from patient) Social history: smoking Family history: other (unable to obtain from patient. ) Medications and Allergies Allergies Allergy/AdvReac Type Severity Reaction Status Date / Time No Known Allergies Allergy Verified 01/21/19 12:55 Home Medications Medication Instructions Recorded Confirmed Last Taken Type ALPRAZolam [Xanax TAB] 2 mg PO BID 12/25/19 12/25/19 Unknown History Acetaminophen/Codeine [Tylenol 1 tab PO Q6H PRN 12/25/19 12/25/19 Unknown History /Codeine # 3 tab] Atorvastatin Calcium [Lipitor] 80 mg PO QDAY 12/25/19 12/25/19 Unknown History Citalopram [celeXA] 20 mg PO QHS 12/25/19 12/25/19 Unknown History Gabapentin [Neurontin] 300 mg PO Q8HR 12/25/19 12/25/19 Unknown History Insulin Lispro Prot/Lispro 30 units SUB-Q QHS 12/25/19 12/25/19 Unknown History [HumaLOG Mix 75/25 Vial] Insulin Lispro Prot/Lispro 70 unit SUB-Q QAM 12/25/19 12/25/19 Unknown History [HumaLOG Mix 75/25 Vial] Pregabalin [Lyrica] 50 mg PO TID 12/25/19 12/25/19 Unknown History Active Meds: Active Medications Acetaminophen (Tylenol) 650 mg PO Q4H PRN PRN Reason: Pain MILD(1-3)/Fever >100.5/HERNANDEZ Last Admin: 12/25/19 22:54 Dose: 650 mg Documented by: Albuterol/Ipratropium (Duoneb *Not For Prn Use*) 1 ampul IH Q3H PRN PRN Reason: Wheezing Albuterol/Ipratropium (Duoneb *Not For Prn Use*) 1 ampul IH QIDRT [facility] Last Admin: 12/27/19 12:17 Dose: 1 ampul Documented by: Lipase/Protease/Amylase (Tomasa Sandra 10,500 Unit) 1 each FEEDTUBE PRN PRN PRN Reason: For Clogged Feeding Tube Aspirin (Aspirin) 325 mg PO QDAY [facility] Last Admin: 12/27/19 09:25 Dose: 325 mg Documented by: Atorvastatin Calcium (Lipitor) 40 mg PO QHS [facility] Last Admin: 12/26/19 21:11 Dose: 40 mg Documented by: Dextrose (D50w (25gm) Syringe) 0 ml IV Q30MIN PRN; Protocol PRN Reason: Hypoglycemia Famotidine (Pepcid) 20 mg IV DAILY [facility] Last Admin: 12/27/19 09:26 Dose: 20 mg Documented by: Hydralazine HCl (Apresoline) 5 mg IV Q6H PRN PRN Reason: Hypertension Last Admin: 12/26/19 03:28 Dose: 5 mg Documented by: Hydromorphone HCl (Dilaudid) 0.5 mg IV Q3H PRN PRN Reason: Pain , Severe (7-10) Last Admin: 12/27/19 03:29 Dose: 0.5 mg Documented by: Hydrophilic Ointment (Vaseline Lip Therapy) 1 applic TP Q2HR PRN PRN Reason: Dry Lips Midazolam HCl 100 mg/ Sodium (Chloride) 100 mls @ 2 mls/hr IV TITR [facility]; Protocol Last Titration: 12/26/19 18:46 Dose: 0 mg/hr, 0 mls/hr Documented by: Heparin Sodium/Sodium Chloride (Heparin/ 0.45% Nacl-25,000 Unit/500 Ml) 25,000 unit in 500 mls @ 20 mls/hr IV TITRATE [facility]; Protocol Last Admin: 12/27/19 07:02 Dose: 1,250 units/hr, 25 mls/hr Documented by: Insulin Human Regular 100 (units/ Sodium Chloride) 100 mls @ 1 mls/hr IV TITR [facility]; Protocol Last Titration: 12/27/19 11:00 Dose: 3 units/hr, 3 mls/hr Documented by: Potassium Chloride 20 meq/ (Dextrose) 1,010 mls @ 125 mls/hr IV DIRECT [facility] Last Admin: 12/27/19 08:50 Dose: 125 mls/hr Documented by: Metoprolol Tartrate (Metoprolol) 25 mg PO BID [facility] Last Admin: 12/27/19 09:26 Dose: 25 mg Documented by: Morphine Sulfate (Morphine) 2 mg IV Q4H PRN PRN Reason: Pain, Moderate (4-6) Last Admin: 12/27/19 04:36 Dose: 2 mg Documented by: Multi-Ingred Cream/Lotion/Oil/Oint (Artificial Tears Ophth Oint) 1 applic OU Q4HR PRN PRN Reason: Dry Eye(s) Ondansetron HCl (Zofran) 4 mg IV Q8H PRN PRN Reason: Nausea And Vomiting Pregabalin (Pregabalin) 75 mg PO Q12HR [facility] Last Admin: 12/27/19 09:26 Dose: 75 mg Documented by: Simple Syrup (Simple Syrup) 15 ml FEEDTUBE PRN PRN PRN Reason: Hypoglycemia Simple Syrup (Simple Syrup) 30 ml FEEDTUBE PRN PRN PRN Reason: Hypoglycemia Sodium Bicarbonate (Sodium Bicarbonate) 325 mg FEEDTUBE PRN PRN PRN Reason: For Clogged Feeding Tube Sodium Chloride (Sodium Chloride Flush Syringe 10 Ml) 10 ml IV PRN PRN PRN Reason: LINE FLUSH Sodium Chloride (Sodium Chloride Flush Syringe 10 Ml) 10 ml IV BID [facility] Last Admin: 12/27/19 09:26 Dose: 10 ml Documented by: Physical Examination - Physical Exam Narrative exam: Physical Exam: Constitutional: sedated, intubated Head, Ears, Nose: Normocephalic, atraumatic. External ears, nose normal Eyes: Conjunctivae/corneas clear. No icterus. No ptosis. Neck: intubated Oral: intubated Cardiovascular: S1, S2 normal. Respiratory: Good air entry, clear to auscultation bilaterally GI: Soft, non-tender; bowel sounds normal. No peritoneal signs Musculoskeletal: No pedal edema, no cyanosis. Skin: No rash or abscess Hem/Lymphatic: No palpable cervical or supraclavicular nodes. No lymphangitis Psych: no agitation Neurological: sedated, intubated, on vent - Constitutional Vitals: Vital Signs Temp Pulse Resp BP Pulse Ox 97.4 F L 71 8 L 138/94 100 12/27/19 08:00 12/27/19 12:15 12/27/19 11:00 12/27/19 12:15 12/27/19 12:15 Temperature -Last 24 Hours Temperature 97.4 F Temperature 99.4 F Temperature 99.0 F Temperature 99.7 F Temperature 99.0 F Temperature 99.0 F Results - Labs CBC & Chem 7: 12/26/19 07:44 12/27/19 05:53 Labs: Abnormal lab results 12/26/19 12/26/19 12/26/19 Range/Units 12:56 13:37 14:00 Heparin Anti-Xa Level (0.3-0.7) U.I./ml ABG pO2 (80.0-90.0) mm Hg ABG Base Excess (-2.0-3.0) mmol/L ABG Hemoglobin (14.0-18.0) gm/dl Chloride (98-107) mmol/L Carbon Dioxide (22-30) mmol/L BUN (9-20) mg/dL Creatinine (0.8-1.5) mg/dL Glucose (75-100) mg/dL POC Glucose 351 H 364 H (70-105) Calcium (8.4-10.2) mg/dL AST (5-40) units/L Total Creatine Kinase (55-170) units/L Troponin T 0.595 H* (0.00-0.029) ng/mL Total Protein (6.3-8.2) g/dL Albumin (3.9-5) g/dL 12/26/19 12/26/19 12/26/19 Range/Units 14:00 14:44 15:40 Heparin Anti-Xa Level < 0.10 L (0.3-0.7) U.I./ml ABG pO2 (80.0-90.0) mm Hg ABG Base Excess (-2.0-3.0) mmol/L ABG Hemoglobin (14.0-18.0) gm/dl Chloride (98-107) mmol/L Carbon Dioxide (22-30) mmol/L BUN (9-20) mg/dL Creatinine (0.8-1.5) mg/dL Glucose (75-100) mg/dL POC Glucose 250 H 225 H (70-105) Calcium (8.4-10.2) mg/dL AST (5-40) units/L Total Creatine Kinase (55-170) units/L Troponin T (0.00-0.029) ng/mL Total Protein (6.3-8.2) g/dL Albumin (3.9-5) g/dL 12/26/19 12/26/19 12/26/19 Range/Units 16:36 17:52 18:35 Heparin Anti-Xa Level (0.3-0.7) U.I./ml ABG pO2 (80.0-90.0) mm Hg ABG Base Excess (-2.0-3.0) mmol/L ABG Hemoglobin (14.0-18.0) gm/dl Chloride (98-107) mmol/L Carbon Dioxide (22-30) mmol/L BUN (9-20) mg/dL Creatinine (0.8-1.5) mg/dL Glucose (75-100) mg/dL POC Glucose 253 H 225 H (70-105) Calcium (8.4-10.2) mg/dL AST (5-40) units/L Total Creatine Kinase (55-170) units/L Troponin T 0.544 H* (0.00-0.029) ng/mL Total Protein (6.3-8.2) g/dL Albumin (3.9-5) g/dL 12/26/19 12/26/19 12/26/19 Range/Units 18:35 18:58 20:33 Heparin Anti-Xa Level (0.3-0.7) U.I./ml ABG pO2 (80.0-90.0) mm Hg ABG Base Excess (-2.0-3.0) mmol/L ABG Hemoglobin (14.0-18.0) gm/dl Chloride 109.1 H (98-107) mmol/L Carbon Dioxide 20 L (22-30) mmol/L BUN 42 H (9-20) mg/dL Creatinine 1.7 H (0.8-1.5) mg/dL Glucose 234 H (75-100) mg/dL POC Glucose 210 H 215 H (70-105) Calcium 8.3 L (8.4-10.2) mg/dL AST (5-40) units/L Total Creatine Kinase (55-170) units/L Troponin T (0.00-0.029) ng/mL Total Protein (6.3-8.2) g/dL Albumin (3.9-5) g/dL 12/26/19 12/26/19 12/26/19 Range/Units 21:29 22:14 23:19 Heparin Anti-Xa Level (0.3-0.7) U.I./ml ABG pO2 (80.0-90.0) mm Hg ABG Base Excess (-2.0-3.0) mmol/L ABG Hemoglobin (14.0-18.0) gm/dl Chloride (98-107) mmol/L Carbon Dioxide (22-30) mmol/L BUN (9-20) mg/dL Creatinine (0.8-1.5) mg/dL Glucose (75-100) mg/dL POC Glucose 202 H 197 H 168 H (70-105) Calcium (8.4-10.2) mg/dL AST (5-40) units/L Total Creatine Kinase (55-170) units/L Troponin T (0.00-0.029) ng/mL Total Protein (6.3-8.2) g/dL Albumin (3.9-5) g/dL 12/27/19 12/27/19 12/27/19 Range/Units 00:27 00:54 01:12 Heparin Anti-Xa Level (0.3-0.7) U.I./ml ABG pO2 (80.0-90.0) mm Hg ABG Base Excess (-2.0-3.0) mmol/L ABG Hemoglobin (14.0-18.0) gm/dl Chloride 110.0 H (98-107) mmol/L Carbon Dioxide 21 L (22-30) mmol/L BUN 43 H (9-20) mg/dL Creatinine 1.7 H (0.8-1.5) mg/dL Glucose 161 H (75-100) mg/dL POC Glucose 152 H 150 H (70-105) Calcium 8.3 L (8.4-10.2) mg/dL AST (5-40) units/L Total Creatine Kinase (55-170) units/L Troponin T (0.00-0.029) ng/mL Total Protein (6.3-8.2) g/dL Albumin (3.9-5) g/dL 12/27/19 12/27/19 12/27/19 Range/Units 02:06 03:11 04:15 Heparin Anti-Xa Level (0.3-0.7) U.I./ml ABG pO2 120.5 H (80.0-90.0) mm Hg ABG Base Excess -4.4 L (-2.0-3.0) mmol/L ABG Hemoglobin 7.0 L (14.0-18.0) gm/dl Chloride (98-107) mmol/L Carbon Dioxide (22-30) mmol/L BUN (9-20) mg/dL Creatinine (0.8-1.5) mg/dL Glucose (75-100) mg/dL POC Glucose 145 H 152 H (70-105) Calcium (8.4-10.2) mg/dL AST (5-40) units/L Total Creatine Kinase (55-170) units/L Troponin T (0.00-0.029) ng/mL Total Protein (6.3-8.2) g/dL Albumin (3.9-5) g/dL 12/27/19 12/27/19 12/27/19 Range/Units 04:19 05:09 05:53 Heparin Anti-Xa Level (0.3-0.7) U.I./ml ABG pO2 (80.0-90.0) mm Hg ABG Base Excess (-2.0-3.0) mmol/L ABG Hemoglobin (14.0-18.0) gm/dl Chloride (98-107) mmol/L Carbon Dioxide (22-30) mmol/L BUN (9-20) mg/dL Creatinine (0.8-1.5) mg/dL Glucose (75-100) mg/dL POC Glucose 157 H 153 H (70-105) Calcium (8.4-10.2) mg/dL AST (5-40) units/L Total Creatine Kinase 1599 H (55-170) units/L Troponin T (0.00-0.029) ng/mL Total Protein (6.3-8.2) g/dL Albumin (3.9-5) g/dL 12/27/19 12/27/19 12/27/19 Range/Units 05:53 05:53 06:16 Heparin Anti-Xa Level (0.3-0.7) U.I./ml ABG pO2 (80.0-90.0) mm Hg ABG Base Excess (-2.0-3.0) mmol/L ABG Hemoglobin (14.0-18.0) gm/dl Chloride 110.6 H (98-107) mmol/L Carbon Dioxide 18 L (22-30) mmol/L BUN 45 H (9-20) mg/dL Creatinine 1.9 H (0.8-1.5) mg/dL Glucose 163 H (75-100) mg/dL POC Glucose 142 H (70-105) Calcium (8.4-10.2) mg/dL AST 68 H (5-40) units/L Total Creatine Kinase (55-170) units/L Troponin T 0.522 H* (0.00-0.029) ng/mL Total Protein 5.8 L (6.3-8.2) g/dL Albumin 2.5 L (3.9-5) g/dL 12/27/19 12/27/19 12/27/19 Range/Units 06:54 08:13 09:25 Heparin Anti-Xa Level (0.3-0.7) U.I./ml ABG pO2 (80.0-90.0) mm Hg ABG Base Excess (-2.0-3.0) mmol/L ABG Hemoglobin (14.0-18.0) gm/dl Chloride (98-107) mmol/L Carbon Dioxide (22-30) mmol/L BUN (9-20) mg/dL Creatinine (0.8-1.5) mg/dL Glucose (75-100) mg/dL POC Glucose 134 H 132 H 117 H (70-105) Calcium (8.4-10.2) mg/dL AST (5-40) units/L Total Creatine Kinase (55-170) units/L Troponin T (0.00-0.029) ng/mL Total Protein (6.3-8.2) g/dL Albumin (3.9-5) g/dL 12/27/19 12/27/19 12/27/19 Range/Units 10:20 11:22 12:21 Heparin Anti-Xa Level (0.3-0.7) U.I./ml ABG pO2 (80.0-90.0) mm Hg ABG Base Excess (-2.0-3.0) mmol/L ABG Hemoglobin (14.0-18.0) gm/dl Chloride (98-107) mmol/L Carbon Dioxide (22-30) mmol/L BUN (9-20) mg/dL Creatinine (0.8-1.5) mg/dL Glucose (75-100) mg/dL POC Glucose 119 H 133 H 121 H (70-105) Calcium (8.4-10.2) mg/dL AST (5-40) units/L Total Creatine Kinase (55-170) units/L Troponin T (0.00-0.029) ng/mL Total Protein (6.3-8.2) g/dL Albumin (3.9-5) g/dL - Imaging and Cardiology Chest x-ray: report reviewed, image reviewed (no pneumonia seen) Assessment and Plan Cultures: 12/25/2019 sputum culture: Normal respiratory robert 12/25/2019 blood culture: No growth A/P: 54-year-old male with CVA, hypertension, diabetes mellitus: #SIRS versus sepsis possibly secondary to diabetic ketoacidosis: Leukocytosis is improved. UA does not suggest urinary tract infection. Chest x-ray also not impressive for a dense pneumonia. Hemodynamics are relatively stable. Agree with holding off on additional antibiotics at this time. Initial fever, ?viral etiology. #Diabetes mellitus, uncontrolled with hyperglycemia: #Acute renal failure: monitor creatinine. #Acute respiratory failure: On the vent. #Acute encephalopathy: CT head showed no acute findings. Recs: Monitor off antibiotics for now d/w Dr. Vasquez. Jared Delgado MD, FACP [facility] ([facility] C: [phone] O: [phone] F: [phone]
--- NOTE | 2019-12-27 13:32 | Progress Note ---
Assessment and Plan Assessment and plan: Acute respiratory failure Intubated Pulm following DKA, now resolved Discontinue Insulin drip Start Novolin 70/30 bid Diabetes mellitus Acute encephalopathy Etiology unclear SIRS versus Sepsis Cont IV Cefepime IV Fluids and IV vancomycin for now Has Rt Perihilar infitrate--Pneumonia versusCHF Consulted ID to determine NSTEMI Serial troponins IV Heparin drip Cardiology following SVT Rhabdomyolysis CK high--2995 IV fluids for now Monitor ck levels Hyperlipidemia Statins DVT prophylaxis On IV Heparin drip History Interval history: Brought to ED for altered mental status, unresponsive Hospitalist Physical - Physical exam Narrative exam: GEN: Not in acute distress, lying in bed, Intubated HEENT: Normocephalic, atraumatic, Neck: supple, No JVD Lungs: Clear , no crackles, heart;S1 and S2 reg, no murmurs, rubs or gallop Abd:soft, non tender, non distended, normal bowel sounds Ext: No edema, no clubbing, no cyanosis, Neuro: Intubated, - Constitutional Vitals: Temp Pulse Resp BP Pulse Ox 97.7 F 72 20 137/96 100 12/27/19 12:00 12/27/19 13:00 12/27/19 13:00 12/27/19 13:00 12/27/19 13:00 General appearance: Present: other (intubated, unresponsive) Results - Labs CBC & Chem 7: 12/26/19 07:44 12/27/19 13:25 Labs: Laboratory Last Values WBC 10.5 K/mm3 (4.5-11.0) 12/26/19 05:16 RBC 3.73 M/mm3 (3.65-5.03) 12/26/19 05:16 Hgb 12.1 gm/dl (11.8-15.2) 12/26/19 07:44 Hct 37.9 % (35.5-45.6) 12/26/19 07:44 MCV 95 fl (84-94) H 12/26/19 05:16 MCH 31 pg (28-32) 12/26/19 05:16 MCHC 33 % (32-34) 12/26/19 05:16 RDW 13.9 % (13.2-15.2) 12/26/19 05:16 Plt Count 230 K/mm3 (140-440) 12/26/19 07:44 Lymph % (Auto) 9.0 % (13.4-35.0) L 12/26/19 05:16 [place] % (Auto) 3.4 % (0.0-7.3) 12/26/19 05:16 Eos % (Auto) 0.0 % (0.0-4.3) 12/26/19 05:16 Baso % (Auto) 0.3 % (0.0-1.8) 12/26/19 05:16 Lymph # 1.0 K/mm3 (1.2-5.4) L 12/26/19 05:16 [place] # 0.4 K/mm3 (0.0-0.8) 12/26/19 05:16 Eos # 0.0 K/mm3 (0.0-0.4) 12/26/19 05:16 Baso # 0.0 K/mm3 (0.0-0.1) 12/26/19 05:16 Seg Neutrophils % 87.3 % (40.0-70.0) H 12/26/19 05:16 Seg Neutrophils # 9.2 K/mm3 (1.8-7.7) H 12/26/19 05:16 PT 18.3 Sec. (12.2-14.9) H 12/26/19 07:44 INR 1.49 (0.87-1.13) H 12/26/19 07:44 APTT 27.1 Sec. (24.2-36.6) 12/26/19 07:44 Thrombin Time 16.7 Sec. (15.1-19.6) 12/25/19 10:13 Heparin Anti-Xa Level 0.45 U.I./ml (0.3-0.7) 12/26/19 20:47 ABG pH 7.360 pH Units (7.350-7.450) 12/27/19 04:15 ABG pCO2 37.2 mm Hg 12/27/19 04:15 ABG pO2 120.5 mm Hg (80.0-90.0) H 12/27/19 04:15 ABG HCO3 20.6 mmol/L (20.0-26.0) 12/27/19 04:15 ABG O2 Saturation 98.2 % (95.0-99.0) 12/27/19 04:15 ABG O2 Content 9.7 (0.0-44) 12/27/19 04:15 ABG Base Excess -4.4 mmol/L (-2.0-3.0) L 12/27/19 04:15 ABG Hemoglobin 7.0 gm/dl (14.0-18.0) L 12/27/19 04:15 ABG Carboxyhemoglobin 1.4 % (0.0-5.0) 12/27/19 04:15 ABG Methemoglobin 0.5 % (0.0-1.5) 12/27/19 04:15 Oxyhemoglobin 96.4 % (95.0-99.0) 12/27/19 04:15 FiO2 35 % 12/27/19 04:15 Sodium 143 mmol/L (137-145) 12/27/19 05:53 Potassium 4.0 mmol/L (3.6-5.0) 12/27/19 05:53 Chloride 110.6 mmol/L (98-107) H 12/27/19 05:53 Carbon Dioxide 18 mmol/L (22-30) L 12/27/19 05:53 Anion Gap 18 mmol/L 12/27/19 05:53 BUN 45 mg/dL (9-20) H 12/27/19 05:53 Creatinine 1.9 mg/dL (0.8-1.5) H 12/27/19 05:53 Estimated GFR 45 ml/min 12/27/19 05:53 BUN/Creatinine Ratio 24 % 12/27/19 05:53 Glucose 163 mg/dL (75-100) H 12/27/19 05:53 POC Glucose 121 (70-105) H 12/27/19 12:21 Hemoglobin A1c 5.1 % (4-6) 12/25/19 19:52 Lactic Acid 1.40 mmol/L (0.7-2.0) 12/26/19 05:16 Calcium 8.4 mg/dL (8.4-10.2) 12/27/19 05:53 Phosphorus 2.60 mg/dL (2.5-4.5) 12/26/19 08:59 Magnesium 2.20 mg/dL (1.7-2.3) 12/26/19 08:59 Total Bilirubin 0.30 mg/dL (0.1-1.2) 12/27/19 05:53 Direct Bilirubin < 0.2 mg/dL (0-0.2) 12/27/19 05:53 Indirect Bilirubin 0.1 mg/dL 12/27/19 05:53 AST 68 units/L (5-40) H 12/27/19 05:53 ALT 30 units/L (7-56) 12/27/19 05:53 Alkaline Phosphatase 97 units/L (35-129) 12/27/19 05:53 Total Creatine Kinase 1599 units/L (55-170) H 12/27/19 05:53 CK-MB (CK-2) 16.8 ng/mL (0.0-4.0) H 12/25/19 10:13 CK-MB (CK-2) Rel Index 0.5 (0-4) 12/25/19 10:13 Troponin T 0.522 ng/mL (0.00-0.029) H* 12/27/19 05:53 Total Protein 5.8 g/dL (6.3-8.2) L 12/27/19 05:53 Albumin 2.5 g/dL (3.9-5) L 12/27/19 05:53 Albumin/Globulin Ratio 0.8 % 12/27/19 05:53 Triglycerides 137 mg/dL (2-149) 12/25/19 10:13 Cholesterol 325 mg/dL (50-199) H 12/25/19 10:13 LDL Cholesterol Direct 249 mg/dL (50-130) H 12/25/19 10:13 HDL Cholesterol 74 mg/dL (40-59) H 12/25/19 10:13 Cholesterol/HDL Ratio 4.39 % 12/25/19 10:13 Urine Color Yellow (Yellow) 12/25/19 13:50 Urine Turbidity Clear (Clear) 12/25/19 13:50 Urine pH 5.0 (5.0-7.0) 12/25/19 13:50 Ur Specific [place] 1.027 (1.003-1.030) 12/25/19 13:50 Urine Protein >500 mg/dL (Negative) 12/25/19 13:50 Urine Glucose (UA) >=500 mg/dL (Negative) 12/25/19 13:50 Urine Ketones Tr mg/dL (Negative) 12/25/19 13:50 Urine Blood Lg (Negative) 12/25/19 13:50 Urine Nitrite Neg (Negative) 12/25/19 13:50 Urine Bilirubin Neg (Negative) 12/25/19 13:50 Urine Urobilinogen < 2.0 mg/dL (<2.0) 12/25/19 13:50 Ur Leukocyte Esterase Neg (Negative) 12/25/19 13:50 Urine WBC (Auto) 4.0 /HPF (0.0-6.0) 12/25/19 13:50 Urine RBC (Auto) 3.0 /HPF (0.0-6.0) 12/25/19 13:50 U Epithel Cells (Auto) < 1.0 /HPF (0-13.0) 12/25/19 13:50 Urine Mucus Few /HPF 12/25/19 13:50 Urine Opiates Screen Presumptive negative 12/25/19 13:50 Urine Methadone Screen Presumptive negative 12/25/19 13:50 Ur Barbiturates Screen Presumptive negative 12/25/19 13:50 Ur Phencyclidine Scrn Presumptive negative 12/25/19 13:50 Ur Amphetamines Screen Presumptive negative 12/25/19 13:50 U Benzodiazepines Scrn Presumptive negative 12/25/19 13:50 Urine Cocaine Screen Presumptive negative 12/25/19 13:50 U Marijuana (THC) Screen Presumptive negative 12/25/19 13:50 Drugs of Abuse Note Disclamer 12/25/19 13:50 Plasma/Serum Alcohol < 0.01 % (0-0.07) 12/25/19 10:13 [place]/IV: Voiding Method Indwelling Catheter IV Catheter Type [Left Hand] INT / Saline Lock IV Catheter Type [Left Peripheral IV Antecubital] IV Catheter Type [Right Hand] INT / Saline Lock Active Medications - Current Medications Current Medications: Generic Name Dose Route Start Last Admin Trade Name Freq PRN Reason Stop Dose Admin Acetaminophen 650 mg 12/25/19 17:49 12/25/19 22:54 Tylenol PO 650 mg Q4H PRN Administration Pain MILD(1-3)/Fever >100.5/HERNANDEZ Albuterol/Ipratropium 1 ampul 12/25/19 17:51 Duoneb *Not For Prn Use* IH Q3H PRN Wheezing Albuterol/Ipratropium 1 ampul 12/25/19 20:00 12/27/19 12:17 Duoneb *Not For Prn Use* IH 1 ampul QIDRT LIBIA Administration Lipase/Protease/Amylase 1 each 12/25/19 17:53 Pancrepeg Sandra 10,500 Unit FEEDTUBE PRN PRN For Clogged Feeding Tube Aspirin 325 mg 12/27/19 10:00 12/27/19 09:25 Aspirin PO 325 mg QDAY LIBIA Administration Atorvastatin Calcium 40 mg 12/26/19 22:00 12/26/19 21:11 Lipitor PO 40 mg QHS LIBIA Administration Dextrose 0 ml 12/26/19 08:50 D50w (25gm) Syringe IV Q30MIN PRN Hypoglycemia Protocol Famotidine 20 mg 12/26/19 10:00 12/27/19 09:26 Pepcid IV 20 mg DAILY LIBIA Administration Hydralazine HCl 5 mg 12/25/19 21:31 12/26/19 03:28 Apresoline IV 5 mg Q6H PRN Administration Hypertension Hydromorphone HCl 0.5 mg 12/25/19 17:49 12/27/19 03:29 Dilaudid IV 0.5 mg Q3H PRN Administration Pain , Severe (7-10) Hydrophilic Ointment 1 applic 12/25/19 09:13 Vaseline Lip Therapy TP Q2HR PRN Dry Lips Midazolam HCl 100 mg/ Sodium 100 mls @ 2 mls/hr 12/25/19 10:00 12/26/19 18:46 Chloride IV 0 mg/hr TITR LIBIA 0 mls/hr Titration Protocol 2 MG/HR Heparin Sodium/Sodium Chloride 25,000 unit in 500 mls @ 20 mls/hr 12/26/19 07:00 12/27/19 07:02 Heparin/ 0.45% Nacl-25,000 Unit/500 Ml IV 1,250 units/hr TITRATE LIBIA 25 mls/hr Administration Protocol 1,000 UNITS/HR Metoprolol Tartrate 25 mg 12/26/19 22:00 12/27/19 09:26 Metoprolol PO 25 mg BID LIBIA Administration Morphine Sulfate 2 mg 12/25/19 17:49 12/27/19 04:36 Morphine IV 2 mg Q4H PRN Administration Pain, Moderate (4-6) Multi-Ingred Cream/Lotion/Oil/Oint 1 applic 12/25/19 09:13 Artificial Tears Ophth Oint OU Q4HR PRN Dry Eye(s) Ondansetron HCl 4 mg 12/25/19 17:49 Zofran IV Q8H PRN Nausea And Vomiting Pregabalin 75 mg 12/26/19 10:00 12/27/19 09:26 Pregabalin PO 75 mg Q12HR LIBIA Administration Simple Syrup 15 ml 12/25/19 17:53 Simple Syrup FEEDTUBE PRN PRN Hypoglycemia Simple Syrup 30 ml 12/25/19 17:53 Simple Syrup FEEDTUBE PRN PRN Hypoglycemia Sodium Bicarbonate 325 mg 12/25/19 17:53 Sodium Bicarbonate FEEDTUBE PRN PRN For Clogged Feeding Tube Sodium Chloride 10 ml 12/25/19 17:49 Sodium Chloride Flush Syringe 10 Ml IV PRN PRN LINE FLUSH Sodium Chloride 10 ml 12/25/19 22:00 12/27/19 09:26 Sodium Chloride Flush Syringe 10 Ml IV 10 ml BID LIBIA Administration Nutrition/Malnutrition Assess - Dietary Evaluation Nutrition/Malnutrition Findings: Nutrition Notes Start: 12/25/19 13: 01 Freq: Status: Discharge Protocol: Document 12/26/19 08:26 LM (Rec: 12/26/19 08:40 LM [id number]) Nutrition Notes Need for Assessment generated from: MD Order Initial or Follow up Assessment Current Diagnosis Coronary Artery Disease, Diabetes,Sepsis,Hypertension, Respiratory Failure,Stroke, Hyperlipidemia Other Pertinent Diagnosis Pneu, UTI Current Diet TF diet Labs/Tests BUN 39 Cr 2.0 BG 545 TC 325 LDL 249 Pertinent Medications Reviewed Height 6 ft 3 in Weight 93.848 kg [place] Body Weight (kg) 89.09 BMI 25.8 Weight Status Appropriate Subjective/Other Information MD consult for TF. Pt on vent. Observed temporal wasting. Burn Absent Trauma Absent Difficulty In Swallowing Current % PO Negligible Minimum of two criteria No Muscle Mass Mild Depletion (non-severe) #1 Nutrition Diagnosis Inadequate oral intake Etiology Mechanical vent As Evidenced by Signs and Symptoms pt unable to consume PO Is patient on ventilator? Yes Is Patient Ambulatory and/or Out of Bed No REE-([facility]-confined to bed) [phone] Calculation Used for Recommendations [facility] Additional Notes Protein: 113-188g (1.2-2g/kg) Fluid: 1 ml/kcal Nutrition Intervention Change Diet Order: TF Nutrition Support: Vital AF 1.2 at 70 ml/hr Flush 100 q4h Kcal 2,016 Protein (gm) 126 Fluid (mL) 1,362 Goal #1 TF start/tolerance Anticipated Discharge Needs: unable to determine at this time Follow-Up By: 12/28/19 Additional Comments F/U for TF start/tolerance
[2019-12-27] MEDS: hydrALAZINE 20 MG/1 ML INJ IV PRN ×2 (13:48→19:45)
[2019-12-27 14:10] LABS: Calcium 7.9 mg/dL (8.4-10.2)
[2019-12-27] MEDS ORDERED: hydrALAZINE 20 MG/1 ML INJ IV ONE (14:28)
[2019-12-27] MEDS: INSULIN NPH/REGULAR 70/30 INJ SUB-Q SCH ×2 (16:04→16:05)
[2019-12-27] MEDS ORDERED: METOPROLOL TARTRATE 50 MG TAB PO ONE (17:00)
[2019-12-27] MEDS: INSULIN LISPRO 100 UNIT/ML SUB-Q PRN (23:52)
[2019-12-28] MEDS: MORPHINE 2 MG/1 ML INJ IV PRN ×3 (00:02→09:12)
[2019-12-28] MEDS: HEPARIN/ 0.45% NACL DRIP 25,000 UNIT/500 ML BAG IV SCH ×2 (02:49→21:33)
[2019-12-28] MEDS: INSULIN LISPRO 100 UNIT/ML SUB-Q PRN (04:50)
[2019-12-28 05:07] LABS: ABG Base Excess -4.4 mmol/L (-2.0-3.0); ABG HCO3 19.7 mmol/L (20.0-26.0); ABG Methemoglobin 0.6 % (0.0-1.5); ABG Oxygen Saturation 97.9 % (95.0-99.0); ABG PH 7.394 pH Units (7.350-7.450); ABG PO2 105.5 mm Hg (80.0-90.0)
[2019-12-28] MEDS: IPRATROPIUM/ALBUTEROL SULFATE 3 ML AMPUL.NEB IH SCH ×4 (08:54→20:09)
--- NOTE | 2019-12-28 09:04 | XRay Report ---
CHEST 1 VIEW 0805 hours INDICATION / CLINICAL INFORMATION: follow up respiratory failure. COMPARISON: 12/27/2019 FINDINGS: SUPPORT DEVICES: Endotracheal tube and nasogastric tube remain in adequate position. HEART / MEDIASTINUM: No significant abnormality. LUNGS / PLEURA: Bilateral perihilar opacities have resolved or nearly resolved. The lungs are general ly clear. No pleural fluid or pneumothorax is identified. ADDITIONAL FINDINGS: No significant additional findings. IMPRESSION: Complete or near complete resolution of the bilateral perihilar opacities. Near normal chest x-ray. Signer Name: Huan Lopez Jr, MD Signed: 12/28/2019 9:00 AM Workstation Name: [id number]
[2019-12-28] MEDS: ASPIRIN 325 MG TAB PO SCH (09:14)
[2019-12-28] MEDS: PREGABALIN 75 MG CAP PO SCH ×2 (09:14→23:04)
[2019-12-28] MEDS: METOPROLOL TARTRATE 25 MG TAB PO SCH ×3 (09:15→23:03)
[2019-12-28] MEDS: INSULIN NPH/REGULAR 70/30 INJ SUB-Q SCH ×2 (09:16→18:50)
[2019-12-28] MEDS: INSULIN LISPRO 100 UNIT/ML SUB-Q SCH ×4 (09:16→23:05)
--- NOTE | 2019-12-28 09:16 | Progress Note ---
Assessment and Plan Assessment and plan: Acute respiratory failure Intubated Pulm following DKA, now resolved Discontinue Insulin drip Start Novolin 70/30 bid Diabetes mellitus Acute encephalopathy Etiology unclear SIRS versus Sepsis Cont IV Cefepime IV Fluids and IV vancomycin for now Has Rt Perihilar infitrate--Pneumonia versusCHF Consulted ID to determine NSTEMI Serial troponins IV Heparin drip Cardiology following For cardiac cath when stable SVT Rhabdomyolysis CK improving IV fluids for now Monitor ck levels Hyperlipidemia Statins DVT prophylaxis On IV Heparin drip History Interval history: Brought to ED for altered mental status, unresponsive Hospitalist Physical - Physical exam Narrative exam: GEN: Not in acute distress, lying in bed, Intubated HEENT: Normocephalic, atraumatic, Neck: supple, No JVD Lungs: Clear , no crackles, heart;S1 and S2 reg, no murmurs, rubs or gallop Abd:soft, non tender, non distended, normal bowel sounds Ext: No edema, no clubbing, no cyanosis, Neuro: Intubated, awake, follows commands - Constitutional Vitals: Temp Pulse Resp BP Pulse Ox 98.8 F 82 14 164/93 100 12/28/19 03:25 12/28/19 08:46 12/28/19 08:46 12/28/19 08:46 12/28/19 08:46 General appearance: Present: other (intubated, unresponsive) Results - Labs CBC & Chem 7: 12/28/19 09:31 12/28/19 09:31 Labs: Laboratory Last Values WBC 10.5 K/mm3 (4.5-11.0) 12/26/19 05:16 RBC 3.73 M/mm3 (3.65-5.03) 12/26/19 05:16 Hgb 12.1 gm/dl (11.8-15.2) 12/26/19 07:44 Hct 37.9 % (35.5-45.6) 12/26/19 07:44 MCV 95 fl (84-94) H 12/26/19 05:16 MCH 31 pg (28-32) 12/26/19 05:16 MCHC 33 % (32-34) 12/26/19 05:16 RDW 13.9 % (13.2-15.2) 12/26/19 05:16 Plt Count 230 K/mm3 (140-440) 12/26/19 07:44 Lymph % (Auto) 9.0 % (13.4-35.0) L 12/26/19 05:16 [place] % (Auto) 3.4 % (0.0-7.3) 12/26/19 05:16 Eos % (Auto) 0.0 % (0.0-4.3) 12/26/19 05:16 Baso % (Auto) 0.3 % (0.0-1.8) 12/26/19 05:16 Lymph # 1.0 K/mm3 (1.2-5.4) L 12/26/19 05:16 [place] # 0.4 K/mm3 (0.0-0.8) 12/26/19 05:16 Eos # 0.0 K/mm3 (0.0-0.4) 12/26/19 05:16 Baso # 0.0 K/mm3 (0.0-0.1) 12/26/19 05:16 Seg Neutrophils % 87.3 % (40.0-70.0) H 12/26/19 05:16 Seg Neutrophils # 9.2 K/mm3 (1.8-7.7) H 12/26/19 05:16 PT 18.3 Sec. (12.2-14.9) H 12/26/19 07:44 INR 1.49 (0.87-1.13) H 12/26/19 07:44 APTT 27.1 Sec. (24.2-36.6) 12/26/19 07:44 Thrombin Time 16.7 Sec. (15.1-19.6) 12/25/19 10:13 Heparin Anti-Xa Level 0.24 U.I./ml (0.3-0.7) L 12/27/19 21:14 ABG pH 7.394 pH Units (7.350-7.450) 12/28/19 03:55 ABG pCO2 33.0 mm Hg 12/28/19 03:55 ABG pO2 105.5 mm Hg (80.0-90.0) H 12/28/19 03:55 ABG HCO3 19.7 mmol/L (20.0-26.0) L 12/28/19 03:55 ABG O2 Saturation 97.9 % (95.0-99.0) 12/28/19 03:55 ABG O2 Content 15.1 (0.0-44) 12/28/19 03:55 ABG Base Excess -4.4 mmol/L (-2.0-3.0) L 12/28/19 03:55 ABG Hemoglobin 11.1 gm/dl (14.0-18.0) L 12/28/19 03:55 ABG Carboxyhemoglobin 1.3 % (0.0-5.0) 12/28/19 03:55 ABG Methemoglobin 0.6 % (0.0-1.5) 12/28/19 03:55 Oxyhemoglobin 96.0 % (95.0-99.0) 12/28/19 03:55 FiO2 25 % 12/28/19 03:55 Sodium 143 mmol/L (137-145) 12/27/19 13:25 Potassium 4.0 mmol/L (3.6-5.0) 12/27/19 13:25 Chloride 111.1 mmol/L (98-107) H 12/27/19 13:25 Carbon Dioxide 18 mmol/L (22-30) L 12/27/19 13:25 Anion Gap 18 mmol/L 12/27/19 13:25 BUN 44 mg/dL (9-20) H 12/27/19 13:25 Creatinine 1.8 mg/dL (0.8-1.5) H 12/27/19 13:25 Estimated GFR 47 ml/min 12/27/19 13:25 BUN/Creatinine Ratio 24 % 12/27/19 13:25 Glucose 118 mg/dL (75-100) H 12/27/19 13:25 POC Glucose 182 (70-105) H 12/28/19 04:58 Hemoglobin A1c 5.1 % (4-6) 12/25/19 19:52 Lactic Acid 1.40 mmol/L (0.7-2.0) 12/26/19 05:16 Calcium 7.9 mg/dL (8.4-10.2) L 12/27/19 13:25 Phosphorus 2.60 mg/dL (2.5-4.5) 12/26/19 08:59 Magnesium 2.20 mg/dL (1.7-2.3) 12/26/19 08:59 Total Bilirubin 0.30 mg/dL (0.1-1.2) 12/27/19 05:53 Direct Bilirubin < 0.2 mg/dL (0-0.2) 12/27/19 05:53 Indirect Bilirubin 0.1 mg/dL 12/27/19 05:53 AST 68 units/L (5-40) H 12/27/19 05:53 ALT 30 units/L (7-56) 12/27/19 05:53 Alkaline Phosphatase 97 units/L (35-129) 12/27/19 05:53 Total Creatine Kinase 1274 units/L (55-170) H 12/27/19 18:48 CK-MB (CK-2) 16.8 ng/mL (0.0-4.0) H 12/25/19 10:13 CK-MB (CK-2) Rel Index 0.5 (0-4) 12/25/19 10:13 Troponin T 0.522 ng/mL (0.00-0.029) H* 12/27/19 05:53 Total Protein 5.8 g/dL (6.3-8.2) L 12/27/19 05:53 Albumin 2.5 g/dL (3.9-5) L 12/27/19 05:53 Albumin/Globulin Ratio 0.8 % 12/27/19 05:53 Triglycerides 137 mg/dL (2-149) 12/25/19 10:13 Cholesterol 325 mg/dL (50-199) H 12/25/19 10:13 LDL Cholesterol Direct 249 mg/dL (50-130) H 12/25/19 10:13 HDL Cholesterol 74 mg/dL (40-59) H 12/25/19 10:13 Cholesterol/HDL Ratio 4.39 % 12/25/19 10:13 Urine Color Yellow (Yellow) 12/25/19 13:50 Urine Turbidity Clear (Clear) 12/25/19 13:50 Urine pH 5.0 (5.0-7.0) 12/25/19 13:50 Ur Specific [place] 1.027 (1.003-1.030) 12/25/19 13:50 Urine Protein >500 mg/dL (Negative) 12/25/19 13:50 Urine Glucose (UA) >=500 mg/dL (Negative) 12/25/19 13:50 Urine Ketones Tr mg/dL (Negative) 12/25/19 13:50 Urine Blood Lg (Negative) 12/25/19 13:50 Urine Nitrite Neg (Negative) 12/25/19 13:50 Urine Bilirubin Neg (Negative) 12/25/19 13:50 Urine Urobilinogen < 2.0 mg/dL (<2.0) 12/25/19 13:50 Ur Leukocyte Esterase Neg (Negative) 12/25/19 13:50 Urine WBC (Auto) 4.0 /HPF (0.0-6.0) 12/25/19 13:50 Urine RBC (Auto) 3.0 /HPF (0.0-6.0) 12/25/19 13:50 U Epithel Cells (Auto) < 1.0 /HPF (0-13.0) 12/25/19 13:50 Urine Mucus Few /HPF 12/25/19 13:50 Urine Opiates Screen Presumptive negative 12/25/19 13:50 Urine Methadone Screen Presumptive negative 12/25/19 13:50 Ur Barbiturates Screen Presumptive negative 12/25/19 13:50 Ur Phencyclidine Scrn Presumptive negative 12/25/19 13:50 Ur Amphetamines Screen Presumptive negative 12/25/19 13:50 U Benzodiazepines Scrn Presumptive negative 12/25/19 13:50 Urine Cocaine Screen Presumptive negative 12/25/19 13:50 U Marijuana (THC) Screen Presumptive negative 12/25/19 13:50 Drugs of Abuse Note Disclamer 12/25/19 13:50 Plasma/Serum Alcohol < 0.01 % (0-0.07) 12/25/19 10:13 [place]/IV: Voiding Method Indwelling Catheter IV Catheter Type [Left Hand] INT / Saline Lock IV Catheter Type [Left Peripheral IV Antecubital] IV Catheter Type [Right Hand] INT / Saline Lock Active Medications - Current Medications Current Medications: Generic Name Dose Route Start Last Admin Trade Name Freq PRN Reason Stop Dose Admin Acetaminophen 650 mg 12/25/19 17:49 12/25/19 22:54 Tylenol PO 650 mg Q4H PRN Administration Pain MILD(1-3)/Fever >100.5/HERNANDEZ Albuterol/Ipratropium 1 ampul 12/25/19 20:00 12/28/19 08:54 Duoneb *Not For Prn Use* IH 1 ampul QIDRT LIBIA Administration Lipase/Protease/Amylase 1 each 12/25/19 17:53 Pancrepeg Sandra 10,500 Unit FEEDTUBE PRN PRN For Clogged Feeding Tube Aspirin 325 mg 12/27/19 10:00 12/27/19 09:25 Aspirin PO 325 mg QDAY LIBIA Administration Atorvastatin Calcium 40 mg 12/26/19 22:00 12/27/19 21:08 Lipitor PO 40 mg QHS [facility] Administration Dextrose 0 ml 12/26/19 08:50 D50w (25gm) Syringe IV Q30MIN PRN Hypoglycemia Protocol Famotidine 20 mg 12/28/19 10:00 Pepcid PO BID [facility] Hydralazine HCl 5 mg 12/25/19 21:31 12/27/19 19:45 Apresoline IV 5 mg Q6H PRN Administration Hypertension Hydromorphone HCl 0.5 mg 12/25/19 17:49 12/27/19 15:30 Dilaudid IV 0.5 mg Q3H PRN Administration Pain , Severe (7-10) Hydrophilic Ointment 1 applic 12/25/19 09:13 Vaseline Lip Therapy TP Q2HR PRN Dry Lips Heparin Sodium/Sodium Chloride 25,000 unit in 500 mls @ 20 mls/hr 12/26/19 07:00 12/28/19 02:49 Heparin/ 0.45% Nacl-25,000 Unit/500 Ml IV 1,350 units/hr TITRATE LIBIA 27 mls/hr Administration Protocol 1,000 UNITS/HR Insulin Human Isoph/Insulin Regular 20 unit 12/27/19 14:00 12/27/19 16:05 Humulin 70/30 SUB-Q 20 unit BIDDIAB LIBIA Administration Insulin Human Lispro 0 unit 12/27/19 20:23 12/28/19 04:50 Humalog SUB-Q 1 unit QHS PRN Administration Hyperglycemia Protocol Insulin Human Lispro 0 unit 12/28/19 10:00 Humalog SUB-Q Q4HR [facility] Protocol Metoprolol Tartrate 50 mg 12/27/19 16:13 12/27/19 21:08 Metoprolol PO 50 mg BID [facility] Administration Morphine Sulfate 2 mg 12/25/19 17:49 12/28/19 09:12 Morphine IV 2 mg Q4H PRN Administration Pain, Moderate (4-6) Multi-Ingred Cream/Lotion/Oil/Oint 1 applic 12/25/19 09:13 Artificial Tears Ophth Oint OU Q4HR PRN Dry Eye(s) Ondansetron HCl 4 mg 12/25/19 17:49 Zofran IV Q8H PRN Nausea And Vomiting Pregabalin 75 mg 12/26/19 10:00 12/27/19 21:08 Pregabalin PO 75 mg Q12HR LIBIA Administration Simple Syrup 15 ml 12/25/19 17:53 Simple Syrup FEEDTUBE PRN PRN Hypoglycemia Simple Syrup 30 ml 12/25/19 17:53 Simple Syrup FEEDTUBE PRN PRN Hypoglycemia Sodium Bicarbonate 325 mg 12/25/19 17:53 Sodium Bicarbonate FEEDTUBE PRN PRN For Clogged Feeding Tube Sodium Chloride 10 ml 12/25/19 17:49 Sodium Chloride Flush Syringe 10 Ml IV PRN PRN LINE FLUSH Sodium Chloride 10 ml 12/25/19 22:00 12/27/19 21:09 Sodium Chloride Flush Syringe 10 Ml IV 10 ml BID LIBIA Administration Nutrition/Malnutrition Assess - Dietary Evaluation Nutrition/Malnutrition Findings: Nutrition Notes Start: 12/25/19 13:01 Freq: Status: Discharge Protocol: Document 12/26/19 08:26 LM (Rec: 12/26/19 08:40 LM [id number]) Nutrition Notes Need for Assessment generated from: MD Order Initial or Follow up Assessment Current Diagnosis Coronary Artery Disease, Diabetes,Sepsis,Hypertension, Respiratory Failure,Stroke, Hyperlipidemia Other Pertinent Diagnosis Pneu, UTI Current Diet TF diet Labs/Tests BUN 39 Cr 2.0 BG 545 TC 325 LDL 249 Pertinent Medications Reviewed Height 6 ft 3 in Weight 93.848 kg [place] Body Weight (kg) 89.09 BMI 25.8 Weight Status Appropriate Subjective/Other Information MD consult for TF. Pt on vent. Observed temporal wasting. Burn Absent Trauma Absent Difficulty In Swallowing Current % PO Negligible Minimum of two criteria No Muscle Mass Mild Depletion (non-severe) #1 Nutrition Diagnosis Inadequate oral intake Etiology Mechanical vent As Evidenced by Signs and Symptoms pt unable to consume PO Is patient on ventilator? Yes Is Patient Ambulatory and/or Out of Bed No REE-([facility]-confined to bed) 2229.180 Calculation Used for Recommendations Lian Ridley Additional Notes Protein: 113-188g (1.2-2g/kg) Fluid: 1 ml/kcal Nutrition Intervention Change Diet Order: TF Nutrition Support: Vital AF 1.2 at 70 ml/hr Flush 100 q4h Kcal 2,016 Protein (gm) 126 Fluid (mL) 1,362 Goal #1 TF start/tolerance Anticipated Discharge Needs: unable to determine at this time Follow-Up By: 12/28/19 Additional Comments F/U for TF start/tolerance
[2019-12-28] MEDS: FAMOTIDINE 20 MG TAB PO SCH ×2 (09:24→23:04)
[2019-12-28 09:58] LABS: Hematocrit 35.2 % (35.5-45.6); Hemoglobin 11.2 gm/dl (11.8-15.2); Mean Corpuscular HGB Conc 32 % (32-34); Mean Corpuscular Volume 98 fl (84-94); Platelet Count 236 K/mm3 (140-440); Red Cell Distribution Width 14.8 % (13.2-15.2)
[2019-12-28 10:24] LABS: Alanine Aminotransferase 33 units/L (7-56); Albumin 2.8 g/dL (3.9-5); BUN/Creatinine Ratio 28; Blood Urea Nitrogen 39 mg/dL (9-20); Calcium 8.5 mg/dL (8.4-10.2); Hemolysis Index 23
--- NOTE | 2019-12-28 11:11 | Progress Note ---
Assessment and Plan Optimize anti-hypertensive regimen - increase lopressor to TID dosing. No ACEI/ARB at this time in setting of renal insufficiency. Cont supportive measures and plan for coronary angiography once medically stabilized. The patient has been seen in conjunction with Dr. Valero who agrees with the assessment and plan of care. - Patient Problems (1) Acute respiratory failure Current Visit: Yes Status: Acute (2) Altered mental status Current Visit: Yes Status: Acute (3) NSTEMI (non-ST elevated myocardial infarction) Current Visit: Yes Status: Acute (4) SVT (supraventricular tachycardia) Current Visit: Yes Status: Acute (5) Cardiomyopathy Current Visit: Yes Status: Acute (6) Abnormal EKG Current Visit: Yes Status: Acute (7) NICOLE (acute kidney injury) Current Visit: Yes Status: Acute (8) Rhabdomyolysis Current Visit: Yes Status: Acute Qualifiers: Rhabdomyolysis type: non-traumatic Qualified Code(s): M62.82 - Rhabdomyolysis (9) Lactic acidosis Current Visit: Yes Status: Acute (10) Diabetes mellitus with hyperglycemia Current Visit: Yes Status: Acute (11) HTN (hypertension) Current Visit: Yes Status: Chronic (12) History of CVA (cerebrovascular accident) Current Visit: Yes Status: Chronic Subjective Date of service: 12/28/19 Principal diagnosis: respiratory failure; AMS Interval history: pt remains intubated, alert, responding to commands. in SR on tele. Objective Last Vital Signs Temp 98.8 F 12/28/19 08:00 Pulse 78 12/28/19 09:40 Resp 16 12/28/19 09:40 BP 151/84 12/28/19 09:15 Pulse Ox 99 12/28/19 09:00 - Physical Examination General: Other (intubated, alert) HEENT: Positive: PERRL Neck: Positive: neck supple, trachea midline Cardiac: Positive: Reg Rate and Rhythm, S1/S2 Lungs: Positive: Decreased Breath Sounds Neuro: Positive: Other (intubated, alert) Abdomen: Negative: Tender Skin: Negative: Rash Extremities: Absent: edema - Labs and Meds Cardiac Enzymes 12/28/19 Range/Units 09:31 AST 39 (5-40) units/L CBC 12/28/19 Range/Units 09:31 WBC 12.0 H (4.5-11.0) K/mm3 RBC 3.60 L (3.65-5.03) M/mm3 Hgb 11.2 L (11.8-15.2) gm/dl Hct 35.2 L (35.5-45.6) % Plt Count 236 (140-440) K/mm3 Comprehensive Metabolic Panel 12/27/19 12/28/19 Range/Units 13:25 09:31 Sodium 143 141 (137-145) mmol/L Potassium 4.0 4.0 (3.6-5.0) mmol/L Chloride 111.1 H 108.9 H (98-107) mmol/L Carbon Dioxide 18 L 17 L (22-30) mmol/L BUN 44 H 39 H (9-20) mg/dL Creatinine 1.8 H 1.4 (0.8-1.5) mg/dL Glucose 118 H 197 H (75-100) mg/dL Calcium 7.9 L 8.5 (8.4-10.2) mg/dL AST 39 (5-40) units/L ALT 33 (7-56) units/L Alkaline Phosphatase 91 (35-129) units/L Total Protein 6.3 (6.3-8.2) g/dL Albumin 2.8 L (3.9-5) g/dL - Imaging and Cardiology EKG: report reviewed, image reviewed Echo: report reviewed (EF 30-35%, mild LVH, impaired relaxation) - Telemetry EKG Rhythm: Sinus Rhythm - EKG Sinus rhythms and dysrhythmias: sinus tachycardia Myocardial infarction: septal IA (old age or ind, anterior IA (old age or i
--- NOTE | 2019-12-28 11:21 | Progress Note ---
Assessment and Plan 54 y/o male with acute respiratory failure, though secondary to altered mental status, maybe from DKA vs some other etiology. 1. Extubate today. 2. Renal function improved today. 3. Wait about 2 hours and the do bedside swallow. If passes, Consistent Carb diet 4. Follow up cards recs. 5. If uneventful extubation, will likely transfer out tomorrow, or sooner if bed is needed. CCT 31 minutes. Subjective Date of service: 12/28/19 Principal diagnosis: respiratory failure; AMS Interval history: No acute events. Awake and alert. Following commands. Tolerating PSV with no issues. ABG is good. Objective Vital Signs - 12hr 12/27/19 12/28/19 12/28/19 23:30 00:00 00:30 Temperature Pulse Rate 71 73 73 Pulse Rate [ Bilateral Throughout] Pulse Rate [ 73 From Monitor] Respiratory 11 L 12 11 L Rate Respiratory Rate [Bilateral Throughout] Blood Pressure 129/77 136/83 138/83 O2 Sat by Pulse 100 100 100 Oximetry 12/28/19 12/28/19 12/28/19 01:00 01:14 01:30 Temperature Pulse Rate 72 71 72 Pulse Rate [ Bilateral Throughout] Pulse Rate [ From Monitor] Respiratory 11 L 9 L Rate Respiratory Rate [Bilateral Throughout] Blood Pressure 129/79 129/79 132/80 O2 Sat by Pulse 99 99 99 Oximetry 12/28/19 12/28/19 12/28/19 02:00 02:30 03:00 Temperature Pulse Rate 72 75 72 Pulse Rate [ Bilateral Throughout] Pulse Rate [ From Monitor] Respiratory 15 10 L 17 Rate Respiratory Rate [Bilateral Throughout] Blood Pressure 133/82 145/85 142/89 O2 Sat by Pulse 99 99 99 Oximetry 12/28/19 12/28/19 12/28/19 03:25 03:30 04:00 Temperature 98.8 F Pulse Rate 76 74 Pulse Rate [ Bilateral Throughout] Pulse Rate [ 72 From Monitor] Respiratory 15 10 L Rate Respiratory Rate [Bilateral Throughout] Blood Pressure 144/89 144/88 O2 Sat by Pulse 100 99 Oximetry 12/28/19 12/28/19 12/28/19 04:31 05:00 05:10 Temperature Pulse Rate 85 72 78 Pulse Rate [ Bilateral Throughout] Pulse Rate [ From Monitor] Respiratory 15 13 Rate Respiratory Rate [Bilateral Throughout] Blood Pressure 151/93 146/87 146/87 O2 Sat by Pulse 98 99 99 Oximetry 12/28/19 12/28/19 12/28/19 05:30 06:00 06:30 Temperature Pulse Rate 78 80 77 Pulse Rate [ Bilateral Throughout] Pulse Rate [ From Monitor] Respiratory 12 11 L 14 Rate Respiratory Rate [Bilateral Throughout] Blood Pressure 157/90 146/94 146/87 O2 Sat by Pulse 100 98 98 Oximetry 12/28/19 12/28/19 12/28/19 07:00 07:30 08:00 Temperature 98.8 F Pulse Rate 76 80 77 Pulse Rate [ Bilateral Throughout] Pulse Rate [ From Monitor] Respiratory 12 15 10 L Rate Respiratory Rate [Bilateral Throughout] Blood Pressure 149/91 163/94 151/94 O2 Sat by Pulse 99 99 100 Oximetry 12/28/19 12/28/19 12/28/19 08:31 08:46 09:00 Temperature Pulse Rate 78 82 72 Pulse Rate [ Bilateral Throughout] Pulse Rate [ From Monitor] Respiratory 13 14 10 L Rate Respiratory Rate [Bilateral Throughout] Blood Pressure 151/94 164/93 151/84 O2 Sat by Pulse 100 100 99 Oximetry 12/28/19 12/28/19 09:15 09:40 Temperature Pulse Rate 89 Pulse Rate [ 78 Bilateral Throughout] Pulse Rate [ From Monitor] Respiratory Rate Respiratory 16 Rate [Bilateral Throughout] Blood Pressure 151/84 O2 Sat by Pulse Oximetry Constitutional: no acute distress, comatose, appears uncomfortable Eyes: non-icteric ENT: oropharynx moist, other (orally intubated) Neck: supple Effort: normal Ascultation: Bilateral: clear Percussion: Bilateral: not dull Cardiovascular: regular rate and rhythm Gastrointestinal: normoactive bowel sounds, soft Extremities: no edema, other (multiple tattoos, everywhere) Neurologic: unable to assess CBC and BMP: 12/28/19 09:31 12/28/19 09:31 ABG, PT/INR, D-dimer: ABG ABG pH 7.394 pH Units (7.350-7.450) 12/28/19 03:55 ABG pCO2 33.0 mm Hg 12/28/19 03:55 ABG pO2 105.5 mm Hg (80.0-90.0) H 12/28/19 03:55 ABG O2 Saturation 97.9 % (95.0-99.0) 12/28/19 03:55 PT/INR, D-dimer PT 18.3 Sec. (12.2-14.9) H 12/26/19 07:44 INR 1.49 (0.87-1.13) H 12/26/19 07:44 Abnormal lab findings: Abnormal Labs 12/25/19 12/25/19 12/25/19 10:13 10:13 10:13 WBC 12.0 H RBC Hgb Hct MCV 96 H Lymph % (Auto) 6.7 L Lymph # 0.8 L Seg Neutrophils % 87.8 H Seg Neutrophils # 10.6 H PT 15.1 H INR 1.17 H Heparin Anti-Xa Level ABG pO2 ABG HCO3 ABG O2 Saturation ABG Base Excess ABG Hemoglobin Chloride Carbon Dioxide 16 L BUN 23 H Creatinine 1.8 H Glucose 482 H POC Glucose Lactic Acid Calcium AST 49 H Total Creatine Kinase 2995 H CK-MB (CK-2) 16.8 H Troponin T 0.992 H* Total Protein Albumin 3.5 L Cholesterol 325 H LDL Cholesterol Direct 249 H HDL Cholesterol 74 H 12/25/19 12/25/19 12/25/19 10:45 11:33 12:57 WBC RBC Hgb Hct MCV Lymph % (Auto) Lymph # Seg Neutrophils % Seg Neutrophils # PT INR Heparin Anti-Xa Level ABG pO2 269.6 H ABG HCO3 16.7 L ABG O2 Saturation 99.5 H ABG Base Excess -5.8 L ABG Hemoglobin 13.4 L Chloride Carbon Dioxide BUN Creatinine Glucose POC Glucose Lactic Acid 8.30 H* 6.00 H* Calcium AST Total Creatine Kinase CK-MB (CK-2) Troponin T Total Protein Albumin Cholesterol LDL Cholesterol Direct HDL Cholesterol 12/25/19 12/25/19 12/25/19 16:37 20:58 22:22 WBC RBC Hgb Hct MCV Lymph % (Auto) Lymph # Seg Neutrophils % Seg Neutrophils # PT INR Heparin Anti-Xa Level ABG pO2 ABG HCO3 ABG O2 Saturation ABG Base Excess ABG Hemoglobin Chloride Carbon Dioxide BUN Creatinine Glucose POC Glucose Lactic Acid 3.30 H* 3.50 H* 2.10 H* Calcium AST Total Creatine Kinase CK-MB (CK-2) Troponin T Total Protein Albumin Cholesterol LDL Cholesterol Direct HDL Cholesterol 12/26/19 12/26/19 12/26/19 04:30 05:16 05:16 WBC RBC Hgb 11.7 L Hct 35.4 L MCV 95 H Lymph % (Auto) 9.0 L Lymph # 1.0 L Seg Neutrophils % 87.3 H Seg Neutrophils # 9.2 H PT INR Heparin Anti-Xa Level ABG pO2 188.0 H ABG HCO3 15.0 L ABG O2 Saturation 99.2 H ABG Base Excess -8.6 L ABG Hemoglobin 12.4 L Chloride Carbon Dioxide 14 L BUN 39 H Creatinine 2.0 H Glucose 545 H* POC Glucose Lactic Acid Calcium 8.0 L AST 70 H Total Creatine Kinase CK-MB (CK-2) Troponin T Total Protein 6.1 L Albumin 2.6 L Cholesterol LDL Cholesterol Direct HDL Cholesterol 12/26/19 12/26/19 12/26/19 07:44 07:44 07:44 WBC RBC Hgb Hct MCV Lymph % (Auto) Lymph # Seg Neutrophils % Seg Neutrophils # PT 18.3 H INR 1.49 H Heparin Anti-Xa Level ABG pO2 ABG HCO3 ABG O2 Saturation ABG Base Excess ABG Hemoglobin Chloride Carbon Dioxide BUN Creatinine Glucose POC Glucose Lactic Acid Calcium AST Total Creatine Kinase 4251 H CK-MB (CK-2) Troponin T 0.641 H* D Total Protein Albumin Cholesterol LDL Cholesterol Direct HDL Cholesterol 12/26/19 12/26/19 12/26/19 08:26 08:59 10:26 WBC RBC Hgb Hct MCV Lymph % (Auto) Lymph # Seg Neutrophils % Seg Neutrophils # PT INR Heparin Anti-Xa Level ABG pO2 ABG HCO3 ABG O2 Saturation ABG Base Excess ABG Hemoglobin Chloride 108.1 H Carbon Dioxide 14 L BUN 40 H Creatinine 1.9 H Glucose 497 H POC Glucose 438 H 434 H Lactic Acid Calcium 8.2 L AST Total Creatine Kinase CK-MB (CK-2) Troponin T Total Protein Albumin Cholesterol LDL Cholesterol Direct HDL Cholesterol 12/26/19 12/26/19 12/26/19 11:49 12:56 13:37 WBC RBC Hgb Hct MCV Lymph % (Auto) Lymph # Seg Neutrophils % Seg Neutrophils # PT INR Heparin Anti-Xa Level ABG pO2 ABG HCO3 ABG O2 Saturation ABG Base Excess ABG Hemoglobin Chloride Carbon Dioxide BUN Creatinine Glucose POC Glucose 371 H 351 H 364 H Lactic Acid Calcium AST Total Creatine Kinase CK-MB (CK-2) Troponin T Total Protein Albumin Cholesterol LDL Cholesterol Direct HDL Cholesterol 12/26/19 12/26/19 12/26/19 14:00 14:00 14:44 WBC RBC Hgb Hct MCV Lymph % (Auto) Lymph # Seg Neutrophils % Seg Neutrophils # PT INR Heparin Anti-Xa Level < 0.10 L ABG pO2 ABG HCO3 ABG O2 Saturation ABG Base Excess ABG Hemoglobin Chloride Carbon Dioxide BUN Creatinine Glucose POC Glucose 250 H Lactic Acid Calcium AST Total Creatine Kinase CK-MB (CK-2) Troponin T 0.595 H* Total Protein Albumin Cholesterol LDL Cholesterol Direct HDL Cholesterol 12/26/19 12/26/19 12/26/19 15:40 16:36 17:52 WBC RBC Hgb Hct MCV Lymph % (Auto) Lymph # Seg Neutrophils % Seg Neutrophils # PT INR Heparin Anti-Xa Level ABG pO2 ABG HCO3 ABG O2 Saturation ABG Base Excess ABG Hemoglobin Chloride Carbon Dioxide BUN Creatinine Glucose POC Glucose 225 H 253 H 225 H Lactic Acid Calcium AST Total Creatine Kinase CK-MB (CK-2) Troponin T Total Protein Albumin Cholesterol LDL Cholesterol Direct HDL Cholesterol 12/26/19 12/26/19 12/26/19 18:35 18:35 18:58 WBC RBC Hgb Hct MCV Lymph % (Auto) Lymph # Seg Neutrophils % Seg Neutrophils # PT INR Heparin Anti-Xa Level ABG pO2 ABG HCO3 ABG O2 Saturation ABG Base Excess ABG Hemoglobin Chloride 109.1 H Carbon Dioxide 20 L BUN 42 H Creatinine 1.7 H Glucose 234 H POC Glucose 210 H Lactic Acid Calcium 8.3 L AST Total Creatine Kinase CK-MB (CK-2) Troponin T 0.544 H* Total Protein Albumin Cholesterol LDL Cholesterol Direct HDL Cholesterol 12/26/19 12/26/19 12/26/19 20:33 21:29 22:14 WBC RBC Hgb Hct MCV Lymph % (Auto) Lymph # Seg Neutrophils % Seg Neutrophils # PT INR Heparin Anti-Xa Level ABG pO2 ABG HCO3 ABG O2 Saturation ABG Base Excess ABG Hemoglobin Chloride Carbon Dioxide BUN Creatinine Glucose POC Glucose 215 H 202 H 197 H Lactic Acid Calcium AST Total Creatine Kinase CK-MB (CK-2) Troponin T Total Protein Albumin Cholesterol LDL Cholesterol Direct HDL Cholesterol 12/26/19 12/27/19 12/27/19 23:19 00:27 00:54 WBC RBC Hgb Hct MCV Lymph % (Auto) Lymph # Seg Neutrophils % Seg Neutrophils # PT INR Heparin Anti-Xa Level ABG pO2 ABG HCO3 ABG O2 Saturation ABG Base Excess ABG Hemoglobin Chloride 110.0 H Carbon Dioxide 21 L BUN 43 H Creatinine 1.7 H Glucose 161 H POC Glucose 168 H 152 H Lactic Acid Calcium 8.3 L AST Total Creatine Kinase CK-MB (CK-2) Troponin T Total Protein Albumin Cholesterol LDL Cholesterol Direct HDL Cholesterol 12/27/19 12/27/19 12/27/19 01:12 02:06 03:11 WBC RBC Hgb Hct MCV Lymph % (Auto) Lymph # Seg Neutrophils % Seg Neutrophils # PT INR Heparin Anti-Xa Level ABG pO2 ABG HCO3 ABG O2 Saturation ABG Base Excess ABG Hemoglobin Chloride Carbon Dioxide BUN Creatinine Glucose POC Glucose 150 H 145 H 152 H Lactic Acid Calcium AST Total Creatine Kinase CK-MB (CK-2) Troponin T Total Protein Albumin Cholesterol LDL Cholesterol Direct HDL Cholesterol 12/27/19 12/27/19 12/27/19 04:15 04:19 05:09 WBC RBC Hgb Hct MCV Lymph % (Auto) Lymph # Seg Neutrophils % Seg Neutrophils # PT INR Heparin Anti-Xa Level ABG pO2 120.5 H ABG HCO3 ABG O2 Saturation ABG Base Excess -4.4 L ABG Hemoglobin 7.0 L Chloride Carbon Dioxide BUN Creatinine Glucose POC Glucose 157 H 153 H Lactic Acid Calcium AST Total Creatine Kinase CK-MB (CK-2) Troponin T Total Protein Albumin Cholesterol LDL Cholesterol Direct HDL Cholesterol 12/27/19 12/27/19 12/27/19 05:53 05:53 05:53 WBC RBC Hgb Hct MCV Lymph % (Auto) Lymph # Seg Neutrophils % Seg Neutrophils # PT INR Heparin Anti-Xa Level ABG pO2 ABG HCO3 ABG O2 Saturation ABG Base Excess ABG Hemoglobin Chloride 110.6 H Carbon Dioxide 18 L BUN 45 H Creatinine 1.9 H Glucose 163 H POC Glucose Lactic Acid Calcium AST 68 H Total Creatine Kinase 1599 H CK-MB (CK-2) Troponin T 0.522 H* Total Protein 5.8 L Albumin 2.5 L Cholesterol LDL Cholesterol Direct HDL Cholesterol 12/27/19 12/27/19 12/27/19 06:16 06:54 08:13 WBC RBC Hgb Hct MCV Lymph % (Auto) Lymph # Seg Neutrophils % Seg Neutrophils # PT INR Heparin Anti-Xa Level ABG pO2 ABG HCO3 ABG O2 Saturation ABG Base Excess ABG Hemoglobin Chloride Carbon Dioxide BUN Creatinine Glucose POC Glucose 142 H 134 H 132 H Lactic Acid Calcium AST Total Creatine Kinase CK-MB (CK-2) Troponin T Total Protein Albumin Cholesterol LDL Cholesterol Direct HDL Cholesterol 12/27/19 12/27/19 12/27/19 09:25 10:20 11:22 WBC RBC Hgb Hct MCV Lymph % (Auto) Lymph # Seg Neutrophils % Seg Neutrophils # PT INR Heparin Anti-Xa Level ABG pO2 ABG HCO3 ABG O2 Saturation ABG Base Excess ABG Hemoglobin Chloride Carbon Dioxide BUN Creatinine Glucose POC Glucose 117 H 119 H 133 H Lactic Acid Calcium AST Total Creatine Kinase CK-MB (CK-2) Troponin T Total Protein Albumin Cholesterol LDL Cholesterol Direct HDL Cholesterol 12/27/19 12/27/19 12/27/19 12:21 13:25 13:52 WBC RBC Hgb Hct MCV Lymph % (Auto) Lymph # Seg Neutrophils % Seg Neutrophils # PT INR Heparin Anti-Xa Level ABG pO2 ABG HCO3 ABG O2 Saturation ABG Base Excess ABG Hemoglobin Chloride 111.1 H Carbon Dioxide 18 L BUN 44 H Creatinine 1.8 H Glucose 118 H POC Glucose 121 H 136 H Lactic Acid Calcium 7.9 L AST Total Creatine Kinase CK-MB (CK-2) Troponin T Total Protein Albumin Cholesterol LDL Cholesterol Direct HDL Cholesterol 12/27/19 12/27/19 12/27/19 15:05 18:14 18:48 WBC RBC Hgb Hct MCV Lymph % (Auto) Lymph # Seg Neutrophils % Seg Neutrophils # PT INR Heparin Anti-Xa Level ABG pO2 ABG HCO3 ABG O2 Saturation ABG Base Excess ABG Hemoglobin Chloride Carbon Dioxide BUN Creatinine Glucose POC Glucose 166 H 135 H Lactic Acid Calcium AST Total Creatine Kinase 1274 H CK-MB (CK-2) Troponin T Total Protein Albumin Cholesterol LDL Cholesterol Direct HDL Cholesterol 12/27/19 12/27/19 12/28/19 21:14 22:23 01:57 WBC RBC Hgb Hct MCV Lymph % (Auto) Lymph # Seg Neutrophils % Seg Neutrophils # PT INR Heparin Anti-Xa Level 0.24 L ABG pO2 ABG HCO3 ABG O2 Saturation ABG Base Excess ABG Hemoglobin Chloride Carbon Dioxide BUN Creatinine Glucose POC Glucose 186 H 193 H Lactic Acid Calcium AST Total Creatine Kinase CK-MB (CK-2) Troponin T Total Protein Albumin Cholesterol LDL Cholesterol Direct HDL Cholesterol 12/28/19 12/28/1920 03:55 04:58 09:04 WBC RBC Hgb Hct MCV Lymph % (Auto) Lymph # Seg Neutrophils % Seg Neutrophils # PT INR Heparin Anti-Xa Level ABG pO2 105.5 H ABG HCO3 19.7 L ABG O2 Saturation ABG Base Excess -4.4 L ABG Hemoglobin 11.1 L Chloride Carbon Dioxide BUN Creatinine Glucose POC Glucose 182 H 168 H Lactic Acid Calcium AST Total Creatine Kinase CK-MB (CK-2) Troponin T Total Protein Albumin Cholesterol LDL Cholesterol Direct HDL Cholesterol 12/28/19 12/28/19 12/28/19 09:31 09:31 09:31 WBC 12.0 H RBC 3.60 L Hgb 11.2 L Hct 35.2 L MCV 98 H Lymph % (Auto) Lymph # Seg Neutrophils % Seg Neutrophils # PT INR Heparin Anti-Xa Level ABG pO2 ABG HCO3 ABG O2 Saturation ABG Base Excess ABG Hemoglobin Chloride 108.9 H Carbon Dioxide 17 L BUN 39 H Creatinine Glucose 197 H POC Glucose Lactic Acid Calcium AST Total Creatine Kinase 804 H CK-MB (CK-2) Troponin T 0.479 H* Total Protein Albumin 2.8 L Cholesterol LDL Cholesterol Direct HDL Cholesterol 12/28/19 09:31 WBC RBC Hgb Hct MCV Lymph % (Auto) Lymph # Seg Neutrophils % Seg Neutrophils # PT INR Heparin Anti-Xa Level 0.23 L ABG pO2 ABG HCO3 ABG O2 Saturation ABG Base Excess ABG Hemoglobin Chloride Carbon Dioxide BUN Creatinine Glucose POC Glucose Lactic Acid Calcium AST Total Creatine Kinase CK-MB (CK-2) Troponin T Total Protein Albumin Cholesterol LDL Cholesterol Direct HDL Cholesterol
--- NOTE | 2019-12-28 12:42 | Progress Note ---
Assessment and Plan Cultures: 12/25/2019 sputum culture: Normal respiratory robert 12/25/2019 blood culture: No growth A/P: 54-year-old male with CVA, hypertension, diabetes mellitus: #SIRS versus sepsis possibly secondary to diabetic ketoacidosis: Leukocytosis is improved. UA does not suggest urinary tract infection. Chest x-ray also not impressive for a dense pneumonia. Hemodynamics are relatively stable. Agree with holding off on additional antibiotics at this time. Initial fever, ?viral etiology v/s reactive. #Diabetes mellitus, uncontrolled with hyperglycemia: #Acute renal failure: monitor creatinine. #Acute respiratory failure: On the vent. #Acute encephalopathy: CT head showed no acute findings. Recs: Doing well off antibiotics with no fever. Mild leucocytosis is likely reactive ID will sign off. Please call with questions or change in status. Jared Delgado MD, FACP [facility] ([facility]) C: [phone] O: [phone] F: [phone] Subjective Date of service: 12/28/19 Principal diagnosis: respiratory failure; AMS Interval history: Extubated. Afebrile. No complaints. Stable. Objective - Exam Narrative Exam: Physical Exam: Constitutional: awake, alert, no complaints or distress Head, Ears, Nose: Normocephalic, atraumatic. External ears, nose normal Eyes: Conjunctivae/corneas clear. No icterus. No ptosis. Neck: supple, no meningeal signs Cardiovascular: S1, S2 normal. Respiratory: Good air entry, clear to auscultation bilaterally GI: Soft, non-tender; bowel sounds normal. No peritoneal signs Musculoskeletal: No pedal edema, no cyanosis. Skin: No rash or abscess Hem/Lymphatic: No palpable cervical or supraclavicular nodes. No lymphangitis Psych: no agitation, calm. Neurological: awake, alert, answering questions. - Constitutional Vitals: Vital Signs Temp Pulse Resp BP Pulse Ox 98.8 F 74 14 156/92 100 12/28/19 08:00 12/28/19 12:00 12/28/19 12:00 12/28/19 12:00 12/28/19 12:00 Temperature -Last 24 Hours Temperature 98.8 F Temperature 98.8 F Temperature 98.8 F Temperature 98.7 F Temperature 97.8 F - Labs CBC & Chem 7: 03/13/20 09:31 12/28/19 09:31 Labs: Abnormal lab results 12/27/19 12/27/19 12/27/19 Range/Units 13:25 13:52 15:05 WBC (4.5-11.0) K/mm3 RBC (3.65-5.03) M/mm3 Hgb (11.8-15.2) gm/dl Hct (35.5-45.6) % MCV (84-94) fl Heparin Anti-Xa Level (0.3-0.7) U.I./ml ABG pO2 (80.0-90.0) mm Hg ABG HCO3 (20.0-26.0) mmol/L ABG Base Excess (-2.0-3.0) mmol/L ABG Hemoglobin (14.0-18.0) gm/dl Chloride 111.1 H (98-107) mmol/L Carbon Dioxide 18 L (22-30) mmol/L BUN 44 H (9-20) mg/dL Creatinine 1.8 H (0.8-1.5) mg/dL Glucose 118 H (75-100) mg/dL POC Glucose 136 H 166 H (70-105) Calcium 7.9 L (8.4-10.2) mg/dL Total Creatine Kinase (55-170) units/L Troponin T (0.00-0.029) ng/mL Albumin (3.9-5) g/dL 12/27/19 12/27/19 12/27/19 Range/Units 18:14 18:48 21:14 WBC (4.5-11.0) K/mm3 RBC (3.65-5.03) M/mm3 Hgb (11.8-15.2) gm/dl Hct (35.5-45.6) % MCV (84-94) fl Heparin Anti-Xa Level 0.24 L (0.3-0.7) U.I./ml ABG pO2 (80.0-90.0) mm Hg ABG HCO3 (20.0-26.0) mmol/L ABG Base Excess (-2.0-3.0) mmol/L ABG Hemoglobin (14.0-18.0) gm/dl Chloride (98-107) mmol/L Carbon Dioxide (22-30) mmol/L BUN (9-20) mg/dL Creatinine (0.8-1.5) mg/dL Glucose (75-100) mg/dL POC Glucose 135 H (70-105) Calcium (8.4-10.2) mg/dL Total Creatine Kinase 1274 H (55-170) units/L Troponin T (0.00-0.029) ng/mL Albumin (3.9-5) g/dL 12/27/19 12/28/19 12/28/19 Range/Units 22:23 01:57 03:55 WBC (4.5-11.0) K/mm3 RBC (3.65-5.03) M/mm3 Hgb (11.8-15.2) gm/dl Hct (35.5-45.6) % MCV (84-94) fl Heparin Anti-Xa Level (0.3-0.7) U.I./ml ABG pO2 105.5 H (80.0-90.0) mm Hg ABG HCO3 19.7 L (20.0-26.0) mmol/L ABG Base Excess -4.4 L (-2.0-3.0) mmol/L ABG Hemoglobin 11.1 L (14.0-18.0) gm/dl Chloride (98-107) mmol/L Carbon Dioxide (22-30) mmol/L BUN (9-20) mg/dL Creatinine (0.8-1.5) mg/dL Glucose (75-100) mg/dL POC Glucose 186 H 193 H (70-105) Calcium (8.4-10.2) mg/dL Total Creatine Kinase (55-170) units/L Troponin T (0.00-0.029) ng/mL Albumin (3.9-5) g/dL 12/28/19 12/28/19 12/28/19 Range/Units 04:58 09:04 09:31 WBC 12.0 H (4.5-11.0) K/mm3 RBC 3.60 L (3.65-5.03) M/mm3 Hgb 11.2 L (11.8-15.2) gm/dl Hct 35.2 L (35.5-45.6) % MCV 98 H (84-94) fl Heparin Anti-Xa Level (0.3-0.7) U.I./ml ABG pO2 (80.0-90.0) mm Hg ABG HCO3 (20.0-26.0) mmol/L ABG Base Excess (-2.0-3.0) mmol/L ABG Hemoglobin (14.0-18.0) gm/dl Chloride (98-107) mmol/L Carbon Dioxide (22-30) mmol/L BUN (9-20) mg/dL Creatinine (0.8-1.5) mg/dL Glucose (75-100) mg/dL POC Glucose 182 H 168 H (70-105) Calcium (8.4-10.2) mg/dL Total Creatine Kinase (55-170) units/L Troponin T (0.00-0.029) ng/mL Albumin (3.9-5) g/dL 12/28/19 12/28/19 12/28/19 Range/Units 09:31 09:31 09:31 WBC (4.5-11.0) K/mm3 RBC (3.65-5.03) M/mm3 Hgb (11.8-15.2) gm/dl Hct (35.5-45.6) % MCV (84-94) fl Heparin Anti-Xa Level 0.23 L (0.3-0.7) U.I./ml ABG pO2 (80.0-90.0) mm Hg ABG HCO3 (20.0-26.0) mmol/L ABG Base Excess (-2.0-3.0) mmol/L ABG Hemoglobin (14.0-18.0) gm/dl Chloride 108.9 H (98-107) mmol/L Carbon Dioxide 17 L (22-30) mmol/L BUN 39 H (9-20) mg/dL Creatinine (0.8-1.5) mg/dL Glucose 197 H (75-100) mg/dL POC Glucose (70-105) Calcium (8.4-10.2) mg/dL Total Creatine Kinase 804 H (55-170) units/L Troponin T 0.479 H* (0.00-0.029) ng/mL Albumin 2.8 L (3.9-5) g/dL
[2019-12-28] MEDS: hydrALAZINE 20 MG/1 ML INJ IV PRN (18:18)
[2019-12-29] MEDS: hydrALAZINE 20 MG/1 ML INJ IV PRN ×2 (00:52→06:41)
[2019-12-29] MEDS: INSULIN LISPRO 100 UNIT/ML SUB-Q SCH ×5 (02:07→22:05)
--- NOTE | 2019-12-29 03:13 | XRay Report ---
CHEST 1 VIEW INDICATION: follow up respiratory failure COMPARISON: One day prior. FINDINGS: Support devices: Endotracheal tube and nasogastric tube have been removed. Heart: Normal and unchanged. Lungs/Pleura: No acute pulmonary or pleural findings. IMPRESSION: 1. No acute disease following endotracheal and nasogastric tube. Signer Name: Daniel Edmondson MD Signed: 12/29/2019 3:09 AM Workstation Name: [email or web address]
[2019-12-29 05:06] LABS: Hematocrit 32.7 % (35.5-45.6); Hemoglobin 10.8 gm/dl (11.8-15.2); Mean Corpuscular HGB Conc 33 % (32-34); Mean Corpuscular Volume 95 fl (84-94); Platelet Count 236 K/mm3 (140-440); Red Blood Count 3.43 M/mm3 (3.65-5.03); Red Cell Distribution Width 13.9 % (13.2-15.2)
[2019-12-29 05:29] LABS: BUN/Creatinine Ratio 24; Blood Urea Nitrogen 26 mg/dL (9-20); Calcium 8.2 mg/dL (8.4-10.2); Hemolysis Index 30
[2019-12-29] MEDS: IPRATROPIUM/ALBUTEROL SULFATE 3 ML AMPUL.NEB IH SCH ×2 (07:41→12:13)
[2019-12-29] MEDS: METOPROLOL TARTRATE 25 MG TAB PO SCH ×3 (09:52→22:05)
[2019-12-29] MEDS: ASPIRIN 325 MG TAB PO SCH (09:52)
[2019-12-29] MEDS: FAMOTIDINE 20 MG TAB PO SCH ×2 (09:52→22:05)
[2019-12-29] MEDS: PREGABALIN 75 MG CAP PO SCH ×2 (09:53→22:05)
--- NOTE | 2019-12-29 09:56 | Progress Note ---
Assessment and Plan 54 y/o male with acute respiratory failure, though secondary to altered mental status, maybe from DKA vs some other etiology. 1. Transfer to tele 2. STable pulm status 3. Will sign off. CCT 31 minutes. Subjective Date of service: 12/29/19 Principal diagnosis: respiratory failure; AMS Interval history: No acute events. stable on room air. Confused. No family at bedside. Objective Vital Signs - 12hr 12/28/19 12/28/19 12/28/19 22:00 22:31 23:00 Temperature Pulse Rate 92 H 93 H 91 H Pulse Rate [ Bilateral Throughout] Pulse Rate [ From Monitor] Respiratory 15 18 16 Rate Respiratory Rate [Bilateral Throughout] Blood Pressure 162/74 162/74 163/84 O2 Sat by Pulse 98 97 98 Oximetry 12/28/19 12/28/19 12/28/19 23:01 23:03 23:31 Temperature 99 F Pulse Rate 94 H 89 Pulse Rate [ Bilateral Throughout] Pulse Rate [ From Monitor] Respiratory 13 Rate Respiratory Rate [Bilateral Throughout] Blood Pressure 163/84 163/84 O2 Sat by Pulse 98 Oximetry 12/29/19 12/29/19 12/29/19 00:00 00:52 01:00 Temperature Pulse Rate 86 78 79 Pulse Rate [ Bilateral Throughout] Pulse Rate [ 86 From Monitor] Respiratory 21 17 Rate Respiratory Rate [Bilateral Throughout] Blood Pressure 163/91 163/91 161/90 O2 Sat by Pulse 99 100 Oximetry 12/29/19 12/29/19 12/29/19 02:00 03:00 03:34 Temperature 98.8 F Pulse Rate 90 79 Pulse Rate [ Bilateral Throughout] Pulse Rate [ From Monitor] Respiratory 22 19 Rate Respiratory Rate [Bilateral Throughout] Blood Pressure 150/93 166/83 O2 Sat by Pulse 100 100 Oximetry 12/29/19 12/29/19 12/29/19 04:00 05:00 05:09 Temperature Pulse Rate 81 81 80 Pulse Rate [ Bilateral Throughout] Pulse Rate [ 78 From Monitor] Respiratory 16 18 Rate Respiratory Rate [Bilateral Throughout] Blood Pressure 159/86 154/66 O2 Sat by Pulse 100 100 Oximetry 12/29/19 12/29/19 12/29/19 06:01 06:41 07:00 Temperature Pulse Rate 88 83 84 Pulse Rate [ Bilateral Throughout] Pulse Rate [ From Monitor] Respiratory 14 19 Rate Respiratory Rate [Bilateral Throughout] Blood Pressure 173/93 173/93 166/80 O2 Sat by Pulse 100 99 Oximetry 12/29/19 12/29/19 12/29/19 07:40 07:42 09:52 Temperature Pulse Rate 96 H Pulse Rate [ 95 H Bilateral Throughout] Pulse Rate [ From Monitor] Respiratory Rate Respiratory 21 Rate [Bilateral Throughout] Blood Pressure 148/94 O2 Sat by Pulse 100 Oximetry Constitutional: no acute distress, comatose, appears uncomfortable Eyes: non-icteric ENT: oropharynx moist, other (orally intubated) Neck: supple Effort: normal Ascultation: Bilateral: clear Percussion: Bilateral: not dull Cardiovascular: regular rate and rhythm Gastrointestinal: normoactive bowel sounds, soft Extremities: no edema, other (multiple tattoos, everywhere) Neurologic: unable to assess CBC and BMP: 12/29/19 04:07 12/29/19 04:07 ABG, PT/INR, D-dimer: ABG ABG pH 7.394 pH Units (7.350-7.450) 12/28/19 03:55 ABG pCO2 33.0 mm Hg 12/28/19 03:55 ABG pO2 105.5 mm Hg (80.0-90.0) H 12/28/19 03:55 ABG O2 Saturation 97.9 % (95.0-99.0) 12/28/19 03:55 PT/INR, D-dimer PT 18.3 Sec. (12.2-14.9) H 12/26/19 07:44 INR 1.49 (0.87-1.13) H 12/26/19 07:44 Abnormal lab findings: Abnormal Labs 12/25/19 12/25/19 12/25/19 10:13 10:13 10:13 WBC 12.0 H RBC Hgb Hct MCV 96 H Lymph % (Auto) 6.7 L Lymph # 0.8 L Seg Neutrophils % 87.8 H Seg Neutrophils # 10.6 H PT 15.1 H INR 1.17 H Heparin Anti-Xa Level ABG pO2 ABG HCO3 ABG O2 Saturation ABG Base Excess ABG Hemoglobin Potassium Chloride Carbon Dioxide 16 L BUN 23 H Creatinine 1.8 H Glucose 482 H POC Glucose Lactic Acid Calcium AST 49 H Total Creatine Kinase 2995 H CK-MB (CK-2) 16.8 H Troponin T 0.992 H* Total Protein Albumin 3.5 L Cholesterol 325 H LDL Cholesterol Direct 249 H HDL Cholesterol 74 H 12/25/19 12/25/19 12/25/19 10:45 11:33 12:57 WBC RBC Hgb Hct MCV Lymph % (Auto) Lymph # Seg Neutrophils % Seg Neutrophils # PT INR Heparin Anti-Xa Level ABG pO2 269.6 H ABG HCO3 16.7 L ABG O2 Saturation 99.5 H ABG Base Excess -5.8 L ABG Hemoglobin 13.4 L Potassium Chloride Carbon Dioxide BUN Creatinine Glucose POC Glucose Lactic Acid 8.30 H* 6.00 H* Calcium AST Total Creatine Kinase CK-MB (CK-2) Troponin T Total Protein Albumin Cholesterol LDL Cholesterol Direct HDL Cholesterol 12/25/19 12/25/19 12/25/19 16:37 20:58 22:22 WBC RBC Hgb Hct MCV Lymph % (Auto) Lymph # Seg Neutrophils % Seg Neutrophils # PT INR Heparin Anti-Xa Level ABG pO2 ABG HCO3 ABG O2 Saturation ABG Base Excess ABG Hemoglobin Potassium Chloride Carbon Dioxide BUN Creatinine Glucose POC Glucose Lactic Acid 3.30 H* 3.50 H* 2.10 H* Calcium AST Total Creatine Kinase CK-MB (CK-2) Troponin T Total Protein Albumin Cholesterol LDL Cholesterol Direct HDL Cholesterol 12/26/19 12/26/19 12/26/19 04:30 05:16 05:16 WBC RBC Hgb 11.7 L Hct 35.4 L MCV 95 H Lymph % (Auto) 9.0 L Lymph # 1.0 L Seg Neutrophils % 87.3 H Seg Neutrophils # 9.2 H PT INR Heparin Anti-Xa Level ABG pO2 188.0 H ABG HCO3 15.0 L ABG O2 Saturation 99.2 H ABG Base Excess -8.6 L ABG Hemoglobin 12.4 L Potassium Chloride Carbon Dioxide 14 L BUN 39 H Creatinine 2.0 H Glucose 545 H* POC Glucose Lactic Acid Calcium 8.0 L AST 70 H Total Creatine Kinase CK-MB (CK-2) Troponin T Total Protein 6.1 L Albumin 2.6 L Cholesterol LDL Cholesterol Direct HDL Cholesterol 12/26/19 12/26/19 12/26/19 07:44 07:44 07:44 WBC RBC Hgb Hct MCV Lymph % (Auto) Lymph # Seg Neutrophils % Seg Neutrophils # PT 18.3 H INR 1.49 H Heparin Anti-Xa Level ABG pO2 ABG HCO3 ABG O2 Saturation ABG Base Excess ABG Hemoglobin Potassium Chloride Carbon Dioxide BUN Creatinine Glucose POC Glucose Lactic Acid Calcium AST Total Creatine Kinase 4251 H CK-MB (CK-2) Troponin T 0.641 H* D Total Protein Albumin Cholesterol LDL Cholesterol Direct HDL Cholesterol 12/26/19 12/26/19 12/26/19 08:26 08:59 10:26 WBC RBC Hgb Hct MCV Lymph % (Auto) Lymph # Seg Neutrophils % Seg Neutrophils # PT INR Heparin Anti-Xa Level ABG pO2 ABG HCO3 ABG O2 Saturation ABG Base Excess ABG Hemoglobin Potassium Chloride 108.1 H Carbon Dioxide 14 L BUN 40 H Creatinine 1.9 H Glucose 497 H POC Glucose 438 H 434 H Lactic Acid Calcium 8.2 L AST Total Creatine Kinase CK-MB (CK-2) Troponin T Total Protein Albumin Cholesterol LDL Cholesterol Direct HDL Cholesterol 12/26/19 12/26/19 12/26/19 11:49 12:56 13:37 WBC RBC Hgb Hct MCV Lymph % (Auto) Lymph # Seg Neutrophils % Seg Neutrophils # PT INR Heparin Anti-Xa Level ABG pO2 ABG HCO3 ABG O2 Saturation ABG Base Excess ABG Hemoglobin Potassium Chloride Carbon Dioxide BUN Creatinine Glucose POC Glucose 371 H 351 H 364 H Lactic Acid Calcium AST Total Creatine Kinase CK-MB (CK-2) Troponin T Total Protein Albumin Cholesterol LDL Cholesterol Direct HDL Cholesterol 12/26/19 12/26/19 12/26/19 14:00 14:00 14:44 WBC RBC Hgb Hct MCV Lymph % (Auto) Lymph # Seg Neutrophils % Seg Neutrophils # PT INR Heparin Anti-Xa Level < 0.10 L ABG pO2 ABG HCO3 ABG O2 Saturation ABG Base Excess ABG Hemoglobin Potassium Chloride Carbon Dioxide BUN Creatinine Glucose POC Glucose 250 H Lactic Acid Calcium AST Total Creatine Kinase CK-MB (CK-2) Troponin T 0.595 H* Total Protein Albumin Cholesterol LDL Cholesterol Direct HDL Cholesterol 12/26/19 12/26/19 12/26/19 15:40 16:36 17:52 WBC RBC Hgb Hct MCV Lymph % (Auto) Lymph # Seg Neutrophils % Seg Neutrophils # PT INR Heparin Anti-Xa Level ABG pO2 ABG HCO3 ABG O2 Saturation ABG Base Excess ABG Hemoglobin Potassium Chloride Carbon Dioxide BUN Creatinine Glucose POC Glucose 225 H 253 H 225 H Lactic Acid Calcium AST Total Creatine Kinase CK-MB (CK-2) Troponin T Total Protein Albumin Cholesterol LDL Cholesterol Direct HDL Cholesterol 12/26/19 12/26/19 12/26/19 18:35 18:35 18:58 WBC RBC Hgb Hct MCV Lymph % (Auto) Lymph # Seg Neutrophils % Seg Neutrophils # PT INR Heparin Anti-Xa Level ABG pO2 ABG HCO3 ABG O2 Saturation ABG Base Excess ABG Hemoglobin Potassium Chloride 109.1 H Carbon Dioxide 20 L BUN 42 H Creatinine 1.7 H Glucose 234 H POC Glucose 210 H Lactic Acid Calcium 8.3 L AST Total Creatine Kinase CK-MB (CK-2) Troponin T 0.544 H* Total Protein Albumin Cholesterol LDL Cholesterol Direct HDL Cholesterol 12/26/19 12/26/19 12/26/19 20:33 21:29 22:14 WBC RBC Hgb Hct MCV Lymph % (Auto) Lymph # Seg Neutrophils % Seg Neutrophils # PT INR Heparin Anti-Xa Level ABG pO2 ABG HCO3 ABG O2 Saturation ABG Base Excess ABG Hemoglobin Potassium Chloride Carbon Dioxide BUN Creatinine Glucose POC Glucose 215 H 202 H 197 H Lactic Acid Calcium AST Total Creatine Kinase CK-MB (CK-2) Troponin T Total Protein Albumin Cholesterol LDL Cholesterol Direct HDL Cholesterol 12/26/19 12/27/19 12/27/19 23:19 00:27 00:54 WBC RBC Hgb Hct MCV Lymph % (Auto) Lymph # Seg Neutrophils % Seg Neutrophils # PT INR Heparin Anti-Xa Level ABG pO2 ABG HCO3 ABG O2 Saturation ABG Base Excess ABG Hemoglobin Potassium Chloride 110.0 H Carbon Dioxide 21 L BUN 43 H Creatinine 1.7 H Glucose 161 H POC Glucose 168 H 152 H Lactic Acid Calcium 8.3 L AST Total Creatine Kinase CK-MB (CK-2) Troponin T Total Protein Albumin Cholesterol LDL Cholesterol Direct HDL Cholesterol 12/27/19 12/27/19 12/27/19 01:12 02:06 03:11 WBC RBC Hgb Hct MCV Lymph % (Auto) Lymph # Seg Neutrophils % Seg Neutrophils # PT INR Heparin Anti-Xa Level ABG pO2 ABG HCO3 ABG O2 Saturation ABG Base Excess ABG Hemoglobin Potassium Chloride Carbon Dioxide BUN Creatinine Glucose POC Glucose 150 H 145 H 152 H Lactic Acid Calcium AST Total Creatine Kinase CK-MB (CK-2) Troponin T Total Protein Albumin Cholesterol LDL Cholesterol Direct HDL Cholesterol 12/27/19 12/27/19 12/27/19 04:15 04:19 05:09 WBC RBC Hgb Hct MCV Lymph % (Auto) Lymph # Seg Neutrophils % Seg Neutrophils # PT INR Heparin Anti-Xa Level ABG pO2 120.5 H ABG HCO3 ABG O2 Saturation ABG Base Excess -4.4 L ABG Hemoglobin 7.0 L Potassium Chloride Carbon Dioxide BUN Creatinine Glucose POC Glucose 157 H 153 H Lactic Acid Calcium AST Total Creatine Kinase CK-MB (CK-2) Troponin T Total Protein Albumin Cholesterol LDL Cholesterol Direct HDL Cholesterol 12/27/19 12/27/19 12/27/19 05:53 05:53 05:53 WBC RBC Hgb Hct MCV Lymph % (Auto) Lymph # Seg Neutrophils % Seg Neutrophils # PT INR Heparin Anti-Xa Level ABG pO2 ABG HCO3 ABG O2 Saturation ABG Base Excess ABG Hemoglobin Potassium Chloride 110.6 H Carbon Dioxide 18 L BUN 45 H Creatinine 1.9 H Glucose 163 H POC Glucose Lactic Acid Calcium AST 68 H Total Creatine Kinase 1599 H CK-MB (CK-2) Troponin T 0.522 H* Total Protein 5.8 L Albumin 2.5 L Cholesterol LDL Cholesterol Direct HDL Cholesterol 12/27/19 12/27/19 12/27/19 06:16 06:54 08:13 WBC RBC Hgb Hct MCV Lymph % (Auto) Lymph # Seg Neutrophils % Seg Neutrophils # PT INR Heparin Anti-Xa Level ABG pO2 ABG HCO3 ABG O2 Saturation ABG Base Excess ABG Hemoglobin Potassium Chloride Carbon Dioxide BUN Creatinine Glucose POC Glucose 142 H 134 H 132 H Lactic Acid Calcium AST Total Creatine Kinase CK-MB (CK-2) Troponin T Total Protein Albumin Cholesterol LDL Cholesterol Direct HDL Cholesterol 12/27/19 12/27/19 12/27/19 09:25 10:20 11:22 WBC RBC Hgb Hct MCV Lymph % (Auto) Lymph # Seg Neutrophils % Seg Neutrophils # PT INR Heparin Anti-Xa Level ABG pO2 ABG HCO3 ABG O2 Saturation ABG Base Excess ABG Hemoglobin Potassium Chloride Carbon Dioxide BUN Creatinine Glucose POC Glucose 117 H 119 H 133 H Lactic Acid Calcium AST Total Creatine Kinase CK-MB (CK-2) Troponin T Total Protein Albumin Cholesterol LDL Cholesterol Direct HDL Cholesterol 12/27/19 12/27/19 12/27/19 12:21 13:25 13:52 WBC RBC Hgb Hct MCV Lymph % (Auto) Lymph # Seg Neutrophils % Seg Neutrophils # PT INR Heparin Anti-Xa Level ABG pO2 ABG HCO3 ABG O2 Saturation ABG Base Excess ABG Hemoglobin Potassium Chloride 111.1 H Carbon Dioxide 18 L BUN 44 H Creatinine 1.8 H Glucose 118 H POC Glucose 121 H 136 H Lactic Acid Calcium 7.9 L AST Total Creatine Kinase CK-MB (CK-2) Troponin T Total Protein Albumin Cholesterol LDL Cholesterol Direct HDL Cholesterol 12/27/19 12/27/19 12/27/19 15:05 18:14 18:48 WBC RBC Hgb Hct MCV Lymph % (Auto) Lymph # Seg Neutrophils % Seg Neutrophils # PT INR Heparin Anti-Xa Level ABG pO2 ABG HCO3 ABG O2 Saturation ABG Base Excess ABG Hemoglobin Potassium Chloride Carbon Dioxide BUN Creatinine Glucose POC Glucose 166 H 135 H Lactic Acid Calcium AST Total Creatine Kinase 1274 H CK-MB (CK-2) Troponin T Total Protein Albumin Cholesterol LDL Cholesterol Direct HDL Cholesterol 12/27/19 12/27/19 12/28/19 21:14 22:23 01:57 WBC RBC Hgb Hct MCV Lymph % (Auto) Lymph # Seg Neutrophils % Seg Neutrophils # PT INR Heparin Anti-Xa Level 0.24 L ABG pO2 ABG HCO3 ABG O2 Saturation ABG Base Excess ABG Hemoglobin Potassium Chloride Carbon Dioxide BUN Creatinine Glucose POC Glucose 186 H 193 H Lactic Acid Calcium AST Total Creatine Kinase CK-MB (CK-2) Troponin T Total Protein Albumin Cholesterol LDL Cholesterol Direct HDL Cholesterol 12/28/19 12/28/19 12/28/19 03:55 04:58 09:04 WBC RBC Hgb Hct MCV Lymph % (Auto) Lymph # Seg Neutrophils % Seg Neutrophils # PT INR Heparin Anti-Xa Level ABG pO2 105.5 H ABG HCO3 19.7 L ABG O2 Saturation ABG Base Excess -4.4 L ABG Hemoglobin 11.1 L Potassium Chloride Carbon Dioxide BUN Creatinine Glucose POC Glucose 182 H 168 H Lactic Acid Calcium AST Total Creatine Kinase CK-MB (CK-2) Troponin T Total Protein Albumin Cholesterol LDL Cholesterol Direct HDL Cholesterol 12/28/19 12/28/19 12/28/19 09:31 09:31 09:31 WBC 12.0 H RBC 3.60 L Hgb 11.2 L Hct 35.2 L MCV 98 H Lymph % (Auto) Lymph # Seg Neutrophils % Seg Neutrophils # PT INR Heparin Anti-Xa Level ABG pO2 ABG HCO3 ABG O2 Saturation ABG Base Excess ABG Hemoglobin Potassium Chloride 108.9 H Carbon Dioxide 17 L BUN 39 H Creatinine Glucose 197 H POC Glucose Lactic Acid Calcium AST Total Creatine Kinase 804 H CK-MB (CK-2) Troponin T 0.479 H* Total Protein Albumin 2.8 L Cholesterol LDL Cholesterol Direct HDL Cholesterol 12/28/19 12/28/19 12/28/19 09:31 12:57 17:24 WBC RBC Hgb Hct MCV Lymph % (Auto) Lymph # Seg Neutrophils % Seg Neutrophils # PT INR Heparin Anti-Xa Level 0.23 L ABG pO2 ABG HCO3 ABG O2 Saturation ABG Base Excess ABG Hemoglobin Potassium Chloride Carbon Dioxide BUN Creatinine Glucose POC Glucose 150 H 269 H Lactic Acid Calcium AST Total Creatine Kinase CK-MB (CK-2) Troponin T Total Protein Albumin Cholesterol LDL Cholesterol Direct HDL Cholesterol 12/28/19 12/28/19 12/28/19 18:15 18:15 22:03 WBC RBC Hgb Hct MCV Lymph % (Auto) Lymph # Seg Neutrophils % Seg Neutrophils # PT INR Heparin Anti-Xa Level 0.26 L ABG pO2 ABG HCO3 ABG O2 Saturation ABG Base Excess ABG Hemoglobin Potassium Chloride Carbon Dioxide BUN Creatinine Glucose POC Glucose 244 H Lactic Acid Calcium AST Total Creatine Kinase 735 H CK-MB (CK-2) Troponin T Total Protein Albumin Cholesterol LDL Cholesterol Direct HDL Cholesterol 12/29/19 12/29/19 12/29/19 00:40 02:13 04:07 WBC 11.8 H RBC 3.43 L Hgb 10.8 L Hct 32.7 L MCV 95 H Lymph % (Auto) Lymph # Seg Neutrophils % Seg Neutrophils # PT INR Heparin Anti-Xa Level 0.16 L ABG pO2 ABG HCO3 ABG O2 Saturation ABG Base Excess ABG Hemoglobin Potassium Chloride Carbon Dioxide BUN Creatinine Glucose POC Glucose 137 H Lactic Acid Calcium AST Total Creatine Kinase CK-MB (CK-2) Troponin T Total Protein Albumin Cholesterol LDL Cholesterol Direct HDL Cholesterol 12/29/19 12/29/19 04:07 08:58 WBC RBC Hgb Hct MCV Lymph % (Auto) Lymph # Seg Neutrophils % Seg Neutrophils # PT INR Heparin Anti-Xa Level ABG pO2 ABG HCO3 ABG O2 Saturation ABG Base Excess ABG Hemoglobin Potassium 3.3 L Chloride 108.5 H Carbon Dioxide 20 L BUN 26 H Creatinine Glucose POC Glucose 168 H Lactic Acid Calcium 8.2 L AST Total Creatine Kinase CK-MB (CK-2) Troponin T Total Protein Albumin Cholesterol LDL Cholesterol Direct HDL Cholesterol
[2019-12-29] MEDS: INSULIN NPH/REGULAR 70/30 INJ SUB-Q SCH ×2 (10:18→17:00)
--- NOTE | 2019-12-29 10:40 | Progress Note ---
Assessment and Plan Assessment and plan: Acute respiratory failure was Intubated, now extubated on 12/27 Pulm following DKA, now resolved Discontinued Insulin drip Continue Novolin 70/30 bid Diabetes mellitus Acute encephalopathy Etiology unclear SIRS versus Sepsis Cont IV Cefepime IV Fluids and IV vancomycin for now Has Rt Perihilar infitrate--Pneumonia versusCHF Consulted ID to determine NSTEMI Serial troponins IV Heparin drip Cardiology following For cardiac cath when stable SVT Rhabdomyolysis CK improving IV fluids for now Monitor ck levels Hyperlipidemia Statins DVT prophylaxis On IV Heparin drip 12/28. patient extubated 12/27. Lethargic. Stable to transfer to telemetry History Interval history: Brought to ED for altered mental status, unresponsive,was intubated Extubated yesterday 12/27 Hospitalist Physical - Physical exam Narrative exam: GEN: Not in acute distress, lying in bed, HEENT: Normocephalic, atraumatic, Neck: supple, No JVD Lungs: Clear , no crackles, heart;S1 and S2 reg, no murmurs, rubs or gallop Abd:soft, non tender, non distended, normal bowel sounds Ext: No edema, no clubbing, no cyanosis, Neuro: lethargic, follows commands - Constitutional Vitals: Temp Pulse Resp BP Pulse Ox 98.8 F 96 H 21 148/94 100 12/29/19 03:34 12/29/19 09:52 12/29/19 07:42 12/29/19 09:52 12/29/19 07:40 General appearance: Present: other (intubated, unresponsive) Results - Labs CBC & Chem 7: 12/30/19 05:07 12/29/19 04:07 Labs: Laboratory Last Values WBC 11.8 K/mm3 (4.5-11.0) H 12/29/19 04:07 RBC 3.43 M/mm3 (3.65-5.03) L 12/29/19 04:07 Hgb 10.8 gm/dl (11.8-15.2) L 12/29/19 04:07 Hct 32.7 % (35.5-45.6) L 12/29/19 04:07 MCV 95 fl (84-94) H 12/29/19 04:07 MCH 32 pg (28-32) 12/29/19 04:07 MCHC 33 % (32-34) 12/29/19 04:07 RDW 13.9 % (13.2-15.2) 12/29/19 04:07 Plt Count 236 K/mm3 (140-440) 12/29/19 04:07 Lymph % (Auto) 9.0 % (13.4-35.0) L 12/26/19 05:16 [place] % (Auto) 3.4 % (0.0-7.3) 12/26/19 05:16 Eos % (Auto) 0.0 % (0.0-4.3) 12/26/19 05:16 Baso % (Auto) 0.3 % (0.0-1.8) 12/26/19 05:16 Lymph # 1.0 K/mm3 (1.2-5.4) L 12/26/19 05:16 [place] # 0.4 K/mm3 (0.0-0.8) 12/26/19 05:16 Eos # 0.0 K/mm3 (0.0-0.4) 12/26/19 05:16 Baso # 0.0 K/mm3 (0.0-0.1) 12/26/19 05:16 Seg Neutrophils % 87.3 % (40.0-70.0) H 12/26/19 05:16 Seg Neutrophils # 9.2 K/mm3 (1.8-7.7) H 12/26/19 05:16 PT 18.3 Sec. (12.2-14.9) H 12/26/19 07:44 INR 1.49 (0.87-1.13) H 12/26/19 07:44 APTT 27.1 Sec. (24.2-36.6) 12/26/19 07:44 Thrombin Time 16.7 Sec. (15.1-19.6) 12/25/19 10:13 Heparin Anti-Xa Level 0.16 U.I./ml (0.3-0.7) L 12/29/19 00:40 ABG pH 7.394 pH Units (7.350-7.450) 12/28/19 03:55 ABG pCO2 33.0 mm Hg 12/28/19 03:55 ABG pO2 105.5 mm Hg (80.0-90.0) H 12/28/19 03:55 ABG HCO3 19.7 mmol/L (20.0-26.0) L 12/28/19 03:55 ABG O2 Saturation 97.9 % (95.0-99.0) 12/28/19 03:55 ABG O2 Content 15.1 (0.0-44) 12/28/19 03:55 ABG Base Excess -4.4 mmol/L (-2.0-3.0) L 12/28/19 03:55 ABG Hemoglobin 11.1 gm/dl (14.0-18.0) L 12/28/19 03:55 ABG Carboxyhemoglobin 1.3 % (0.0-5.0) 12/28/19 03:55 ABG Methemoglobin 0.6 % (0.0-1.5) 12/28/19 03:55 Oxyhemoglobin 96.0 % (95.0-99.0) 12/28/19 03:55 FiO2 25 % 12/28/19 03:55 Sodium 142 mmol/L (137-145) 12/29/19 04:07 Potassium 3.3 mmol/L (3.6-5.0) L 12/29/19 04:07 Chloride 108.5 mmol/L (98-107) H 12/29/19 04:07 Carbon Dioxide 20 mmol/L (22-30) L 12/29/19 04:07 Anion Gap 17 mmol/L 12/29/19 04:07 BUN 26 mg/dL (9-20) H 12/29/19 04:07 Creatinine 1.1 mg/dL (0.8-1.5) 12/29/19 04:07 Estimated GFR > 60 ml/min 12/29/19 04:07 BUN/Creatinine Ratio 24 % 12/29/19 04:07 Glucose 77 mg/dL (75-100) 12/29/19 04:07 POC Glucose 168 (70-105) H 12/29/19 08:58 Hemoglobin A1c 5.1 % (4-6) 12/25/19 19:52 Lactic Acid 1.40 mmol/L (0.7-2.0) 12/26/19 05:16 Calcium 8.2 mg/dL (8.4-10.2) L 12/29/19 04:07 Phosphorus 2.60 mg/dL (2.5-4.5) 12/26/19 08:59 Magnesium 2.20 mg/dL (1.7-2.3) 12/26/19 08:59 Total Bilirubin 0.30 mg/dL (0.1-1.2) 12/28/19 09:31 Direct Bilirubin < 0.2 mg/dL (0-0.2) 12/27/19 05:53 Indirect Bilirubin 0.1 mg/dL 12/27/19 05:53 AST 39 units/L (5-40) 12/28/19 09:31 ALT 33 units/L (7-56) 12/28/19 09:31 Alkaline Phosphatase 91 units/L (35-129) 12/28/19 09:31 Total Creatine Kinase 735 units/L (55-170) H 12/28/19 18:15 CK-MB (CK-2) 16.8 ng/mL (0.0-4.0) H 12/25/19 10:13 CK-MB (CK-2) Rel Index 0.5 (0-4) 12/25/19 10:13 Troponin T 0.479 ng/mL (0.00-0.029) H* 12/28/19 09:31 Total Protein 6.3 g/dL (6.3-8.2) 12/28/19 09:31 Albumin 2.8 g/dL (3.9-5) L 12/28/19 09:31 Albumin/Globulin Ratio 0.8 % 12/28/19 09:31 Triglycerides 137 mg/dL (2-149) 12/25/19 10:13 Cholesterol 325 mg/dL (50-199) H 12/25/19 10:13 LDL Cholesterol Direct 249 mg/dL (50-130) H 12/25/19 10:13 HDL Cholesterol 74 mg/dL (40-59) H 12/25/19 10:13 Cholesterol/HDL Ratio 4.39 % 12/25/19 10:13 Urine Color Yellow (Yellow) 12/25/19 13:50 Urine Turbidity Clear (Clear) 12/25/19 13:50 Urine pH 5.0 (5.0-7.0) 12/25/19 13:50 Ur Specific [place] 1.027 (1.003-1.030) 12/25/19 13:50 Urine Protein >500 mg/dL (Negative) 12/25/19 13:50 Urine Glucose (UA) >=500 mg/dL (Negative) 12/25/19 13:50 Urine Ketones Tr mg/dL (Negative) 12/25/19 13:50 Urine Blood Lg (Negative) 12/25/19 13:50 Urine Nitrite Neg (Negative) 12/25/19 13:50 Urine Bilirubin Neg (Negative) 12/25/19 13:50 Urine Urobilinogen < 2.0 mg/dL (<2.0) 12/25/19 13:50 Ur Leukocyte Esterase Neg (Negative) 12/25/19 13:50 Urine WBC (Auto) 4.0 /HPF (0.0-6.0) 12/25/19 13:50 Urine RBC (Auto) 3.0 /HPF (0.0-6.0) 12/25/19 13:50 U Epithel Cells (Auto) < 1.0 /HPF (0-13.0) 12/25/19 13:50 Urine Mucus Few /HPF 12/25/19 13:50 Urine Opiates Screen Presumptive negative 12/25/19 13:50 Urine Methadone Screen Presumptive negative 12/25/19 13:50 Ur Barbiturates Screen Presumptive negative 12/25/19 13:50 Ur Phencyclidine Scrn Presumptive negative 12/25/19 13:50 Ur Amphetamines Screen Presumptive negative 12/25/19 13:50 U Benzodiazepines Scrn Presumptive negative 12/25/19 13:50 Urine Cocaine Screen Presumptive negative 12/25/19 13:50 U Marijuana (THC) Screen Presumptive negative 12/25/19 13:50 Drugs of Abuse Note Disclamer 12/25/19 13:50 Plasma/Serum Alcohol < 0.01 % (0-0.07) 12/25/19 10:13 [place]/IV: Voiding Method Indwelling Catheter IV Catheter Type [Left Hand] INT / Saline Lock IV Catheter Type [Left Peripheral IV Antecubital] IV Catheter Type [Right Hand] INT / Saline Lock Active Medications - Current Medications Current Medications: Generic Name Dose Route Start Last Admin Trade Name Freq PRN Reason Stop Dose Admin Acetaminophen 650 mg 12/25/19 17:49 12/25/19 22:54 Tylenol PO 650 mg Q4H PRN Administration Pain MILD(1-3)/Fever >100.5/HERNANDEZ Albuterol/Ipratropium 1 ampul 12/25/19 20:00 12/29/19 07:41 Duoneb *Not For Prn Use* IH 1 ampul QIDRT LIBIA Administration Lipase/Protease/Amylase 1 each 12/25/19 17:53 Pancrepeg Sandra 10,500 Unit FEEDTUBE PRN PRN For Clogged Feeding Tube Aspirin 325 mg 12/27/19 10:00 12/29/19 09:52 Aspirin PO 325 mg QDAY LIBIA Administration Atorvastatin Calcium 40 mg 12/26/19 22:00 12/28/19 23:04 Lipitor PO 40 mg QHS LIBIA Administration Dextrose 0 ml 12/26/19 08:50 D50w (25gm) Syringe IV Q30MIN PRN Hypoglycemia Protocol Famotidine 20 mg 12/28/19 10:00 12/29/19 09:52 Pepcid PO 20 mg BID LIBIA Administration Hydralazine HCl 5 mg 12/25/19 21:31 12/29/19 06:41 Apresoline IV 5 mg Q6H PRN Administration Hypertension Hydromorphone HCl 0.5 mg 12/25/19 17:49 12/27/19 15:30 Dilaudid IV 0.5 mg Q3H PRN Administration Pain , Severe (7-10) Hydrophilic Ointment 1 applic 12/25/19 09:13 Vaseline Lip Therapy TP Q2HR PRN Dry Lips Heparin Sodium/Sodium Chloride 25,000 unit in 500 mls @ 20 mls/hr 12/26/19 07:00 12/29/19 02:50 Heparin/ 0.45% Nacl-25,000 Unit/500 Ml IV 1,650 units/hr TITRATE LIBIA 33 mls/hr Titration Protocol 1,000 UNITS/HR Insulin Human Isoph/Insulin Regular 20 unit 12/27/19 14:00 12/29/19 10:18 Humulin 70/30 SUB-Q 20 unit BIDDIAB LIBIA Administration Insulin Human Lispro 0 unit 12/27/19 20:23 12/28/19 04:50 Humalog SUB-Q 1 unit QHS PRN Administration Hyperglycemia Protocol Insulin Human Lispro 0 unit 12/28/19 10:00 12/29/19 10:17 Humalog SUB-Q 2 unit Q4HR LIBIA Administration Protocol Metoprolol Tartrate 50 mg 12/28/19 14:00 12/29/19 09:52 Metoprolol PO 50 mg TID LIBIA Administration Morphine Sulfate 2 mg 12/25/19 17:49 12/28/19 09:12 Morphine IV 2 mg Q4H PRN Administration Pain, Moderate (4-6) Multi-Ingred Cream/Lotion/Oil/Oint 1 applic 12/25/19 09:13 Artificial Tears Ophth Oint OU Q4HR PRN Dry Eye(s) Ondansetron HCl 4 mg 12/25/19 17:49 Zofran IV Q8H PRN Nausea And Vomiting Pregabalin 75 mg 12/26/19 10:00 12/29/19 09:53 Pregabalin PO 75 mg Q12HR LIBIA Administration Simple Syrup 15 ml 12/25/19 17:53 Simple Syrup FEEDTUBE PRN PRN Hypoglycemia Simple Syrup 30 ml 12/25/19 17:53 Simple Syrup FEEDTUBE PRN PRN Hypoglycemia Sodium Bicarbonate 325 mg 12/25/19 17:53 Sodium Bicarbonate FEEDTUBE PRN PRN For Clogged Feeding Tube Sodium Chloride 10 ml 12/25/19 17:49 Sodium Chloride Flush Syringe 10 Ml IV PRN PRN LINE FLUSH Sodium Chloride 10 ml 12/25/19 22:00 12/29/19 10:03 Sodium Chloride Flush Syringe 10 Ml IV 10 ml BID LIBIA Administration Nutrition/Malnutrition Assess - Dietary Evaluation Nutrition/Malnutrition Findings: Nutrition Notes Start: 12/25/19 13:01 Freq: Status: Discharge Protocol: Document 12/28/19 13:18 LM (Rec: 12/28/19 13:22 LM [email or web address] Nutrition Notes Initial or Follow up Reassessment Current Diagnosis Coronary Artery Disease, Diabetes,Sepsis,Hypertension, Respiratory Failure,Stroke, Hyperlipidemia Other Pertinent Diagnosis Pneu, UTI Current Diet Consistent CHO Labs/Tests POC glu 182 Pertinent Medications Humalog Height 6 ft 3 in Weight 93.848 kg [place] Body Weight (kg) 89.09 BMI 25.8 Weight Status Appropriate Subjective/Other Information Pt Extubated today. Diet to advance to Consistent CHO for dinner. Burn Absent Trauma Absent Minimum of two criteria No Muscle Mass Mild Depletion (non-severe) #1 Nutrition Diagnosis Inadequate oral intake As Evidenced by Signs and Symptoms diet advanced to consistent CHO Diagnosis Progress(for reassessment Improved documentation) Is patient on ventilator? No Is Patient Ambulatory and/or Out of Bed No REE-([facility]-confined to bed) [phone] Calculation Used for Recommendations [facility] Additional Notes Protein: 75-94g (0.8-1g/kg) Fluid: 1 ml/kcal Nutrition Intervention Change Diet Order: Consistent CHO Goal #1 Meet at least 75% of energy and protein needs Anticipated Discharge Needs: Consistent CHO Follow-Up By: 01/01/20 Additional Comments F/U for intakes
--- NOTE | 2019-12-29 11:54 | Progress Note ---
Assessment and Plan As per nursing staff patient does have some altered mental status might be his baseline but difficult to determine status post extubation continue medical management for dysfunction and respiratory failure - Patient Problems (1) Acute respiratory failure Current Visit: Yes Status: Acute Qualifiers: Respiratory failure complication: hypoxia Qualified Code(s): J96.01 - Acute respiratory failure with hypoxia (2) Altered mental status Current Visit: Yes Status: Suspected Qualifiers: Altered mental status type: unspecified Qualified Code(s): R41.82 - Altered mental status, unspecified (3) Cardiomyopathy Current Visit: Yes Status: Chronic (4) Lactic acidosis Current Visit: Yes Status: Acute (5) NSTEMI (non-ST elevated myocardial infarction) Current Visit: Yes Status: Acute (6) SVT (supraventricular tachycardia) Current Visit: Yes Status: Acute (7) HTN (hypertension) Current Visit: Yes Status: Chronic Qualifiers: Hypertension type: essential hypertension Qualified Code(s): I10 - Essential (primary) hypertension (8) CAD (coronary artery disease) Current Visit: No Status: Acute Qualifiers: Associated angina: without angina (9) HTN (hypertension) Current Visit: No Status: Acute Qualifiers: Hypertension type: essential hypertension (10) Ischemic stroke of frontal lobe Current Visit: No Status: Acute (11) CVA (cerebral vascular accident) Current Visit: No Status: Chronic Qualifiers: Laterality of affected vessel: unspecified (12) HLD (hyperlipidemia) Current Visit: No Status: Chronic Qualifiers: Hyperlipidemia type: mixed hyperlipidemia Qualified Code(s): E78.2 - Mixed hyperlipidemia Subjective Date of service: 12/29/19 Principal diagnosis: respiratory failure; AMS Interval history: extubated, altered Objective Vital Signs Temp Pulse Pulse Pulse Resp Resp BP 12/29/19 11:01 84 20 163/90 12/29/19 10:00 101 H 20 135/102 12/29/19 09:52 96 H 148/94 12/29/19 09:01 101 H 17 148/94 12/29/19 08:01 104 H 21 150/90 12/29/19 07:42 95 H 21 12/29/19 07:40 12/29/19 07:00 84 19 166/80 12/29/19 06:41 83 173/93 12/29/19 06:01 88 14 173/93 12/29/19 05:09 80 12/29/19 05:00 81 18 154/66 12/29/19 04:00 81 78 16 159/86 12/29/19 03:34 98.8 F 12/29/19 03:00 79 19 166/83 12/29/19 02:00 90 22 150/93 12/29/19 01:00 79 17 161/90 12/29/19 00:52 78 163/91 12/29/19 00:00 86 86 21 163/91 12/28/19 23:31 99 F 12/28/19 23:03 89 163/84 12/28/19 23:01 94 H 13 163/84 12/28/19 23:00 91 H 16 163/84 12/28/19 22:31 93 H 18 162/74 12/28/19 22:00 92 H 15 162/74 12/28/19 21:31 98 H 10 L 189/95 12/28/19 21:01 109 H 20 189/95 12/28/19 20:31 94 H 12 151/77 12/28/19 20:09 105 H 18 12/28/19 20:07 12/28/19 20:00 99.2 F 80 80 12 151/77 12/28/19 19:31 95 H 12 158/83 12/28/19 19:01 88 13 158/83 12/28/19 18:31 86 20 166/88 12/28/19 18:18 94 H 172/99 12/28/19 18:01 83 15 170/100 12/28/19 17:53 76 18 12/28/19 17:31 83 15 145/79 12/28/19 17:01 89 12 145/79 12/28/19 16:31 76 14 145/79 12/28/19 16:00 98.8 F 81 16 145/79 12/28/19 15:31 91 H 18 140/73 12/28/19 15:00 90 17 140/73 12/28/19 14:41 94 H 160/104 12/28/19 14:31 87 15 160/104 12/28/19 14:00 81 14 160/104 12/28/19 13:31 71 13 157/88 12/28/19 13:00 74 13 157/88 12/28/19 12:31 72 15 156/92 12/28/19 12:00 98.8 F 74 14 156/92 12/28/19 11:52 75 18 Pulse Ox 12/29/19 11:01 100 12/29/19 10:00 98 12/29/19 09:52 12/29/19 09:01 99 12/29/19 08:01 100 12/29/19 07:42 12/29/19 07:40 100 12/29/19 07:00 99 12/29/19 06:41 12/29/19 06:01 100 12/29/19 05:09 12/29/19 05:00 100 12/29/19 04:00 100 12/29/19 03:34 12/29/19 03:00 100 12/29/19 02:00 100 12/29/19 01:00 100 12/29/19 00:52 12/29/19 00:00 99 12/28/19 23:31 12/28/19 23:03 12/28/19 23:01 98 12/28/19 23:00 98 12/28/19 22:31 97 12/28/19 22:00 98 12/28/19 21:31 98 12/28/19 21:01 100 12/28/19 20:31 99 12/28/19 20:09 12/28/19 20:07 96 12/28/19 20:00 98 12/28/19 19:31 98 12/28/19 19:01 98 12/28/19 18:31 98 12/28/19 18:18 12/28/19 18:01 100 12/28/19 17:53 12/28/19 17:31 100 12/28/19 17:01 99 12/28/19 16:31 12/28/19 16:00 99 12/28/19 15:31 99 12/28/19 15:00 98 12/28/19 14:41 12/28/19 14:31 97 12/28/19 14:00 99 12/28/19 13:31 99 12/28/19 13:00 100 12/28/19 12:31 100 12/28/19 12:00 100 12/28/19 11:52 - Physical Examination General: Other (intubated, alert) HEENT: Positive: PERRL Neck: Positive: neck supple, trachea midline Cardiac: Positive: Tachycardia Lungs: Positive: Decreased Breath Sounds Neuro: Positive: Other (intubated, alert) Abdomen: Negative: Tender Skin: Negative: Rash Extremities: Absent: edema - Labs and Meds CBC 12/29/19 Range/Units 04:07 WBC 11.8 H (4.5-11.0) K/mm3 RBC 3.43 L (3.65-5.03) M/mm3 Hgb 10.8 L (11.8-15.2) gm/dl Hct 32.7 L (35.5-45.6) % Plt Count 236 (140-440) K/mm3 Comprehensive Metabolic Panel 12/29/19 Range/Units 04:07 Sodium 142 (137-145) mmol/L Potassium 3.3 L (3.6-5.0) mmol/L Chloride 108.5 H (98-107) mmol/L Carbon Dioxide 20 L (22-30) mmol/L BUN 26 H (9-20) mg/dL Creatinine 1.1 (0.8-1.5) mg/dL Glucose 77 (75-100) mg/dL Calcium 8.2 L (8.4-10.2) mg/dL - Imaging and Cardiology EKG: report reviewed, image reviewed Echo: report reviewed (EF 30-35%, mild LVH, impaired relaxation) - Telemetry EKG Rhythm: Sinus Tachycardia - EKG Sinus rhythms and dysrhythmias: sinus tachycardia Myocardial infarction: septal [place] (old age or ind, anterior [place] (old age or i
[2019-12-29] MEDS: HEPARIN/ 0.45% NACL DRIP 25,000 UNIT/500 ML BAG IV SCH (13:11)
[2019-12-30] MEDS: HEPARIN/ 0.45% NACL DRIP 25,000 UNIT/500 ML BAG IV SCH (05:33)
[2019-12-30] MEDS: hydrALAZINE 20 MG/1 ML INJ IV PRN (05:37)
[2019-12-30 05:59] LABS: Hematocrit 32.4 % (35.5-45.6); Hemoglobin 10.9 gm/dl (11.8-15.2)
[2019-12-30] MEDS: METOPROLOL TARTRATE 25 MG TAB PO SCH ×3 (09:14→22:50)
[2019-12-30] MEDS: FAMOTIDINE 20 MG TAB PO SCH ×2 (09:14→22:50)
[2019-12-30] MEDS: PREGABALIN 75 MG CAP PO SCH ×2 (09:14→22:50)
[2019-12-30] MEDS: ASPIRIN 325 MG TAB PO SCH (09:14)
[2019-12-30] MEDS: INSULIN LISPRO 100 UNIT/ML SUB-Q SCH ×4 (09:20→22:50)
--- NOTE | 2019-12-30 11:13 | Progress Note ---
Assessment and Plan Assessment and plan: Acute respiratory failure was Intubated, now extubated on 12/27 Pulm following DKA, now resolved Discontinued Insulin drip Continue Novolin 70/30 bid Diabetes mellitus Acute encephalopathy Etiology unclear SIRS versus Sepsis Cont IV Cefepime IV Fluids and IV vancomycin for now Has Rt Perihilar infitrate--Pneumonia versusCHF Consulted ID to determine NSTEMI Serial troponins Cardiology following For cardiac cath when stable SVT Rhabdomyolysis CK improving IV fluids for now Monitor ck levels Hyperlipidemia Statins DVT prophylaxis On IV Heparin drip 12/28. patient extubated 12/27. Lethargic. Stable to transfer to telemetry 12/29 Feels better, lethargic. Nurse had mentioned family says he had baseline cognitive . Will call and get more info from family. Discussed case with Dr. davidson. History Interval history: Brought to ED for altered mental status, unresponsive,was intubated Extubated 12/27 Hospitalist Physical - Physical exam Narrative exam: GEN: Not in acute distress, lying in bed, HEENT: Normocephalic, atraumatic, Neck: supple, No JVD Lungs: Clear , no crackles, heart;S1 and S2 reg, no murmurs, rubs or gallop Abd:soft, non tender, non distended, normal bowel sounds Ext: No edema, no clubbing, no cyanosis, Neuro: lethargic, follows commands - Constitutional Vitals: Temp Pulse Resp BP Pulse Ox 97.9 F 89 18 175/94 97 12/30/19 08:35 12/30/19 09:14 12/30/19 08:35 12/30/19 09:14 12/30/19 08:35 General appearance: Present: other (intubated, unresponsive) Results - Labs CBC & Chem 7: 12/30/19 05:07 12/29/19 04:07 Labs: Laboratory Last Values WBC 11.8 K/mm3 (4.5-11.0) H 12/29/19 04:07 RBC 3.43 M/mm3 (3.65-5.03) L 12/29/19 04:07 Hgb 10.9 gm/dl (11.8-15.2) L 12/30/19 05:07 Hct 32.4 % (35.5-45.6) L 12/30/19 05:07 MCV 95 fl (84-94) H 12/29/19 04:07 MCH 32 pg (28-32) 12/29/19 04:07 MCHC 33 % (32-34) 12/29/19 04:07 RDW 13.9 % (13.2-15.2) 12/29/19 04:07 Plt Count 243 K/mm3 (140-440) 12/30/19 05:07 Lymph % (Auto) 9.0 % (13.4-35.0) L 12/26/19 05:16 [place] % (Auto) 3.4 % (0.0-7.3) 12/26/19 05:16 Eos % (Auto) 0.0 % (0.0-4.3) 12/26/19 05:16 Baso % (Auto) 0.3 % (0.0-1.8) 12/26/19 05:16 Lymph # 1.0 K/mm3 (1.2-5.4) L 12/26/19 05:16 [place] # 0.4 K/mm3 (0.0-0.8) 12/26/19 05:16 Eos # 0.0 K/mm3 (0.0-0.4) 12/26/19 05:16 Baso # 0.0 K/mm3 (0.0-0.1) 12/26/19 05:16 Seg Neutrophils % 87.3 % (40.0-70.0) H 12/26/19 05:16 Seg Neutrophils # 9.2 K/mm3 (1.8-7.7) H 12/26/19 05:16 PT 18.3 Sec. (12.2-14.9) H 12/26/19 07:44 INR 1.49 (0.87-1.13) H 12/26/19 07:44 APTT 27.1 Sec. (24.2-36.6) 12/26/19 07:44 Thrombin Time 16.7 Sec. (15.1-19.6) 12/25/19 10:13 Heparin Anti-Xa Level 0.20 U.I./ml (0.3-0.7) L 12/30/19 08:00 ABG pH 7.394 pH Units (7.350-7.450) 12/28/19 03:55 ABG pCO2 33.0 mm Hg 12/28/19 03:55 ABG pO2 105.5 mm Hg (80.0-90.0) H 12/28/19 03:55 ABG HCO3 19.7 mmol/L (20.0-26.0) L 12/28/19 03:55 ABG O2 Saturation 97.9 % (95.0-99.0) 12/28/19 03:55 ABG O2 Content 15.1 (0.0-44) 12/28/19 03:55 ABG Base Excess -4.4 mmol/L (-2.0-3.0) L 12/28/19 03:55 ABG Hemoglobin 11.1 gm/dl (14.0-18.0) L 12/28/19 03:55 ABG Carboxyhemoglobin 1.3 % (0.0-5.0) 12/28/19 03:55 ABG Methemoglobin 0.6 % (0.0-1.5) 12/28/19 03:55 Oxyhemoglobin 96.0 % (95.0-99.0) 12/28/19 03:55 FiO2 25 % 12/28/19 03:55 Sodium 142 mmol/L (137-145) 12/29/19 04:07 Potassium 3.3 mmol/L (3.6-5.0) L 12/29/19 04:07 Chloride 108.5 mmol/L (98-107) H 12/29/19 04:07 Carbon Dioxide 20 mmol/L (22-30) L 12/29/19 04:07 Anion Gap 17 mmol/L 12/29/19 04:07 BUN 26 mg/dL (9-20) H 12/29/19 04:07 Creatinine 1.1 mg/dL (0.8-1.5) 12/29/19 04:07 Estimated GFR > 60 ml/min 12/29/19 04:07 BUN/Creatinine Ratio 24 % 12/29/19 04:07 Glucose 77 mg/dL (75-100) 12/29/19 04:07 POC Glucose 117 (70-105) H 12/30/19 09:08 Hemoglobin A1c 5.1 % (4-6) 12/25/19 19:52 Lactic Acid 1.40 mmol/L (0.7-2.0) 12/26/19 05:16 Calcium 8.2 mg/dL (8.4-10.2) L 12/29/19 04:07 Phosphorus 2.60 mg/dL (2.5-4.5) 12/26/19 08:59 Magnesium 2.20 mg/dL (1.7-2.3) 12/26/19 08:59 Total Bilirubin 0.30 mg/dL (0.1-1.2) 12/28/19 09:31 Direct Bilirubin < 0.2 mg/dL (0-0.2) 12/27/19 05:53 Indirect Bilirubin 0.1 mg/dL 12/27/19 05:53 AST 39 units/L (5-40) 12/28/19 09:31 ALT 33 units/L (7-56) 12/28/19 09:31 Alkaline Phosphatase 91 units/L (35-129) 12/28/19 09:31 Total Creatine Kinase 735 units/L (55-170) H 12/28/19 18:15 CK-MB (CK-2) 16.8 ng/mL (0.0-4.0) H 12/25/19 10:13 CK-MB (CK-2) Rel Index 0.5 (0-4) 12/25/19 10:13 Troponin T 0.479 ng/mL (0.00-0.029) H* 12/28/19 09:31 Total Protein 6.3 g/dL (6.3-8.2) 12/28/19 09:31 Albumin 2.8 g/dL (3.9-5) L 12/28/19 09:31 Albumin/Globulin Ratio 0.8 % 12/28/19 09:31 Triglycerides 137 mg/dL (2-149) 12/25/19 10:13 Cholesterol 325 mg/dL (50-199) H 12/25/19 10:13 LDL Cholesterol Direct 249 mg/dL (50-130) H 12/25/19 10:13 HDL Cholesterol 74 mg/dL (40-59) H 12/25/19 10:13 Cholesterol/HDL Ratio 4.39 % 12/25/19 10:13 Urine Color Yellow (Yellow) 12/25/19 13:50 Urine Turbidity Clear (Clear) 12/25/19 13:50 Urine pH 5.0 (5.0-7.0) 12/25/19 13:50 Ur Specific [place] 1.027 (1.003-1.030) 12/25/19 13:50 Urine Protein >500 mg/dL (Negative) 12/25/19 13:50 Urine Glucose (UA) >=500 mg/dL (Negative) 12/25/19 13:50 Urine Ketones Tr mg/dL (Negative) 12/25/19 13:50 Urine Blood Lg (Negative) 12/25/19 13:50 Urine Nitrite Neg (Negative) 12/25/19 13:50 Urine Bilirubin Neg (Negative) 12/25/19 13:50 Urine Urobilinogen < 2.0 mg/dL (<2.0) 12/25/19 13:50 Ur Leukocyte Esterase Neg (Negative) 12/25/19 13:50 Urine WBC (Auto) 4.0 /HPF (0.0-6.0) 12/25/19 13:50 Urine RBC (Auto) 3.0 /HPF (0.0-6.0) 12/25/19 13:50 U Epithel Cells (Auto) < 1.0 /HPF (0-13.0) 12/25/19 13:50 Urine Mucus Few /HPF 12/25/19 13:50 Urine Opiates Screen Presumptive negative 12/25/19 13:50 Urine Methadone Screen Presumptive negative 12/25/19 13:50 Ur Barbiturates Screen Presumptive negative 12/25/19 13:50 Ur Phencyclidine Scrn Presumptive negative 12/25/19 13:50 Ur Amphetamines Screen Presumptive negative 12/25/19 13:50 U Benzodiazepines Scrn Presumptive negative 12/25/19 13:50 Urine Cocaine Screen Presumptive negative 12/25/19 13:50 U Marijuana (THC) Screen Presumptive negative 12/25/19 13:50 Drugs of Abuse Note Disclamer 12/25/19 13:50 Plasma/Serum Alcohol < 0.01 % (0-0.07) 12/25/19 10:13 Gal[place]za/IV: Voiding Method Condom Catheter IV Catheter Type [Left Hand] INT / Saline Lock IV Catheter Type [Left Peripheral IV Antecubital] IV Catheter Type [Right Hand] INT / Saline Lock Active Medications - Current Medications Current Medications: Generic Name Dose Route Start Last Admin Trade Name Freq PRN Reason Stop Dose Admin Acetaminophen 650 mg 12/25/19 17:49 12/25/19 22:54 Tylenol PO 650 mg Q4H PRN Administration Pain MILD(1-3)/Fever >100.5/HERNANDEZ Aspirin 325 mg 12/27/19 10:00 12/30/19 09:14 Aspirin PO 325 mg QDAY LIBIA Administration Atorvastatin Calcium 40 mg 12/26/19 22:00 12/29/19 22:05 Lipitor PO 40 mg QHS LIBIA Administration Dextrose 0 ml 12/26/19 08:50 D50w (25gm) Syringe IV Q30MIN PRN Hypoglycemia Protocol Famotidine 20 mg 12/28/19 10:00 12/30/19 09:14 Pepcid PO 20 mg BID LIBIA Administration Hydralazine HCl 5 mg 12/25/19 21:31 12/30/19 05:37 Apresoline IV 5 mg Q6H PRN Administration Hypertension Heparin Sodium/Sodium Chloride 25,000 unit in 500 mls @ 20 mls/hr 12/26/19 07:00 12/30/19 10:02 Heparin/ 0.45% Nacl-25,000 Unit/500 Ml IV 2,050 units/hr TITRATE LIBIA 41 mls/hr Titration Protocol 1,000 UNITS/HR Insulin Human Isoph/Insulin Regular 20 unit 12/27/19 14:00 12/29/19 17:00 Humulin 70/30 SUB-Q Not Given BIDDIAB [facility] Insulin Human Lispro 0 unit 12/29/19 16:30 12/30/19 09:20 Humalog SUB-Q Not Given ACHS [facility] Protocol Metoprolol Tartrate 50 mg 12/28/19 14:00 12/30/19 09:14 Metoprolol PO 50 mg TID [facility] Administration Ondansetron HCl 4 mg 12/25/19 17:49 Zofran IV Q8H PRN Nausea And Vomiting Pregabalin 75 mg 12/26/19 10:00 12/30/19 09:14 Pregabalin PO 75 mg Q12HR LIBIA Administration Sodium Chloride 10 ml 12/25/19 17:49 Sodium Chloride Flush Syringe 10 Ml IV PRN PRN LINE FLUSH Sodium Chloride 10 ml 12/25/19 22:00 12/30/19 09:22 Sodium Chloride Flush Syringe 10 Ml IV 10 ml BID LIBIA Administration Nutrition/Malnutrition Assess - Dietary Evaluation Nutrition/Malnutrition Findings: Nutrition Notes Start: 12/25/19 13:01 Freq: Status: Discharge Protocol: Document 12/28/19 13:18 LM (Rec: 12/28/19 13:22 LM [email or web address]) Nutrition Notes Initial or Follow up Reassessment Current Diagnosis Coronary Artery Disease, Diabetes,Sepsis,Hypertension, Respiratory Failure,Stroke, Hyperlipidemia Other Pertinent Diagnosis Pneu, UTI Current Diet Consistent CHO Labs/Tests POC glu 182 Pertinent Medications Humalog Height 6 ft 3 in Weight 93.848 kg [place] Body Weight (kg) 89.09 BMI 25.8 Weight Status Appropriate Subjective/Other Information Pt Extubated today. Diet to advance to Consistent CHO for dinner. Burn Absent Trauma Absent Minimum of two criteria No Muscle Mass Mild Depletion (non-severe) #1 Nutrition Diagnosis Inadequate oral intake As Evidenced by Signs and Symptoms diet advanced to consistent CHO Diagnosis Progress(for reassessment Improved documentation) Is patient on ventilator? No Is Patient Ambulatory and/or Out of Bed No REE-([facility]-confined to bed) [phone] Calculation Used for Recommendations [facility] Additional Notes Protein: 75-94g (0.8-1g/kg) Fluid: 1 ml/kcal Nutrition Intervention Change Diet Order: Consistent CHO Goal #1 Meet at least 75% of energy and protein needs Anticipated Discharge Needs: Consistent CHO Follow-Up By: 01/01/20 Additional Comments F/U for intakes
--- NOTE | 2019-12-30 11:29 | Progress Note ---
Assessment and Plan pt on 2 lc o2, pt has mental status needs to be addressed, is this acute or chronic, discussed with hospitalist, will get with family, will d/c heparin as been more than 48 hours, cont asa , statin, no aide or arb secondary to renal insufficiency, use hydrazine and imdur and lopressor - Patient Problems (1) Acute respiratory failure Current Visit: Yes Status: Acute Qualifiers: Respiratory failure complication: hypoxia Qualified Code(s): J96.01 - Acute respiratory failure with hypoxia (2) Altered mental status Current Visit: Yes Status: Suspected Qualifiers: Altered mental status type: unspecified Qualified Code(s): R41.82 - Altered mental status, unspecified (3) Cardiomyopathy Current Visit: Yes Status: Chronic (4) Lactic acidosis Current Visit: Yes Status: Acute (5) NSTEMI (non-ST elevated myocardial infarction) Current Visit: Yes Status: Acute (6) SVT (supraventricular tachycardia) Current Visit: Yes Status: Acute (7) HTN (hypertension) Current Visit: Yes Status: Chronic Qualifiers: Hypertension type: essential hypertension Qualified Code(s): I10 - Es sential (primary) hypertension (8) CAD (coronary artery disease) Current Visit: No Status: Acute Qualifiers: Associated angina: without angina (9) HTN (hypertension) Current Visit: No Status: Acute Qualifiers: Hypertension type: essential hypertension (10) Ischemic stroke of frontal lobe Current Visit: No Status: Acute (11) CVA (cerebral vascular accident) Current Visit: No Status: Chronic Qualifiers: Laterality of affected vessel: unspecified (12) HLD (hyperlipidemia) Current Visit: No Status: Chronic Qualifiers: Hyperlipidemia type: mixed hyperlipidemia Qualified Code(s): E78.2 - Mixed hyperlipidemia Subjective Date of service: 12/30/19 Principal diagnosis: respiratory failure; AMS Interval history: pt is lethargic Objective Vital Signs Temp Pulse Pulse Resp Resp BP Pulse Ox 12/30/19 09:14 89 175/94 12/30/19 08:35 97.9 F 89 18 175/94 97 12/30/19 07:28 99 12/30/19 03:24 98.0 F 18 171/85 12/29/19 23:36 98.0 F 18 170/97 12/29/19 22:05 164/88 12/29/19 20:29 97 12/29/19 19:51 100.0 F H 18 164/88 12/29/19 16:41 100.1 F H 76 18 158/86 96 12/29/19 12:31 78 17 161/90 99 12/29/19 12:20 84 11 L 161/90 99 12/29/19 12:10 91 H 21 161/90 100 12/29/19 12:00 100.3 F H 88 95 H 23 21 161/90 98 12/29/19 11:51 82 17 135/102 99 12/29/19 11:41 94 H 23 135/102 100 - Physical Examination General: Other (intubated, alert) HEENT: Positive: PERRL Neck: Positive: neck supple, trachea midline Cardiac: Positive: Reg Rate and Rhythm Lungs: Positive: clear to auscultation Neuro: Positive: Other (lethargic) Abdomen: Positive: Soft. Negative: Tender Skin: Negative: Rash Extremities: Absent: edema - Labs and Meds CBC 12/30/19 Range/Units 05:07 Hgb 10.9 L (11.8-15.2) gm/dl Hct 32.4 L (35.5-45.6) % Plt Count 243 (140-440) K/mm3 - Imaging and Cardiology EKG: report reviewed, image reviewed Echo: report reviewed (EF 30-35%, mild LVH, impaired relaxation) - Telemetry EKG Rhythm: Sinus Rhythm - EKG Sinus rhythms and dysrhythmias: sinus tachycardia Myocardial infarction: septal ME (old age or ind, anterior ME (old age or i
[2019-12-30] MEDS: INSULIN NPH/REGULAR 70/30 INJ SUB-Q SCH ×2 (11:47→18:11)
[2019-12-30] MEDS: hydrALAZINE 25 MG TAB PO SCH ×2 (14:28→22:50)
[2019-12-31 06:25] LABS: Hematocrit 31.9 % (35.5-45.6); Hemoglobin 10.8 gm/dl (11.8-15.2); Mean Corpuscular HGB Conc 34 % (32-34); Mean Corpuscular Volume 94 fl (84-94); Platelet Count 307 K/mm3 (140-440); Red Blood Count 3.38 M/mm3 (3.65-5.03); Red Cell Distribution Width 13.9 % (13.2-15.2)
[2019-12-31] MEDS: hydrALAZINE 25 MG TAB PO SCH ×3 (06:44→22:54)
[2019-12-31 06:51] LABS: BUN/Creatinine Ratio 16; Blood Urea Nitrogen 18 mg/dL (9-20); Hemolysis Index 3
[2019-12-31] MEDS: METOPROLOL TARTRATE 25 MG TAB PO SCH ×2 (09:32→22:54)
[2019-12-31] MEDS: FAMOTIDINE 20 MG TAB PO SCH ×2 (09:32→22:50)
[2019-12-31] MEDS: PREGABALIN 75 MG CAP PO SCH ×2 (09:34→22:50)
[2019-12-31] MEDS: ASPIRIN 325 MG TAB PO SCH (09:34)
[2019-12-31] MEDS: INSULIN LISPRO 100 UNIT/ML SUB-Q SCH ×4 (09:53→22:49)
[2019-12-31] MEDS: INSULIN NPH/REGULAR 70/30 INJ SUB-Q SCH ×2 (09:55→18:01)
[2019-12-31] MEDS: POTASSIUM CHLORIDE ER 20 MEQ TAB PO SCH ×2 (09:55→14:08)
[2019-12-31] MEDS ORDERED: SODIUM CHLORIDE 0.9% 500 ML 500 ML IV SCH (11:00)
--- NOTE | 2019-12-31 11:27 | Progress Note ---
Assessment and Plan Cont present cardiac management. LHC recommended in setting of NSTEMI and newly diagnosed CMP. Indications, potential risks and benefits of LHC reviewed with pt and he is agreeable to proceed with LHC in AM. NPO after MN. The patient has been seen in conjunction with Dr. Antwan Negrtee who agrees with the assessment and plan of care. - Patient Problems (1) Acute respiratory failure Current Visit: Yes Status: Resolved Qualifiers: Respiratory failure complication: hypoxia Qualified Code(s): J96.01 - Acute respiratory failure with hypoxia (2) Altered mental status Current Visit: Yes Status: Resolved Qualifiers: Altered mental status type: unspecified Qualified Code(s): R41.82 - Altered mental status, unspecified (3) NSTEMI (non-ST elevated myocardial infarction) Current Visit: Yes Status: Acute (4) SVT (supraventricular tachycardia) Current Visit: Yes Status: Acute (5) Cardiomyopathy Current Visit: Yes Status: Chronic (6) Abnormal EKG Current Visit: Yes Status: Acute (7) NICOLE (acute kidney injury) Current Visit: Yes Status: Acute (8) Rhabdomyolysis Current Visit: Yes Status: Acute Qualifiers: Rhabdomyolysis type: non-traumatic Qualified Code(s): M62.82 - Rhabdomyolysis (9) Lactic acidosis Current Visit: Yes Status: Acute (10) Diabetes mellitus with hyperglycemia Current Visit: Yes Status: Acute (11) HTN (hypertension) Current Visit: Yes Status: Chronic Qualifiers: Hypertension type: essential hypertension Qualified Code(s): I10 - Essential (primary) hypertension (12) History of CVA (cerebrovascular accident) Current Visit: Yes Status: Chronic Subjective Date of service: 12/31/19 Principal diagnosis: respiratory failure; AMS Interval history: pt resting in bed, alert and oriented, no current complaints. in SR. Objective Last Vital Signs Temp 98.6 F 12/31/19 08:42 Pulse 87 12/31/19 09:34 Resp 18 12/31/19 08:42 BP 155/79 12/31/19 08:42 Pulse Ox 96 12/31/19 10:04 - Physical Examination General: No Apparent Distress HEENT: Positive: PERRL Neck: Positive: neck supple, trachea midline Cardiac: Positive: Reg Rate and Rhythm, S1/S2 Lungs: Positive: Decreased Breath Sounds Neuro: Positive: Grossly Intact Abdomen: Positive: Soft. Negative: Tender Skin: Negative: Rash Musculoskeletal: No Pain Extremities: Absent: edema - Labs and Meds CBC 12/31/19 Range/Units 06:02 WBC 6.0 (4.5-11.0) K/mm3 RBC 3.38 L (3.65-5.03) M/mm3 Hgb 10.8 L (11.8-15.2) gm/dl Hct 31.9 L (35.5-45.6) % Plt Count 307 (140-440) K/mm3 Comprehensive Metabolic Panel 12/31/19 Range/Units 06:02 Sodium 141 (137-145) mmol/L Potassium 3.0 L (3.6-5.0) mmol/L Chloride 104.6 (98-107) mmol/L Carbon Dioxide 21 L (22-30) mmol/L BUN 18 (9-20) mg/dL Creatinine 1.1 (0.8-1.5) mg/dL Glucose 168 H (75-100) mg/dL Calcium 8.0 L (8.4-10.2) mg/dL - Imaging and Cardiology EKG: report reviewed, image reviewed Echo: report reviewed (EF 30-35%, mild LVH, impaired relaxation) - Telemetry EKG Rhythm: Sinus Rhythm - EKG Sinus rhythms and dysrhythmias: sinus tachycardia Myocardial infarction: septal RI (old age or ind, anterior RI (old age or i
--- NOTE | 2019-12-31 13:38 | Progress Note ---
Assessment and Plan Assessment and plan: Acute respiratory failure was Intubated, now extubated on 12/27 Pulm following DKA, now resolved Discontinued Insulin drip Continue Novolin 70/30 bid Diabetes mellitus Acute encephalopathy Etiology unclear SIRS ID consulted. Recommend monitor off Antibiotic NSTEMI Serial troponins Cardiology following For cardiac cath when stable Scheduled for tomorrow 12/31 SVT Rhabdomyolysis CK improving Repeat in am IV fluids for now Monitor ck levels Hyperlipidemia Statins 12/28. patient extubated 12/27. Lethargic. Stable to transfer to telemetry 12/29 Feels better, lethargic. Nurse had mentioned family says he had baseline cognitive . Will call and get more info from family. Discussed case with Dr. davidson. 12/30 patient scheduled for cardiac cath tomorrow. History Interval history: Brought to ED for altered mental status, unresponsive,was intubated Extubated 12/27 Hospitalist Physical - Physical exam Narrative exam: GEN: Not in acute distress, lying in bed, HEENT: Normocephalic, atraumatic, Neck: supple, No JVD Lungs: Clear , no crackles, heart;S1 and S2 reg, no murmurs, rubs or gallop Abd:soft, non tender, non distended, normal bowel sounds Ext: No edema, no clubbing, no cyanosis, Neuro: Awake,alert, oriented follows commands - Constitutional Vitals: Temp Pulse Resp BP Pulse Ox 98.4 F 64 18 126/75 96 12/31/19 12:11 12/31/19 12:11 12/31/19 12:11 12/31/19 12:11 12/31/19 12:11 Results - Labs CBC & Chem 7: 12/31/19 06:02 12/31/19 06:02 Labs: Laboratory Last Values WBC 6.0 K/mm3 (4.5-11.0) 12/31/19 06:02 RBC 3.38 M/mm3 (3.65-5.03) L 12/31/19 06:02 Hgb 10.8 gm/dl (11.8-15.2) L 12/31/19 06:02 Hct 31.9 % (35.5-45.6) L 12/31/19 06:02 MCV 94 fl (84-94) 12/31/19 06:02 MCH 32 pg (28-32) 12/31/19 06:02 MCHC 34 % (32-34) 12/31/19 06:02 RDW 13.9 % (13.2-15.2) 12/31/19 06:02 Plt Count 307 K/mm3 (140-440) 12/31/19 06:02 Lymph % (Auto) 9.0 % (13.4-35.0) L 12/26/19 05:16 [place] % (Auto) 3.4 % (0.0-7.3) 12/26/19 05:16 Eos % (Auto) 0.0 % (0.0-4.3) 12/26/19 05:16 Baso % (Auto) 0.3 % (0.0-1.8) 12/26/19 05:16 Lymph # 1.0 K/mm3 (1.2-5.4) L 12/26/19 05:16 [place] # 0.4 K/mm3 (0.0-0.8) 12/26/19 05:16 Eos # 0.0 K/mm3 (0.0-0.4) 12/26/19 05:16 Baso # 0.0 K/mm3 (0.0-0.1) 12/26/19 05:16 Seg Neutrophils % 87.3 % (40.0-70.0) H 12/26/19 05:16 Seg Neutrophils # 9.2 K/mm3 (1.8-7.7) H 12/26/19 05:16 PT 18.3 Sec. (12.2-14.9) H 12/26/19 07:44 INR 1.49 (0.87-1.13) H 12/26/19 07:44 APTT 27.1 Sec. (24.2-36.6) 12/26/19 07:44 Thrombin Time 16.7 Sec. (15.1-19.6) 12/25/19 10:13 Heparin Anti-Xa Level 0.20 U.I./ml (0.3-0.7) L 12/30/19 08:00 ABG pH 7.394 pH Units (7.350-7.450) 12/28/19 03:55 ABG pCO2 33.0 mm Hg 12/28/19 03:55 ABG pO2 105.5 mm Hg (80.0-90.0) H 12/28/19 03:55 ABG HCO3 19.7 mmol/L (20.0-26.0) L 12/28/19 03:55 ABG O2 Saturation 97.9 % (95.0-99.0) 12/28/19 03:55 ABG O2 Content 15.1 (0.0-44) 12/28/19 03:55 ABG Base Excess -4.4 mmol/L (-2.0-3.0) L 12/28/19 03:55 ABG Hemoglobin 11.1 gm/dl (14.0-18.0) L 12/28/19 03:55 ABG Carboxyhemoglobin 1.3 % (0.0-5.0) 12/28/19 03:55 ABG Methemoglobin 0.6 % (0.0-1.5) 12/28/19 03:55 Oxyhemoglobin 96.0 % (95.0-99.0) 12/28/19 03:55 FiO2 25 % 12/28/19 03:55 Sodium 141 mmol/L (137-145) 12/31/19 06:02 Potassium 3.0 mmol/L (3.6-5.0) L 12/31/19 06:02 Chloride 104.6 mmol/L (98-107) 12/31/19 06:02 Carbon Dioxide 21 mmol/L (22-30) L 12/31/19 06:02 Anion Gap 18 mmol/L 12/31/19 06:02 BUN 18 mg/dL (9-20) 12/31/19 06:02 Creatinine 1.1 mg/dL (0.8-1.5) 12/31/19 06:02 Estimated GFR > 60 ml/min 12/31/19 06:02 BUN/Creatinine Ratio 16 % 12/31/19 06:02 Glucose 168 mg/dL (75-100) H 12/31/19 06:02 POC Glucose 297 (70-105) H 12/31/19 12:20 Hemoglobin A1c 5.1 % (4-6) 12/25/19 19:52 Lactic Acid 1.40 mmol/L (0.7-2.0) 12/26/19 05:16 Calcium 8.0 mg/dL (8.4-10.2) L 12/31/19 06:02 Phosphorus 2.60 mg/dL (2.5-4.5) 12/26/19 08:59 Magnesium 2.20 mg/dL (1.7-2.3) 12/26/19 08:59 Total Bilirubin 0.30 mg/dL (0.1-1.2) 12/28/19 09:31 Direct Bilirubin < 0.2 mg/dL (0-0.2) 12/27/19 05:53 Indirect Bilirubin 0.1 mg/dL 12/27/19 05:53 AST 39 units/L (5-40) 12/28/19 09:31 ALT 33 units/L (7-56) 12/28/19 09:31 Alkaline Phosphatase 91 units/L (35-129) 12/28/19 09:31 Total Creatine Kinase 735 units/L (55-170) H 12/28/19 18:15 CK-MB (CK-2) 16.8 ng/mL (0.0-4.0) H 12/25/19 10:13 CK-MB (CK-2) Rel Index 0.5 (0-4) 12/25/19 10:13 Troponin T 0.479 ng/mL (0.00-0.029) H* 12/28/19 09:31 Total Protein 6.3 g/dL (6.3-8.2) 12/28/19 09:31 Albumin 2.8 g/dL (3.9-5) L 12/28/19 09:31 Albumin/Globulin Ratio 0.8 % 12/28/19 09:31 Triglycerides 137 mg/dL (2-149) 12/25/19 10:13 Cholesterol 325 mg/dL (50-199) H 12/25/19 10:13 LDL Cholesterol Direct 249 mg/dL (50-130) H 12/25/19 10:13 HDL Cholesterol 74 mg/dL (40-59) H 12/25/19 10:13 Cholesterol/HDL Ratio 4.39 % 12/25/19 10:13 Urine Color Yellow (Yellow) 12/25/19 13:50 Urine Turbidity Clear (Clear) 12/25/19 13:50 Urine pH 5.0 (5.0-7.0) 12/25/19 13:50 Ur Specific [place] 1.027 (1.003-1.030) 12/25/19 13:50 Urine Protein >500 mg/dL (Negative) 12/25/19 13:50 Urine Glucose (UA) >=500 mg/dL (Negative) 12/25/19 13:50 Urine Ketones Tr mg/dL (Negative) 12/25/19 13:50 Urine Blood Lg (Negative) 12/25/19 13:50 Urine Nitrite Neg (Negative) 12/25/19 13:50 Urine Bilirubin Neg (Negative) 12/25/19 13:50 Urine Urobilinogen < 2.0 mg/dL (<2.0) 12/25/19 13:50 Ur Leukocyte Esterase Neg (Negative) 12/25/19 13:50 Urine WBC (Auto) 4.0 /HPF (0.0-6.0) 12/25/19 13:50 Urine RBC (Auto) 3.0 /HPF (0.0-6.0) 12/25/19 13:50 U Epithel Cells (Auto) < 1.0 /HPF (0-13.0) 12/25/19 13:50 Urine Mucus Few /HPF 12/25/19 13:50 Urine Opiates Screen Presumptive negative 12/25/19 13:50 Urine Methadone Screen Presumptive negative 12/25/19 13:50 Ur Barbiturates Screen Presumptive negative 12/25/19 13:50 Ur Phencyclidine Scrn Presumptive negative 12/25/19 13:50 Ur Amphetamines Screen Presumptive negative 12/25/19 13:50 U Benzodiazepines Scrn Presumptive negative 12/25/19 13:50 Urine Cocaine Screen Presumptive negative 12/25/19 13:50 U Marijuana (THC) Screen Presumptive negative 12/25/19 13:50 Drugs of Abuse Note Disclamer 12/25/19 13:50 Plasma/Serum Alcohol < 0.01 % (0-0.07) 12/25/19 10:13 [place]/IV: Voiding Method Condom Catheter IV Catheter Type [Left Hand] INT / Saline Lock IV Catheter Type [Left Peripheral IV Antecubital] IV Catheter Type [Right Hand] INT / Saline Lock Active Medications - Current Medications Current Medications: Generic Name Dose Route Start Last Admin Trade Name Freq PRN Reason Stop Dose Admin Acetaminophen 650 mg 12/25/19 17:49 12/25/19 22:54 Tylenol PO 650 mg Q4H PRN Administration Pain MILD(1-3)/Fever >100.5/HERNANDEZ Aspirin 325 mg 12/27/19 10:00 12/31/19 09:34 Aspirin PO 325 mg QDAY LIBIA Administration Atorvastatin Calcium 40 mg 12/26/19 22:00 12/30/19 22:50 Lipitor PO 40 mg QHS LIBIA Administration Dextrose 0 ml 12/26/19 08:50 D50w (25gm) Syringe IV Q30MIN PRN Hypoglycemia Protocol Famotidine 20 mg 12/28/19 10:00 12/31/19 09:32 Pepcid PO 20 mg BID LIBIA Administration Hydralazine HCl 5 mg 12/25/19 21:31 12/30/19 05:37 Apresoline IV 5 mg Q6H PRN Administration Hypertension Hydralazine HCl 50 mg 12/30/19 14:00 12/31/19 06:44 Apresoline PO 50 mg Q8HR LIBIA Administration Sodium Chloride 500 mls @ 50 mls/hr 12/31/19 11:00 Nacl 0.9% 500 Ml IV 12/31/19 20:59 DIRECT LIBIA Insulin Human Isoph/Insulin Regular 20 unit 12/27/19 14:00 12/31/19 09:55 Humulin 70/30 SUB-Q 20 unit BIDDIAB LIBIA Administration Insulin Human Lispro 0 unit 12/29/19 16:30 12/31/19 09:53 Humalog SUB-Q 2 unit ACHS LIBIA Administration Protocol Isosorbide Mononitrate 30 mg 12/30/19 12:00 12/31/19 09:34 Imdur PO 30 mg QDAY LIBIA Administration Metoprolol Tartrate 100 mg 12/30/19 12:00 12/31/19 09:32 Metoprolol PO 100 mg BID LIBIA Administration Ondansetron HCl 4 mg 12/25/19 17:49 Zofran IV Q8H PRN Nausea And Vomiting Potassium Chloride 40 meq 12/31/19 09:00 12/31/19 09:55 K-Dur PO 12/31/19 15:01 40 meq Q6H LIBIA Administration Pregabalin 75 mg 12/26/19 10:00 12/31/19 09:34 Pregabalin PO 75 mg Q12HR LIBIA Administration Sodium Chloride 10 ml 12/25/19 17:49 03/15/20 11:58 Sodium Chloride Flush Syringe 10 Ml IV 10 ml PRN PRN Administration LINE FLUSH Sodium Chloride 10 ml 12/25/19 22:00 12/31/19 10:04 Sodium Chloride Flush Syringe 10 Ml IV 10 ml BID LIBIA Administration Nutrition/Malnutrition Assess - Dietary Evaluation Nutrition/Malnutrition Findings: Nutrition Notes Start: 12/25/19 13:01 Freq: Status: Discharge Protocol: Document 12/28/19 13:18 LM (Rec: 12/28/19 13:22 LM -[email or web address]) Nutrition Notes Initial or Follow up Reassessment Current Diagnosis Coronary Artery Disease, Diabetes,Sepsis,Hypertension, Respiratory Failure,Stroke, Hyperlipidemia Other Pertinent Diagnosis Pneu, UTI Current Diet Consistent CHO Labs/Tests POC glu 182 Pertinent Medications Humalog Height 6 ft 3 in Weight 93.848 kg [place] Body Weight (kg) 89.09 BMI 25.8 Weight Status Appropriate Subjective/Other Information Pt Extubated today. Diet to advance to Consistent CHO for dinner. Burn Absent Trauma Absent Minimum of two criteria No Muscle Mass Mild Depletion (non-severe) #1 Nutrition Diagnosis Inadequate oral intake As Evidenced by Signs and Symptoms diet advanced to consistent CHO Diagnosis Progress(for reassessment Improved documentation) Is patient on ventilator? No Is Patient Ambulatory and/or Out of Bed No REE-([facility]-confined to bed) [phone] Calculation Used for Recommendations [facility] Additional Notes Protein: 75-94g (0.8-1g/kg) Fluid: 1 ml/kcal Nutrition Intervention Change Diet Order: Consistent CHO Goal #1 Meet at least 75% of energy and protein needs Anticipated Discharge Needs: Consistent CHO Follow-Up By: 01/01/20 Additional Comments F/U for intakes
[2020-01-01] MEDS: hydrALAZINE 25 MG TAB PO SCH ×3 (06:11→22:50)
[2020-01-01 08:00] LABS: Basophils # (Auto) 0.1 K/mm3 (0.0-0.1); Basophils % (Auto) 1.4 % (0.0-1.8); Eosinophils # (Auto) 0.2 K/mm3 (0.0-0.4); Eosinophils % (Auto) 2.9 % (0.0-4.3); Hematocrit 33.4 % (35.5-45.6); Lymphocytes # (Auto) 2.4 K/mm3 (1.2-5.4); Lymphocytes % (Auto) 31.9 % (13.4-35.0); Mean Corpuscular HGB Conc 33 % (32-34); Mean Corpuscular Volume 95 fl (84-94); Monocytes # (Auto) 0.7 K/mm3 (0.0-0.8); Platelet Count 373 K/mm3 (140-440); Red Cell Distribution Width 13.7 % (13.2-15.2)
[2020-01-01 08:11] LABS: INR 1.05 (0.87-1.13)
[2020-01-01 08:20] LABS: BUN/Creatinine Ratio 18; Blood Urea Nitrogen 20 mg/dL (9-20); Hemolysis Index 38
[2020-01-01] MEDS: INSULIN NPH/REGULAR 70/30 INJ SUB-Q SCH ×2 (08:30→17:51)
[2020-01-01] MEDS: INSULIN LISPRO 100 UNIT/ML SUB-Q SCH ×4 (08:30→23:08)
[2020-01-01] MEDS ORDERED: POTASSIUM CHLORIDE ER 20 MEQ TAB PO NR (09:33)
--- NOTE | 2020-01-01 09:36 | Progress Note ---
Assessment and Plan Pt with AMS this AM. Consider neurology consultation per primary team. Will tentatively reschedule [facility] for tomorrow AM pending neurological status is stable. NPO after MN. Cont present cardiac management. The patient has been seen in conjunction with Dr. Antwan Negrete who agrees with the assessment and plan of care. - Patient Problems (1) Acute respiratory failure Current Visit: Yes Status: Resolved Qualifiers: Respiratory failure complication: hypoxia Qualified Code(s): J96.01 - Acute respiratory failure with hypoxia (2) Altered mental status Current Visit: Yes Status: Acute Qualifiers: Altered mental status type: unspecified Qualified Code(s): R41.82 - Altered mental status, unspecified (3) NSTEMI (non-ST elevated myocardial infarction) Current Visit: Yes Status: Acute (4) SVT (supraventricular tachycardia) Current Visit: Yes Status: Acute (5) Cardiomyopathy Current Visit: Yes Status: Chronic (6) Abnormal EKG Current Visit: Yes Status: Acute (7) NICOLE (acute kidney injury) Current Visit: Yes Status: Acute (8) Rhabdomyolysis Current Visit: Yes Status: Acute Qualifiers: Rhabdomyolysis type: non-traumatic Qualified Code(s): M62.82 - Rhabdomyolysis (9) Lactic acidosis Current Visit: Yes Status: Acute (10) Diabetes mellitus with hyperglycemia Current Visit: Yes Status: Acute (11) HTN (hypertension) Current Visit: Yes Status: Chronic Qualifiers: Hypertension type: essential hypertension Qualified Code(s): I10 - Essential (primary) hypertension (12) History of CVA (cerebrovascular accident) Current Visit: Yes Status: Chronic Subjective Date of service: 01/01/20 Principal diagnosis: respiratory failure; AMS Interval history: pt resting in bed, no apparent distress, became confused overnight and pulled out IV, currently restrained and disoriented to place. no current chest pain or SOB. Objective Last Vital Signs Temp 98.5 F 01/01/20 08:17 Pulse 72 01/01/20 08:17 Resp 20 01/01/20 08:17 BP 164/83 01/01/20 08:17 Pulse Ox 93 01/01/20 08:17 - Physical Examination General: Other (confused, restrained) HEENT: Positive: PERRL Neck: Positive: neck supple, trachea midline Cardiac: Positive: Reg Rate and Rhythm, S1/S2 Lungs: Positive: Decreased Breath Sounds Neuro: Positive: Other (confused, restrained) Abdomen: Positive: Soft. Negative: Tender Skin: Negative: Rash Musculoskeletal: No Pain Extremities: Absent: edema - Labs and Meds Coagulation 01/01/20 Range/Units 07:01 PT 13.8 (12.2-14.9) Sec. INR 1.05 (0.87-1.13) CBC 01/01/20 Range/Units 07:01 WBC 7.4 (4.5-11.0) K/mm3 RBC 3.50 L (3.65-5.03) M/mm3 Hgb 11.0 L (11.8-15.2) gm/dl Hct 33.4 L (35.5-45.6) % Plt Count 373 (140-440) K/mm3 Lymph # 2.4 (1.2-5.4) K/mm3 [place] # 0.7 (0.0-0.8) K/mm3 Eos # 0.2 (0.0-0.4) K/mm3 Baso # 0.1 (0.0-0.1) K/mm3 Comprehensive Metabolic Panel 01/01/20 Range/Units 07:01 Sodium 140 (137-145) mmol/L Potassium 3.3 L (3.6-5.0) mmol/L Chloride 107.8 H (98-107) mmol/L Carbon Dioxide 18 L (22-30) mmol/L BUN 20 (9-20) mg/dL Creatinine 1.1 (0.8-1.5) mg/dL Glucose 101 H (75-100) mg/dL Calcium 8.0 L (8.4-10.2) mg/dL - Imaging and Cardiology EKG: report reviewed, image reviewed Echo: report reviewed (EF 30-35%, mild LVH, impaired relaxation) - Telemetry EKG Rhythm: Sinus Rhythm - EKG Sinus rhythms and dysrhythmias: sinus tachycardia Myocardial infarction: septal NV (old age or ind, anterior NV (old age or i
[2020-01-01] MEDS: ASPIRIN 325 MG TAB PO SCH (10:50)
[2020-01-01] MEDS: FAMOTIDINE 20 MG TAB PO SCH ×2 (10:51→22:50)
[2020-01-01] MEDS: PREGABALIN 75 MG CAP PO SCH ×2 (10:51→22:50)
[2020-01-01] MEDS: METOPROLOL TARTRATE 25 MG TAB PO SCH ×2 (10:51→22:50)
--- NOTE | 2020-01-01 12:56 | Cat Scan Report ---
} CT BRAIN: 01/01/2020 INDICATION / CLINICAL INFORMATION: AMS. COMPARISON: 12/25/2019 FINDINGS: BRAIN/INTRACRANIAL STRUCTURES: Unenhanced CT images of the brain were obtained and compared to a rece nt prior exam from 12/25/2019. There is been no change. There is no evidence of acute abnormality. Ventricles and sulci are prominent in size for a patient o f this age, consistent with diffuse cerebral atrophy. Ventricular size is somewhat prominent out of p roportion to sulcal size, which may indicate more prominent central atrophy, although can also be see n in cases of hydrocephalus. This has not changed when compared to the prior exam. Some chronic white matter hypoattenuation is again noted. There is no evidence of acute large vessel territory ischemic injury, hemorrhage, or mass. There are no abnormal extra-axial fluid collections. Atherosclerotic vascular calcifications are present in the distal internal carotid arteries and verte bral arteries. EXTRACRANIAL STRUCTURES: Incidental note is made of an air-fluid level in the left maxillary sinus, w hich has become more opacified when compared to the prior exam. Paranasal sinuses are otherwise clear . IMPRESSION: No evidence of acute intracranial abnormality. Left maxillary sinus disease. All CT scans at this location are performed using dose reduction to ALARA by means of automated expos ure control. Signer Name: Mitch Pham MD Signed: 01/01/2020 12:51 PM Workstation Name: [id number]
[2020-01-01] MEDS: POTASSIUM CHLORIDE 10 MEQ 10 MEQ/100 ML BAG IV SCH ×2 (14:16→15:57)
--- NOTE | 2020-01-01 17:22 | Progress Note ---
Assessment and Plan /Acute respiratory failure was Intubated, now extubated on 12/27 Pulm following /DKA, now resolved Discontinued Insulin drip Continue Novolin 70/30 bid /Diabetes mellitus - consisted carb diet, cont insulin coverage /Acute encephalopathy Etiology unclear, likely metabolic, order CT head, consult neurology /SIRS, likely reactive ID consulted. Recommend monitor off Antibiotic /NICOLE, due to vasomotor nephropathy, resolved with IV fluid /NSTEMI Serial troponins Cardiology following For cardiac cath when stable Scheduled for tomorrow 01/01 if clears by neurology /SVT, cont BB /Rhabdomyolysis CK improving IV fluids for now Monitor ck levels /Hyperlipidemia cont Statins 12/28. patient extubated 12/27. Lethargic. Stable to transfer to telemetry 12/29 Feels better, lethargic. Nurse had mentioned family says he had baseline cognitive . Will call and get more info from family. Discussed case with Dr. davidson. 12/30 patient scheduled for cardiac cath tomorrow. 12/31 cardiac cath postponded for AMS, CT head ordered, Neurology consulted Brief History Patient is a 54-year-old man with a history of subdural hemorrhage, history of CVA, diabetes mellitus, hypertension, hyperlipidemia. Patient was admitted on December 24 and was found to be unresponsive and altered mental status. He was evaluated by EMS and was found to have oxygen saturation in the low 80s. Patient was then brought to [facility] for further evaluation. On admission, patient was intubated. He was found to have fever, leukocytosis, respiratory failure, DKA, ARF, and lactic acidosis. He was ultimately extubated on December 27. This morning, patient was found to be in altered mental status. Cardiology following for NSTEMI - need cardiac cath Hospitalist Physical GEN: Not in acute distress, lying in bed, HEENT: Normocephalic, atraumatic, Neck: supple, No JVD Lungs: Clear , no crackles, heart;S1 and S2 reg, no murmurs, rubs or gallop Abd:soft, non tender, non distended, normal bowel sounds Ext: No edema, no clubbing, no cyanosis, Neuro: confused, follows commands Subjective Date of service: 01/01/20 Principal diagnosis: respiratory failure; AMS Interval history: Patient seen and examined. Medical records and medication list reviewed. He appears confused today and requiring restraints, cardiac cath got postponed till tomorrow Objective - Constitutional Vitals: Vital Signs - 12hr 01/01/20 01/01/20 01/01/20 06:11 08:17 09:57 Temperature 98.5 F Pulse Rate 66 72 Respiratory 20 Rate Blood Pressure 169/90 164/83 O2 Sat by Pulse 93 96 Oximetry 01/01/20 01/01/20 01/01/20 10:50 10:51 11:55 Temperature 98.4 F Pulse Rate 78 76 73 Respiratory 20 Rate Blood Pressure 164/83 164/83 165/90 O2 Sat by Pulse 91 Oximetry 01/01/20 14:22 Temperature Pulse Rate 80 Respiratory Rate Blood Pressure 165/90 O2 Sat by Pulse Oximetry - Labs CBC & Chem 7: 01/03/20 04:21 01/03/20 04:21 Labs: Abnormal lab results 12/31/19 01/01/20 01/01/20 Range/Units 21:13 07:01 07:01 RBC 3.50 L (3.65-5.03) M/mm3 Hgb 11.0 L (11.8-15.2) gm/dl Hct 33.4 L (35.5-45.6) % MCV 95 H (84-94) fl [place] % (Auto) 10.0 H (0.0-7.3) % Potassium 3.3 L (3.6-5.0) mmol/L Chloride 107.8 H (98-107) mmol/L Carbon Dioxide 18 L (22-30) mmol/L Glucose 101 H (75-100) mg/dL POC Glucose 120 H (70-105) Calcium 8.0 L (8.4-10.2) mg/dL Total Creatine Kinase 227 H (55-170) units/L 01/01/20 01/01/20 Range/Units 12:07 16:46 RBC (3.65-5.03) M/mm3 Hgb (11.8-15.2) gm/dl Hct (35.5-45.6) % MCV (84-94) fl [place] % (Auto) (0.0-7.3) % Potassium (3.6-5.0) mmol/L Chloride (98-107) mmol/L Carbon Dioxide (22-30) mmol/L Glucose (75-100) mg/dL POC Glucose 133 H 280 H (70-105) Calcium (8.4-10.2) mg/dL Total Creatine Kinase (55-170) units/L
--- NOTE | 2020-01-01 17:46 | Consultation ---
History of Present Illness Consult date: 01/01/20 Reason for Consult: Altered mental status Chief complaint: Altered mental status History of present illness: Patient is a 54-year-old man with a history of subdural hemorrhage, history of CVA, diabetes mellitus, hypertension, hyperlipidemia. Patient was admitted on December 24 and was found to be unresponsive and altered mental status. He was evaluated by EMS and was found to have oxygen saturation in the low 80s. Patient was then brought to [facility] for further evaluation. On admission, patient was intubated. He was found to have pneumonia, fever, leukocytosis, sepsis, respiratory failure, DKA, ARF, and lactic acidosis. He was ultimately extubated on December 27. This morning, patient was found to be in altered mental status. Past History Past Medical History: diabetes, hypertension, stroke Past Surgical History: Other (unable to obtain from patient) Social history: smoking Family history: other (unable to obtain from patient. ) Medications and Allergies Allergies Allergy/AdvReac Type Severity Reaction Status Date / Time No Known Allergies Allergy Verified 01/21/19 12:55 Home Medications Medication Instructions Recorded Confirmed Last Taken Type ALPRAZolam [Xanax TAB] 2 mg PO BID 12/25/19 12/25/19 Unknown History Acetaminophen/Codeine [Tylenol 1 tab PO Q6H PRN 12/25/19 12/25/19 Unknown Histor y /Codeine # 3 tab] Atorvastatin Calcium [Lipitor] 80 mg PO QDAY 12/25/19 12/25/19 Unknown History Citalopram [celeXA] 20 mg PO QHS 12/25/19 12/25/19 Unknown History Gabapentin [Neurontin] 300 mg PO Q8HR 12/25/19 12/25/19 Unknown History Insulin Lispro Prot/Lispro 30 units SUB-Q QHS 12/25/19 12/25/19 Unknown History [HumaLOG Mix 75/25 Vial] Insulin Lispro Prot/Lispro 70 unit SUB-Q QAM 12/25/19 12/25/19 Unknown History [HumaLOG Mix 75/25 Vial] Pregabalin [Lyrica] 50 mg PO TID 12/25/19 12/25/19 Unknown History Active Meds: Active Medications Acetaminophen (Tylenol) 650 mg PO Q4H PRN PRN Reason: Pain MILD(1-3)/Fever >100.5/HERNANDEZ Last Admin: 12/25/19 22:54 Dose: 650 mg Documented by: Aspirin (Aspirin) 325 mg PO QDAY [facility] Last Admin: 01/01/20 10:50 Dose: 325 mg Documented by: Atorvastatin Calcium (Lipitor) 40 mg PO QHS [facility] Last Admin: 12/31/19 22:50 Dose: 40 mg Documented by: Dextrose (D50w (25gm) Syringe) 0 ml IV Q30MIN PRN; Protocol PRN Reason: Hypoglycemia Famotidine (Pepcid) 20 mg PO BID [facility] Last Admin: 01/01/20 10:51 Dose: 20 mg Documented by: Hydralazine HCl (Apresoline) 5 mg IV Q6H PRN PRN Reason: Hypertension Last Admin: 12/30/19 05:37 Dose: 5 mg Documented by: Hydralazine HCl (Apresoline) 50 mg PO Q8HR [facility] Last Admin: 01/01/20 14:22 Dose: 50 mg Documented by: Insulin Human Isoph/Insulin Regular (Humulin 70/30) 20 unit SUB-Q BIDDIAB [facility] Last Admin: 01/01/20 08:30 Dose: Not Given Documented by: Insulin Human Lispro (Humalog) 0 unit SUB-Q ACHS [facility]; Protocol Last Admin: 01/01/20 13:30 Dose: Not Given Documented by: Isosorbide Mononitrate (Imdur) 30 mg PO QDAY [facility] Last Admin: 01/01/20 10:50 Dose: 30 mg Documented by: Metoprolol Tartrate (Metoprolol) 100 mg PO BID [facility] Last Admin: 01/01/20 10:51 Dose: 100 mg Documented by: Ondansetron HCl (Zofran) 4 mg IV Q8H PRN PRN Reason: Nausea And Vomiting Pregabalin (Pregabalin) 75 mg PO Q12HR [facility] Last Admin: 01/01/20 10:51 Dose: 75 mg Documented by: Sodium Chloride (Sodium Chloride Flush Syringe 10 Ml) 10 ml IV PRN PRN PRN Reason: LINE FLUSH Last Admin: 12/30/19 11:58 Dose: 10 ml Documented by: Sodium Chloride (Sodium Chloride Flush Syringe 10 Ml) 10 ml IV BID [facility] Last Admin: 01/01/20 10:00 Dose: 10 ml Documented by: Review of Systems All systems: negative Neurological: change in mentation Physical Examination - Vital Signs Vital Signs: Vital Signs Pulse Resp 133 H 30 H 12/25/19 09:04 12/25/19 09:04 - Physical Exam Narrative exam: Patient is alert, awake, oriented x4, follows complex commands. No dysarthria or aphasia noted. PERRL, EOMI, VFF, tongue midline, bilaterally intact to LT, no facial weakness noted. 5/5 strength in all extremities, given that the patient was in upper extremity restraints, however was noted to have no weakness distally or proximally. Bilaterally intact light touch. Bilaterally intact to FTN and HTS. 2+ reflexes throughout. - Constitutional General appearance: comfortable - EENT EENT: Present: ATNC, PERRL, mucous membranes moist - Respiratory Respiratory: Present: decreased breath sounds - Cardiovascular Cardiovascular: Present: regular rate, normal S1, normal S2 Extremities: Present: no clubbing, cyanosis, no inflammation - Gastrointestinal Gastrointestinal: Present: normoactive bowel sounds, soft, non-tender - Musculoskeletal Musculoskeletal: Present: no fluid collection, no pain - Psychiatric Psychiatric: Present: mood/affect appropriate Results - Laboratory Findings CBC and BMP: 01/01/20 07:01 01/01/20 07:01 Abnormal Lab Findings: Abnormal Labs 12/25/19 12/25/19 12/25/19 10:13 10:13 10:13 WBC 12.0 H RBC Hgb Hct MCV 96 H Lymph % (Auto) 6.7 L [place] % (Auto) Lymph # 0.8 L Seg Neutrophils % 87.8 H Seg Neutrophils # 10.6 H PT 15.1 H INR 1.17 H Heparin Anti-Xa Level ABG pO2 ABG HCO3 ABG O2 Saturation ABG Base Excess ABG Hemoglobin Potassium Chloride Carbon Dioxide 16 L BUN 23 H Creatinine 1.8 H Glucose 482 H POC Glucose Lactic Acid Calcium AST 49 H Total Creatine Kinase 2995 H CK-MB (CK-2) 16.8 H Troponin T 0.992 H* Total Protein Albumin 3.5 L Cholesterol 325 H LDL Cholesterol Direct 249 H HDL Cholesterol 74 H 12/25/19 12/25/19 12/25/19 10:45 11:33 12:57 WBC RBC Hgb Hct MCV Lymph % (Auto) [place] % (Auto) Lymph # Seg Neutrophils % Seg Neutrophils # PT INR Heparin Anti-Xa Level ABG pO2 269.6 H ABG HCO3 16.7 L ABG O2 Saturation 99.5 H ABG Base Excess -5.8 L ABG Hemoglobin 13.4 L Potassium Chloride Carbon Dioxide BUN Creatinine Glucose POC Glucose Lactic Acid 8.30 H* 6.00 H* Calcium AST Total Creatine Kinase CK-MB (CK-2) Troponin T Total Protein Albumin Cholesterol LDL Cholesterol Direct HDL Cholesterol 12/25/19 12/25/19 12/25/19 16:37 20:58 22:22 WBC RBC Hgb Hct MCV Lymph % (Auto) [place] % (Auto) Lymph # Seg Neutrophils % Seg Neutrophils # PT INR Heparin Anti-Xa Level ABG pO2 ABG HCO3 ABG O2 Saturation ABG Base Excess ABG Hemoglobin Potassium Chloride Carbon Dioxide BUN Creatinine Glucose POC Glucose Lactic Acid 3.30 H* 3.50 H* 2.10 H* Calcium AST Total Creatine Kinase CK-MB (CK-2) Troponin T Total Protein Albumin Cholesterol LDL Cholesterol Direct HDL Cholesterol 12/26/19 12/26/19 12/26/19 04:30 05:16 05:16 WBC RBC Hgb 11.7 L Hct 35.4 L MCV 95 H Lymph % (Auto) 9.0 L [place] % (Auto) Lymph # 1.0 L Seg Neutrophils % 87.3 H Seg Neutrophils # 9.2 H PT INR Heparin Anti-Xa Level ABG pO2 188.0 H ABG HCO3 15.0 L ABG O2 Saturation 99.2 H ABG Base Excess -8.6 L ABG Hemoglobin 12.4 L Potassium Chloride Carbon Dioxide 14 L BUN 39 H Creatinine 2.0 H Glucose 545 H* POC Glucose Lactic Acid Calcium 8.0 L AST 70 H Total Creatine Kinase CK-MB (CK-2) Troponin T Total Protein 6.1 L Albumin 2.6 L Cholesterol LDL Cholesterol Direct HDL Cholesterol 12/26/19 12/26/19 12/26/19 07:44 07:44 07:44 WBC RBC Hgb Hct MCV Lymph % (Auto) [place] % (Auto) Lymph # Seg Neutrophils % Seg Neutrophils # PT 18.3 H INR 1.49 H Heparin Anti-Xa Level ABG pO2 ABG HCO3 ABG O2 Saturation ABG Base Excess ABG Hemoglobin Potassium Chloride Carbon Dioxide BUN Creatinine Glucose POC Glucose Lactic Acid Calcium AST Total Creatine Kinase 4251 H CK-MB (CK-2) Troponin T 0.641 H* D Total Protein Albumin Cholesterol LDL Cholesterol Direct HDL Cholesterol 12/26/19 12/26/19 12/26/19 08:26 08:59 10:26 WBC RBC Hgb Hct MCV Lymph % (Auto) [place] % (Auto) Lymph # Seg Neutrophils % Seg Neutrophils # PT INR Heparin Anti-Xa Level ABG pO2 ABG HCO3 ABG O2 Saturation ABG Base Excess ABG Hemoglobin Potassium Chloride 108.1 H Carbon Dioxide 14 L BUN 40 H Creatinine 1.9 H Glucose 497 H POC Glucose 438 H 434 H Lactic Acid Calcium 8.2 L AST Total Creatine Kinase CK-MB (CK-2) Troponin T Total Protein Albumin Cholesterol LDL Cholesterol Direct HDL Cholesterol 12/26/19 12/26/19 12/26/19 11:49 12:56 13:37 WBC RBC Hgb Hct MCV Lymph % (Auto) [place] % (Auto) Lymph # Seg Neutrophils % Seg Neutrophils # PT INR Heparin Anti-Xa Level ABG pO2 ABG HCO3 ABG O2 Saturation ABG Base Excess ABG Hemoglobin Potassium Chloride Carbon Dioxide BUN Creatinine Glucose POC Glucose 371 H 351 H 364 H Lactic Acid Calcium AST Total Creatine Kinase CK-MB (CK-2) Troponin T Total Protein Albumin Cholesterol LDL Cholesterol Direct HDL Cholesterol 12/26/19 12/26/19 12/26/19 14:00 14:00 14:44 WBC RBC Hgb Hct MCV Lymph % (Auto) [place] % (Auto) Lymph # Seg Neutrophils % Seg Neutrophils # PT INR Heparin Anti-Xa Level < 0.10 L ABG pO2 ABG HCO3 ABG O2 Saturation ABG Base Excess ABG Hemoglobin Potassium Chloride Carbon Dioxide BUN Creatinine Glucose POC Glucose 250 H Lactic Acid Calcium AST Total Creatine Kinase CK-MB (CK-2) Troponin T 0.595 H* Total Protein Albumin Cholesterol LDL Cholesterol Direct HDL Cholesterol 12/26/19 12/26/19 12/26/19 15:40 16:36 17:52 WBC RBC Hgb Hct MCV Lymph % (Auto) [place] % (Auto) Lymph # Seg Neutrophils % Seg Neutrophils # PT INR Heparin Anti-Xa Level ABG pO2 ABG HCO3 ABG O2 Saturation ABG Base Excess ABG Hemoglobin Potassium Chloride Carbon Dioxide BUN Creatinine Glucose POC Glucose 225 H 253 H 225 H Lactic Acid Calcium AST Total Creatine Kinase CK-MB (CK-2) Troponin T Total Protein Albumin Cholesterol LDL Cholesterol Direct HDL Cholesterol 12/26/19 12/26/19 12/26/19 18:35 18:35 18:58 WBC RBC Hgb Hct MCV Lymph % (Auto) [place] % (Auto) Lymph # Seg Neutrophils % Seg Neutrophils # PT INR Heparin Anti-Xa Level ABG pO2 ABG HCO3 ABG O2 Saturation ABG Base Excess ABG Hemoglobin Potassium Chloride 109.1 H Carbon Dioxide 20 L BUN 42 H Creatinine 1.7 H Glucose 234 H POC Glucose 210 H Lactic Acid Calcium 8.3 L AST Total Creatine Kinase CK-MB (CK-2) Troponin T 0.544 H* Total Protein Albumin Cholesterol LDL Cholesterol Direct HDL Cholesterol 12/26/19 12/26/19 12/26/19 20:33 21:29 22:14 WBC RBC Hgb Hct MCV Lymph % (Auto) [place] % (Auto) Lymph # Seg Neutrophils % Seg Neutrophils # PT INR Heparin Anti-Xa Level ABG pO2 ABG HCO3 ABG O2 Saturation ABG Base Excess ABG Hemoglobin Potassium Chloride Carbon Dioxide BUN Creatinine Glucose POC Glucose 215 H 202 H 197 H Lactic Acid Calcium AST Total Creatine Kinase CK-MB (CK-2) Troponin T Total Protein Albumin Cholesterol LDL Cholesterol Direct HDL Cholesterol 12/26/19 12/27/19 12/27/19 23:19 00:27 00:54 WBC RBC Hgb Hct MCV Lymph % (Auto) [place] % (Auto) Lymph # Seg Neutrophils % Seg Neutrophils # PT INR Heparin Anti-Xa Level ABG pO2 ABG HCO3 ABG O2 Saturation ABG Base Excess ABG Hemoglobin Potassium Chloride 110.0 H Carbon Dioxide 21 L BUN 43 H Creatinine 1.7 H Glucose 161 H POC Glucose 168 H 152 H Lactic Acid Calcium 8.3 L AST Total Creatine Kinase CK-MB (CK-2) Troponin T Total Protein Albumin Cholesterol LDL Cholesterol Direct HDL Cholesterol 12/27/19 12/27/19 12/27/19 01:12 02:06 03:11 WBC RBC Hgb Hct MCV Lymph % (Auto) [place] % (Auto) Lymph # Seg Neutrophils % Seg Neutrophils # PT INR Heparin Anti-Xa Level ABG pO2 ABG HCO3 ABG O2 Saturation ABG Base Excess ABG Hemoglobin Potassium Chloride Carbon Dioxide BUN Creatinine Glucose POC Glucose 150 H 145 H 152 H Lactic Acid Calcium AST Total Creatine Kinase CK-MB (CK-2) Troponin T Total Protein Albumin Cholesterol LDL Cholesterol Direct HDL Cholesterol 12/27/19 12/27/19 12/27/19 04:15 04:19 05:09 WBC RBC Hgb Hct MCV Lymph % (Auto) [place] % (Auto) Lymph # Seg Neutrophils % Seg Neutrophils # PT INR Heparin Anti-Xa Level ABG pO2 120.5 H ABG HCO3 ABG O2 Saturation ABG Base Excess -4.4 L ABG Hemoglobin 7.0 L Potassium Chloride Carbon Dioxide BUN Creatinine Glucose POC Glucose 157 H 153 H Lactic Acid Calcium AST Total Creatine Kinase CK-MB (CK-2) Troponin T Total Protein Albumin Cholesterol LDL Cholesterol Direct HDL Cholesterol 12/27/19 12/27/19 12/27/19 05:53 05:53 05:53 WBC RBC Hgb Hct MCV Lymph % (Auto) [place] % (Auto) Lymph # Seg Neutrophils % Seg Neutrophils # PT INR Heparin Anti-Xa Level ABG pO2 ABG HCO3 ABG O2 Saturation ABG Base Excess ABG Hemoglobin Potassium Chloride 110.6 H Carbon Dioxide 18 L BUN 45 H Creatinine 1.9 H Glucose 163 H POC Glucose Lactic Acid Calcium AST 68 H Total Creatine Kinase 1599 H CK-MB (CK-2) Troponin T 0.522 H* Total Protein 5.8 L Albumin 2.5 L Cholesterol LDL Cholesterol Direct HDL Cholesterol 12/27/19 12/27/19 12/27/19 06:16 06:54 08:13 WBC RBC Hgb Hct MCV Lymph % (Auto) [place] % (Auto) Lymph # Seg Neutrophils % Seg Neutrophils # PT INR Heparin Anti-Xa Level ABG pO2 ABG HCO3 ABG O2 Saturation ABG Base Excess ABG Hemoglobin Potassium Chloride Carbon Dioxide BUN Creatinine Glucose POC Glucose 142 H 134 H 132 H Lactic Acid Calcium AST Total Creatine Kinase CK-MB (CK-2) Troponin T Total Protein Albumin Cholesterol LDL Cholesterol Direct HDL Cholesterol 12/27/19 12/27/19 12/27/19 09:25 10:20 11:22 WBC RBC Hgb Hct MCV Lymph % (Auto) [place] % (Auto) Lymph # Seg Neutrophils % Seg Neutrophils # PT INR Heparin Anti-Xa Level ABG pO2 ABG HCO3 ABG O2 Saturation ABG Base Excess ABG Hemoglobin Potassium Chloride Carbon Dioxide BUN Creatinine Glucose POC Glucose 117 H 119 H 133 H Lactic Acid Calcium AST Total Creatine Kinase CK-MB (CK-2) Troponin T Total Protein Albumin Cholesterol LDL Cholesterol Direct HDL Cholesterol 12/27/19 12/27/19 12/27/19 12:21 13:25 13:52 WBC RBC Hgb Hct MCV Lymph % (Auto) [place] % (Auto) Lymph # Seg Neutrophils % Seg Neutrophils # PT INR Heparin Anti-Xa Level ABG pO2 ABG HCO3 ABG O2 Saturation ABG Base Excess ABG Hemoglobin Potassium Chloride 111.1 H Carbon Dioxide 18 L BUN 44 H Creatinine 1.8 H Glucose 118 H POC Glucose 121 H 136 H Lactic Acid Calcium 7.9 L AST Total Creatine Kinase CK-MB (CK-2) Troponin T Total Protein Albumin Cholesterol LDL Cholesterol Direct HDL Cholesterol 12/27/19 12/27/19 12/27/19 15:05 18:14 18:48 WBC RBC Hgb Hct MCV Lymph % (Auto) [place] % (Auto) Lymph # Seg Neutrophils % Seg Neutrophils # PT INR Heparin Anti-Xa Level ABG pO2 ABG HCO3 ABG O2 Saturation ABG Base Excess ABG Hemoglobin Potassium Chloride Carbon Dioxide BUN Creatinine Glucose POC Glucose 166 H 135 H Lactic Acid Calcium AST Total Creatine Kinase 1274 H CK-MB (CK-2) Troponin T Total Protein Albumin Cholesterol LDL Cholesterol Direct HDL Cholesterol 12/27/19 12/27/19 12/28/19 21:14 22:23 01:57 WBC RBC Hgb Hct MCV Lymph % (Auto) [place] % (Auto) Lymph # Seg Neutrophils % Seg Neutrophils # PT INR Heparin Anti-Xa Level 0.24 L ABG pO2 ABG HCO3 ABG O2 Saturation ABG Base Excess ABG Hemoglobin Potassium Chloride Carbon Dioxide BUN Creatinine Glucose POC Glucose 186 H 193 H Lactic Acid Calcium AST Total Creatine Kinase CK-MB (CK-2) Troponin T Total Protein Albumin Cholesterol LDL Cholesterol Direct HDL Cholesterol 12/28/19 12/28/19 12/28/19 03:55 04:58 09:04 WBC RBC Hgb Hct MCV Lymph % (Auto) [place] % (Auto) Lymph # Seg Neutrophils % Seg Neutrophils # PT INR Heparin Anti-Xa Level ABG pO2 105.5 H ABG HCO3 19.7 L ABG O2 Saturation ABG Base Excess -4.4 L ABG Hemoglobin 11.1 L Potassium Chloride Carbon Dioxide BUN Creatinine Glucose POC Glucose 182 H 168 H Lactic Acid Calcium AST Total Creatine Kinase CK-MB (CK-2) Troponin T Total Protein Albumin Cholesterol LDL Cholesterol Direct HDL Cholesterol 12/28/19 12/28/19 12/28/19 09:31 09:31 09:31 WBC 12.0 H RBC 3.60 L Hgb 11.2 L Hct 35.2 L MCV 98 H Lymph % (Auto) [place] % (Auto) Lymph # Seg Neutrophils % Seg Neutrophils # PT INR Heparin Anti-Xa Level ABG pO2 ABG HCO3 ABG O2 Saturation ABG Base Excess ABG Hemoglobin Potassium Chloride 108.9 H Carbon Dioxide 17 L BUN 39 H Creatinine Glucose 197 H POC Glucose Lactic Acid Calcium AST Total Creatine Kinase 804 H CK-MB (CK-2) Troponin T 0.479 H* Total Protein Albumin 2.8 L Cholesterol LDL Cholesterol Direct HDL Cholesterol 12/28/19 12/28/19 12/28/19 09:31 12:57 17:24 WBC RBC Hgb Hct MCV Lymph % (Auto) [place] % (Auto) Lymph # Seg Neutrophils % Seg Neutrophils # PT INR Heparin Anti-Xa Level 0.23 L ABG pO2 ABG HCO3 ABG O2 Saturation ABG Base Excess ABG Hemoglobin Potassium Chloride Carbon Dioxide BUN Creatinine Glucose POC Glucose 150 H 269 H Lactic Acid Calcium AST Total Creatine Kinase CK-MB (CK-2) Troponin T Total Protein Albumin Cholesterol LDL Cholesterol Direct HDL Cholesterol 12/28/19 12/28/19 12/28/19 18:15 18:15 22:03 WBC RBC Hgb Hct MCV Lymph % (Auto) [place] % (Auto) Lymph # Seg Neutrophils % Seg Neutrophils # PT INR Heparin Anti-Xa Level 0.26 L ABG pO2 ABG HCO3 ABG O2 Saturation ABG Base Excess ABG Hemoglobin Potassium Chloride Carbon Dioxide BUN Creatinine Glucose POC Glucose 244 H Lactic Acid Calcium AST Total Creatine Kinase 735 H CK-MB (CK-2) Troponin T Total Protein Albumin Cholesterol LDL Cholesterol Direct HDL Cholesterol 12/29/19 12/29/19 12/29/19 00:40 02:13 04:07 WBC 11.8 H RBC 3.43 L Hgb 10.8 L Hct 32.7 L MCV 95 H Lymph % (Auto) [place] % (Auto) Lymph # Seg Neutrophils % Seg Neutrophils # PT INR Heparin Anti-Xa Level 0.16 L ABG pO2 ABG HCO3 ABG O2 Saturation ABG Base Excess ABG Hemoglobin Potassium Chloride Carbon Dioxide BUN Creatinine Glucose POC Glucose 137 H Lactic Acid Calcium AST Total Creatine Kinase CK-MB (CK-2) Troponin T Total Protein Albumin Cholesterol LDL Cholesterol Direct HDL Cholesterol 12/29/19 12/29/19 12/29/19 04:07 08:15 08:58 WBC RBC Hgb Hct MCV Lymph % (Auto) [place] % (Auto) Lymph # Seg Neutrophils % Seg Neutrophils # PT INR Heparin Anti-Xa Level 0.15 L ABG pO2 ABG HCO3 ABG O2 Saturation ABG Base Excess ABG Hemoglobin Potassium 3.3 L Chloride 108.5 H Carbon Dioxide 20 L BUN 26 H Creatinine Glucose POC Glucose 168 H Lactic Acid Calcium 8.2 L AST Total Creatine Kinase CK-MB (CK-2) Troponin T Total Protein Albumin Cholesterol LDL Cholesterol Direct HDL Cholesterol 12/29/19 12/29/19 12/30/19 12:52 18:21 01:08 WBC RBC Hgb Hct MCV Lymph % (Auto) [place] % (Auto) Lymph # Seg Neutrophils % Seg Neutrophils # PT INR Heparin Anti-Xa Level < 0.10 L 0.22 L ABG pO2 ABG HCO3 ABG O2 Saturation ABG Base Excess ABG Hemoglobin Potassium Chloride Carbon Dioxide BUN Creatinine Glucose POC Glucose 145 H Lactic Acid Calcium AST Total Creatine Kinase CK-MB (CK-2) Troponin T Total Protein Albumin Cholesterol LDL Cholesterol Direct HDL Cholesterol 12/30/19 12/30/19 12/30/19 05:07 08:00 09:08 WBC RBC Hgb 10.9 L Hct 32.4 L MCV Lymph % (Auto) [place] % (Auto) Lymph # Seg Neutrophils % Seg Neutrophils # PT INR Heparin Anti-Xa Level 0.20 L ABG pO2 ABG HCO3 ABG O2 Saturation ABG Base Excess ABG Hemoglobin Potassium Chloride Carbon Dioxide BUN Creatinine Glucose POC Glucose 117 H Lactic Acid Calcium AST Total Creatine Kinase CK-MB (CK-2) Troponin T Total Protein Albumin Cholesterol LDL Cholesterol Direct HDL Cholesterol 12/30/19 12/30/19 12/30/19 12:49 16:36 21:45 WBC RBC Hgb Hct MCV Lymph % (Auto) [place] % (Auto) Lymph # Seg Neutrophils % Seg Neutrophils # PT INR Heparin Anti-Xa Level ABG pO2 ABG HCO3 ABG O2 Saturation ABG Base Excess ABG Hemoglobin Potassium Chloride Carbon Dioxide BUN Creatinine Glucose POC Glucose 179 H 178 H 213 H Lactic Acid Calcium AST Total Creatine Kinase CK-MB (CK-2) Troponin T Total Protein Albumin Cholesterol LDL Cholesterol Direct HDL Cholesterol 12/31/19 12/31/19 12/31/19 06:02 06:02 08:45 WBC RBC 3.38 L Hgb 10.8 L Hct 31.9 L MCV Lymph % (Auto) [place] % (Auto) Lymph # Seg Neutrophils % Seg Neutrophils # PT INR Heparin Anti-Xa Level ABG pO2 ABG HCO3 ABG O2 Saturation ABG Base Excess ABG Hemoglobin Potassium 3.0 L Chloride Carbon Dioxide 21 L BUN Creatinine Glucose 168 H POC Glucose 176 H Lactic Acid Calcium 8.0 L AST Total Creatine Kinase CK-MB (CK-2) Troponin T Total Protein Albumin Cholesterol LDL Cholesterol Direct HDL Cholesterol 12/31/19 12/31/19 12/31/19 12:20 17:02 21:13 WBC RBC Hgb Hct MCV Lymph % (Auto) [place] % (Auto) Lymph # Seg Neutrophils % Seg Neutrophils # PT INR Heparin Anti-Xa Level ABG pO2 ABG HCO3 ABG O2 Saturation ABG Base Excess ABG Hemoglobin Potassium Chloride Carbon Dioxide BUN Creatinine Glucose POC Glucose 297 H 405 H 120 H Lactic Acid Calcium AST Total Creatine Kinase CK-MB (CK-2) Troponin T Total Protein Albumin Cholesterol LDL Cholesterol Direct HDL Cholesterol 01/01/20 01/01/20 01/01/20 07:01 07:01 12:07 WBC RBC 3.50 L Hgb 11.0 L Hct 33.4 L MCV 95 H Lymph % (Auto) [place] % (Auto) 10.0 H Lymph # Seg Neutrophils % Seg Neutrophils # PT INR Heparin Anti-Xa Level ABG pO2 ABG HCO3 ABG O2 Saturation ABG Base Excess ABG Hemoglobin Potassium 3.3 L Chloride 107.8 H Carbon Dioxide 18 L BUN Creatinine Glucose 101 H POC Glucose 133 H Lactic Acid Calcium 8.0 L AST Total Creatine Kinase 227 H CK-MB (CK-2) Troponin T Total Protein Albumin Cholesterol LDL Cholesterol Direct HDL Cholesterol 01/01/20 16:46 WBC RBC Hgb Hct MCV Lymph % (Auto) [place] % (Auto) Lymph # Seg Neutrophils % Seg Neutrophils # PT INR Heparin Anti-Xa Level ABG pO2 ABG HCO3 ABG O2 Saturation ABG Base Excess ABG Hemoglobin Potassium Chloride Carbon Dioxide BUN Creatinine Glucose POC Glucose 280 H Lactic Acid Calcium AST Total Creatine Kinase CK-MB (CK-2) Troponin T Total Protein Albumin Cholesterol LDL Cholesterol Direct HDL Cholesterol Assessment and Plan Patient is a 54-year-old man with a history of subdural hemorrhage, history of CVA, diabetes mellitus, hypertension, hyperlipidemia, who presents with altered mental status. According patient's clinical findings, it is likely that the patient had metabolic encephalopathy. Of note, the patient is now back to baseline mental status, and therefore it is felt that encephalopathy has resolved. Alternatively, the patient may have had a brief episode of delirium. Plan: 1. Metabolic Encephalopathy: -CT head: No acute abnormality. Encephalopathy is now resolved. Patient is back to baseline mental status, and therefore does not warrant any further neurologic work-up at this time. If patient is found to be in altered mental status again, further work-up may be warranted. -Continue to correct metabolic abnormalities and infections per primary team. -As patient is back to baseline mental status at this time, we will sign off. Please call with any questions. Thank you for allowing me to take part in the care of this patient. Sven Kitchen MD Neurology
[2020-01-02] MEDS: hydrALAZINE 25 MG TAB PO SCH ×3 (06:59→22:39)
[2020-01-02] MEDS: INSULIN LISPRO 100 UNIT/ML SUB-Q SCH ×4 (07:30→23:15)
[2020-01-02] MEDS: INSULIN NPH/REGULAR 70/30 INJ SUB-Q SCH ×2 (08:00→16:40)
[2020-01-02 08:21] LABS: Hematocrit 32.7 % (35.5-45.6); Hemoglobin 10.8 gm/dl (11.8-15.2); Mean Corpuscular HGB Conc 33 % (32-34); Mean Corpuscular Volume 94 fl (84-94); Platelet Count 427 K/mm3 (140-440); Red Blood Count 3.47 M/mm3 (3.65-5.03)
[2020-01-02 08:32] LABS: INR 1.03 (0.87-1.13)
[2020-01-02 08:43] LABS: BUN/Creatinine Ratio 14; Blood Urea Nitrogen 13 mg/dL (9-20); Calcium 7.7 mg/dL (8.4-10.2); Hemolysis Index 4
[2020-01-02] MEDS ORDERED: VERAPAMIL 5 MG/2 ML INJ ONE (09:30)
[2020-01-02] MEDS ORDERED: HEPARIN/NS 5000 UNIT/500ML 1,000 ML IR ONE (09:30)
[2020-01-02] MEDS ORDERED: NITROGLYCERIN SYRINGE 3 ML ONE (09:31)
[2020-01-02] MEDS ORDERED: LIDOCAINE (2%) 20 MG/1 ML VIAL 20 ML MDV INFILTRATI ONE (09:31)
[2020-01-02] MEDS ORDERED: fentaNYL 100 MCG/2 ML INJ ONE (09:31)
[2020-01-02] MEDS ORDERED: MIDAZOLAM 2 MG/2 ML INJ ONE (09:31)
[2020-01-02] MEDS ORDERED: SODIUM CHLORIDE 0.9% 500 ML 500 ML ONE (09:39)
[2020-01-02] MEDS ORDERED: ASPIRIN EC 325 MG TAB PO ONE ×2 (09:39→10:20)
--- NOTE | 2020-01-02 10:01 | Progress Note ---
Assessment and Plan Neurology input noted. S/p [facility] today with PCI x 2 RCA. Initiate Plavix, cont ASA 325, statin, lopressor. Monitor overnight with possible d/c in AM. The patient has been seen in conjunction with Dr. Antwan Negrete who agrees with the assessment and plan of care. - Patient Problems (1) Acute respiratory failure Current Visit: Yes Status: Resolved Qualifiers: Respiratory failure complication: hypoxia Qualified Code(s): J96.01 - Acute respiratory failure with hypoxia (2) Altered mental status Current Visit: Yes Status: Acute Qualifiers: Altered mental status type: unspecified Qualified Code(s): R41.82 - Altered mental status, unspecified (3) NSTEMI (non-ST elevated myocardial infarction) Current Visit: Yes Status: Acute (4) SVT (supraventricular tachycardia) Current Visit: Yes Status: Acute (5) Cardiomyopathy Current Visit: Yes Status: Chronic (6) Abnormal EKG Current Visit: Yes Status: Acute (7) NICOLE (acute kidney injury) Current Visit: Yes Status: Acute (8) Rhabdomyolysis Current Visit: Yes Status: Acute Qualifiers: Rhabdomyolysis type: non-traumatic Qualified Code(s): M62.82 - Rhabdomyolysis (9) Lactic acidosis Current Visit: Yes Status: Acute (10) Diabetes mellitus with hyperglycemia Current Visit: Yes Status: Acute (11) HTN (hypertension) Current Visit: Yes Status: Chronic Qualifiers: Hypertension type: essential hypertension Qualified Code(s): I10 - Essential (primary) hypertension (12) History of CVA (cerebrovascular accident) Current Visit: Yes Status: Chronic (13) CAD (coronary artery disease) Current Visit: Yes Status: Chronic Qualifiers: Associated angina: without angina (14) Stented coronary artery Current Visit: Yes Status: Chronic Subjective Date of service: 01/02/20 Principal diagnosis: respiratory failure; AMS Interval history: pt resting in bed, no apparent distress, appears oriented, no current complaints. for [facility] today. Objective Last Vital Signs Temp 98.9 F 01/02/20 08:11 Pulse 67 01/02/20 08:11 Resp 18 01/02/20 08:11 BP 151/79 01/02/20 08:11 Pulse Ox 97 01/02/20 08:11 - Physical Examination General: Other (confused, restrained) HEENT: Positive: PERRL Neck: Positive: neck supple, trachea midline Cardiac: Positive: Reg Rate and Rhythm, S1/S2 Lungs: Positive: Decreased Breath Sounds Neuro: Positive: Other (confused, restrained) Abdomen: Positive: Soft. Negative: Tender Skin: Negative: Rash Musculoskeletal: No Pain Extremities: Absent: edema - Labs and Meds Coagulation 01/02/20 Range/Units 08:03 PT 13.6 (12.2-14.9) Sec. INR 1.03 (0.87-1.13) CBC 01/02/20 Range/Units 08:03 WBC 7.0 (4.5-11.0) K/mm3 RBC 3.47 L (3.65-5.03) M/mm3 Hgb 10.8 L (11.8-15.2) gm/dl Hct 32.7 L (35.5-45.6) % Plt Count 427 (140-440) K/mm3 Comprehensive Metabolic Panel 01/02/20 Range/Units 08:03 Sodium 142 (137-145) mmol/L Potassium 3.3 L (3.6-5.0) mmol/L Chloride 107.8 H (98-107) mmol/L Carbon Dioxide 20 L (22-30) mmol/L BUN 13 (9-20) mg/dL Creatinine 0.9 (0.8-1.5) mg/dL Glucose 97 (75-100) mg/dL Calcium 7.7 L (8.4-10.2) mg/dL - Imaging and Cardiology EKG: report reviewed, image reviewed Echo: report reviewed (EF 30-35%, mild LVH, impaired relaxation) - EKG Sinus rhythms and dysrhythmias: sinus tachycardia Myocardial infarction: septal TX (old age or ind, anterior TX (old age or i
[2020-01-02] MEDS: HEPARIN 10,000 UNITS/10 ML VIAL ONE ×2 (10:34→11:02)
[2020-01-02] MEDS ORDERED: ATROPINE 0.1% (1 MG/10 ML) CARDIAC SYRINGE ONE (10:39)
[2020-01-02] MEDS ORDERED: SODIUM CHLORIDE 0.9% 500 ML 500 ML IV SCH (11:00)
[2020-01-02] MEDS ORDERED: ALUM-MAG HYDROXIDE-SIMETHICONE 200-200-20MG/5ML ORAL LIQD 30 ML ONE (11:06)
[2020-01-02] MEDS ORDERED: CLOPIDOGREL 300 MG TAB ONE (11:06)
--- NOTE | 2020-01-02 11:24 | Cardiac Catherization Report ---
REFERRING PHYSICIAN: Dr. Vasquez. INDICATION FOR PROCEDURE: The patient is a pleasant 54-year-old -[place] male here with non-ST elevation myocardial infarction, heart failure and abnormal troponins, had some altered mental status over the weekend. Mental status is improved. Also discussed with his sister over the phone, consent was obtained. The patient is lucid this morning. Due to recurrent symptoms, I decided to proceed with left heart catheterization. Risks, benefits, alternatives discussed at length prior to obtaining informed consent. PROCEDURE IN DETAIL: The patient was brought to the recyclable materials sorter in a postabsorptive state, prepped and draped in sterile fashion. He has an IV in his right wrist and thus we used a groin approach, 6-Japanese sheath placed in the right common femoral artery via modified Seldinger technique. All exchanges performed to exchange a J-tip guidewire. JL3.5 catheter was used to engage the left main. No dampening or ventricularization. Cineangiography was performed in multiple projections. JR4 catheter was used to cross the aortic valve under fluoroscopic guidance. Left ventriculography performed in 30 WEST and 30 CHINESE projections via hand injections, catheter flushed. Manual pullback performed with continuous pressure monitoring. Catheter used to engage the right coronary. No dampening or ventricularization. Cineangiography performed in all projections. JR4 catheter was used to cross the aortic valve under fluoroscopic guidance. Left ventriculography performed in 30 WEST and 30 CHINESE projections via hand injections, catheter flushed. Manual pullback performed with continuous pressure monitoring. Catheter used to engage the right coronary. No dampening or ventricularization. Cineangiography performed in all projections. DATA: Aortic pressure is 140/70, LV pressure is 140. LVP of 20 mmHg. Left ventriculography reveals normal systolic performance with estimated ejection fraction of 50-55%. No evidence of aortic stenosis. CORONARY ANATOMY: This is a right dominant system. Right coronary is a moderate sized vessel, courses AV groove, distally bifurcates in the posterior descending and posterolateral branches. A culprit 90-95% hazy occlusion in the midsegment tandem 90% stenosis just distally to this, MATHEW 2 flow noted. The left main without significant disease, bifurcates in left anterior descending and left circumflex. Left circumflex is moderate sized vessel, courses AV groove. Left circumflex is with 25% mid circumflex stenosis. There are 2 OM branches, both with disease, probably 60-70% proximally, MATHEW 3 flow there. LAD is a moderate sized vessel, courses anterior groove, wraps around the apex, slow flow, but no obstructive disease noted, 25% proximal LAD stenosis, occlusion of which appears to be chronic. Given his culprit lesions, right coronary is to proceed with PCI. A 6-Japanese JR4 guide used to engage the right coronary. Heparin and aspirin already given. A K[place]um wire was used to cross the lesion without difficulty, predilated both lesions with 2.5 x 12 balloon, had some trouble delivering the stent. Thus, we braydon wired with a [employer] wire, delivered a 2.75 x 22 stent to the high mid LAD lesion, which is tortuous, delivered at 12 EMILIANO for 30 seconds. Excellent angiographic result. Next, we delivered a 2.75 x 12 Agusto stent to the mid lesion deployed at 12 EMILIANO for 20 seconds. Excellent final angiographic result. Intracoronary nitroglycerin was given. Excellent result overall, MATHEW 3 flow, would recommend medical management of left coronary system branch disease. Consider staged PCI down the road. I directly supervised the administration of moderate sedation from 10:20 a.m. to 11:05 a.m. The patient is clinically stable, chest pain free. Standard groin care. CONCLUSIONS: 1. Significant epicardial coronary disease in this right dominant system. A. Culprit tandem 95% mid RCA stenoses. Successful PCI with placement of Agusto 2.75 x 12 and [place] 2.75 x 22 with excellent final angiographic result, MATHEW 3 flow, no complications. Moderate branch vessel disease noted. B. Moderate branch vessel disease noted in the left system with a 70% stenosis in OM1 and OM2 MATHEW 3 flow, occluded diagonal, patent LAD and left circumflex and left main. Medical management for now. Consider staged PCI of OM down the road. 2. Preserved left ventricular systolic performance, estimated ejection fraction of 50-55%. No evidence of aortic stenosis. 3. Standard groin care, 6 hours of bed rest, Plavix, aspirin, statin therapy, aggressive primary and secondary prevention measures. Results of procedure explained to the patient and family. All questions and concerns were addressed. JOB# [id number] NATALIA/NTS
--- NOTE | 2020-01-02 13:18 | Progress Note ---
Subjective Date of service: 01/02/20 Principal diagnosis: respiratory failure; AMS Interval history: went over the CT of head and the forth ventricle is enlarged and there are numbar of small strokes present present in white matter the issue is curious at age 54 probably good idea to follow up CT in 3-6 [facility] Objective - Vital Sign Vital Signs - 12hr 01/02/20 01/02/20 01/02/20 03:46 04:17 06:59 Temperature 98.7 F 98.7 F Pulse Rate 67 70 68 Pulse Rate [ From Monitor] Respiratory 18 18 Rate Blood Pressure 173/91 151/80 Blood Pressure 168/91 [Right] O2 Sat by Pulse 94 94 Oximetry 01/02/20 01/02/20 01/02/20 08:11 10:00 11:27 Temperature 98.9 F 97.6 F Pulse Rate 67 66 66 Pulse Rate [ 72 From Monitor] Respiratory 18 20 12 Rate Blood Pressure 151/79 123/81 Blood Pressure [Right] O2 Sat by Pulse 97 97 96 Oximetry 01/02/20 01/02/20 01/02/20 11:32 11:45 12:00 Temperature Pulse Rate 64 70 67 Pulse Rate [ From Monitor] Respiratory 13 14 12 Rate Blood Pressure 150/80 154/83 144/85 Blood Pressure [Right] O2 Sat by Pulse 97 99 96 Oximetry 01/02/20 01/02/20 12:15 12:43 Temperature Pulse Rate 65 63 Pulse Rate [ From Monitor] Respiratory 14 13 Rate Blood Pressure 165/84 163/88 Blood Pressure [Right] O2 Sat by Pulse 97 97 Oximetry - Laboratory Findings CBC and BMP: 01/02/20 08:03 01/02/20 08:03 Abnormal Lab Findings: Abnormal Labs 12/25/19 12/25/19 12/25/19 10:13 10:13 10:13 WBC 12.0 H RBC Hgb Hct MCV 96 H Lymph % (Auto) 6.7 L [place] % (Auto) Lymph # 0.8 L Seg Neutrophils % 87.8 H Seg Neutrophils # 10.6 H PT 15.1 H INR 1.17 H Activated Clotting Time Heparin Anti-Xa Level ABG pO2 ABG HCO3 ABG O2 Saturation ABG Base Excess ABG Hemoglobin Potassium Chloride Carbon Dioxide 16 L BUN 23 H Creatinine 1.8 H Glucose 482 H POC Glucose Lactic Acid Calcium AST 49 H Total Creatine Kinase 2995 H CK-MB (CK-2) 16.8 H Troponin T 0.992 H* Total Protein Albumin 3.5 L Cholesterol 325 H LDL Cholesterol Direct 249 H HDL Cholesterol 74 H 12/25/19 12/25/19 12/25/19 10:45 11:33 12:57 WBC RBC Hgb Hct MCV Lymph % (Auto) [place] % (Auto) Lymph # Seg Neutrophils % Seg Neutrophils # PT INR Activated Clotting Time Heparin Anti-Xa Level ABG pO2 269.6 H ABG HCO3 16.7 L ABG O2 Saturation 99.5 H ABG Base Excess -5.8 L ABG Hemoglobin 13.4 L Potassium Chloride Carbon Dioxide BUN Creatinine Glucose POC Glucose Lactic Acid 8.30 H* 6.00 H* Calcium AST Total Creatine Kinase CK-MB (CK-2) Troponin T Total Protein Albumin Cholesterol LDL Cholesterol Direct HDL Cholesterol 12/25/19 12/25/19 12/25/19 16:37 20:58 22:22 WBC RBC Hgb Hct MCV Lymph % (Auto) [place] % (Auto) Lymph # Seg Neutrophils % Seg Neutrophils # PT INR Activated Clotting Time Heparin Anti-Xa Level ABG pO2 ABG HCO3 ABG O2 Saturation ABG Base Excess ABG Hemoglobin Potassium Chloride Carbon Dioxide BUN Creatinine Glucose POC Glucose Lactic Acid 3.30 H* 3.50 H* 2.10 H* Calcium AST Total Creatine Kinase CK-MB (CK-2) Troponin T Total Protein Albumin Cholesterol LDL Cholesterol Direct HDL Cholesterol 12/26/19 12/26/19 12/26/19 04:30 05:16 05:16 WBC RBC Hgb 11.7 L Hct 35.4 L MCV 95 H Lymph % (Auto) 9.0 L [place] % (Auto) Lymph # 1.0 L Seg Neutrophils % 87.3 H Seg Neutrophils # 9.2 H PT INR Activated Clotting Time Heparin Anti-Xa Level ABG pO2 188.0 H ABG HCO3 15.0 L ABG O2 Saturation 99.2 H ABG Base Excess -8.6 L ABG Hemoglobin 12.4 L Potassium Chloride Carbon Dioxide 14 L BUN 39 H Creatinine 2.0 H Glucose 545 H* POC Glucose Lactic Acid Calcium 8.0 L AST 70 H Total Creatine Kinase CK-MB (CK-2) Troponin T Total Protein 6.1 L Albumin 2.6 L Cholesterol LDL Cholesterol Direct HDL Cholesterol 12/26/19 12/26/19 12/26/19 07:44 07:44 07:44 WBC RBC Hgb Hct MCV Lymph % (Auto) [place] % (Auto) Lymph # Seg Neutrophils % Seg Neutrophils # PT 18.3 H INR 1.49 H Activated Clotting Time Heparin Anti-Xa Level ABG pO2 ABG HCO3 ABG O2 Saturation ABG Base Excess ABG Hemoglobin Potassium Chloride Carbon Dioxide BUN Creatinine Glucose POC Glucose Lactic Acid Calcium AST Total Creatine Kinase 4251 H CK-MB (CK-2) Troponin T 0.641 H* D Total Protein Albumin Cholesterol LDL Cholesterol Direct HDL Cholesterol 12/26/19 12/26/19 12/26/19 08:26 08:59 10:26 WBC RBC Hgb Hct MCV Lymph % (Auto) [place] % (Auto) Lymph # Seg Neutrophils % Seg Neutrophils # PT INR Activated Clotting Time Heparin Anti-Xa Level ABG pO2 ABG HCO3 ABG O2 Saturation ABG Base Excess ABG Hemoglobin Potassium Chloride 108.1 H Carbon Dioxide 14 L BUN 40 H Creatinine 1.9 H Glucose 497 H POC Glucose 438 H 434 H Lactic Acid Calcium 8.2 L AST Total Creatine Kinase CK-MB (CK-2) Troponin T Total Protein Albumin Cholesterol LDL Cholesterol Direct HDL Cholesterol 12/26/19 12/26/19 12/26/19 11:49 12:56 13:37 WBC RBC Hgb Hct MCV Lymph % (Auto) [place] % (Auto) Lymph # Seg Neutrophils % Seg Neutrophils # PT INR Activated Clotting Time Heparin Anti-Xa Level ABG pO2 ABG HCO3 ABG O2 Saturation ABG Base Excess ABG Hemoglobin Potassium Chloride Carbon Dioxide BUN Creatinine Glucose POC Glucose 371 H 351 H 364 H Lactic Acid Calcium AST Total Creatine Kinase CK-MB (CK-2) Troponin T Total Protein Albumin Cholesterol LDL Cholesterol Direct HDL Cholesterol 12/26/19 12/26/19 12/26/19 14:00 14:00 14:44 WBC RBC Hgb Hct MCV Lymph % (Auto) [place] % (Auto) Lymph # Seg Neutrophils % Seg Neutrophils # PT INR Activated Clotting Time Heparin Anti-Xa Level < 0.10 L ABG pO2 ABG HCO3 ABG O2 Saturation ABG Base Excess ABG Hemoglobin Potassium Chloride Carbon Dioxide BUN Creatinine Glucose POC Glucose 250 H Lactic Acid Calcium AST Total Creatine Kinase CK-MB (CK-2) Troponin T 0.595 H* Total Protein Albumin Cholesterol LDL Cholesterol Direct HDL Cholesterol 12/26/19 12/26/19 12/26/19 15:40 16:36 17:52 WBC RBC Hgb Hct MCV Lymph % (Auto) [place] % (Auto) Lymph # Seg Neutrophils % Seg Neutrophils # PT INR Activated Clotting Time Heparin Anti-Xa Level ABG pO2 ABG HCO3 ABG O2 Saturation ABG Base Excess ABG Hemoglobin Potassium Chloride Carbon Dioxide BUN Creatinine Glucose POC Glucose 225 H 253 H 225 H Lactic Acid Calcium AST Total Creatine Kinase CK-MB (CK-2) Troponin T Total Protein Albumin Cholesterol LDL Cholesterol Direct HDL Cholesterol 12/26/19 12/26/19 12/26/19 18:35 18:35 18:58 WBC RBC Hgb Hct MCV Lymph % (Auto) [place] % (Auto) Lymph # Seg Neutrophils % Seg Neutrophils # PT INR Activated Clotting Time Heparin Anti-Xa Level ABG pO2 ABG HCO3 ABG O2 Saturation ABG Base Excess ABG Hemoglobin Potassium Chloride 109.1 H Carbon Dioxide 20 L BUN 42 H Creatinine 1.7 H Glucose 234 H POC Glucose 210 H Lactic Acid Calcium 8.3 L AST Total Creatine Kinase CK-MB (CK-2) Troponin T 0.544 H* Total Protein Albumin Cholesterol LDL Cholesterol Direct HDL Cholesterol 12/26/19 12/26/19 12/26/19 20:33 21:29 22:14 WBC RBC Hgb Hct MCV Lymph % (Auto) [place] % (Auto) Lymph # Seg Neutrophils % Seg Neutrophils # PT INR Activated Clotting Time Heparin Anti-Xa Level ABG pO2 ABG HCO3 ABG O2 Saturation ABG Base Excess ABG Hemoglobin Potassium Chloride Carbon Dioxide BUN Creatinine Glucose POC Glucose 215 H 202 H 197 H Lactic Acid Calcium AST Total Creatine Kinase CK-MB (CK-2) Troponin T Total Protein Albumin Cholesterol LDL Cholesterol Direct HDL Cholesterol 12/26/19 12/27/19 12/27/19 23:19 00:27 00:54 WBC RBC Hgb Hct MCV Lymph % (Auto) [place] % (Auto) Lymph # Seg Neutrophils % Seg Neutrophils # PT INR Activated Clotting Time Heparin Anti-Xa Level ABG pO2 ABG HCO3 ABG O2 Saturation ABG Base Excess ABG Hemoglobin Potassium Chloride 110.0 H Carbon Dioxide 21 L BUN 43 H Creatinine 1.7 H Glucose 161 H POC Glucose 168 H 152 H Lactic Acid Calcium 8.3 L AST Total Creatine Kinase CK-MB (CK-2) Troponin T Total Protein Albumin Cholesterol LDL Cholesterol Direct HDL Cholesterol 12/27/19 12/27/19 12/27/19 01:12 02:06 03:11 WBC RBC Hgb Hct MCV Lymph % (Auto) [place] % (Auto) Lymph # Seg Neutrophils % Seg Neutrophils # PT INR Activated Clotting Time Heparin Anti-Xa Level ABG pO2 ABG HCO3 ABG O2 Saturation ABG Base Excess ABG Hemoglobin Potassium Chloride Carbon Dioxide BUN Creatinine Glucose POC Glucose 150 H 145 H 152 H Lactic Acid Calcium AST Total Creatine Kinase CK-MB (CK-2) Troponin T Total Protein Albumin Cholesterol LDL Cholesterol Direct HDL Cholesterol 12/27/19 12/27/19 12/27/19 04:15 04:19 05:09 WBC RBC Hgb Hct MCV Lymph % (Auto) [place] % (Auto) Lymph # Seg Neutrophils % Seg Neutrophils # PT INR Activated Clotting Time Heparin Anti-Xa Level ABG pO2 120.5 H ABG HCO3 ABG O2 Saturation ABG Base Excess -4.4 L ABG Hemoglobin 7.0 L Potassium Chloride Carbon Dioxide BUN Creatinine Glucose POC Glucose 157 H 153 H Lactic Acid Calcium AST Total Creatine Kinase CK-MB (CK-2) Troponin T Total Protein Albumin Cholesterol LDL Cholesterol Direct HDL Cholesterol 12/27/19 12/27/19 12/27/19 05:53 05:53 05:53 WBC RBC Hgb Hct MCV Lymph % (Auto) [place] % (Auto) Lymph # Seg Neutrophils % Seg Neutrophils # PT INR Activated Clotting Time Heparin Anti-Xa Level ABG pO2 ABG HCO3 ABG O2 Saturation ABG Base Excess ABG Hemoglobin Potassium Chloride 110.6 H Carbon Dioxide 18 L BUN 45 H Creatinine 1.9 H Glucose 163 H POC Glucose Lactic Acid Calcium AST 68 H Total Creatine Kinase 1599 H CK-MB (CK-2) Troponin T 0.522 H* Total Protein 5.8 L Albumin 2.5 L Cholesterol LDL Cholesterol Direct HDL Cholesterol 12/27/19 12/27/19 12/27/19 06:16 06:54 08:13 WBC RBC Hgb Hct MCV Lymph % (Auto) [place] % (Auto) Lymph # Seg Neutrophils % Seg Neutrophils # PT INR Activated Clotting Time Heparin Anti-Xa Level ABG pO2 ABG HCO3 ABG O2 Saturation ABG Base Excess ABG Hemoglobin Potassium Chloride Carbon Dioxide BUN Creatinine Glucose POC Glucose 142 H 134 H 132 H Lactic Acid Calcium AST Total Creatine Kinase CK-MB (CK-2) Troponin T Total Protein Albumin Cholesterol LDL Cholesterol Direct HDL Cholesterol 12/27/19 12/27/19 12/27/19 09:25 10:20 11:22 WBC RBC Hgb Hct MCV Lymph % (Auto) [place] % (Auto) Lymph # Seg Neutrophils % Seg Neutrophils # PT INR Activated Clotting Time Heparin Anti-Xa Level ABG pO2 ABG HCO3 ABG O2 Saturation ABG Base Excess ABG Hemoglobin Potassium Chloride Carbon Dioxide BUN Creatinine Glucose POC Glucose 117 H 119 H 133 H Lactic Acid Calcium AST Total Creatine Kinase CK-MB (CK-2) Troponin T Total Protein Albumin Cholesterol LDL Cholesterol Direct HDL Cholesterol 12/27/19 12/27/19 12/27/19 12:21 13:25 13:52 WBC RBC Hgb Hct MCV Lymph % (Auto) [place] % (Auto) Lymph # Seg Neutrophils % Seg Neutrophils # PT INR Activated Clotting Time Heparin Anti-Xa Level ABG pO2 ABG HCO3 ABG O2 Saturation ABG Base Excess ABG Hemoglobin Potassium Chloride 111.1 H Carbon Dioxide 18 L BUN 44 H Creatinine 1.8 H Glucose 118 H POC Glucose 121 H 136 H Lactic Acid Calcium 7.9 L AST Total Creatine Kinase CK-MB (CK-2) Troponin T Total Protein Albumin Cholesterol LDL Cholesterol Direct HDL Cholesterol 12/27/19 12/27/19 12/27/19 15:05 18:14 18:48 WBC RBC Hgb Hct MCV Lymph % (Auto) [place] % (Auto) Lymph # Seg Neutrophils % Seg Neutrophils # PT INR Activated Clotting Time Heparin Anti-Xa Level ABG pO2 ABG HCO3 ABG O2 Saturation ABG Base Excess ABG Hemoglobin Potassium Chloride Carbon Dioxide BUN Creatinine Glucose POC Glucose 166 H 135 H Lactic Acid Calcium AST Total Creatine Kinase 1274 H CK-MB (CK-2) Troponin T Total Protein Albumin Cholesterol LDL Cholesterol Direct HDL Cholesterol 12/27/19 12/27/19 12/28/19 21:14 22:23 01:57 WBC RBC Hgb Hct MCV Lymph % (Auto) [place] % (Auto) Lymph # Seg Neutrophils % Seg Neutrophils # PT INR Activated Clotting Time Heparin Anti-Xa Level 0.24 L ABG pO2 ABG HCO3 ABG O2 Saturation ABG Base Excess ABG Hemoglobin Potassium Chloride Carbon Dioxide BUN Creatinine Glucose POC Glucose 186 H 193 H Lactic Acid Calcium AST Total Creatine Kinase CK-MB (CK-2) Troponin T Total Protein Albumin Cholesterol LDL Cholesterol Direct HDL Cholesterol 12/28/19 12/28/19 12/28/19 03:55 04:58 09:04 WBC RBC Hgb Hct MCV Lymph % (Auto) [place] % (Auto) Lymph # Seg Neutrophils % Seg Neutrophils # PT INR Activated Clotting Time Heparin Anti-Xa Level ABG pO2 105.5 H ABG HCO3 19.7 L ABG O2 Saturation ABG Base Excess -4.4 L ABG Hemoglobin 11.1 L Potassium Chloride Carbon Dioxide BUN Creatinine Glucose POC Glucose 182 H 168 H Lactic Acid Calcium AST Total Creatine Kinase CK-MB (CK-2) Troponin T Total Protein Albumin Cholesterol LDL Cholesterol Direct HDL Cholesterol 12/28/19 12/28/19 12/28/19 09:31 09:31 09:31 WBC 12.0 H RBC 3.60 L Hgb 11.2 L Hct 35.2 L MCV 98 H Lymph % (Auto) [place] % (Auto) Lymph # Seg Neutrophils % Seg Neutrophils # PT INR Activated Clotting Time Heparin Anti-Xa Level ABG pO2 ABG HCO3 ABG O2 Saturation ABG Base Excess ABG Hemoglobin Potassium Chloride 108.9 H Carbon Dioxide 17 L BUN 39 H Creatinine Glucose 197 H POC Glucose Lactic Acid Calcium AST Total Creatine Kinase 804 H CK-MB (CK-2) Troponin T 0.479 H* Total Protein Albumin 2.8 L Cholesterol LDL Cholesterol Direct HDL Cholesterol 12/28/19 12/28/19 12/28/19 09:31 12:57 17:24 WBC RBC Hgb Hct MCV Lymph % (Auto) [place] % (Auto) Lymph # Seg Neutrophils % Seg Neutrophils # PT INR Activated Clotting Time Heparin Anti-Xa Level 0.23 L ABG pO2 ABG HCO3 ABG O2 Saturation ABG Base Excess ABG Hemoglobin Potassium Chloride Carbon Dioxide BUN Creatinine Glucose POC Glucose 150 H 269 H Lactic Acid Calcium AST Total Creatine Kinase CK-MB (CK-2) Troponin T Total Protein Albumin Cholesterol LDL Cholesterol Direct HDL Cholesterol 12/28/19 12/28/19 12/28/19 18:15 18:15 22:03 WBC RBC Hgb Hct MCV Lymph % (Auto) [place] % (Auto) Lymph # Seg Neutrophils % Seg Neutrophils # PT INR Activated Clotting Time Heparin Anti-Xa Level 0.26 L ABG pO2 ABG HCO3 ABG O2 Saturation ABG Base Excess ABG Hemoglobin Potassium Chloride Carbon Dioxide BUN Creatinine Glucose POC Glucose 244 H Lactic Acid Calcium AST Total Creatine Kinase 735 H CK-MB (CK-2) Troponin T Total Protein Albumin Cholesterol LDL Cholesterol Direct HDL Cholesterol 12/29/19 12/29/19 12/29/19 00:40 02:13 04:07 WBC 11.8 H RBC 3.43 L Hgb 10.8 L Hct 32.7 L MCV 95 H Lymph % (Auto) [place] % (Auto) Lymph # Seg Neutrophils % Seg Neutrophils # PT INR Activated Clotting Time Heparin Anti-Xa Level 0.16 L ABG pO2 ABG HCO3 ABG O2 Saturation ABG Base Excess ABG Hemoglobin Potassium Chloride Carbon Dioxide BUN Creatinine Glucose POC Glucose 137 H Lactic Acid Calcium AST Total Creatine Kinase CK-MB (CK-2) Troponin T Total Protein Albumin Cholesterol LDL Cholesterol Direct HDL Cholesterol 12/29/19 12/29/19 12/29/19 04:07 08:15 08:58 WBC RBC Hgb Hct MCV Lymph % (Auto) [place] % (Auto) Lymph # Seg Neutrophils % Seg Neutrophils # PT INR Activated Clotting Time Heparin Anti-Xa Level 0.15 L ABG pO2 ABG HCO3 ABG O2 Saturation ABG Base Excess ABG Hemoglobin Potassium 3.3 L Chloride 108.5 H Carbon Dioxide 20 L BUN 26 H Creatinine Glucose POC Glucose 168 H Lactic Acid Calcium 8.2 L AST Total Creatine Kinase CK-MB (CK-2) Troponin T Total Protein Albumin Cholesterol LDL Cholesterol Direct HDL Cholesterol 12/29/19 12/29/19 12/30/19 12:52 18:21 01:08 WBC RBC Hgb Hct MCV Lymph % (Auto) [place] % (Auto) Lymph # Seg Neutrophils % Seg Neutrophils # PT INR Activated Clotting Time Heparin Anti-Xa Level < 0.10 L 0.22 L ABG pO2 ABG HCO3 ABG O2 Saturation ABG Base Excess ABG Hemoglobin Potassium Chloride Carbon Dioxide BUN Creatinine Glucose POC Glucose 145 H Lactic Acid Calcium AST Total Creatine Kinase CK-MB (CK-2) Troponin T Total Protein Albumin Cholesterol LDL Cholesterol Direct HDL Cholesterol 12/30/19 12/30/19 12/30/19 05:07 08:00 09:08 WBC RBC Hgb 10.9 L Hct 32.4 L MCV Lymph % (Auto) [place] % (Auto) Lymph # Seg Neutrophils % Seg Neutrophils # PT INR Activated Clotting Time Heparin Anti-Xa Level 0.20 L ABG pO2 ABG HCO3 ABG O2 Saturation ABG Base Excess ABG Hemoglobin Potassium Chloride Carbon Dioxide BUN Creatinine Glucose POC Glucose 117 H Lactic Acid Calcium AST Total Creatine Kinase CK-MB (CK-2) Troponin T Total Protein Albumin Cholesterol LDL Cholesterol Direct HDL Cholesterol 12/30/19 12/30/19 12/30/19 12:49 16:36 21:45 WBC RBC Hgb Hct MCV Lymph % (Auto) [place] % (Auto) Lymph # Seg Neutrophils % Seg Neutrophils # PT INR Activated Clotting Time Heparin Anti-Xa Level ABG pO2 ABG HCO3 ABG O2 Saturation ABG Base Excess ABG Hemoglobin Potassium Chloride Carbon Dioxide BUN Creatinine Glucose POC Glucose 179 H 178 H 213 H Lactic Acid Calcium AST Total Creatine Kinase CK-MB (CK-2) Troponin T Total Protein Albumin Cholesterol LDL Cholesterol Direct HDL Cholesterol 12/31/19 12/31/19 12/31/19 06:02 06:02 08:45 WBC RBC 3.38 L Hgb 10.8 L Hct 31.9 L MCV Lymph % (Auto) [place] % (Auto) Lymph # Seg Neutrophils % Seg Neutrophils # PT INR Activated Clotting Time Heparin Anti-Xa Level ABG pO2 ABG HCO3 ABG O2 Saturation ABG Base Excess ABG Hemoglobin Potassium 3.0 L Chloride Carbon Dioxide 21 L BUN Creatinine Glucose 168 H POC Glucose 176 H Lactic Acid Calcium 8.0 L AST Total Creatine Kinase CK-MB (CK-2) Troponin T Total Protein Albumin Cholesterol LDL Cholesterol Direct HDL Cholesterol 12/31/19 12/31/19 12/31/19 12:20 17:02 21:13 WBC RBC Hgb Hct MCV Lymph % (Auto) [place] % (Auto) Lymph # Seg Neutrophils % Seg Neutrophils # PT INR Activated Clotting Time Heparin Anti-Xa Level ABG pO2 ABG HCO3 ABG O2 Saturation ABG Base Excess ABG Hemoglobin Potassium Chloride Carbon Dioxide BUN Creatinine Glucose POC Glucose 297 H 405 H 120 H Lactic Acid Calcium AST Total Creatine Kinase CK-MB (CK-2) Troponin T Total Protein Albumin Cholesterol LDL Cholesterol Direct HDL Cholesterol 01/01/20 01/01/20 01/01/20 07:01 07:01 12:07 WBC RBC 3.50 L Hgb 11.0 L Hct 33.4 L MCV 95 H Lymph % (Auto) [place] % (Auto) 10.0 H Lymph # Seg Neutrophils % Seg Neutrophils # PT INR Activated Clotting Time Heparin Anti-Xa Level ABG pO2 ABG HCO3 ABG O2 Saturation ABG Base Excess ABG Hemoglobin Potassium 3.3 L Chloride 107.8 H Carbon Dioxide 18 L BUN Creatinine Glucose 101 H POC Glucose 133 H Lactic Acid Calcium 8.0 L AST Total Creatine Kinase 227 H CK-MB (CK-2) Troponin T Total Protein Albumin Cholesterol LDL Cholesterol Direct HDL Cholesterol 01/01/20 01/01/20 01/02/20 16:46 21:29 06:00 WBC RBC Hgb Hct MCV Lymph % (Auto) [place] % (Auto) Lymph # Seg Neutrophils % Seg Neutrophils # PT INR Activated Clotting Time Heparin Anti-Xa Level ABG pO2 ABG HCO3 ABG O2 Saturation ABG Base Excess ABG Hemoglobin Potassium Chloride Carbon Dioxide BUN Creatinine Glucose POC Glucose 280 H 291 H 65 L Lactic Acid Calcium AST Total Creatine Kinase CK-MB (CK-2) Troponin T Total Protein Albumin Cholesterol LDL Cholesterol Direct HDL Cholesterol 01/02/20 01/02/20 01/02/20 08:03 08:03 13:14 WBC RBC 3.47 L Hgb 10.8 L Hct 32.7 L MCV Lymph % (Auto) [place] % (Auto) Lymph # Seg Neutrophils % Seg Neutrophils # PT INR Activated Clotting Time 169 H Heparin Anti-Xa Level ABG pO2 ABG HCO3 ABG O2 Saturation ABG Base Excess ABG Hemoglobin Potassium 3.3 L Chloride 107.8 H Carbon Dioxide 20 L BUN Creatinine Glucose POC Glucose Lactic Acid Calcium 7.7 L AST Total Creatine Kinase CK-MB (CK-2) Troponin T Total Protein Albumin Cholesterol LDL Cholesterol Direct HDL Cholesterol
[2020-01-02] MEDS: FAMOTIDINE 20 MG TAB PO SCH ×2 (14:47→22:39)
[2020-01-02] MEDS: METOPROLOL TARTRATE 25 MG TAB PO SCH ×2 (14:48→22:39)
[2020-01-02] MEDS: ASPIRIN 325 MG TAB PO SCH (14:48)
--- NOTE | 2020-01-02 14:48 | Progress Note ---
Assessment and Plan /Acute respiratory failure was Intubated, now extubated on 12/27 Pulm following /DKA, now resolved Discontinued Insulin drip Continue Novolin 70/30 bid /Diabetes mellitus - consisted carb diet, cont insulin coverage /Acute encephalopathy, improved likely metabolic, unremarkable CT head, consulted neurology /SIRS, likely reactive ID consulted. Recommend monitor off Antibiotic /NICOLE, due to vasomotor nephropathy, resolved with IV fluid /NSTEMI Serial troponins Cardiology following s/.p cardiac cath today with PCI /SVT, cont BB /Rhabdomyolysis CK improving IV fluids for now Monitor ck levels /Hyperlipidemia cont Statins 12/28. patient extubated 12/27. Lethargic. Stable to transfer to telemetry 12/29 Feels better, lethargic. Nurse had mentioned family says he had baseline cognitive . Will call and get more info from family. Discussed case with Dr. davidson. 12/30 patient scheduled for cardiac cath tomorrow. 12/31 cardiac cath postponded for AMS, CT head ordered, Neurology consulted 01/01 S/p LHC today with PCI x 2 RCA. Initiate Plavix, cont ASA 325, statin, lopressor. Monitor overnight with possible d/c in AM. Brief History Patient is a 54-year-old man with a history of subdural hemorrhage, history of CVA, diabetes mellitus, hypertension, hyperlipidemia. Patient was admitted on M arch 10 and was found to be unresponsive and altered mental status. He was evaluated by EMS and was found to have oxygen saturation in the low 80s. Patient was then brought to [facility] for further evaluation. On admission, patient was intubated. He was found to have fever, leukocytosis, respiratory failure, DKA, ARF, and lactic acidosis. He was ultimately extubated on December 27. Cardiology following for NSTEMI - s/p cardiac cath today Hospitalist Physical GEN: Not in acute distress, lying in bed, HEENT: Normocephalic, atraumatic, Neck: supple, No JVD Lungs: Clear , no crackles, heart;S1 and S2 reg, no murmurs, rubs or gallop Abd:soft, non tender, non distended, normal bowel sounds Ext: No edema, no clubbing, no cyanosis, Neuro: Alert and oriented, follows commands Subjective Date of service: 01/02/20 Principal diagnosis: respiratory failure; AMS Interval history: Patient seen and examined. Medical records and medication list reviewed. He appears alert and oriented today and s/p cardiac cath - tolerated well sister at bedside - updated Objective - Constitutional Vitals: Vital Signs - 12hr 01/02/20 01/02/20 01/02/20 03:46 04:17 06:59 Temperature 98.7 F 98.7 F Pulse Rate 67 70 68 Pulse Rate [ From Monitor] Respiratory 18 18 Rate Blood Pressure 173/91 151/80 Blood Pressure 168/91 [Right] O2 Sat by Pulse 94 94 Oximetry 01/02/20 01/02/20 01/02/20 08:11 10:00 11:27 Temperature 98.9 F 97.6 F Pulse Rate 67 66 66 Pulse Rate [ 72 From Monitor] Respiratory 18 20 12 Rate Blood Pressure 151/79 123/81 Blood Pressure [Right] O2 Sat by Pulse 97 97 96 Oximetry 01/02/20 01/02/20 01/02/20 11:32 11:45 12:00 Temperature Pulse Rate 64 70 67 Pulse Rate [ From Monitor] Respiratory 13 14 12 Rate Blood Pressure 150/80 154/83 144/85 Blood Pressure [Right] O2 Sat by Pulse 97 99 96 Oximetry 01/02/20 01/02/20 01/02/20 12:15 12:43 13:00 Temperature Pulse Rate 65 63 74 Pulse Rate [ From Monitor] Respiratory 14 13 17 Rate Blood Pressure 165/84 163/88 162/93 Blood Pressure [Right] O2 Sat by Pulse 97 97 98 Oximetry 01/02/20 01/02/20 01/02/20 13:15 13:30 13:35 Temperature Pulse Rate 65 72 77 Pulse Rate [ From Monitor] Respiratory 147 H 16 17 Rate Blood Pressure 170/88 147/86 160/86 Blood Pressure [Right] O2 Sat by Pulse 96 97 96 Oximetry 01/02/20 01/02/20 01/02/20 13:40 13:45 13:50 Temperature Pulse Rate 71 73 72 Pulse Rate [ From Monitor] Respiratory 17 10 L 12 Rate Blood Pressure 151/86 137/81 137/79 Blood Pressure [Right] O2 Sat by Pulse 96 96 96 Oximetry 01/02/20 01/02/20 14:00 14:14 Temperature Pulse Rate 72 Pulse Rate [ From Monitor] Respiratory 15 Rate Blood Pressure 147/81 Blood Pressure [Right] O2 Sat by Pulse 95 95 Oximetry - Labs CBC & Chem 7: 01/03/20 04:21 01/03/20 04:21 Labs: Abnormal lab results 01/01/20 01/01/20 01/02/20 Range/Units 16:46 21:29 06:00 RBC (3.65-5.03) M/mm3 Hgb (11.8-15.2) gm/dl Hct (35.5-45.6) % Activated Clotting Time (74-137) Potassium (3.6-5.0) mmol/L Chloride (98-107) mmol/L Carbon Dioxide (22-30) mmol/L POC Glucose 280 H 291 H 65 L (70-105) Calcium (8.4-10.2) mg/dL 01/02/20 01/02/20 01/02/20 Range/Units 08:03 08:03 13:14 RBC 3.47 L (3.65-5.03) M/mm3 Hgb 10.8 L (11.8-15.2) gm/dl Hct 32.7 L (35.5-45.6) % Activated Clotting Time 169 H (74-137) Potassium 3.3 L (3.6-5.0) mmol/L Chloride 107.8 H (98-107) mmol/L Carbon Dioxide 20 L (22-30) mmol/L POC Glucose (70-105) Calcium 7.7 L (8.4-10.2) mg/dL 01/02/20 Range/Units 14:38 RBC (3.65-5.03) M/mm3 Hgb (11.8-15.2) gm/dl Hct (35.5-45.6) % Activated Clotting Time (74-137) Potassium (3.6-5.0) mmol/L Chloride (98-107) mmol/L Carbon Dioxide (22-30) mmol/L POC Glucose 131 H (70-105) Calcium (8.4-10.2) mg/dL
[2020-01-02] MEDS: PREGABALIN 75 MG CAP PO SCH ×2 (14:49→22:39)
[2020-01-03 05:34] LABS: Basophils % (Auto) 0.7 % (0.0-1.8); Eosinophils # (Auto) 0.1 K/mm3 (0.0-0.4); Hematocrit 32.1 % (35.5-45.6); Hemoglobin 10.5 gm/dl (11.8-15.2); Lymphocytes # (Auto) 1.7 K/mm3 (1.2-5.4); Lymphocytes % (Auto) 25.9 % (13.4-35.0); Mean Corpuscular HGB Conc 33 % (32-34); Mean Corpuscular Volume 95 fl (84-94); Monocytes # (Auto) 0.6 K/mm3 (0.0-0.8); Monocytes % (Auto) 8.7 % (0.0-7.3); Platelet Count 438 K/mm3 (140-440); Red Blood Count 3.39 M/mm3 (3.65-5.03); Red Cell Distribution Width 14.1 % (13.2-15.2)
[2020-01-03 05:51] LABS: Creatine Kinase MB 2.3 ng/mL (0.0-4.0)
[2020-01-03 05:54] LABS: BUN/Creatinine Ratio 14; Blood Urea Nitrogen 15 mg/dL (9-20); Calcium 8.1 mg/dL (8.4-10.2); Hemolysis Index 2
[2020-01-03] MEDS: hydrALAZINE 25 MG TAB PO SCH ×2 (06:19→13:15)
[2020-01-03] MEDS: INSULIN LISPRO 100 UNIT/ML SUB-Q SCH ×3 (08:00→16:17)
[2020-01-03] MEDS: INSULIN NPH/REGULAR 70/30 INJ SUB-Q SCH (08:25)
[2020-01-03] MEDS: PREGABALIN 75 MG CAP PO SCH (09:15)
[2020-01-03] MEDS: FAMOTIDINE 20 MG TAB PO SCH (09:15)
[2020-01-03] MEDS: ASPIRIN 325 MG TAB PO SCH (09:15)
[2020-01-03] MEDS: METOPROLOL TARTRATE 25 MG TAB PO SCH (09:15)
--- NOTE | 2020-01-03 09:48 | XRay Report ---
CHEST 1 VIEW INDICATION / CLINICAL INFORMATION: post pci. COMPARISON: 12/29/2019 FINDINGS: SUPPORT DEVICES: None. HEART / MEDIASTINUM: No significant abnormality. LUNGS / PLEURA: No significant pulmonary or pleural abnormality. No pneumothorax. ADDITIONAL FINDINGS: No significant additional findings. IMPRESSION: No acute pulmonary or pleural abnormality. No change from 12/29/2019 Signer Name: Delvis Aguero MD FACR Signed: 01/03/2020 9:43 AM Workstation Name: [id number]
[2020-01-03] MEDS ORDERED: CLOPIDOGREL 75 MG TAB PO SCH (10:00)
[2020-01-03] MEDS ORDERED: POTASSIUM CHLORIDE ER 20 MEQ TAB PO ONE (11:35)
--- NOTE | 2020-01-03 11:37 | Progress Note ---
Assessment and Plan S/p C yesterday with PCI x 2 RCA. Cont present cardiac management, including ASA 325, Plavix, statin, lopressor. Currently stable cardiac status. Pt may discharge from cardiology standpoint. Recommend pt follow up in our office with Dr. Valero within 2 weeks of discharge ([phone]). The patient has been seen in conjunction with Dr. Antwan Negrete who agrees with the assessment and plan of care. - Patient Problems (1) Acute respiratory failure Current Visit: Yes Status: Resolved Qualifiers: Respiratory failure complication: hypoxia Qualified Code(s): J96.01 - Acute respiratory failure with hypoxia (2) Altered mental status Current Visit: Yes Status: Acute Qualifiers: Altered mental status type: unspecified Qualified Code(s): R41.82 - Altered mental status, unspecified (3) NSTEMI (non-ST elevated myocardial infarction) Current Visit: Yes Status: Acute (4) CAD (coronary artery disease) Current Visit: Yes Status: Chronic Qualifiers: Associated angina: without angina (5) Stented coronary artery Current Visit: Yes Status: Chronic (6) SVT (supraventricular tachycardia) Current Visit: Yes Status: Acute (7) Cardiomyopathy Current Visit: Yes Status: Chronic (8) Abnormal EKG Current Visit: Yes Status: Acute (9) NICOLE (acute kidney injury) Current Visit: Yes Status: Acute (10) Rhabdomyolysis Current Visit: Yes Status: Acute Qualifiers: Rhabdomyolysis type: non-traumatic Qualified Code(s): M62.82 - Rhabdomyolysis (11) Lactic acidosis Current Visit: Yes Status: Acute (12) Diabetes mellitus with hyperglycemia Current Visit: Yes Status: Acute (13) HTN (hypertension) Current Visit: Yes Status: Chronic Qualifiers: Hypertension type: essential hypertension Qualified Code(s): I10 - Essential (primary) hypertension (14) History of CVA (cerebrovascular accident) Current Visit: Yes Status: Chronic Subjective Date of service: 01/03/20 Principal diagnosis: respiratory failure; AMS Interval history: pt resting in bed, A&O, no apparent distress, no current complaints. Objective Last Vital Signs Temp 98.4 F 01/03/20 03:27 Pulse 84 01/03/20 10:00 Resp 17 01/03/20 10:00 BP 129/70 01/03/20 09:15 Pulse Ox 98 01/03/20 10:00 - Physical Examination General: No Apparent Distress HEENT: Positive: PERRL Neck: Positive: neck supple, trachea midline Cardiac: Positive: Reg Rate and Rhythm, S1/S2 Lungs: Positive: Decreased Breath Sounds Neuro: Positive: Grossly Intact Abdomen: Positive: Soft. Negative: Tender Skin: Negative: Rash Incision: Cardiac Cath Site (right groin LHC site c/d/i, no bleeding or hematoma) Musculoskeletal: No Pain Extremities: Absent: edema - Labs and Meds Cardiac Enzymes 01/03/20 Range/Units 04:21 CK-MB (CK-2) 2.3 (0.0-4.0) ng/mL CBC 01/03/20 Range/Units 04:21 WBC 6.4 (4.5-11.0) K/mm3 RBC 3.39 L (3.65-5.03) M/mm3 Hgb 10.5 L (11.8-15.2) gm/dl Hct 32.1 L (35.5-45.6) % Plt Count 438 (140-440) K/mm3 Lymph # 1.7 (1.2-5.4) K/mm3 [place] # 0.6 (0.0-0.8) K/mm3 Eos # 0.1 (0.0-0.4) K/mm3 Baso # 0.0 (0.0-0.1) K/mm3 Comprehensive Metabolic Panel 01/03/20 Range/Units 04:21 Sodium 139 (137-145) mmol/L Potassium 3.3 L (3.6-5.0) mmol/L Chloride 103.9 (98-107) mmol/L Carbon Dioxide 24 (22-30) mmol/L BUN 15 (9-20) mg/dL Creatinine 1.1 (0.8-1.5) mg/dL Glucose 174 H (75-100) mg/dL Calcium 8.1 L (8.4-10.2) mg/dL - Imaging and Cardiology EKG: report reviewed, image reviewed Echo: report reviewed (EF 30-35%, mild LVH, impaired relaxation) - Telemetry EKG Rhythm: Sinus Rhythm - EKG Sinus rhythms and dysrhythmias: sinus tachycardia Myocardial infarction: septal AL (old age or ind, anterior AL (old age or i
--- NOTE | 2020-01-03 11:49 | Discharge Summary ---
Providers - Providers Date of Admission: 12/25/19 12:45 Date of discharge: 01/03/20 Attending physician: FELTON GARCIA 12/25/19 09:14 Consult to Dietitian/Nutrition [CONS] Routine Physician Instructions: Reason For Exam: Reason for Consult: Evaluate nutritional intake 12/25/19 11:26 Speech Therapy Evaluation and Treat [CONS] Routine Reason For Exam: AMS 12/25/19 17:54 Consult to Dietitian/Nutrition [CONS] Routine Physician Instructions: Assess nutrtn needs, initiate, modify, manage TF Reason For Exam: Reason for Consult: Write/Manage Tube Feeding Reason for Consult: Write/Manage Tube Feeding Consult to Physician [CONS] Routine Comment: Consulting Provider: NADYA PATEL Physician Instructions: Reason For Exam: Elevated troponin 12/25/19 18:57 Consult to Dietitian/Nutrition [CONS] Routine Physician Instructions: Reason For Exam: Tube feeding Reason for Consult: Pt needs oral supplement 12/26/19 15:18 Consult to Physician [CONS] Routine Comment: Consulting Provider: BEATRICE CHANG Physician Instructions: Reason For Exam: Leukocytosis, possible sepsis 01/01/20 07:40 Occupational Therapy Evaluate and Treat [CONS] Routine Comment: Reason For Exam: weakness Physical Therapy Evaluation and Treat [CONS] Routine Comment: Reason For Exam: weakness 01/01/20 10:53 Consult to Physician [CONS] Routine Comment: Consulting Provider: MINI SILVERMAN Physician Instructions: Reason For Exam: AMS 01/02/20 Consult to Cardiac Rehabilitation [CONS] Routine Reason For Exam: post pci Primary care physician: EYEGLASS CUTTER Hospitalization Condition: Stable Pertinent studies: CXR abdominal xry head CT Cardiac cath Hospital course: Patient is a 54-year-old man with a history of subdural hemorrhage, history of CVA, diabetes mellitus, hypertension, hyperlipidemia. Patient was admitted on December 24 and was found to be unresponsive and altered mental status. He was evaluated by EMS and was found to have oxygen saturation in the low 80s. Patient was then brought to [facility] for further evaluation. On admission, patient was intubated. He was found to have fever, leukocytosis, respiratory failure, DKA, ARF, and lactic acidosis. He was ultimately extubated on December 27. Cardiology following for NSTEMI - s/p cardiac cath 01/01. Physical therapy recommended subacute rehab which is not covered by patient insurance. Patient was then discharged home with home health PT OT under care of his sister. Patient and patient's sister was discussed about the discharge management and plan and they verbalized understanding. 12/28. patient extubated 12/27. Lethargic. Stable to transfer to telemetry 12/29 Feels better, lethargic. Nurse had mentioned family says he had baseline cognitive . Will call and get more info from family. Discussed case with Dr. davidson. 12/30 patient scheduled for cardiac cath 0n 12/31. 12/31 cardiac cath postponded for AMS, CT head ordered, Neurology consulted 01/01 S/p C with PCI x 2 RCA. Initiate Plavix, cont ASA 325, statin, lopressor. Monitor overnight with possible d/c in AM. 01/02 d/c home with HH Discharge diagnosis: /Acute respiratory failure was Intubated, now extubated on 12/27 /DKA, now resolved Discontinued Insulin drip Continue Novolin 70/30 bid /Diabetes mellitus - consisted carb diet, cont insulin coverage /Acute encephalopathy, improved likely metabolic, unremarkable CT head, consulted neurology /SIRS, likely reactive ID consulted. Recommend monitor off Antibiotic /NICOLE, due to vasomotor nephropathy, resolved with IV fluid /NSTEMI Serial troponins Cardiology following s/.p cardiac cath with PCI /SVT, cont BB /Rhabdomyolysis CPK improved with iv fluid /Hyperlipidemia cont Statins Hospitalist Physical GEN: Not in acute distress, lying in bed, HEENT: Normocephalic, atraumatic, Neck: supple, No JVD Lungs: Clear , no crackles, heart;S1 and S2 reg, no murmurs, rubs or gallop Abd:soft, non tender, non distended, normal bowel sounds Ext: No edema, no clubbing, no cyanosis, Neuro: Alert and oriented, follows commands Disposition: [id number] HOME UNDER HOME [facility] Time spent for discharge: 34 minutes Core Measure Documentation - Palliative Care Palliative Care/ Comfort Measures: Not Applicable - Core Measures Any of the following diagnoses?: history only Exam - Constitutional Vitals: Temp Pulse Resp BP Pulse Ox 98.4 F 84 17 129/70 98 01/03/20 03:27 01/03/20 10:00 01/03/20 10:00 01/03/20 09:15 01/03/20 10:00 Plan Activity: fall precautions Weight Bearing Status: Non-Weight Bearing Diet: low fat, low salt, diabetic Special Instructions: record blood sugar diary Follow up with: PRIMARY CARE, [Primary Care Provider] - 7 Days NADYA PATEL MD [Staff Physician] - 7 Days Prescriptions: AtorvaSTATin [Lipitor] 40 mg PO QHS #30 tablet hydrALAZINE [Apresoline TAB] 50 mg PO Q8HR #90 tablet Aspirin EC [Halfprin EC] 81 mg PO QDAY #30 tablet. ISOSORBIDE MONOnitrate [Imdur ER] 30 mg PO QDAY #30 tablet Metoprolol [Lopressor TAB] 100 mg PO BID #60 tablet Insulin NPH/Regular [NovoLIN 70/30] 20 unit SUB-Q BIDDIAB 30 Days Clopidogrel [Plavix] 75 mg PO QDAY #30 tablet Pregabalin 75 mg PO Q12HR #20 capsule
[2020-01-03 17:37] VITALS: BP 128/70
== END 2020-01-03 19:02 | disposition home health service (06) | DRG 853 ==
LOC: ED 09:01 → CC1 12:45 → 4A 12-29 12:50
PROVIDERS: ADMIT Internal Medicine; ATTEND Internal Medicine
PROC: 0BH17EZ Insertion of Endotracheal Airway into Trachea, Via Natural or Artificial Opening (ICD-10-PCS; principal; 2019-12-25)
PROC: 5A1945Z Respiratory Ventilation, 24-96 Consecutive Hours (ICD-10-PCS; 2019-12-25)
PROC: 4A033R1 Measurement of Arterial Saturation, Peripheral, Percutaneous Approach (ICD-10-PCS; 2019-12-25)
PROC: 027135Z Dilation of Coronary Artery, Two Arteries with Two Drug-eluting Intraluminal Devices, Percutaneous Approach (ICD-10-PCS; 2020-01-02)
PROC: 4A023N7 Measurement of Cardiac Sampling and Pressure, Left Heart, Percutaneous Approach (ICD-10-PCS; 2020-01-02)
PROC: B2111ZZ Fluoroscopy of Multiple Coronary Arteries using Low Osmolar Contrast (ICD-10-PCS; 2020-01-02)
PROC: B2151ZZ Fluoroscopy of Left Heart using Low Osmolar Contrast (ICD-10-PCS; 2020-01-02)
DX: A41.9 Sepsis, unspecified organism (principal); I21.4 Non-ST elevation (NSTEMI) myocardial infarction; G93.40 Encephalopathy, unspecified; J18.9 Pneumonia, unspecified organism; J96.01 Acute respiratory failure with hypoxia; E11.10 Type 2 diabetes mellitus with ketoacidosis without coma; N17.0 Acute kidney failure with tubular necrosis; M62.82 Rhabdomyolysis; R65.20 Severe sepsis without septic shock; I47.1 Supraventricular tachycardia; E11.65 Type 2 diabetes mellitus with hyperglycemia; E78.00 Pure hypercholesterolemia, unspecified; R79.89 Other specified abnormal findings of blood chemistry; I10 Essential (primary) hypertension; Z79.4 Long term (current) use of insulin; E78.2 Mixed hyperlipidemia; I25.10 Atherosclerotic heart disease of native coronary artery without angina pectoris; I42.9 Cardiomyopathy, unspecified; Z86.73 Personal history of transient ischemic attack (TIA), and cerebral infarction without residual deficits; Z72.0 Tobacco use; Z79.899 Other long term (current) drug therapy
CPT/HCPCS: 36415; 36600; 70450; 71045; 74018; 80048; 80053; 80061; 80076; 80307; 80320; 81001; 82140; 82550; 82553; 82803; 82962; 83036; 83735; 84100; 84484; 85014; 85018; 85025; 85027; 85049; 85347; 85520; 85610; 85670; 85730; 87040; 87070; 87205; 92928; 93005; 93010; 93306; 93458; 94002; 94003; 94640; 94760; G0378; A9270-GY; C1725; C1769; C1874; C1887; C1894; C9600; G0480; J0360; J0456; J0461; J0692; J0696; J1170; J1644; J1815; J2250; J2270; J2920; J2930; J3010; J3370; J3480; J7030; J7040; J7042; J7050; J7070; Q9967

== ENCOUNTER 2020-11-24 18:56 | Emergency (ER) | payer MEDICAID ==
[~2020-11-24 18:56] MED LIST: EPINEPHrine 1 MG/10 ML SYRINGE ONE; NALOXONE 2 MG/2 ML INJ ONE; SODIUM BICARB 8.4% 50 MEQ/50 ML SYRINGE IV ONE
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
== END 2020-11-24 22:00 ==
LOC: ED 18:56
DX: I46.9 Cardiac arrest, cause unspecified (principal); I10 Essential (primary) hypertension; E11.9 Type 2 diabetes mellitus without complications; Z98.890 Other specified postprocedural states; Z86.73 Personal history of transient ischemic attack (TIA), and cerebral infarction without residual deficits; Z79.4 Long term (current) use of insulin; Z79.899 Other long term (current) drug therapy
CPT/HCPCS: 92950; 99285; J0171; J2310